=== PATIENT | male | born 1935 | race Caucasian/White ===

== ENCOUNTER 2020-06-19 16:56 | Inpatient (IN) | payer MEDICARE, SELFPAY ==
[2020-06-19 17:16] VITALS: BP 157/57; PULSE 68; RESP 16; TEMP 36.9; O2SAT 97; BMI 29.6
--- NOTE | 2020-06-19 19:08 | XR_ITS ---
EXAMINATION: XR CHEST CLINICAL INFORMATION: Shortness of breath COMPARISON: Chest x-ray 08/02/2019 TECHNIQUE: Frontal view of the chest was obtained. FINDINGS: Cardiac silhouette is normal in size. Dual-lead pacemaker is incompletely visualized. Atherosclerotic disease of the aortic arch. Lungs are well aerated. No lobar consolidation. No pleural effusion or pneumothorax. XR/XR chest 1V IMPRESSION: No acute pulmonary pathology.
--- NOTE | 2020-06-19 19:08 | ECG_ITS ---
Test Reason : CHEST DISC Blood Pressure : / mmHG Vent. Rate : 061 BPM Atrial Rate : 061 BPM P-R Int : 000 ms QRS Dur : 212 ms QT Int : 512 ms P-R-T Axes : 000 -67 107 degrees QTc Int : 515 ms Atrial-paced rhythm Left anterior fascicular block Right bundle branch block Voltage criteria for left ventricular hypertrophy Abnormal ECG When compared with ECG of 01-AUG-2019 09:33, Electronic atrial pacemaker has replaced Sinus rhythm Right bundle branch block is now Present Referred By: Niesha Ribera Electronically Signed By:DENNIS BARROW MD
[2020-06-19 20:00] VITALS: O2SAT 95
[2020-06-19 20:06] LABS: MANUAL DIFF FLAG NO
[2020-06-19 20:12] LABS: Basophils Absolute Auto 0.1 X10*3/uL (0.0-0.2); Basophils Percent Auto 0.7 % (0-2); Eosinophils Absolute Auto 0.6 X10*3/uL (0.0-0.4); Eosinophils Percent Auto 7.1 % (0-4); Hematocrit 41.2 % (42-52); Hemoglobin 13.3 g/dl (14.0-18.0); Imm Gran Abs Auto 0.02 X10*3/uL (0.00-0.03); Imm Gran Pct Auto 0.2 % (0.0-0.4); Lymphocytes Absolute Auto 1.8 X10*3/uL (1.2-4.9); Lymphocytes Percent Auto 21.9 % (20-40); Mean Corpuscular HGB Conc 32.3 g/dl (31.0-36.0); Mean Corpuscular Hemoglobin 30.2 pg (27.0-33.0); Mean Corpuscular Volume 93.6 fL (80-98); Monocytes Absolute Auto 0.9 X10*3/uL (0.1-1.2); Monocytes Percent Auto 11.5 % (2-11); Neutrophils Absolute Auto 4.8 X10*3/uL (2.0-8.3); Neutrophils Percent Auto 58.6 % (45-73); Platelet Count 156 X10*3/uL (160-400); Red Cell Distribution Width 13.2 % (11.0-16.0); White Blood Count 8.1 X10*3/uL (4.8-10.8)
[2020-06-19 20:36] LABS: Anion Gap 13 (12-20); Blood Urea Nitrogen 28 mg/dL (9-16); Calcium 8.7 mg/dL (8.4-10.2); Carbon Dioxide 25 mmol/L (22-29); Chloride 107 mmol/L (96-108); Creatinine Clr Calc Pharmacy 60.7; Estimated Glomerular Filt Rate > 60; Glucose Random 84 mg/dL (60-115); Potassium 4.3 mmol/l (3.3-5.1); Sodium 141 mmol/L (135-145)
[2020-06-19 20:49] LABS: B Type Natriuretic Peptide 943 pg/mL (<100); Troponin-I High Sensitivity 39.5 ng/L (<3.5-35.0)
[2020-06-19 21:22] LABS: Lactic Acid 1.2 mmol/L (0.5-2.0)
[2020-06-19] MEDS: Furosemide 40 MG/4 ML VIAL IVPUSH (22:20)
[2020-06-19 22:22] VITALS: BP 148/56; PULSE 62; RESP 18; O2SAT 97
--- NOTE | 2020-06-19 22:58 | PC.NURSE ---
Patient ambulated with o2sat probe. o2 sat never dipped below 95% yet patient did seem to become SOB and unable to speak complete sentences at end of ambulation trial. MD escalera
--- NOTE | 2020-06-19 23:38 | ED.SOB ---
HPI - SOB/Dyspnea General Chief Complaint: Dyspnea Stated Complaint: SOB Time Seen by Provider: 06/19/20 18:56 Source: patient Mode of arrival: ambulatory Limitations: no limitations History of Present Illness HPI Narrative: Patient came to emergency room complaining of shortness of breath with exertion. Patient states it has been going on for 1 week. Patient denies any chest pain. Patient states he has had mild cough but thinks it is unrelated to his shortness of breath. Patient denies any recent travel, no exposure to COVID-19 positive people, no vomiting or diarrhea. No fever MD elicited complaint: shortness of breath Related Data Home Medications Medication Instructions Recorded Confirmed amlodipine 1 tab PO DAILY 06/19/20 06/19/20 apixaban [Eliquis] 1 tab PO BID 06/19/20 06/19/20 aspirin 1 tab PO DAILY 06/19/20 06/19/20 atorvastatin 1 tab PO DAILY 06/19/20 06/19/20 carvedilol 1 tab PO BID 06/19/20 06/19/20 levothyroxine 1 tab PO DAILY 06/19/20 06/19/20 lisinopril 1 tab PO DAILY 06/19/20 06/19/20 tamsulosin 1 cap PO BID 06/19/20 06/19/20 Allergies Allergy/AdvReac Type Severity Reaction Status Date / Time No Known Allergies Allergy Unknown UNKNOWN Unverified 04/19/20 15:55 [NO KNOWN ALLERGIES] Review of Systems Review of Systems: Constitutional : No Weight loss, No Fever, No Chills, No Night Sweats, No Fatigue, No Malaise ENT/Mouth : No Hearing loss, No Ear Pain, No Nasal Congestion, No Sinus Pain, No Hoarseness, No sore throat, No Rhinorrhea, No Swallowing Difficulty Eyes: No Eye Pain, No Swelling, No Redness, No Foreign Body, No Discharge, No Vision Changes Cardiovascular : No Chest Pain, patient complaining of shortness of breath with exertion, orthopnea, mild lower extremity edema Respiratory : Patient complaining of occasional cough, mild Wheezing, No Smoke Exposure, No Dyspnea Gastrointestinal : No Nausea, No Vomiting, No Diarrhea, No Constipation, No abdominal Pain, No Hematochezia, No Melena Genitourinary : no irregular bleeding, No Dysuria, No Urinary Frequency, No Hematuria, No Urinary Incontinence, No Urgency, No Flank Pain, No Urinary Flow Changes, No Hesitancy Musculoskeletal : No joint pain, No Myalgias, No Joint Swelling Skin : No Skin Lesions, No rash Neuro : No Weakness, No Numbness, No Paresthesias, No Loss of Consciousness, No Dizziness, No Headache Psych : No Anxiety/Panic, No Depression, No SI/HI/AH/VH, No Social Issues, Heme/Lymph: No Bruising, No Bleeding,No Lymphadenopathy Endocrine : No Polyuria, No Polydipsia, No Temperature Intolerance [facility] Past Medical History Medical History Aortic stenosis CHF (congestive heart failure) High blood cholesterol HTN (hypertension) Myocardial infarct Pacemaker Surgical History (Updated 06/19/20 @ 20:13 by Anna العراقي) H/O heart artery stent Social History Social History Alcohol intake: never Smoking Status: Former smoker Use of substances other than those prescribed or required for medical reasons: No Advance Directives: No Advance Directives Information Provided: Yes Physical Exam Vital Signs: Vital Signs: Last Vital Signs Temp 98.4 F 06/19/20 17:16 Pulse 62 06/19/20 22:22 Resp 18 06/19/20 22:22 BP 148/56 H 06/19/20 22:22 Pulse Ox 97 06/19/20 22:22 Body Mass Index 29.6 Appearance: Alert. Oriented X3. No acute distress. Eyes: Pupils equal, round and reactive to light. ENT: Pharynx normal. Neck: Normal inspection. Neck supple. No lymph nodes noted. No crepitus CVS: Normal heart rate and rhythm. Pulses normal. Normal S1 and S2 Respiratory: Decreased breath sounds bilateral, mild occasional wheezing , seems more like cardiac wheezing Abdomen: Soft and nontender. No rigidity. No distention. good BS x4 Skin: Skin warm and dry. Normal skin color. Normal skin turgor. Extremities: No lower extremity edema. No lower extremity edema. No Lacerations. No Rash Neuro: Oriented X 3. No motor deficit. No sensory deficit. Moving all extermities. No slurred speech. Course Course Course Narrative: Patient's oxygen saturation remains above 90, mostly in the mid 90s. However, the patient walks the bathroom although his oxygen remains stable, he becomes very short of breath and is hard for him to recover presence of breath. I discussed the patient with our hospitalist, patient being admitted. Patient agrees with plan. MDM - SOB/Dyspnea Lab Data Result diagrams: 06/19/20 19:58 06/19/20 19:57 Labs: Lab Results 06/19/20 06/19/20 06/19/20 Range/Units 19:57 19:57 19:57 WBC (4.8-10.8) X10*3/uL RBC (4.60-5.80) X10*6/uL Hgb (14.0-18.0) g/dl Hct (42-52) % MCV (80-98) fL MCH (27.0-33.0) pg MCHC (31.0-36.0) g/dl RDW (11.0-16.0) % Plt Count (160-400) X10*3/uL MPV (9.4-12.4) fL Immature Gran % (Auto) (0.0-0.4) % Neut % (Auto) (45-73) % Lymph % (Auto) (20-40) % [place] % (Auto) (2-11) % Eos % (Auto) (0-4) % Baso % (Auto) (0-2) % Lymph # (Auto) (1.2-4.9) X10*3/uL [place] # (Auto) (0.1-1.2) X10*3/uL Eos # (Auto) (0.0-0.4) X10*3/uL Baso # (Auto) (0.0-0.2) X10*3/uL Abs Immat Gran (auto) (0.00-0.03) X10*3/uL Absolute Neuts (auto) (2.0-8.3) X10*3/uL Absolute Nucleated RBC (0.0-0.012) X10*3/uL Nucleated RBC % (auto) (0.0-0.2) /100WBC Sodium 141 (135-145) mmol/L Potassium 4.3 (3.3-5.1) mmol/l Chloride 107 (96-108) mmol/L Carbon Dioxide 25 (22-29) mmol/L Anion Gap 13 (12-20) BUN 28 H (9-16) mg/dL Creatinine 0.93 (0.5-1.4) mg/dL Estim Creat Clear Calc 60.7 Estimated GFR > 60 Random Glucose 84 (60-115) mg/dL Lactic Acid Cancelled Calcium 8.7 (8.4-10.2) mg/dL Troponin I High Sens 39.5 H (<3.5-35.0) ng/L B-Natriuretic Peptide 943 H (<100) pg/mL 06/19/20 06/19/20 Range/Units 19:58 20:53 WBC 8.1 (4.8-10.8) X10*3/uL RBC 4.40 L (4.60-5.80) X10*6/uL Hgb 13.3 L (14.0-18.0) g/dl Hct 41.2 L (42-52) % MCV 93.6 (80-98) fL MCH 30.2 (27.0-33.0) pg MCHC 32.3 (31.0-36.0) g/dl RDW 13.2 (11.0-16.0) % Plt Count 156 L (160-400) X10*3/uL MPV 12.0 (9.4-12.4) fL Immature Gran % (Auto) 0.2 (0.0-0.4) % Neut % (Auto) 58.6 (45-73) % Lymph % (Auto) 21.9 (20-40) % [place] % (Auto) 11.5 H (2-11) % Eos % (Auto) 7.1 H (0-4) % Baso % (Auto) 0.7 (0-2) % Lymph # (Auto) 1.8 (1.2-4.9) X10*3/uL [place] # (Auto) 0.9 (0.1-1.2) X10*3/uL Eos # (Auto) 0.6 H (0.0-0.4) X10*3/uL Baso # (Auto) 0.1 (0.0-0.2) X10*3/uL Abs Immat Gran (auto) 0.02 (0.00-0.03) X10*3/uL Absolute Neuts (auto) 4.8 (2.0-8.3) X10*3/uL Absolute Nucleated RBC 0.000 (0.0-0.012) X10*3/uL Nucleated RBC % (auto) 0.0 (0.0-0.2) /100WBC Sodium (135-145) mmol/L Potassium (3.3-5.1) mmol/l Chloride (96-108) mmol/L Carbon Dioxide (22-29) mmol/L Anion Gap (12-20) BUN (9-16) mg/dL Creatinine (0.5-1.4) mg/dL Estim Creat Clear Calc Estimated GFR Random Glucose (60-115) mg/dL Lactic Acid 1.2 Calcium (8.4-10.2) mg/dL Troponin I High Sens (<3.5-35.0) ng/L B-Natriuretic Peptide (<100) pg/mL ECG Data Attestation: I personally reviewed and interpreted this ECG as follows: (Atrial paced rhythm, heart rate 61, QTC 515, ) Discharge Plan Discharge Clinical Impression: Congestive heart failure Qualifiers: Heart failure type: unspecified Heart failure chronicity: unspecified Qualified Code(s): I50.9 - Heart failure, unspecified Patient Disposition: Admitted As Inpatient
[2020-06-20] VITALS (8 sets, daily range): BP systolic 110–162; BP diastolic 49–81; PULSE 60–81; RESP 18–20; TEMP 36.4–36.7; O2SAT 94–97; BMI 27.3
[2020-06-20 00:40] LABS: COVID-19 Test Negative (Negative)
--- NOTE | 2020-06-20 00:49 | P.HPHOSP_ITS ---
History of Present Illness Date of Service: 06/20/20 Chief Complaint: SOB 85 y/o male with PMHX of HTN, HLP, Hypothyroidism and BPH who presented from home due to SOB. Per history provided by the patient, for the past 6 days has been having worsening difficulty breathing which is present more during exertion. Patient reports that now is unable to even walk for a short distance or even go up the stairs without feeling really fatigue. Patient denies any orthopnea or PND. Denies any chest pain, nausea, vomiting, diarrhea, cough or fever. On presentation to the ED BP is noted to be running elevated, Labs showing BNP of ~900, Initial troponin of 39.5, CXR clear, EKG shows evidence of inferior wall DE in the past and RBBB, no evidence of any acute changes. One dose of lasix given IV per ED and decision for admission given. PMHX: HTN, CAD s/p stent placement, second degree AV block s/p PPM,Hypothyroidism, BPH PSx: PCI, PPM Toxic habits: Denies smoking, alcohol abuse or drug abuse Review of Systems Cardiovascular: Cardiovascular: Reports dyspnea Respiratory: Respiratory: Reports dyspnea [facility] Medical History Aortic stenosis CHF (congestive heart failure) High blood cholesterol HTN (hypertension) Myocardial infarct Pacemaker Functional capacity: independent ambulation Surgical History H/O heart artery stent Social History Alcohol intake: never Smoking Status: Former smoker Use of substances other than those prescribed or required for medical reasons: No Advance Directives: No Advance Directives Information Provided: Yes Meds Allergies Allergy/AdvReac Type Severity Reaction Status Date / Time No Known Allergies Allergy Unknown UNKNOWN Unverified 04/19/20 15:55 [NO KNOWN ALLERGIES] Home Medications Medication Instructions Recorded Confirmed Type amlodipine 1 tab PO DAILY 06/19/20 06/19/20 History apixaban [Eliquis] 1 tab PO BID 06/19/20 06/19/20 History aspirin 1 tab PO DAILY 06/19/20 06/19/20 History atorvastatin 1 tab PO DAILY 06/19/20 06/19/20 History carvedilol 1 tab PO BID 06/19/20 06/19/20 History levothyroxine 1 tab PO DAILY 06/19/20 06/19/20 History lisinopril 1 tab PO DAILY 06/19/20 06/19/20 History tamsulosin 1 cap PO BID 06/19/20 06/19/20 History Physical Exam Vital Signs and Narrative: Vital Signs: Last Vital Signs Temp 98.4 F 06/19/20 17:16 Pulse 60 06/20/20 00:44 Resp 18 06/20/20 00:44 BP 162/57 H 06/20/20 00:44 Pulse Ox 95 06/20/20 00:44 Body Mass Index 29.6 Const: General: cooperative, comfortable and no acute distress Orientation/consciousness: oriented to person, oriented to place and oriented to time HENMT: Head: Yes normal to inspection Eyes: General: appearance normal, both eyes and all related structures Neck: Yes normal visual inspection Chest: Chest palpation & inspection: normal inspection of the chest Resp: Effort & Inspection: normal respiratory effort Auscultation: clear to auscultation bilaterally Cardio: Jugular venous distension: no JVD Rate: regular rate Rhythm: regular rhythm Heart sounds: S1 normal heart sound present and S2 normal heart sound present GI: Inspection: Yes normal to inspection Skin: General skin exam: no rashes or lesions noted Neuro: General: oriented to person, oriented to place and oriented to time Cognition (Neuro): normal cognition Motor exam (neuro): 5/5 motor strength present throughout Extrem: General: Yes other (pitting edema +1) Results Labs CBC and Chem 7: 06/19/20 19:58 06/19/20 19:57 Labs: Laboratory Results - last 24 hr 06/19/20 06/19/20 06/19/20 19:57 19:57 19:57 MCV MCH MCHC RDW Plt Count MPV Immature Gran % (Auto) Neut % (Auto) Lymph % (Auto) [place] % (Auto) Eos % (Auto) Baso % (Auto) Lymph # (Auto) [place] # (Auto) Eos # (Auto) Baso # (Auto) Abs Immat Gran (auto) Absolute Neuts (auto) Absolute Nucleated RBC Nucleated RBC % (auto) Anion Gap 13 Estim Creat Clear Calc 60.7 Estimated GFR > 60 Random Glucose 84 Lactic Acid Cancelled Calcium 8.7 Troponin I High Sens 39.5 H B-Natriuretic Peptide 943 H COVID-19 (SARAHI) COVID-19 Clin Com 06/19/20 06/19/20 06/20/20 19:58 20:53 00:05 MCV 93.6 MCH 30.2 MCHC 32.3 RDW 13.2 Plt Count 156 L MPV 12.0 Immature Gran % (Auto) 0.2 Neut % (Auto) 58.6 Lymph % (Auto) 21.9 [place] % (Auto) 11.5 H Eos % (Auto) 7.1 H Baso % (Auto) 0.7 Lymph # (Auto) 1.8 [place] # (Auto) 0.9 Eos # (Auto) 0.6 H Baso # (Auto) 0.1 Abs Immat Gran (auto) 0.02 Absolute Neuts (auto) 4.8 Absolute Nucleated RBC 0.000 Nucleated RBC % (auto) 0.0 Anion Gap Estim Creat Clear Calc Estimated GFR Random Glucose Lactic Acid 1.2 Calcium Troponin I High Sens B-Natriuretic Peptide COVID-19 (SARAHI) Negative COVID-19 Clin Com See Note Imaging Radiologist's Impressions: Impressions Chest X-Ray 06/19/20 19:08 IMPRESSION: No acute pulmonary pathology. Assessment and Plan (1) CHF exacerbation: Status: Acute start with lasix 20 mg IV BID for now tele monitor follow up 2D echo in the am daily weights fluid restriction monitor I and O's Cardiology consult in the am (2) HTN (hypertension): Status: Acute continue with home BP meds continue with aspirin home dose and eliquis (3) High blood cholesterol: Status: Acute continue with statin home dose (4) Hypothyroidism: Status: Acute continue with levothyroxine home dose (5) BPH (benign prostatic hyperplasia): Status: Acute continue with flomax home dose
[2020-06-20] MEDS: Levothyroxine Sodium 100 MCG TABLET PO (05:35)
[2020-06-20 06:26] LABS: MANUAL DIFF FLAG NO
[2020-06-20 06:47] LABS: Basophils Absolute Auto 0.1 X10*3/uL (0.0-0.2); Basophils Percent Auto 0.7 % (0-2); Eosinophils Absolute Auto 0.6 X10*3/uL (0.0-0.4); Eosinophils Percent Auto 7.6 % (0-4); Hematocrit 40.3 % (42-52); Hemoglobin 13.4 g/dl (14.0-18.0); Imm Gran Abs Auto 0.02 X10*3/uL (0.00-0.03); Imm Gran Pct Auto 0.3 % (0.0-0.4); Lymphocytes Absolute Auto 1.5 X10*3/uL (1.2-4.9); Lymphocytes Percent Auto 19.9 % (20-40); Mean Corpuscular HGB Conc 33.3 g/dl (31.0-36.0); Mean Corpuscular Hemoglobin 30.8 pg (27.0-33.0); Mean Corpuscular Volume 92.6 fL (80-98); Mean Platelet Volume 12.5 fL (9.4-12.4); Neutrophils Absolute Auto 4.5 X10*3/uL (2.0-8.3); Neutrophils Percent Auto 58.5 % (45-73); Platelet Count 161 X10*3/uL (160-400); Red Blood Count 4.35 X10*6/uL (4.60-5.80); Red Cell Distribution Width 13.1 % (11.0-16.0); White Blood Count 7.6 X10*3/uL (4.8-10.8)
[2020-06-20 07:09] LABS: Anion Gap 16 (12-20); Blood Urea Nitrogen 26 mg/dL (9-16); Calcium 8.6 mg/dL (8.4-10.2); Carbon Dioxide 25 mmol/L (22-29); Chloride 104 mmol/L (96-108); Creatinine Clr Calc Pharmacy 46.7; Estimated Glomerular Filt Rate > 60; Glucose Random 83 mg/dL (60-115); Potassium 3.9 mmol/l (3.3-5.1); Sodium 141 mmol/L (135-145)
[2020-06-20] MEDS: Furosemide 20 MG/2 ML VIAL IVPUSH ×2 (08:19→20:24)
[2020-06-20] MEDS: Aspirin Enteric Coated 81 MG TABLET.DR PO (08:20)
[2020-06-20] MEDS: 0.9 % Sodium Chloride Flush 3 ML SYRINGE IVFLUSH ×3 (08:20→20:24)
[2020-06-20] MEDS: lisinopriL 20 MG TABLET PO (08:20)
[2020-06-20] MEDS: Atorvastatin Calcium 80 MG TABLET PO (08:20)
[2020-06-20] MEDS: Apixaban 5 MG TABLET PO ×2 (08:20→20:24)
[2020-06-20] MEDS: Tamsulosin HCL 0.4 MG CAPSULE PO ×2 (08:21→20:24)
[2020-06-20] MEDS: carvediloL 6.25 MG TABLET PO ×2 (08:21→16:15)
[2020-06-20] MEDS: amLODIPine Besylate 5 MG TABLET PO (08:21)
--- NOTE | 2020-06-20 08:42 | MHC.CM.PN ---
CM met with Patient. 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 Patient's goal is to return home and resume MOWs and CM has initiated and will follow for dc planning. [place] addressed with Patient and the original has been given to him and a copy has been placed on the chart. PCP is Dr. Nirali Boo and Patient is not interested in filling out a HCP. Patient's is LTC @ [facility], in [place]. Patient also visits [facility] [employer] across the street from where he lives.
--- NOTE | 2020-06-20 10:16 | P.CONCA_ITS ---
History of Present Illness History of Present Illness Date of Consult: June 20, 2020 Chief complaint: CHF exacerbation Narrative: This is a cardiology consultation regarding shortness of breath. This is a patient of Dr. Mast. Last appointment was in March of this year. At that time based on the notes, he was doing okay without any specific cardiac symptoms. He has had chronic exertion shortness of breath which was apparently stable at that time. He has a history of coronary disease and multiple PCI as well as paroxysmal atrial flutter and a pacemaker. He also has a history of aortic stenosis but not severe. Current admission is for increasing shortness of breath over the last few days. He states that even walking a very short distance like to just a few feet was making him short of breath. No clear anginal-type symptoms. No palpitations or dizzy spells or syncopal episodes. He was then subsequently admitted for further care. Review of Systems Review of Systems: Cardiac- positive for shortness of breath; negative angina; negative for palpitations or dizzy spells or syncopal episodes; Yes all other systems are reviewed and are negative [facility] Past Medical History Medical History (Updated 06/20/20 @ 10:25 by Pedro Alexander MD) Acute on chronic diastolic (congestive) heart failure Aortic stenosis Atherosclerotic cardiovascular disease CHF (congestive heart failure) High blood cholesterol HTN (hypertension) Myocardial infarct Non-rheumatic aortic regurgitation Non-rheumatic aortic stenosis Pacemaker Paroxysmal atrial flutter Functional capacity: independent ambulation Family History Pertinent family history: No significant family history pertinent to this admission. Surgical History Surgical History H/O heart artery stent Social History Social History Alcohol intake: never Smoking Status: Former smoker Use of substances other than those prescribed or required for medical reasons: No Advance Directives: No Advance Directives Information Provided: Yes service: Yes ([employer]) Current occupational status: retired Meds Allergies Allergy/AdvReac Type Severity Reaction Status Date / Time No Known Allergies Allergy Unknown UNKNOWN Verified 06/20/20 03:53 [NO KNOWN ALLERGIES] Home Medications Medication Instructions Recorded Confirmed Type amlodipine 1 tab PO DAILY 06/19/20 06/19/20 History apixaban [Eliquis] 1 tab PO BID 06/19/20 06/19/20 History aspirin 1 tab PO DAILY 06/19/20 06/19/20 History atorvastatin 1 tab PO DAILY 06/19/20 06/19/20 History carvedilol 1 tab PO BID 06/19/20 06/19/20 History levothyroxine 1 tab PO DAILY 06/19/20 06/19/20 History lisinopril 1 tab PO DAILY 06/19/20 06/19/20 History tamsulosin 1 cap PO BID 06/19/20 06/19/20 History Physical Exam Vital Signs: Vital Signs: Last Vital Signs Temp 97.7 F 06/20/20 07:49 Pulse 65 06/20/20 07:49 Resp 20 06/20/20 07:49 BP 111/55 L 06/20/20 07:49 Pulse Ox 95 06/20/20 07:49 Body Mass Index 27.3 Comfortable, no distress No pallor, icterus or cyanosis HEENT -unremarkable JVD- normal Cardiac- normal heart sounds, 3/6 LYN aortic area, no gallops or rubs Respiratory-scattered rhonchi Abdomen- soft, nontender Neuro- alert and oriented Lower extremities- 1+ edema, warm well perfused Results Labs and Meds Result diagrams: 06/20/20 05:29 06/20/20 05:29 Lab results: Laboratory Results - last 24 hr 06/19/20 06/19/20 06/19/20 19:57 19:57 19:57 WBC RBC Hgb Hct MCV MCH MCHC RDW Plt Count MPV Immature Gran % (Auto) Neut % (Auto) Lymph % (Auto) [place] % (Auto) Eos % (Auto) Baso % (Auto) Lymph # (Auto) [place] # (Auto) Eos # (Auto) Baso # (Auto) Abs Immat Gran (auto) Absolute Neuts (auto) Absolute Nucleated RBC Nucleated RBC % (auto) Sodium 141 Potassium 4.3 Chloride 107 Carbon Dioxide 25 Anion Gap 13 BUN 28 H Creatinine 0.93 Estim Creat Clear Calc 60.7 Estimated GFR > 60 Random Glucose 84 Lactic Acid Cancelled Calcium 8.7 Troponin I High Sens 39.5 H B-Natriuretic Peptide 943 H COVID-19 (SARAHI) COVID-19 Clin Com 06/19/20 06/19/20 06/20/20 19:58 20:53 00:05 WBC 8.1 RBC 4.40 L Hgb 13.3 L Hct 41.2 L MCV 93.6 MCH 30.2 MCHC 32.3 RDW 13.2 Plt Count 156 L MPV 12.0 Immature Gran % (Auto) 0.2 Neut % (Auto) 58.6 Lymph % (Auto) 21.9 [place] % (Auto) 11.5 H Eos % (Auto) 7.1 H Baso % (Auto) 0.7 Lymph # (Auto) 1.8 [place] # (Auto) 0.9 Eos # (Auto) 0.6 H Baso # (Auto) 0.1 Abs Immat Gran (auto) 0.02 Absolute Neuts (auto) 4.8 Absolute Nucleated RBC 0.000 Nucleated RBC % (auto) 0.0 Sodium Potassium Chloride Carbon Dioxide Anion Gap BUN Creatinine Estim Creat Clear Calc Estimated GFR Random Glucose Lactic Acid 1.2 Calcium Troponin I High Sens B-Natriuretic Peptide COVID-19 (SARAHI) Negative COVID-19 Clin Com See Note 06/20/20 06/20/20 05:29 05:29 WBC 7.6 RBC 4.35 L Hgb 13.4 L Hct 40.3 L MCV 92.6 MCH 30.8 MCHC 33.3 RDW 13.1 Plt Count 161 MPV 12.5 H Immature Gran % (Auto) 0.3 Neut % (Auto) 58.5 Lymph % (Auto) 19.9 L [place] % (Auto) 13.0 H Eos % (Auto) 7.6 H Baso % (Auto) 0.7 Lymph # (Auto) 1.5 [place] # (Auto) 1.0 Eos # (Auto) 0.6 H Baso # (Auto) 0.1 Abs Immat Gran (auto) 0.02 Absolute Neuts (auto) 4.5 Absolute Nucleated RBC 0.000 Nucleated RBC % (auto) 0.0 Sodium 141 Potassium 3.9 Chloride 104 Carbon Dioxide 25 Anion Gap 16 BUN 26 H Creatinine 1.08 Estim Creat Clear Calc 46.7 Estimated GFR > 60 Random Glucose 83 Lactic Acid Calcium 8.6 Troponin I High Sens B-Natriuretic Peptide COVID-19 (SARAHI) COVID-19 Clin Com Assessment and Plan (1) Acute on chronic diastolic (congestive) heart failure: Status: Acute (2) Non-rheumatic aortic stenosis: Status: Acute (3) Non-rheumatic aortic regurgitation: Status: Acute (4) Atherosclerotic cardiovascular disease: Status: Acute (5) Paroxysmal atrial flutter: Status: Acute Clinically, he appears volume overloaded. EKG shows dual-chamber pacing at 62/Min. High sensitivity troponin slightly elevated. Cardiac BNP is clearly elevated. We can treat him for acute on chronic diastolic CHF. Last LVEF from 2019 at 45-50%.; mild aortic stenosis and moderate aortic regurgitation. We can repeat an echocardiogram. Continue IV diuretics. Will follow up with you. Procedures Abscess I/D Date of Service: 06/20/20
--- NOTE | 2020-06-20 10:17 | ECG_ITS ---
Test Reason : REPEAT Blood Pressure : / mmHG Vent. Rate : 062 BPM Atrial Rate : 062 BPM P-R Int : 240 ms QRS Dur : 208 ms QT Int : 506 ms P-R-T Axes : 000 -71 103 degrees QTc Int : 513 ms Atrial-paced rhythm with prolonged AV conduction Left anterior fascicular block Right bundle branch block Left ventricular hypertrophy with repolarization abnormality Abnormal ECG When compared with ECG of 19-JUN-2020 20:05, No significant change was found Referred By: Francine Ybarra Electronically Signed By:DENNIS BARROW MD
[2020-06-20 12:14] LABS: Troponin-I High Sensitivity 46.3 ng/L (<3.5-35.0)
--- NOTE | 2020-06-20 12:33 | HO.PM.IMPN ---
Subjective Subjective Date of Service: 06/20/20 Interval History: Admitted for SOB/CHF Breathing improved. Episode of dizziness/feeling woozy this am, transient and resolved. Denied SOB, chest pain. Review of Systems Review of Systems: Yes all other systems are reviewed and are negative Constitutional Constitutional: Denies chills and Denies fever(s) Cardiovascular Cardiovascular: Denies chest pain Respiratory Respiratory: Denies cough Gastrointestinal Gastrointestinal: Denies abdominal pain Physical Exam Vital Signs: Vital Signs: Last Vital Signs Temp 97.6 F 06/20/20 10:29 Pulse 64 06/20/20 11:06 Resp 18 06/20/20 11:06 BP 112/53 L 06/20/20 11:06 Pulse Ox 96 06/20/20 11:06 Body Mass Index 27.3 Const: Nutritional Appearance: well nourished Orientation/consciousness: patient oriented x3 HENMT: Head: Yes normocephalic and Yes atraumatic Eyes: Sclerae: sclerae normal Chest: Chest palpation & inspection: normal inspection of the chest Resp: Effort & Inspection: normal respiratory effort and no respiratory distress Auscultation: clear to auscultation bilaterally Cardio: Rate: regular rate Rhythm: regular rhythm Heart sounds: Murmur heart sound present GI: Palpation (GI): Soft to palpation and nontender Skin: General skin exam: no rashes or lesions noted Neuro: General: patient oriented x3 Cranial nerves: Yes CN's II-XII intact bilaterally and Yes Bilaterally intact EOM present Extrem: Other: trace edema b/l Objective Data Current Medications Generic Name Dose Route Start Last Admin Trade Name Freq PRN Reason Stop Dose Admin Amlodipine Besylate 5 mg 06/20/20 09:00 06/20/20 08:21 Amlodipine Besylate 5 Mg Tablet PO 5 mg DAILY ABELARDO Administration Protocol Apixaban 5 mg 06/20/20 09:00 06/20/20 08:20 Apixaban 5 Mg Tablet PO 5 mg BID ABELARDO Administration Aspirin 81 mg 06/20/20 09:00 06/20/20 08:20 Aspirin Enteric Coated 81 Mg Tablet.Dr PO 81 mg DAILY ABELARDO Administration Atorvastatin Calcium 80 mg 06/20/20 09:00 06/20/20 08:20 Atorvastatin Calcium 80 Mg Tablet PO 80 mg DAILY ABELARDO Administration Carvedilol 6.25 mg 06/20/20 08:00 06/20/20 08:21 Carvedilol 6.25 Mg Tablet PO 6.25 mg BIDWM ABELARDO Administration Protocol Furosemide 20 mg 06/20/20 09:00 06/20/20 08:19 Furosemide 20 Mg/2 Ml Vial IVPUSH 20 mg BID ABELARDO Administration Protocol Levothyroxine Sodium 100 mcg 06/20/20 06:00 06/20/20 05:35 Levothyroxine Sodium 100 Mcg Tablet PO 100 mcg DAILY@0600 ABELARDO Administration Lisinopril 20 mg 06/20/20 09:00 06/20/20 08:20 Lisinopril 20 Mg Tablet PO 20 mg DAILY ABELARDO Administration Protocol Pharmacy Consult 1 each 06/19/20 23:36 Consult Rx Perform Med Rec MISCELLANE ONCE PRN Consult order Sodium Chloride 3 ml 06/20/20 08:00 06/20/20 08:20 0.9 % Sodium Chloride Flush 3 Ml Syringe IVFLUSH 3 ml QSHIFT ABELARDO Administration Tamsulosin HCl 0.4 mg 06/20/20 09:00 06/20/20 08:21 Tamsulosin Hcl 0.4 Mg Capsule PO 0.4 mg BID ABELARDO Administration Labs CBC & Chem 7: 06/20/20 05:29 06/20/20 05:29 Assessment and Plan (1) Paroxysmal atrial flutter: Status: Acute (2) CHF exacerbation: Status: Acute (3) Hypothyroidism: Status: Acute (4) BPH (benign prostatic hyperplasia): Status: Acute Assessment and Plan: this is an 85-year-old male with a history of CHF, CAD, PAF on Elquis, hypertension, dyslipidemia, hypothyroidism, BPH, her block status post pacemaker who presents with a shortness of breath found to have CHF acute on chronic CHF. SOB improving Continue IV diuresis (not on home diuretics?) Last EF from 2019 45-50%, repeat ECHO pending Cardiology following PAF HR controlled, Continue BB AC with Eliquis hypertension BP controlled Continue Lisinopril, coreg, Norvasc hyperlipidemia Continue statin hypothyroidism Continue hypothyroidism BPH Continue Flomax DVT ppx - eliquis this case is discussed with Dr. Hidalgo
--- NOTE | 2020-06-20 15:30 | PM.EVENT ---
Event Note Date of Service: 06/20/20 Event Note: Addendum mid level progress note I saw and examined the patient and participated in the phillips portion of the E/M service. I agree with the evaluated and management as documented by PA in progress note unless otherwise stated. Exam: mild leg edema, no rales. Patient has acute heart failure, in setting of PAF. Continue management as outlined in progress note including IV diuretics, echo, cardiology consult. O/w I agree with assesment and plan as outlined in progress note by Louisa Ybarra
[2020-06-21] VITALS (8 sets, daily range): BP systolic 111–132; BP diastolic 52–60; PULSE 60–87; RESP 18–20; TEMP 36–36.6; O2SAT 92–96
--- NOTE | 2020-06-21 02:53 | CA_ITS ---
Transthoracic Echocardiogram Patient (Last, First, Middle): Tato Duke, Gender: Male Date of : 1935 Age: 85 Procedure Date: 06/21/2020 Procedure Type: Transthoracic Echocardiogram Location[place] [facility] [place]: 170.18 cm Weight: 78.93 kg BSA: 1.91 m2 Heart Rate: bpm BP: 111 / 53 mmHg Floor Waxer: DSHerman Referring MD: Yusef Nichols MD Symptoms: CHF Study Quality: Fair ECG Rhythm: Undetermined Conclusions: - The left ventricular systolic function is mild to moderately decreased. The visually estimated ejection fraction is between 40-45%. - There is moderate calcification of the aortic valve. There is mild to moderate aortic valve stenosis. - There is mild mitral valve regurgitation. Findings Left Ventricle Normal left ventricular cavity size. There is mildly increased left ventricular wall thickness. The left ventricular systolic function is mild to moderately decreased. The visually estimated ejection fraction is between 40-45%. There is mild global hypokinesis. E/E prime ratio is between 8 and 15 consistent with indeterminate filling pressures. Evidence suggests grade I (mild) diastolic dysfunction. Right Ventricle Normal right ventricular cavity size and systolic function. Atria The left atrium is normal in size. The right atrium is normal in size. Aortic Valve There is moderate calcification of the aortic valve. There is mild to moderate aortic valve stenosis. The peak aortic velocity is 2.67 m/s with a calculated peak gradient of 29 mmHg. The mean gradient is 17 mmHg. The aortic valve area is 1.50 cm2. There is mild aortic valve regurgitation. Mitral Valve There is mild mitral annular calcification. There is mild mitral valve regurgitation. There is no mitral valve stenosis. Pulmonic Valve The pulmonic valve was not well visualized. Tricuspid Valve Normal tricuspid valve structure. There is trace tricuspid valve regurgitation. The pulmonary artery systolic pressure is normal. Great Vessels The aortic annulus, sinuses of valsalva, and asc aorta are normal in size. Venous The inferior vena cava is normal in size and collapses greater than 50% with inspiration. Pericardium/Pleural There is no evidence of pericardial effusion. Prior Study Comparison No significant change compared to prior study dated: 06/01/2019. Measurements 2D Linear Measurements IVSd: 1.40 0.6-0.9/0.6-1.0 cm LVIDd: 5.97 3.9-5.3/4.2-5.9 cm LVIDd Index: 3.13 2.4-3.2/2.2-3.1 cm/m2 LVIDs: 4.48 2.0-3.6 cm LVPWd: 1.16 0.7-1.1 cm Ao Root: 2.60 2.1-3.5 cm LA Diam: 4.20 2.7-3.8/3.0-4.0 cm LAIDs Index: 2.20 1.5-2.3 cm/m2 LV Mass: 424.19 67-162/88-224 g LV Mass Index: 222.09 43-95/49-115 g/m2 LVOT Diam: 2.00 3.0+(-)1.3 cm 2D Systolic Function EF 4C: 50.10 >55% EF 2C: 42.70 >55% EF BiP: 46.20 >55% Mitral Valve MV Pk E: 0.63 MV PK A: 1.01 MV Decel Time: 130.00 E/A: 0.60 E'Lateral: 3.67 E'Medial: 5.80 E/E' Med: 10.80 E/E' Lat: 17.10 PHT: 38.00 MVA PHT: 5.79 Decel Jefferson: 4.80 Aortic Valve AoV Pk Yony: 2.67 AoV Pk Grad: 29.00 Aov Mn Grad: 17.00 KOFI Cont.VTI: 1.50 AI Pk Yony: 3.03 AI Jefferson: 1.47 LVOT LVOT Pk Yony: 2.00 LVOT Mn Yony: 1.35 LVOT VTI: 0.41 LVOT Pk Grad: 16.00 LVOT Mn Grad: 10.00 LVOT Diam: 2.00 LVOT Area: 3.14 Diastolic Function MV Pk E: 0.63 MV Pk A: 1.01 E/A: 0.60 E'Medial: 5.80 E/E' Med: 10.80 E' Laterial: 3.67 E/E' Lat: 17.10 Tricuspid Valve TR Pk Yony: 2.47 TR Pk Grad: 24.00 RA Press: 3.00 RVSP: 27.00 Great Vessels Aorta Ao Root-2D: 2.60 2.0-3.7 cm Ao Asc: 3.70 2.1-3.4 cm Updated in Other Vendor System with Status of Final Pedro Alexander MD electronically signed on 06/21/2020 4:31:58 PM with status of Final
[2020-06-21] MEDS: Levothyroxine Sodium 100 MCG TABLET PO (06:09)
[2020-06-21 06:43] LABS: MANUAL DIFF FLAG NO
[2020-06-21 06:56] LABS: Basophils Absolute Auto 0.1 X10*3/uL (0.0-0.2); Basophils Percent Auto 0.6 % (0-2); Eosinophils Absolute Auto 0.5 X10*3/uL (0.0-0.4); Eosinophils Percent Auto 5.5 % (0-4); Hematocrit 38.9 % (42-52); Hemoglobin 12.7 g/dl (14.0-18.0); Imm Gran Abs Auto 0.02 X10*3/uL (0.00-0.03); Imm Gran Pct Auto 0.2 % (0.0-0.4); Lymphocytes Absolute Auto 1.8 X10*3/uL (1.2-4.9); Lymphocytes Percent Auto 21.8 % (20-40); Mean Corpuscular HGB Conc 32.6 g/dl (31.0-36.0); Mean Corpuscular Volume 91.7 fL (80-98); Mean Platelet Volume 12.7 fL (9.4-12.4); Monocytes Absolute Auto 1.1 X10*3/uL (0.1-1.2); Monocytes Percent Auto 13.2 % (2-11); Neutrophils Absolute Auto 4.8 X10*3/uL (2.0-8.3); Neutrophils Percent Auto 58.7 % (45-73); Platelet Count 157 X10*3/uL (160-400); Red Blood Count 4.24 X10*6/uL (4.60-5.80); Red Cell Distribution Width 13.1 % (11.0-16.0); White Blood Count 8.2 X10*3/uL (4.8-10.8)
[2020-06-21 07:32] LABS: B Type Natriuretic Peptide 345 pg/mL (<100)
[2020-06-21 07:37] LABS: Anion Gap 14 (12-20); Blood Urea Nitrogen 39 mg/dL (9-16); Calcium 8.3 mg/dL (8.4-10.2); Carbon Dioxide 27 mmol/L (22-29); Chloride 101 mmol/L (96-108); Creatinine Clr Calc Pharmacy 37.1; Estimated Glomerular Filt Rate 50; Glucose Random 84 mg/dL (60-115); Potassium 3.8 mmol/l (3.3-5.1); Sodium 138 mmol/L (135-145)
[2020-06-21] MEDS: amLODIPine Besylate 5 MG TABLET PO (08:50)
[2020-06-21] MEDS: Aspirin Enteric Coated 81 MG TABLET.DR PO (08:50)
[2020-06-21] MEDS: Atorvastatin Calcium 80 MG TABLET PO (08:50)
[2020-06-21] MEDS: Tamsulosin HCL 0.4 MG CAPSULE PO ×2 (08:50→20:19)
[2020-06-21] MEDS: carvediloL 6.25 MG TABLET PO ×2 (08:50→16:43)
[2020-06-21] MEDS: Apixaban 5 MG TABLET PO ×2 (08:50→20:19)
[2020-06-21] MEDS: Furosemide 20 MG/2 ML VIAL IVPUSH ×2 (08:51→20:18)
[2020-06-21] MEDS: 0.9 % Sodium Chloride Flush 3 ML SYRINGE IVFLUSH ×3 (09:25→20:19)
--- NOTE | 2020-06-21 12:14 | P.PNCA_ITS ---
Subjective Subjective Interval history: He states that his breathing is better. Not as short of breath as before. Review of Systems Review of Systems Cardiac- positive for shortness of breath; negative angina; negative for palpitations or dizzy spells or syncopal episodes; Yes all other systems are reviewed and are negative Physical Exam Vital Signs: Last Vital Signs Temp 97.7 F 06/20/20 07:49 Pulse 65 06/20/20 07:49 Resp 20 06/20/20 07:49 BP 111/55 L 06/20/20 07:49 Pulse Ox 95 06/20/20 07:49 Body Mass Index 27.3 Comfortable, no distress No pallor, icterus or cyanosis HEENT -unremarkable JVD- normal Cardiac- normal heart sounds, 3/6 LYN aortic area, no gallops or rubs Respiratory-scattered rhonchi Abdomen- soft, nontender Neuro- alert and oriented Lower extremities- 1+ edema, warm well perfused Results Labs and Meds Result diagrams: 06/21/20 05:50 06/21/20 05:50 Lab results: Laboratory Results - last 24 hr 06/20/20 06/21/20 06/21/20 10:57 05:49 05:50 WBC 8.2 RBC 4.24 L Hgb 12.7 L Hct 38.9 L MCV 91.7 MCH 30.0 MCHC 32.6 RDW 13.1 Plt Count 157 L MPV 12.7 H Immature Gran % (Auto) 0.2 Neut % (Auto) 58.7 Lymph % (Auto) 21.8 [place] % (Auto) 13.2 H Eos % (Auto) 5.5 H Baso % (Auto) 0.6 Lymph # (Auto) 1.8 [place] # (Auto) 1.1 Eos # (Auto) 0.5 H Baso # (Auto) 0.1 Abs Immat Gran (auto) 0.02 Absolute Neuts (auto) 4.8 Absolute Nucleated RBC 0.000 Nucleated RBC % (auto) 0.0 Sodium Potassium Chloride Carbon Dioxide Anion Gap BUN Creatinine Estim Creat Clear Calc Estimated GFR Random Glucose Calcium Troponin I High Sens 46.3 H B-Natriuretic Peptide 345 H 06/21/20 05:50 WBC RBC Hgb Hct MCV MCH MCHC RDW Plt Count MPV Immature Gran % (Auto) Neut % (Auto) Lymph % (Auto) [place] % (Auto) Eos % (Auto) Baso % (Auto) Lymph # (Auto) [place] # (Auto) Eos # (Auto) Baso # (Auto) Abs Immat Gran (auto) Absolute Neuts (auto) Absolute Nucleated RBC Nucleated RBC % (auto) Sodium 138 Potassium 3.8 Chloride 101 Carbon Dioxide 27 Anion Gap 14 BUN 39 H Creatinine 1.36 Estim Creat Clear Calc 37.1 Estimated GFR 50 Random Glucose 84 Calcium 8.3 L Troponin I High Sens B-Natriuretic Peptide Progress Note: A&P Assessment and plan (1) Acute on chronic diastolic (congestive) heart failure: Status: Acute (2) Non-rheumatic aortic stenosis: Status: Acute (3) Non-rheumatic aortic regurgitation: Status: Acute (4) Atherosclerotic cardiovascular disease: Status: Acute (5) Paroxysmal atrial flutter: Status: Acute Assessment and Plan: Clinically, he appears volume overloaded. EKG shows dual-chamber pacing at 62/Min. High sensitivity troponin slightly elevated. Cardiac BNP is clearly elevated. We can treat him for acute on chronic diastolic CHF. Last LVEF from 2019 at 45-50%.; mild aortic stenosis and moderate aortic regurgitation. We can repeat an echocardiogram. Can cut back on diuretics due to BUN/Cr uptrrending. Will follow up with you. Fall Risk Details Current Medications: Current Medications Generic Name Dose Route Start Last Admin Trade Name Sholaq PRN Reason Stop Dose Admin Amlodipine Besylate 5 mg 06/20/20 09:00 06/21/20 08:50 Amlodipine Besylate 5 Mg Tablet PO 5 mg DAILY ABELARDO Administration Protocol Apixaban 5 mg 06/20/20 09:00 06/21/20 08:50 Apixaban 5 Mg Tablet PO 5 mg BID ABELARDO Administration Aspirin 81 mg 06/20/20 09:00 06/21/20 08:50 Aspirin Enteric Coated 81 Mg Tablet. PO 81 mg DAILY ABELARDO Administration Atorvastatin Calcium 80 mg 06/20/20 09:00 06/21/20 08:50 Atorvastatin Calcium 80 Mg Tablet PO 80 mg DAILY ABELARDO Administration Carvedilol 6.25 mg 06/20/20 08:00 06/21/20 08:50 Carvedilol 6.25 Mg Tablet PO 6.25 mg BIDWM ABELARDO Administration Protocol Furosemide 20 mg 06/20/20 09:00 06/21/20 08:51 Furosemide 20 Mg/2 Ml Vial IVPUSH 20 mg BID ABELARDO Administration Protocol Levothyroxine Sodium 100 mcg 06/20/20 06:00 06/21/20 06:09 Levothyroxine Sodium 100 Mcg Tablet PO 100 mcg DAILY@0600 ABELARDO Administration Lisinopril 20 mg 06/20/20 09:00 06/21/20 08:57 Lisinopril 20 Mg Tablet PO Not Given DAILY ABELARDO Protocol Pharmacy Consult 1 each 06/19/20 23:36 Consult Rx Perform Med Rec MISCELLANE ONCE PRN Consult order Sodium Chloride 3 ml 06/20/20 08:00 06/21/20 09:25 0.9 % Sodium Chloride Flush 3 Ml Syringe IVFLUSH 3 ml QSHIFT ABELARDO Administration Tamsulosin HCl 0.4 mg 06/20/20 09:00 06/21/20 08:50 Tamsulosin Hcl 0.4 Mg Capsule PO 0.4 mg BID ABELARDO Administration Time Spent With Patient Time: Total time spent is greater than 50% in coordination of care (as documented) at patient's floor/unit and/or counseling patient: Time with patient: 15 - 24 minutes Procedures Abscess I/D Date of Service: 06/21/20
--- NOTE | 2020-06-21 14:29 | HO.PM.IMPN ---
Subjective Subjective Date of Service: 06/21/20 Interval History: the patient was seen and evaluated this morning Laying in bed, feels comfortable Denies any fever, chills or shortness of breath No reported other overnight events. Systemic review: No fever, chills or weakness No chest pain, palpitation No shortness of breath or coughing No abdominal pain, nausea or vomiting No urinary symptoms No any rash or wounds Physical Exam Vital Signs: Vital Signs: Last Vital Signs Temp 97.4 F 06/21/20 11:52 Pulse 60 06/21/20 11:52 Resp 18 06/21/20 11:52 BP 111/53 L 06/21/20 11:52 Pulse Ox 96 06/21/20 11:52 Body Mass Index 27.3 Constitutional : Alert, oriented, not in distress Neck : Normal inspection, Supple Cardiovascular : RRR, S1 S2, no lower extremity edema Respiratory : Decreased bilateral air entry, bilateral basal crackles, wheezes or rhonchi Gastrointestinal: soft, lax, Normal bowel sounds, Non tender Skin : Warm/Dry, No rash Neurological : Alert & oriented x3, No focal deficit Objective Data Current Medications Generic Name Dose Route Start Last Admin Trade Name Freq PRN Reason Stop Dose Admin Amlodipine Besylate 5 mg 06/20/20 09:00 06/21/20 08:50 Amlodipine Besylate 5 Mg Tablet PO 5 mg DAILY ABELARDO Administration Protocol Apixaban 5 mg 06/20/20 09:00 06/21/20 08:50 Apixaban 5 Mg Tablet PO 5 mg BID ABELARDO Administration Aspirin 81 mg 06/20/20 09:00 06/21/20 08:50 Aspirin Enteric Coated 81 Mg Tablet. PO 81 mg DAILY ABELARDO Administration Atorvastatin Calcium 80 mg 06/20/20 09:00 06/21/20 08:50 Atorvastatin Calcium 80 Mg Tablet PO 80 mg DAILY ABELARDO Administration Carvedilol 6.25 mg 06/20/20 08:00 06/21/20 08:50 Carvedilol 6.25 Mg Tablet PO 6.25 mg BIDWM ABELARDO Administration Protocol Furosemide 20 mg 06/20/20 09:00 06/21/20 08:51 Furosemide 20 Mg/2 Ml Vial IVPUSH 20 mg BID ABELARDO Administration Protocol Levothyroxine Sodium 100 mcg 06/20/20 06:00 06/21/20 06:09 Levothyroxine Sodium 100 Mcg Tablet PO 100 mcg DAILY@0600 [facility] Administration Lisinopril 20 mg 06/20/20 09:00 06/21/20 08:57 Lisinopril 20 Mg Tablet PO Not Given DAILY [facility] Protocol Pharmacy Consult 1 each 06/19/20 23:36 Consult Rx Perform Med Rec MISCELLANE ONCE PRN Consult order Sodium Chloride 3 ml 06/20/20 08:00 06/21/20 09:25 0.9 % Sodium Chloride Flush 3 Ml Syringe IVFLUSH 3 ml QSHIFT [facility] Administration Tamsulosin HCl 0.4 mg 06/20/20 09:00 06/21/20 08:50 Tamsulosin Hcl 0.4 Mg Capsule PO 0.4 mg BID ABELARDO Administration Labs CBC & Chem 7: 06/21/20 05:50 06/21/20 05:50 Microbiology Microbiology Results: Microbiology 06/19/20 19:56 Blood - Venous Blood Culture - Preliminary No growth after 24 hours. 06/19/20 19:56 Blood - Venous Blood Culture - Preliminary No growth after 24 hours. Assessment and Plan (1) Paroxysmal atrial flutter: Status: Acute (2) CHF exacerbation: Status: Acute (3) Hypothyroidism: Status: Acute (4) BPH (benign prostatic hyperplasia): Status: Acute Assessment and Plan: an 85-year-old male with a history of CHF, CAD, PAF on Elquis, hypertension, dyslipidemia, hypothyroidism, BPH, heart blocks\p pacemaker who presents with a shortness of breath found to have CHF acute on chronic CHF. SOB improving Continue IV diuresis Last EF from 2019 45-50% repeat ECHO pending Cardiology input appreciated, continue treatment for 1 more day Harpal I on CKD Creatinine creeping up from 0.9-1.4 Hold nephrotoxic medications to stop Lasix later tonight Monitor intake and output PAF HR controlled, Continue BB AC with Eliquis hypertension BP controlled Continue Lisinopril, coreg, Norvasc hyperlipidemia Continue statin hypothyroidism Continue hypothyroidism BPH Continue Flomax DVT ppx eliquis
[2020-06-22 03:14] VITALS: BP 131/58; PULSE 56; RESP 19; TEMP 36.3; O2SAT 93
[2020-06-22] MEDS: Levothyroxine Sodium 100 MCG TABLET PO (06:05)
[2020-06-22 06:13] LABS: Hematocrit 38.4 % (42-52); Hemoglobin 12.9 g/dl (14.0-18.0); Mean Corpuscular HGB Conc 33.6 g/dl (31.0-36.0); Mean Corpuscular Hemoglobin 31.2 pg (27.0-33.0); Mean Corpuscular Volume 92.8 fL (80-98); Mean Platelet Volume 12.2 fL (9.4-12.4); Platelet Count 148 X10*3/uL (160-400); Red Blood Count 4.14 X10*6/uL (4.60-5.80); Red Cell Distribution Width 13.2 % (11.0-16.0); White Blood Count 8.2 X10*3/uL (4.8-10.8)
[2020-06-22 06:39] LABS: Anion Gap 12 (12-20); Blood Urea Nitrogen 45 mg/dL (9-16); Calcium 8.2 mg/dL (8.4-10.2); Carbon Dioxide 30 mmol/L (22-29); Chloride 102 mmol/L (96-108); Creatinine Clr Calc Pharmacy 35.5; Estimated Glomerular Filt Rate 47; Glucose Random 87 mg/dL (60-115); Potassium 3.9 mmol/l (3.3-5.1); Sodium 140 mmol/L (135-145)
[2020-06-22 07:47] VITALS: BP 119/56; PULSE 65; RESP 22; TEMP 36.5; O2SAT 95
[2020-06-22] MEDS: Aspirin Enteric Coated 81 MG TABLET.DR PO (07:59)
[2020-06-22] MEDS: lisinopriL 20 MG TABLET PO (07:59)
[2020-06-22] MEDS: Apixaban 5 MG TABLET PO (07:59)
[2020-06-22] MEDS: Atorvastatin Calcium 80 MG TABLET PO (08:00)
[2020-06-22] MEDS: Tamsulosin HCL 0.4 MG CAPSULE PO (08:00)
[2020-06-22] MEDS: carvediloL 6.25 MG TABLET PO (08:00)
[2020-06-22] MEDS: 0.9 % Sodium Chloride Flush 3 ML SYRINGE IVFLUSH (08:00)
[2020-06-22] MEDS: amLODIPine Besylate 5 MG TABLET PO (08:00)
--- NOTE | 2020-06-22 10:38 | PM.PNCARD ---
Subjective Subjective Interval history: Patient states that he is feeling better. Shortness of breath significantly improved. He is walking in the hallway without difficulty. Review of Systems Review of Systems Cardiac- positive for shortness of breath; negative angina; negative for palpitations or dizzy spells or syncopal episodes; Physical Exam Vital Signs: Last Vital Signs Temp 97.7 F 06/20/20 07:49 Pulse 65 06/20/20 07:49 Resp 20 06/20/20 07:49 BP 111/55 L 06/20/20 07:49 Pulse Ox 95 06/20/20 07:49 Body Mass Index 27.3 Comfortable, no distress No pallor, icterus or cyanosis HEENT -unremarkable JVD- normal Cardiac- normal heart sounds, 3/6 LYN aortic area, no gallops or rubs Respiratory-scattered rhonchi Abdomen- soft, nontender Neuro- alert and oriented Lower extremities- 1+ edema, warm well perfused Results Labs and Meds Result diagrams: 06/22/20 05:42 06/22/20 05:42 Lab results: Laboratory Results - last 24 hr 06/22/20 06/22/20 05:42 05:42 WBC 8.2 RBC 4.14 L Hgb 12.9 L Hct 38.4 L MCV 92.8 MCH 31.2 MCHC 33.6 RDW 13.2 Plt Count 148 L MPV 12.2 Absolute Nucleated RBC 0.000 Nucleated RBC % (auto) 0.0 Sodium 140 Potassium 3.9 Chloride 102 Carbon Dioxide 30 H Anion Gap 12 BUN 45 H Creatinine 1.42 H Estim Creat Clear Calc 35.5 Estimated GFR 47 Random Glucose 87 Calcium 8.2 L Progress Note: A&P Assessment and plan (1) Acute on chronic diastolic (congestive) heart failure: Status: Acute (2) Non-rheumatic aortic stenosis: Status: Acute (3) Non-rheumatic aortic regurgitation: Status: Acute (4) Atherosclerotic cardiovascular disease: Status: Acute (5) Paroxysmal atrial flutter: Status: Acute Assessment and Plan: Patient seems to be doing much better. Volume status improved since Admission. He is -1800 cc negative but unclear accuracy. He is walking in the hallway without difficulty. We can start discharge planning. Diuretics to be given on discharge. Will arrange followup. Fall Risk Details Current Medications: Current Medications Generic Name Dose Route Start Last Admin Trade Name Freq PRN Reason Stop Dose Admin Amlodipine Besylate 5 mg 06/20/20 09:00 06/22/20 08:00 Amlodipine Besylate 5 Mg Tablet PO 5 mg DAILY ABELARDO Administration Protocol Apixaban 5 mg 06/20/20 09:00 06/22/20 07:59 Apixaban 5 Mg Tablet PO 5 mg BID ABELARDO Administration Aspirin 81 mg 06/20/20 09:00 06/22/20 07:59 Aspirin Enteric Coated 81 Mg Tablet.Dr PO 81 mg DAILY ABELARDO Administration Atorvastatin Calcium 80 mg 06/20/20 09:00 06/22/20 08:00 Atorvastatin Calcium 80 Mg Tablet PO 80 mg DAILY ABELARDO Administration Carvedilol 6.25 mg 06/20/20 08:00 06/22/20 08:00 Carvedilol 6.25 Mg Tablet PO 6.25 mg BIDWM ABELARDO Administration Protocol Levothyroxine Sodium 100 mcg 06/20/20 06:00 06/22/20 06:05 Levothyroxine Sodium 100 Mcg Tablet PO 100 mcg DAILY@0600 ABELARDO Administration Sodium Chloride 3 ml 06/20/20 08:00 06/22/20 08:00 0.9 % Sodium Chloride Flush 3 Ml Syringe IVFLUSH 3 ml QSHIFT ABELARDO Administration Tamsulosin HCl 0.4 mg 06/20/20 09:00 06/22/20 08:00 Tamsulosin Hcl 0.4 Mg Capsule PO 0.4 mg BID ABELARDO Administration Time Spent With Patient Time: Total time spent is greater than 50% in coordination of care (as documented) at patient's floor/unit and/or counseling patient: Time with patient: 15 - 24 minutes Procedures Abscess I/D Date of Service: 06/22/20
--- NOTE | 2020-06-22 12:10 | MHC.CM.PN ---
CM met with pt to discuss DC planning. Pt is aware the MD is recommending [facility] and [facility] Ref[facility] sent and accepted Pt will DC home today with [facility]. Pts daughter will transport
--- NOTE | 2020-06-22 13:30 | PM.DS ---
DS: Providers Provider Date of admission: 06/21/20 16:48 Primary care physician: Unknown Physician Consults: 06/20/20 02:53 Consult to Cardiology Routine Consulting Provider: [facility] [place] [facility] Reason for consultation: CHF exacerbation Has provider been notified: No DS: Diagnosis Discharge Diagnosis (1) Acute on chronic diastolic (congestive) heart failure: Status: Acute (2) Non-rheumatic aortic stenosis: Status: Acute (3) Non-rheumatic aortic regurgitation: Status: Acute (4) Atherosclerotic cardiovascular disease: Status: Acute (5) Paroxysmal atrial flutter: Status: Acute (6) Acute kidney injury superimposed on CKD: Status: Acute (7) BPH (benign prostatic hyperplasia): Status: Acute (8) HTN (hypertension): Status: Acute (9) CHF exacerbation: Status: Acute DS: Medications Discharge Medications Home Medications: Home Medications Medication Instructions Recorded Confirmed Eliquis 1 tab PO BID 06/19/20 06/19/20 amlodipine 1 tab PO DAILY 06/19/20 06/19/20 atorvastatin 1 tab PO DAILY 06/19/20 06/19/20 carvedilol 1 tab PO BID 06/19/20 06/19/20 levothyroxine 1 tab PO DAILY 06/19/20 06/19/20 lisinopril 1 tab PO DAILY 06/19/20 06/19/20 tamsulosin 1 cap PO BID 06/19/20 06/19/20 Previous Rx's Medication Instructions Recorded aspirin 1 tab PO DAILY #30 tab 06/22/20 furosemide [Lasix] 20 mg PO QAM #30 tab 06/22/20 DS: Summary Hospital Course Hospital Course: Admission note HPI 85 y/o male with PMHX of HTN, HLP, Hypothyroidism and BPH who presented from home due to SOB. Per history provided by the patient, for the past 6 days has been having worsening difficulty breathing which is present more during exertion. Patient reports that now is unable to even walk for a short distance or even go up the stairs without feeling really fatigue. Patient denies any orthopnea or PND. Denies any chest pain, nausea, vomiting, diarrhea, cough or fever. On presentation to the ED BP is noted to be running elevated, Labs showing BNP of ~900, Initial troponin of 39.5, CXR clear, EKG shows evidence of inferior wall VA in the past and RBBB, no evidence of any acute changes. One dose of lasix given IV per ED and decision for admission given. Hospital course Admitted to the hospital for evaluation of shortness of breath. He was found to have acute on chronic diastolic CHF treated with water pills of Lasix. He was evaluated by Cardiology who recommended treatment Lasix during the hospital stay and at time of discharge. The patient improved significantly and was able to ambulate freely on room air with no reported shortness of breath or dyspnea. His kidney function was noted to be worsening as a result of medications. His lisinopril was held during the hospital stay and his kidney function remained stable. To resume home medication at time of discharge He was discharged on Lasix 20 mg daily To repeat BMP next week next [place] to follow up with Cardiology as outpatient Time Spent with Patient Time attestation: Total time spent providing and/or coordinating discharge services: Physical Exam Vital Signs: Vital Signs: Last Vital Signs Temp 97.7 F 06/22/20 07:47 Pulse 65 06/22/20 07:47 Resp 22 H 06/22/20 07:47 BP 119/56 L 06/22/20 07:47 Pulse Ox 95 06/22/20 07:47 Body Mass Index 27.3 Constitutional : Alert, oriented, not in distress Neck : Normal inspection, Supple Cardiovascular : RRR, S1 S2, no lower extremity edema Respiratory : Decreased bilateral air entry, bilateral basal crackles, wheezes or rhonchi Gastrointestinal: soft, lax, Normal bowel sounds, Non tender Skin : Warm/Dry, No rash Neurological : Alert & oriented x3, No focal deficit Const: Other: Last Vital Signs Temp 97.7 F 06/22/20 07:47 Pulse 65 06/22/20 07:47 Resp 22 H 06/22/20 07:47 BP 119/56 L 06/22/20 07:47 Pulse Ox 95 06/22/20 07:47 Body Mass Index 27.3 Cardio: Other: Last Vital Signs Temp 97.7 F 06/22/20 07:47 Pulse 65 06/22/20 07:47 Resp 22 H 06/22/20 07:47 BP 119/56 L 06/22/20 07:47 Pulse Ox 95 06/22/20 07:47 Body Mass Index 27.3 DS: Data Data Completed and Pending Labs on day of discharge: 06/19/20 19:08 ECG 12 lead EKG Stat EKG Documentation DIRECTED XR chest 1V Stat 06/19/20 19:57 B Type Natriuretic Peptide Stat Basic Metabolic Panel Stat Troponin-I High Sensitivity Stat 06/19/20 19:58 Complete Blood Count Auto Diff Stat 06/19/20 20:53 Lactic Acid Stat 06/19/20 22:08 Furosemide [Lasix] 40 mg IVPUSH STAT STA 06/19/20 23:36 COVID-19 ID NOW (Alfaro) Stat Consult Rx Perform Med Rec 1 each MISCELLANE ONCE PRN 06/20/20 00:46 Transfer Order Routine 06/20/20 02:53 Heparin Sodium,Porcine 5,000 unit SUBCUT Q8H 06/20/20 02:53 Intake and Output QSHIFTE 06/20/20 03:37 Transfer Order Routine 06/20/20 05:29 Basic Metabolic Panel Routine Complete Blood Count Auto Diff Routine 06/20/20 09:00 Furosemide [Lasix] 20 mg IVPUSH BID lisinopriL [Zestril] 20 mg PO DAILY 06/20/20 10:17 ECG 12 lead EKG Stat EKG Documentation DIRECTED 06/20/20 10:57 Troponin-I High Sensitivity Stat 06/20/20 15:07 EKG Documentation DIRECTED 06/21/20 02:53 CA echo transthoracic complete Routine 06/21/20 05:49 B Type Natriuretic Peptide Routine 06/21/20 05:50 Basic Metabolic Panel DAILY@0600 Complete Blood Count Auto Diff DAILY@0600 06/22/20 05:42 Basic Metabolic Panel DAILY@0600 Complete Blood Count no Diff DAILY@0600 Laboratory Last Values WBC 8.2 X10*3/uL (4.8-10.8) 06/22/20 05:42 RBC 4.14 X10*6/uL (4.60-5.80) L 06/22/20 05:42 Hgb 12.9 g/dl (14.0-18.0) L 06/22/20 05:42 Hct 38.4 % (42-52) L 06/22/20 05:42 MCV 92.8 fL (80-98) 06/22/20 05:42 MCH 31.2 pg (27.0-33.0) 06/22/20 05:42 MCHC 33.6 g/dl (31.0-36.0) 06/22/20 05:42 RDW 13.2 % (11.0-16.0) 06/22/20 05:42 Plt Count 148 X10*3/uL (160-400) L 06/22/20 05:42 MPV 12.2 fL (9.4-12.4) 06/22/20 05:42 Immature Gran % (Auto) 0.2 % (0.0-0.4) 06/21/20 05:50 Neut % (Auto) 58.7 % (45-73) 06/21/20 05:50 Lymph % (Auto) 21.8 % (20-40) 06/21/20 05:50 [place] % (Auto) 13.2 % (2-11) H 06/21/20 05:50 Eos % (Auto) 5.5 % (0-4) H 06/21/20 05:50 Baso % (Auto) 0.6 % (0-2) 06/21/20 05:50 Lymph # (Auto) 1.8 X10*3/uL (1.2-4.9) 06/21/20 05:50 [place] # (Auto) 1.1 X10*3/uL (0.1-1.2) 06/21/20 05:50 Eos # (Auto) 0.5 X10*3/uL (0.0-0.4) H 06/21/20 05:50 Baso # (Auto) 0.1 X10*3/uL (0.0-0.2) 06/21/20 05:50 Abs Immat Gran (auto) 0.02 X10*3/uL (0.00-0.03) 06/21/20 05:50 Absolute Neuts (auto) 4.8 X10*3/uL (2.0-8.3) 06/21/20 05:50 Absolute Nucleated RBC 0.000 X10*3/uL (0.0-0.012) 06/22/20 05:42 Nucleated RBC % (auto) 0.0 /100WBC (0.0-0.2) 06/22/20 05:42 Sodium 140 mmol/L (135-145) 06/22/20 05:42 Potassium 3.9 mmol/l (3.3-5.1) 06/22/20 05:42 Chloride 102 mmol/L (96-108) 06/22/20 05:42 Carbon Dioxide 30 mmol/L (22-29) H 06/22/20 05:42 Anion Gap 12 (12-20) 06/22/20 05:42 BUN 45 mg/dL (9-16) H 06/22/20 05:42 Creatinine 1.42 mg/dL (0.5-1.4) H 06/22/20 05:42 Estim Creat Clear Calc 35.5 06/22/20 05:42 Estimated GFR 47 06/22/20 05:42 Random Glucose 87 mg/dL (60-115) 06/22/20 05:42 Lactic Acid 1.2 mmol/L (0.5-2.0) 06/19/20 20:53 Calcium 8.2 mg/dL (8.4-10.2) L 06/22/20 05:42 Troponin I High Sens 46.3 ng/L (<3.5-35.0) H 06/20/20 10:57 B-Natriuretic Peptide 345 pg/mL (<100) H 06/21/20 05:49 COVID-19 (SARAHI) Negative (Negative) 06/20/20 00:05 COVID-19 Clin Com See Note 06/20/20 00:05 Preliminary micro results at discharge 06/19/20 19:56 Blood Culture - Preliminary Blood - Venous No growth after 48 hours. 06/19/20 19:56 Blood Culture - Preliminary Blood - Venous No growth after 48 hours. Discharge Plan Discharge Patient Disposition: Home Health Service Referrals: [facility] [Outside] Physician,Unknown [Primary Care Provider] - Discharge Medications: New furosemide [Lasix] 20 mg tablet 20 mg PO QAM Qty: 30 RF: 0 Continued atorvastatin 80 mg tablet 1 tab PO DAILY RF: 0 carvedilol 6.25 mg tablet 1 tab PO BID RF: 0 lisinopril 20 mg tablet 1 tab PO DAILY RF: 0 amlodipine 5 mg tablet 1 tab PO DAILY RF: 0 levothyroxine 100 mcg tablet 1 tab PO DAILY RF: 0 tamsulosin 0.4 mg capsule 1 cap PO BID RF: 0 Eliquis 5 mg tablet 1 tab PO BID RF: 0 aspirin 81 mg tablet,delayed release (DR/EC) 1 tab PO DAILY Qty: 30 RF: 0 Discharge Orders: Discharge Order (Routine); Ordered 06/22/20 Ordered By: Floresita Montiel Diet: advance to usual diet and low salt diet Activity on Discharge: As tolerated Discharge Date/Time: 06/22/20 15:03 Other Ambulatory Orders: Basic Metabolic Panel (Routine) Timeframe: 1 Week Facility: [facility] - Location: Laboratory Ordered By: Floresita Montiel Visit Report Forms: Patient Portal Discharge page Care Plan Goals: Read below Health Concerns: Read below Plan of Treatment: You were admitted to the hospital for evaluation of shortness of breath. You images on blood work in the emergency showed findings suggestive of heart failure. You were evaluated by forest manager in as an echo was done and you were evaluated by forest manager and treated with water pills with good response. Start Lasix 20 mg daily Monitor your weight on daily basis and report any changes to PCP Continue the rest of your home medications To follow-up with cardiology as needed
== END 2020-06-22 15:03 | disposition home health service (06) | DRG 292 ==
LOC: HO.ED 23:42 → HO.IMC 06-20 02:20
PROVIDERS: Physician Assistant Medical; Admitting Provider Internal Medicine; Emergency Provider Emergency Medicine; Visit Provider Student in an Organized Health Care Education/Training Program
DX: I11.0 Hypertensive heart disease with heart failure (principal); I48.92 Unspecified atrial flutter; Z95.0 Presence of cardiac pacemaker; I50.33 Acute on chronic diastolic (congestive) heart failure; Z20.828 Contact with and (suspected) exposure to other viral communicable diseases; Z87.891 Personal history of nicotine dependence; E03.9 Hypothyroidism, unspecified; E78.5 Hyperlipidemia, unspecified; I25.10 Atherosclerotic heart disease of native coronary artery without angina pectoris; Z95.1 Presence of aortocoronary bypass graft; I35.2 Nonrheumatic aortic (valve) stenosis with insufficiency; N40.0 Benign prostatic hyperplasia without lower urinary tract symptoms; Z79.01 Long term (current) use of anticoagulants; Z79.82 Long term (current) use of aspirin; Z79.890 Hormone replacement therapy; Z79.899 Other long term (current) drug therapy
CPT/HCPCS: 36415; 71045; 80048; 83605; 83880; 84484; 85025; 85027; 87040; 87635; 93005; 93306; 96374; 99285; J1940

== ENCOUNTER 2020-07-04 12:37 | Outpatient (REF) | payer MEDICARE, SELFPAY ==
[2020-07-04 13:19] LABS: Anion Gap 15 (12-20); Blood Urea Nitrogen 40 mg/dL (9-16); Calcium 8.4 mg/dL (8.4-10.2); Chloride 106 mmol/L (96-108); Estimated Glomerular Filt Rate 58; Glucose Random 113 mg/dL (60-115); Potassium 4.5 mmol/l (3.3-5.1); Sodium 137 mmol/L (135-145)
[2020-07-04 13:25] LABS: Carbon Dioxide 21 mmol/L (22-29)
== END 2020-07-04 12:38 | disposition home or self-care (01) ==
LOC: HO.LNP 12:37
PROVIDERS: PCP Internal Medicine; Visit Provider Internal Medicine Cardiovascular Disease
DX: I12.9 Hypertensive chronic kidney disease with stage 1 through stage 4 chronic kidney disease, or unspecified chronic kidney disease (principal); N18.9 Chronic kidney disease, unspecified; I50.9 Heart failure, unspecified
CPT/HCPCS: 80048

== ENCOUNTER → 2020-07-12 14:29 | Outpatient (BNVA) | payer MEDICARE, SELFPAY | PROVIDERS: PCP Internal Medicine; Visit Provider Internal Medicine Cardiovascular Disease | DX: Z45.018 Encounter for adjustment and management of other part of cardiac pacemaker (principal); I50.9 Heart failure, unspecified; I25.5 Ischemic cardiomyopathy; I25.10 Atherosclerotic heart disease of native coronary artery without angina pectoris; I48.92 Unspecified atrial flutter | CPT/HCPCS: 99212 ==

== ENCOUNTER → 2020-07-23 08:18 | Outpatient (REF) | payer MEDICARE, SELFPAY ==
--- NOTE | 2020-07-23 | NM_ITS ---
Lexiscan Myocardial perfusion study Indication: Cardiomyopathy, assess for coronary disease and ischemia Technique: The patient was brought in for a Lexiscan perfusion study on 07/23/2020 and was injected 0.4 mg of Lexiscan intravenously. Within a minute of this injection 30 mCi of sestamibi was given intravenously. Images were obtained using the SPECT gamma camera interlaced with the gating device. Images were obtained in supine position. Resting perfusion study was performed on 07/24/2020. Patient was administered 30 mCi of sestamibi intravenously at rest. Images were then obtained in supine position. Total DLP 70mGy-cm. Images were processed with the software and compared side to side in short axis, horizontal long axis and vertical long axis views. Findings: Raw acquisition was reviewed. The stress perfusion study showed markedly diminished tracer uptake at the apex and adjacent portions of the apical inferior wall, apical septum and apical lateral wall. There is also slightly diminished tracer uptake along the inferior wall from basal portion all the way to the apex. With CT attenuation correction, apical defect remains very similar but the inferior wall seems to improve.. The gated study shows diminished LV systolic function with calculated LVEF of 42%. LV cavity is normal in size. The gated study shows globally diminished wall thickening and contraction of segments; apex akinetic. Resting study shows markedly diminished tracer uptake at the apex but improved compared to the stress acquisition. There is also diminished tracer uptake along the inferior wall. With CT attenuation correction there is improvement in the inferior wall uptake but the apex appears similar. Gating at rest reveals ejection fraction at 43%. The findings are consistent with apical defect with reversible as well as fixed components which could indicate ischemia/infarction pattern; inferior wall fixed defect that could be from diaphragmatic attenuation but nontransmural infarct also possible. NM/NM nitish perf SPECT rest & str Impression: 1. Myocardial perfusion imaging study shows ischemia/infarct pattern in the apex-more towards infarct in the inferior portion and more towards ischemia in the anterior portion; rest of the inferior wall with fixed defect improving with CT attenuation correction which could indicate diaphragmatic artifact (versus) nontransmural infarct. 2. Gated LVEF is 42% during stress; 43% during rest. Global hypokinesia. Pass Christian appears akinetic during stress but with some contractility during rest. 3. Transient ischemic dilatation not present. EKG component of the test reported separately.
--- NOTE | 2020-07-23 08:21 | CA_ITS ---
Acquisition Time: 2020-07-23 09:34:39 Total Exercise Time: 00:02:00 Test Indications: Abnormal ECG Medications: SEE H Protocol: LEXISCAN Max HR: 076 BPM 56% of Pred: 135 BPM Max BP: 148/044 mmHG Max Work Load: 1.0 METS Pharmacological stress test with Lexiscan injection, while sitting, without anginal symptoms, with isolated PACs, one PVC, with normotensive response to injection, with nondiagnostic EKG for ischemia. Nuclear images pending. Test reviewed with Dr Mast. Referred By: Ike Mast Overread By: MARGARITA OBRIEN
== END ==
LOC: HO.CARD 08:18
PROVIDERS: Visit Provider Internal Medicine Cardiovascular Disease
DX: I25.10 Atherosclerotic heart disease of native coronary artery without angina pectoris (principal); I25.5 Ischemic cardiomyopathy; I50.9 Heart failure, unspecified
CPT/HCPCS: 78452; 93017; A9500; J0280; J2785

== ENCOUNTER 2020-08-09 11:25 | Outpatient (REF) | payer MEDICARE, SELFPAY ==
[2020-08-09 13:03] LABS: Hematocrit 38.2 % (42-52); Hemoglobin 12.3 g/dl (14.0-18.0); Mean Corpuscular HGB Conc 32.2 g/dl (31.0-36.0); Mean Corpuscular Hemoglobin 30.4 pg (27.0-33.0); Mean Corpuscular Volume 94.3 fL (80-98); Platelet Count 184 X10*3/uL (160-400); Red Blood Count 4.05 X10*6/uL (4.60-5.80); Red Cell Distribution Width 13.3 % (11.0-16.0); White Blood Count 8.5 X10*3/uL (4.8-10.8)
[2020-08-09 13:10] LABS: Prothrombin Time 23.5 SEC (10.8-13.0)
[2020-08-09 13:30] LABS: Anion Gap 11 (12-20); Blood Urea Nitrogen 35 mg/dL (9-16); Calcium 8.4 mg/dL (8.4-10.2); Carbon Dioxide 28 mmol/L (22-29); Chloride 106 mmol/L (96-108); Estimated Glomerular Filt Rate 53; Glucose Random 110 mg/dL (60-115); Potassium 4.6 mmol/l (3.3-5.1); Sodium 140 mmol/L (135-145)
== END 2020-08-09 11:26 | disposition home or self-care (01) ==
LOC: HO.LAB 11:25
PROVIDERS: PCP Internal Medicine; Visit Provider Internal Medicine Cardiovascular Disease
DX: I25.5 Ischemic cardiomyopathy (principal); I50.9 Heart failure, unspecified; I25.10 Atherosclerotic heart disease of native coronary artery without angina pectoris; I48.92 Unspecified atrial flutter; I35.0 Nonrheumatic aortic (valve) stenosis
CPT/HCPCS: 36415; 80048; 85027; 85610; 99212

== ENCOUNTER → 2020-08-28 11:33 | Outpatient (BNVA) | payer MEDICARE, SELFPAY | PROVIDERS: PCP Internal Medicine; Visit Provider Nurse Practitioner Family | DX: I25.5 Ischemic cardiomyopathy (principal); I50.9 Heart failure, unspecified; I25.10 Atherosclerotic heart disease of native coronary artery without angina pectoris; I48.92 Unspecified atrial flutter; I35.0 Nonrheumatic aortic (valve) stenosis; Z95.0 Presence of cardiac pacemaker; Z98.890 Other specified postprocedural states | CPT/HCPCS: 99212 ==

== ENCOUNTER → 2021-02-12 15:25 | Outpatient (BNVA) | payer MEDICARE, SELFPAY | PROVIDERS: PCP Internal Medicine; Referring Provider Internal Medicine; Visit Provider Internal Medicine Cardiovascular Disease | DX: Z45.018 Encounter for adjustment and management of other part of cardiac pacemaker (principal); I50.9 Heart failure, unspecified; I25.10 Atherosclerotic heart disease of native coronary artery without angina pectoris; I48.92 Unspecified atrial flutter; I35.0 Nonrheumatic aortic (valve) stenosis | CPT/HCPCS: 99212 ==

== ENCOUNTER → 2021-08-16 08:23 | Outpatient (REF) | payer MEDICARE, SELFPAY ==
--- NOTE | 2021-08-16 08:27 | CA_ITS ---
Transthoracic Echocardiogram Patient (Last, First, Middle): Tato Duke, Gender: Male Date of : 1935 Age: 86 Procedure Date: 08/16/2021 Procedure Type: Transthoracic Echocardiogram Location: OP Height: 170.18 cm Weight: 80.74 kg BSA: 1.92 m2 Heart Rate: bpm BP: 120 / 60 mmHg Manufacturing Advisor: STU Referring MD: Ike Mast MD Symptoms: I50.9 - Heart failure, unspecified Study Quality: Fair ECG Rhythm: Undetermined Conclusions: - The left ventricular systolic function is moderately decreased. The calculated ejection fraction is 39% by biplane method. - There is mild aortic valve stenosis. - There is mild to moderate mitral valve regurgitation. - There is mild tricuspid valve regurgitation. - There is mild dilatation of the ascending aorta measuring 4.30 cm. Findings Left Ventricle Normal left ventricular cavity size. There is mildly increased left ventricular wall thickness. The left ventricular systolic function is moderately decreased. The calculated ejection fraction is 39% by biplane method. Evidence suggests grade I (mild) diastolic dysfunction. Right Ventricle Normal right ventricular cavity size. There is low normal right ventricular systolic function. There is a pacemaker wire seen in the right ventricle. Atria The left atrium is mildly dilated. The right atrium is normal in size. Aortic Valve There is mild calcification of the aortic valve. There is mild aortic valve stenosis. The mean gradient is 18 mmHg. The aortic valve area is 1.48 cm2. There is mild aortic valve regurgitation. Mitral Valve There is mild anterior and posterior mitral leaflet thickening. There is mild mitral annular calcification. There is mild to moderate mitral valve regurgitation. There is no mitral valve stenosis. Pulmonic Valve The pulmonic valve is likely normal. Tricuspid Valve Normal tricuspid valve structure. There is mild tricuspid valve regurgitation. Top normal RVSP. Great Vessels There is mild dilatation of the ascending aorta measuring 4.30 cm. Venous The inferior vena cava is normal in size and collapses greater than 50% with inspiration. Pericardium/Pleural There is no evidence of pericardial effusion. Prior Study Comparison Changes noted compared to prior study dated: 06/21/2020. Mild decrease in LVEF. Increase in ascending aortic size. Measurements 2D Linear Measurements IVSd: 1.18 0.6-0.9/0.6-1.0 cm LVIDd: 6.59 3.9-5.3/4.2-5.9 cm LVIDd Index: 3.43 2.4-3.2/2.2-3.1 cm/m2 LVIDs: 5.35 2.0-3.6 cm LVPWd: 1.09 0.7-1.1 cm Ao Root: 3.70 2.1-3.5 cm LA Diam: 4.40 2.7-3.8/3.0-4.0 cm LAIDs Index: 2.29 1.5-2.3 cm/m2 LV Mass: 425.69 67-162/88-224 g LV Mass Index: 221.71 43-95/49-115 g/m2 LVOT Diam: 2.00 3.0+(-)1.3 cm 2D Systolic Function EF 4C: 46.90 >55% EF 2C: 34.00 >55% EF BiP: 39.20 >55% Aortic Valve AoV Pk Yony: 2.95 AoV Mn Yony: 1.94 AoV VTI: 0.66 AoV Pk Grad: 35.00 Aov Mn Grad: 18.00 KOFI Cont.VTI: 1.48 AI Pk Yony: 3.49 AI Reeves: 2.03 LVOT LVOT Pk Yony: 1.29 LVOT Mn Yony: 0.86 LVOT VTI: 0.31 LVOT Pk Grad: 7.00 LVOT Mn Grad: 4.00 LVOT Diam: 2.00 LVOT Area: 3.14 Right Ventricle TAPSE (mm): 1.70 TVS' Yony: 9.36 Tricuspid Valve TR Pk Yony: 2.84 TR Pk Grad: 32.00 RA Press: 3.00 RVSP: 35.00 Great Vessels Aorta Ao Root-2D: 3.70 2.0-3.7 cm Ao Asc: 4.30 2.1-3.4 cm Ao Arch: 3.20 Updated in Other Vendor System with Status of Final Pedro Alexander MD electronically signed on 08/18/2021 1:10:31 PM with status of Final
== END ==
LOC: HO.CARD 08:23
PROVIDERS: Visit Provider Internal Medicine Cardiovascular Disease
DX: I50.9 Heart failure, unspecified (principal)
CPT/HCPCS: 93306

== ENCOUNTER → 2021-08-22 12:26 | Outpatient (BNVA) | payer MEDICARE, SELFPAY | PROVIDERS: PCP Internal Medicine; Referring Provider Internal Medicine; Visit Provider Internal Medicine Cardiovascular Disease | DX: I50.20 Unspecified systolic (congestive) heart failure (principal); I25.5 Ischemic cardiomyopathy; I25.10 Atherosclerotic heart disease of native coronary artery without angina pectoris; I35.0 Nonrheumatic aortic (valve) stenosis; I48.92 Unspecified atrial flutter; Z45.018 Encounter for adjustment and management of other part of cardiac pacemaker; Z79.01 Long term (current) use of anticoagulants; Z79.899 Other long term (current) drug therapy | CPT/HCPCS: 99212 ==

== ENCOUNTER 2023-03-10 14:52 | Outpatient (AMB) | payer MEDICARE, SELFPAY ==
--- NOTE | 2023-03-10 14:59 | MHC.OFFVIS ---
Intake Vital Signs 03/10/23 15:00 Height 5 ft 7 in Weight 180 lb 12.465 oz BMI 28.3 BP 130/70 Blood Pressure Location Lt brachial Position Sitting Pulse 60 Intake Visit Reasons: pt requested appt, follow up Intake Note: Overdue follow-up with ekg and [facility] feeling good Cheese Supervisor Required: No Allergies No Known Allergies [NO KNOWN ALLERGIES] Allergy (Unknown, Verified 06/20/20 03:53) UNKNOWN Medication List - Last Reconciled 03/10/23 by Ike Mast MD amlodipine 5 mg PO DAILY apixaban (Eliquis) 5 mg PO BID atorvastatin 80 mg PO DAILY carvedilol 6.25 mg PO BID furosemide 20 mg PO QAM levothyroxine 100 mcg PO DAILY lisinopril 20 mg PO DAILY tamsulosin 1 cap PO BID HPI HPI Comments History of Present Illness Details Tato comes after a very long gap for evaluation of his pacemaker as well as heart failure. He has prior history of permanent pacemaker placement. Last year on remote monitoring was noted to be in atrial fibrillation was started on Eliquis at this point time which is taking. Also taking low-dose aspirin therapy. He has no anginal sounding chest discomfort. Takes Lasix on a daily basis. However he complains of progressive exertional shortness of breath. Denies any lightheadedness, syncope. Denies any clear orthopnea, PND. No prolonged palpitations. No bleeding issues or neurologic events [facility] Medical History Aortic stenosis Atherosclerotic cardiovascular disease BPH (benign prostatic hyperplasia) CAD (coronary artery disease) CHF (congestive heart failure) Congestive heart failure Heart failure with reduced ejection fraction High blood cholesterol HTN (hypertension) Hypothyroidism Ischemic cardiomyopathy Myocardial infarct Non-rheumatic aortic regurgitation Pacemaker Paroxysmal atrial flutter Surgical History H/O heart artery stent S/P cardiac cath (~08/2020) Family History Father No problems noted. Mother Diabetes Social History Alcohol intake: never service: Yes ([employer]) Current occupational status: retired Review of Systems Const Denies chills, Denies fatigue, Denies fever(s), Denies frequent falls, Denies weakness, Denies weight gain and Denies weight loss ENT Denies dizziness Card Denies chest pain, Denies leg edema, Denies lightheadedness, Denies palpitations, Denies dyspnea, Denies dyspnea on exertion, Denies orthopnea and Denies other (loss of consciousness) Resp Denies cough, Denies dyspnea and Denies dyspnea on exertion GI Denies hematochezia and Denies change in stool character Musc Denies abnormal gait, Denies muscle weakness, Denies numbness, Denies radiating pain into limb and Denies tingling Neuro Denies abnormal gait, Denies dizziness, Denies frequent falls, Denies numbness, Denies tingling and Denies weakness Endo Denies fatigue and Denies palpitations Physical Exam Vital Signs: Last Vital Signs Pulse 60 03/10/23 15:00 BP 130/70 03/10/23 15:00 BMI result Body Mass Index 28.3 Const General: cooperative, comfortable, no acute distress, alert and awake Nutritional Appearance: overweight Orientation/consciousness: patient oriented x3 Limitations: no limitations Neck Neck: Yes trachea midline, Yes supple and Yes no JVD Resp Effort & Inspection: normal respiratory effort Auscultation: clear to auscultation bilaterally, no rales, no wheezes and diminished lung sounds Cardio Jugular venous distension: no JVD Rate: regular rate Rhythm: regular rhythm Heart sounds: S1 normal heart sound present, Murmur heart sound present systolic late, decrescendo and crescendo and Other heart sounds present (Soft S2) GI Auscultation: normal bowel sounds Skin General skin exam: no rashes or lesions noted Neuro General: patient oriented x3 and no focal motor deficits Extrem General: Yes no clubbing, cyanosis or edema Psych Appearance: grossly normal Office Procedures Cardiac Device Check Cardiac Device Check Details: [facility] dual-chamber pacemaker in place programmed in DDDR at 60 beats per minute. Atrial pacing 81% of time. Ventricular pacing 98% time. Atrial ventricular capture thresholds adequate. Atrial ventricular sensing is adequate. Pacing lead impedance is stable. Battery life is at about 9 and half years. Two episodes of atrial fibrillation noted 1 of the episodes lasting 13 hours 21311-ES Cardiac Device Check, pacemaker dual lead Procedure code (CPT) selection complete EKG Details: EKG shows AV dual paced rhythm 11093-[id number], Complete Assessment & Plan Assessment & Plan (1) Heart failure with reduced ejection fraction: Code(s): I50.20 - Unspecified systolic (congestive) heart failure Plan: Heart failure with reduced ejection fraction with last echocardiogram showing LVEF of 39%. Needs repeat echocardiogram he has progressively worsening NYHA class 3 symptoms. No overt evidence of heart failure. Continue current diuretic regimen. Will switch his lisinopril to valsartan therapy 80 mg b.i.d.. Discontinue amlodipine and lisinopril therapy. Advised to monitor blood pressure at home. Follow-up blood work in 2 weeks time. If he tolerates this and carvedilol therapy will eventually switch him to Entresto therapy. Follow-up echocardiogram near future to see worsening LV ejection fraction that may benefit from cardiac resynchronization therapy if he so inclined. Daily weight monitoring avoidance of salt Monie was discussed. (2) CAD (coronary artery disease): Code(s): I25.10 - Atherosclerotic heart disease of [place] coronary artery without angina pectoris Plan: CAD with prior stenting. No current symptoms of angina. Hours and worsening shortness of breath. If he does have worsening LV ejection fraction may pursue ischemic workup. Continue aggressive statin therapy with goal LDL less than 70 mg/dL. Blood pressure is optimized. Currently on full oral anticoagulation apixaban and was therefore avoid aspirin therapy. (3) Paroxysmal atrial flutter: Code(s): I48.92 - Unspecified atrial flutter Plan: Paroxysmal atrial flutter with no symptoms. Will continue with pacer telemetry. Continue full oral anticoagulation Eliquis. No indication for antiarrhythmic drug therapy at this point time unless he is symptomatic persistent atrial fibrillation/flutter that require synchronized cardioversion. (4) Aortic stenosis: Code(s): I35.0 - Nonrheumatic aortic (valve) stenosis Plan: Aortic stenosis which appears clinically to have progressed. Will follow-up with echocardiogram in near future. Continue aggressive risk factor modifications above. Will follow up in the clinic in 4 weeks time, sooner p.r.n.. Thank you for allowing me to partake in his care Orders: Orders Basic Metabolic Panel 03/10/23 I25.5 - Ischemic cardiomyopathy CA echo transthoracic complete 03/10/23 I35.0 - Nonrheumatic aortic (valve) stenosis Medications: New valsartan 80 mg PO BID 60 tabs 5RF Coding Level of Care Code Est Pt Level 4 (99563) Diagnoses Heart failure with reduced ejection fraction I50.20 CAD (coronary artery disease) I25.10 Paroxysmal atrial flutter I48.92 Aortic stenosis I35.0 CPT Codes Cardiac Device Check - Cardiac Device 2: [id number]-XE Cardiac Device Check, pacemaker dual lead ([id number]) EKG - CPT: 65413-[id number], Complete ([id number])
[2023-03-10 15:00] VITALS: BP 130/70; PULSE 60; BMI 28.3
== END 2023-03-10 15:24 | disposition home or self-care (01) ==
PROVIDERS: PCP Internal Medicine; Referring Provider Internal Medicine; Visit Provider Internal Medicine Cardiovascular Disease
DX: I50.20 Unspecified systolic (congestive) heart failure (principal); I25.10 Atherosclerotic heart disease of native coronary artery without angina pectoris; I48.92 Unspecified atrial flutter; I35.0 Nonrheumatic aortic (valve) stenosis; Z95.0 Presence of cardiac pacemaker
CPT/HCPCS: 93280; 99214

== ENCOUNTER 2023-03-10 14:52 | Outpatient (REF) | payer MEDICARE, SELFPAY ==
[2023-03-10 16:29] LABS: Anion Gap 10 (12-20); Blood Urea Nitrogen 25 mg/dL (9-16); Calcium 8.8 mg/dL (8.4-10.2); Carbon Dioxide 27 mmol/L (22-29); Chloride 108 mmol/L (96-108); Estimated Glomerular Filt Rate > 60; Glucose Random 99 mg/dL (60-115); Potassium 4.3 mmol/L (3.3-5.1); Sodium 141 mmol/L (135-145)
== END 2023-03-10 14:53 | disposition home or self-care (01) ==
LOC: HO.LAB 14:52
PROVIDERS: PCP Internal Medicine; Referring Provider Internal Medicine; Visit Provider Internal Medicine Cardiovascular Disease
DX: I25.5 Ischemic cardiomyopathy (principal); I50.20 Unspecified systolic (congestive) heart failure; I25.10 Atherosclerotic heart disease of native coronary artery without angina pectoris; I48.92 Unspecified atrial flutter; I35.0 Nonrheumatic aortic (valve) stenosis; Z45.018 Encounter for adjustment and management of other part of cardiac pacemaker; Z79.899 Other long term (current) drug therapy; Z79.82 Long term (current) use of aspirin
CPT/HCPCS: 36415; 80048; 93005; 93280; 99212

== ENCOUNTER 2023-03-20 19:38 | Emergency (ER) | payer MEDICARE, SELFPAY ==
--- NOTE | ~2023-03-20 | CT_ITS ---
EXAMINATION: CT ANGIOGRAM HEAD CT ANGIOGRAM NECK CLINICAL INFORMATION: Reason for Exam C1 fracture r/o vertebral artery damage COMPARISON: CT head and cervical spine 03/20/2023, CTA head and neck 07/29/2019 TECHNIQUE: Initial noncontrast wall mirror department supervisor imaging of the head and neck was performed. Comparison is made with noncontrast head CT from earlier today. Test bolus sequences followed by intravenous administration 70 mL of Omnipaque 350. Helical imaging was performed in the axial plane from the aortic arch to the skull vertex. Delayed postcontrast imaging of the head was also performed. The data was processed at the staff nuclear medicine technologist's workstation for generation of MIP sequences. Angled MIPs and volume rendered reformatted images were also generated at an offline 3D workstation. Stenoses are assessed in accordance with NASCET criteria unless otherwise indicated. DLP: 1699.85 mGy-cm This CT examination was performed using dose optimization techniques as appropriate, variously including the following: *Automated exposure control. *Adjustment of mA and/or kV according to patient size (this includes techniques or standardized protocols for targeted exams where dose is matched to indication/reason for exam; i.e. extremities or head). *Use of iterative reconstruction technique. FINDINGS: CT Head: There is no evidence of acute intracranial hemorrhage or edematous territorial infarction. A few foci of hypoattenuation in the periventricular and deep white matter are consistent with mild microangiopathy. Marquez-white matter differentiation is preserved. Proportional prominence of the ventricles and sulcal spaces. No evidence for obstructive hydrocephalus. No abnormal mass effect or midline shift. No extra-axial fluid collections. No pathologic intra-axial enhancement or regional oligemia. No acute soft tissue or osseous abnormalities. CT Neck: The thyroid gland and remaining cervical soft tissues are within normal limits. Multilevel cervical spondylosis. Redemonstration of a nondisplaced fracture involving the left C1 posterior arch. CT Upper Chest: Biapical pulmonary emphysema and scarring. The upper mediastinum is within normal limits. Partially visualized left chest wall pacemaker leads Neck CTA: Please note that evaluation of the cervical vertebral arteries is technically limited secondary to extensive paravertebral reflux of injected intravenous contrast material. Aortic Arch: Normal contour and caliber. Classic 3 vessel branching pattern of the aortic arch. Great Vessel Origins: No significant stenosis of the branch origins. Right Common Carotid Artery: No focal stenosis or occlusion. Cervical Right Internal Carotid Artery: Calcific atherosclerotic disease of the carotid bulb and proximal internal carotid artery causing less than 50% stenosis. Left Common Carotid Artery: No focal stenosis or occlusion. Cervical Left Internal Carotid Artery: Calcific atherosclerotic disease of the carotid bulb and proximal internal carotid artery causing less than 50% stenosis. Cervical Right Vertebral Artery: No focal stenosis or occlusion. Cervical Left Vertebral Artery: The vessel origin is not well visualized. No focal stenosis or occlusion. Brain CTA: Intracranial Internal Carotid Arteries: Calcific atherosclerotic disease of the intracranial internal carotid arteries without occlusion or flow-limiting stenosis. Right Anterior Cerebral Artery: Normal A1 segment. Normal opacification of the distal DIANN segments. Left Anterior Cerebral Artery: Normal A1 segment. Normal opacification of the distal DIANN segments. Anterior Communicating Artery: Normal. Right Middle Cerebral Artery: Normal M1 segment of the MCA without focal stenosis or occlusion. Normal arborization of the distal segments. Left Middle Cerebral Artery: Normal M1 segment of the MCA without focal stenosis or occlusion. Normal arborization of the distal segments. Right Vertebral Artery: Normal V4 segment. Left Vertebral Artery: Normal V4 segment. Basilar Artery: Normal without focal stenosis or occlusion. Normal appearance of the proximal superior cerebellar arteries. Right Posterior Cerebral Artery: configuration.. Normal opacification of the distal WASTEWATER TREATMENT OPERATOR segments. Left Posterior Cerebral Artery: Normal P1 segment. Normal opacification of the distal WASTEWATER TREATMENT OPERATOR segments. Normal opacification of the superior sagittal, straight, transverse, and sigmoid sinuses. CT/CT angio head neck IMPRESSION: Technically limited assessment of the cervical vertebral arteries secondary to extensive paravertebral venous reflux of injected intravenous contrast material. No definite evidence of left vertebral artery injury related to nondisplaced left C1 posterior arch fracture which remains grossly patent.
--- NOTE | ~2023-03-20 | CT_ITS ---
EXAMINATION: NONCONTRAST HEAD CT NONCONTRAST CERVICAL SPINE CT INDICATION INFORMATION: Fall COMPARISON: 07/29/2019 TECHNIQUE: Separate noncontrast CT examinations of the head and cervical spine were performed. Coronal and sagittal images were created for each examination at the technologist workstation. This CT examination was performed using dose optimization techniques as appropriate, variously including the following: *Automated exposure control *Adjustment of mA and/or kV according to patient size (this includes techniques or standardized protocols for targeted exams where dose is matched to indication/reason for exam; i.e. extremities or head) *Use of iterative reconstruction technique DLP: 1150 mGy-cm FINDINGS: Head: There is no evidence of acute intracranial hemorrhage or territorial infarction. No abnormal mass effect or midline shift is seen. Marquez to white matter differentiation is well preserved. No extra-axial fluid collections are identified. No hydrocephalus. Proportional prominence of the ventricles and sulcal spaces is consistent with mild volume loss. Patchy periventricular and deep white matter hypoattenuation is consistent with mild small vessel ischemic changes. No acute osseous or soft tissue abnormality. The mastoid air cells and visualized portions of the paranasal sinuses are well aerated. Cervical spine: There is anatomic alignment of the vertebral bodies and posterior elements. The atlantoaxial and atlantooccipital articulations are intact. Vertebral body heights are maintained. There is multilevel intervertebral disc space narrowing with endplate osteophyte formation and facet arthropathy. Bony fusion of the left facets at C2-C3. Linear lucency identified along the left lateral arch of C1, along the course of the left vertebral artery. This can be seen on series 11 image 84. No prevertebral soft tissue swelling. Severe emphysema with pleural thickening/scarring at the lung apices. This is similar to previous.. The thyroid gland is either atrophic or absent. CT/CT cervical spine wo IV con IMPRESSION: 1. No acute intracranial finding. 2. Linear lucency along the left lateral arch of C1, along the course of the left vertebral artery. This is most suggestive of a nondisplaced fracture. 3. Severe emphysema with pleural thickening/scarring at the lung apices. This critical result was discussed with Elder White MD by telephone at 03/20/2023 10:46 PM and it was ascertained that the content and urgency of the report was understood at the time of direct communication.
[2023-03-20 19:46] VITALS: BP 140/60; BP 151/61; PULSE 70; PULSE 80; RESP 22; TEMP 36.6; O2SAT 94; O2SAT 96; BMI 28.8
--- NOTE | 2023-03-20 21:00 | PC.NURSE ---
Pt A&Ox4, reports 5/10 headache after fall at home reports was getting up to use the BR and tripped over dog early this AM 0130. Denies LOC, + head strike, multiple skin tears to right arm, abrasion to center of forehead and bridge of nurse. Pt reports neck tenderness and SOB with exertion, Pt speaking in full sentences, lung sounds clear, Spo2 94% on RA.
--- NOTE | 2023-03-20 21:41 | ED_ITS ---
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 no loss of consciousness hit his head to the ground came here with mild headache at the occipital area and skin tear on the right arm no nausea no vomiting no change in sensorium no other injury Related Data Home Medications Medication Instructions Recorded Confirmed tamsulosin 0.4 mg capsule 1 cap PO BID 06/19/20 03/10/23 atorvastatin 80 mg tablet 80 mg PO DAILY 08/09/20 03/10/23 carvedilol 6.25 mg tablet 6.25 mg PO BID 08/09/20 03/10/23 levothyroxine 100 mcg tablet 100 mcg PO DAILY 02/12/21 03/10/23 Previous Rx's Medication Instructions Recorded furosemide 20 mg tablet 20 mg PO QAM #90 tabs 02/04/23 apixaban 5 mg tablet (Eliquis) 5 mg PO BID #60 tabs 03/09/23 valsartan 80 mg tablet 80 mg PO BID #60 tabs 03/10/23 Allergies Allergy/AdvReac Type Severity Reaction Status Date / Time No Known Allergies Allergy Unknown UNKNOWN Verified 03/20/23 19:58 [NO KNOWN ALLERGIES] Review of Systems Review of Systems: Yes all other systems are reviewed and are negative FORMERLY [facility], [facility] Past Medical History Medical History Aortic stenosis Atherosclerotic cardiovascular disease BPH (benign prostatic hyperplasia) CAD (coronary artery disease) CHF (congestive heart failure) Congestive heart failure Heart failure with reduced ejection fraction High blood cholesterol HTN (hypertension) Hypothyroidism Ischemic cardiomyopathy Myocardial infarct Non-rheumatic aortic regurgitation Pacemaker Paroxysmal atrial flutter Surgical History H/O heart artery stent S/P cardiac cath (~08/2020) Family History Family History Father No problems noted. Mother Diabetes Social History Social History Alcohol intake: never Smoked in Last 30 Days: No Use of substances other than those prescribed or required for medical reasons: No Advance Directives: No Advance Directives Information Provided: No service: Yes ([employer]) Current occupational status: retired Physical Exam Vital Signs: Vital Signs: Last Vital Signs Temp 98.7 F 03/20/23 23:39 Pulse 67 03/21/23 02:00 Resp 18 03/21/23 02:00 BP 169/49 H 03/21/23 02:00 Pulse Ox 96 03/21/23 02:00 O2 Del Method Room Air 03/21/23 02:00 BMI result Body Mass Index 28.8 Appearance: Alert. Oriented X3. No acute distress. Eyes: PERRLA, No Nystagmus ENT: Pharynx normal. Oral Mucosa moist abrasion on the forehead Neck: Normal inspection. Neck supple. Mild tenderness upper cervical area CVS: Normal heart rate and rhythm. Pulses normal. Respiratory: No respiratory distress. Equal air entry bilateral, no wheezing/rales/rhonchi Abdomen: Soft and nontender. Bowel sounds are present, no mass palpable, no CVA tenderness Skin: Skin warm and dry. Normal skin color. Normal skin turgor. Multiple Skin tears right forearm Extremities: No lower extremity edema. No calf tenderness pelvis stable Neuro: Oriented X 3. No motor deficit. No sensory deficit.No cerebellar signs , cranial nerves II-XII intact Medications Administered Discontinued Medications Generic Name Dose Route Start Last Admin Trade Name Freq PRN Reason Stop Dose Admin Iohexol 70 ml 03/21/23 00:05 03/21/23 00:06 Iohexol 350 Mg/Ml 100 Ml Infus..Btl IV 03/21/23 00:06 70 ml ONCE ONE Administration Medical Decision Making Medical Decision Making [facility] Narrative: Patient status post fall with multiple skin tears head CT is negative CT cervical spine CT showed nondisplaced fracture of C1 no neuro deficits GCS 15 will consult Neurosurgery for evaluation hard collar was placed , for skin tear on the right forearm Steri-Strips were applied CT negative for any vascular injury case discussed with neurosurgeon patient need aspirin collar for next 4 weeks and follow up as outpatient no surgical intervention needed patient GCS 15 no neuro deficit labs are stable Lab Data [facility] Lab Attestation statement: I reviewed the patient's lab results. 03/20/23 22:20 03/20/23 22:20 Labs: Lab Results 03/20/23 03/20/23 03/20/23 Range/Units 22:20 22:20 23:19 WBC 11.3 H (4.8-10.8) X10*3/uL RBC 4.20 L (4.60-5.80) X10*6/uL Hgb 12.8 L (14.0-18.0) g/dl Hct 39.0 L (42.0-52.0) % MCV 92.9 (80.0-98.0) fL MCH 30.5 (27.0-33.0) pg MCHC 32.8 (31.0-36.0) g/dl RDW 13.2 (11.0-16.0) % Plt Count 182 (160-400) X10*3/uL MPV 11.5 (9.4-12.4) fL Immature Gran % (Auto) 0.4 (0.0-0.4) % Neut % (Auto) 63.0 (45-73) % Lymph % (Auto) 20.4 (20-40) % [place] % (Auto) 10.7 (2-11) % Eos % (Auto) 4.8 H (0-4) % Baso % (Auto) 0.7 (0-2) % Lymph # (Auto) 2.3 (1.2-4.9) X10*3/uL [place] # (Auto) 1.2 (0.1-1.2) X10*3/uL Eos # (Auto) 0.5 H (0.0-0.4) X10*3/uL Baso # (Auto) 0.1 (0.0-0.2) X10*3/uL Abs Immat Gran (auto) 0.04 H (0.00-0.03) X10*3/uL Absolute Neuts (auto) 7.1 (2.0-8.3) x10*3/uL Absolute Nucleated RBC 0.000 (0.0-0.012) X10*3/uL Nucleated RBC % (auto) 0.0 (0.0-0.2) /100WBC PT 20.6 H (11.1-13.3) SEC INR 1.7 H (0.9-1.1) APTT 42.8 H (26.0-36.4) SEC Sodium 142 (135-145) mmol/L Potassium 4.2 (3.3-5.1) mmol/L Chloride 108 (96-108) mmol/L Carbon Dioxide 24 (22-29) mmol/L Anion Gap 14 (12-20) BUN 27 H (9-16) mg/dL Creatinine 1.16 (0.5-1.4) mg/dL Estim Creat Clear Calc 45.4 Estimated GFR 59 Random Glucose 91 (60-115) mg/dL Calcium 8.9 (8.4-10.2) mg/dL Total Bilirubin 1.1 H (0.0-1.0) mg/dL AST 22 (5-37) U/L ALT 12 (0-40) U/L Alkaline Phosphatase 54 (39-117) U/L Total Protein 7.3 (6.5-8.0) g/dL Albumin 3.5 (3.5-5.0) g/dL Radiology Impression Discussion of test interpretation with radiology: I have reviewed the radiologist's reading. Radiologist Impression: [place] [id number] CT Scan Report Signed Patient: Tato Duke MR#: [id number] : 1935 Acct:[id number] Age/Sex: 88 / M ADM Date: 03/20/23 Loc: .ED Attending Dr: Ordering Physician: Elder White MD Date of Service: 03/20/23 Procedure(s): CT cervical spine wo IV con Accession Number(s): [id number] cc: Elder White MD~ EXAMINATION: NONCONTRAST HEAD CT NONCONTRAST CERVICAL SPINE CT INDICATION INFORMATION: Fall COMPARISON: 07/29/2019 TECHNIQUE: Separate noncontrast CT examinations of the head and cervical spine were performed. Coronal and sagittal images were created for each examination at the technologist workstation. This CT examination was performed using dose optimization techniques as appropriate, variously including the following: *Automated exposure control *Adjustment of mA and/or kV according to patient size (this includes techniques or standardized protocols for targeted exams where dose is matched to indication/reason for exam; i.e. extremities or head) *Use of iterative reconstruction technique DLP: 1150 mGy-cm FINDINGS: Head: There is no evidence of acute intracranial hemorrhage or territorial infarction. No abnormal mass effect or midline shift is seen. Marquez to white matter differentiation is well preserved. No extra-axial fluid collections are identified. No hydrocephalus. Proportional prominence of the ventricles and sulcal spaces is consistent with mild volume loss. Patchy periventricular and deep white matter hypoattenuation is consistent with mild small vessel ischemic changes. No acute osseous or soft tissue abnormality. The mastoid air cells and visualized portions of the paranasal sinuses are well aerated. Cervical spine: There is anatomic alignment of the vertebral bodies and posterior elements. The atlantoaxial and atlantooccipital articulations are intact. Vertebral body heights are maintained. There is multilevel intervertebral disc space narrowing with endplate osteophyte formation and facet arthropathy. Bony fusion of the left facets at C2-C3. Linear lucency identified along the left lateral arch of C1, along the course of the left vertebral artery. This can be seen on series 11 image 84. No prevertebral soft tissue swelling. Severe emphysema with pleural thickening/scarring at the lung apices. This is similar to previous.. The thyroid gland is either atrophic or absent. CT/CT cervical spine wo IV con IMPRESSION: 1.? No acute intracranial finding. 2.? Linear lucency along the left lateral arch of C1, along the course of the left vertebral artery. This is most suggestive of a nondisplaced fracture. 3.? Severe emphysema with pleural thickening/scarring at the lung apices. ? This critical result was discussed with Elder White MD by telephone at 03/20/2023 10:46 PM and it was ascertained that the content and urgency of the report was understood at the time of direct communication. Dictated By: Darnell Rosenberg MD Signed By: <Electronically signed by Darnell Rosenberg MD in OV> Critical Care Time Critical Care Time Critical Care Time: Yes Total Critical Care Time: 60 Attestation: The patient was critically ill with a high probability of imminent or life threatening deterioration. I spent greater than 70 minutes of discontinuous time evaluating the patient,delivering critical care at the bedside, discussing and evaluating pertinent data with consultants. Critical care time does not include time spent performing separately billable procedures or teaching. Total time spent performing critical care was 60 minutes. Discharge Plan Discharge Clinical Impression: Closed C1 fracture Patient Disposition: Home, Self-Care Instructions: Cervical Fracture (ED) Additional Instructions: You have a nondisplaced fracture of C1 vertebral Wear the Haworth collar/collar provided to you for at least 4 weeks and follow up with neurosurgeon after that Local care of the skin tear as adv See your PCP in next few days Prescriptions: No Action furosemide 20 mg tablet 20 mg PO QAM Qty: 90 1RF Eliquis 5 mg tablet 5 mg PO BID Qty: 60 0RF tamsulosin 0.4 mg capsule 1 cap PO BID carvedilol 6.25 mg tablet 6.25 mg PO BID atorvastatin 80 mg tablet 80 mg PO DAILY levothyroxine 100 mcg tablet 100 mcg PO DAILY valsartan 80 mg tablet 80 mg PO BID Qty: 60 5RF Interventions: ED Discharge Assessment Last Done: 03/21/23 02:12 Discharge Date/Time: 03/21/23 02:12
[2023-03-20 22:01] VITALS: BP 155/51; PULSE 64; RESP 21; TEMP 36.7; O2SAT 94
[2023-03-20 22:26] LABS: MANUAL DIFF FLAG NO
[2023-03-20 22:34] LABS: Basophils Absolute Auto 0.1 X10*3/uL (0.0-0.2); Basophils Percent Auto 0.7 % (0-2); Eosinophils Absolute Auto 0.5 X10*3/uL (0.0-0.4); Eosinophils Percent Auto 4.8 % (0-4); Hemoglobin 12.8 g/dl (14.0-18.0); Imm Gran Abs Auto 0.04 X10*3/uL (0.00-0.03); Imm Gran Pct Auto 0.4 % (0.0-0.4); Lymphocytes Absolute Auto 2.3 X10*3/uL (1.2-4.9); Lymphocytes Percent Auto 20.4 % (20-40); Mean Corpuscular HGB Conc 32.8 g/dl (31.0-36.0); Mean Corpuscular Hemoglobin 30.5 pg (27.0-33.0); Mean Corpuscular Volume 92.9 fL (80.0-98.0); Mean Platelet Volume 11.5 fL (9.4-12.4); Monocytes Absolute Auto 1.2 X10*3/uL (0.1-1.2); Monocytes Percent Auto 10.7 % (2-11); Neutrophils Absolute Auto 7.1 x10*3/uL (2.0-8.3); Platelet Count 182 X10*3/uL (160-400); Red Cell Distribution Width 13.2 % (11.0-16.0); White Blood Count 11.3 X10*3/uL (4.8-10.8)
[2023-03-20 22:42] LABS: Alanine Aminotransferase 12 U/L (0-40); Albumin Level 3.5 g/dL (3.5-5.0); Alkaline Phosphatase 54 U/L (39-117); Anion Gap 14 (12-20); Aspartate Amino Transferase 22 U/L (5-37); Bilirubin Total 1.1 mg/dL (0.0-1.0); Blood Urea Nitrogen 27 mg/dL (9-16); Calcium 8.9 mg/dL (8.4-10.2); Carbon Dioxide 24 mmol/L (22-29); Chloride 108 mmol/L (96-108); Creatinine Clr Calc Pharmacy 45.4; Estimated Glomerular Filt Rate 59; Glucose Random 91 mg/dL (60-115); Potassium 4.2 mmol/L (3.3-5.1); Sodium 142 mmol/L (135-145); Total Protein 7.3 g/dL (6.5-8.0)
--- NOTE | 2023-03-20 23:20 | ECG_ITS ---
Test Reason : FALL Blood Pressure : / mmHG Vent. Rate : 065 BPM Atrial Rate : 069 BPM P-R Int : 000 ms QRS Dur : 216 ms QT Int : 498 ms P-R-T Axes : 086 -66 107 degrees QTc Int : 517 ms Ventricular-paced rhythm Abnormal ECG When compared with ECG of 19-JUN-2020 20:46, Electronic ventricular pacemaker has replaced Electronic atrial pacemaker Referred By: Elder White Electronically Signed By:YAYA WOOD
--- NOTE | 2023-03-20 23:24 | MHC.EDTECH ---
call out to [facility] transfer line at [id number] Ceci White
[2023-03-20 23:32] LABS: INTERNATIONAL NORM RATIO 1.7 (0.9-1.1); Prothrombin Time 20.6 SEC (11.1-13.3)
[2023-03-20 23:35] LABS: Partial Thromboplastin Time 42.8 SEC (26.0-36.4)
[2023-03-20 23:39] VITALS: BP 163/57; PULSE 66; RESP 16; TEMP 37.1; O2SAT 97
--- NOTE | 2023-03-20 23:40 | MHC.EDTECH ---
THIS PCT ASSUMED CARE OF PATIENT @ 2300 ,VITALS SIGN DONE AND EKG TAKEN AND WAS READ BY PROVIDER ,PATIENT DAUGHTER AT BED SIDE ,PATIENT IS NOW IN CT _SCAN .
[2023-03-21] MEDS: iohexoL 350 MG/ML 100 ML INFUS..BTL 70 ML IV (00:06)
[2023-03-21 02:00] VITALS: BP 169/49; PULSE 67; RESP 18; O2SAT 96
== END 2023-03-21 02:12 | disposition home or self-care (01) ==
PROVIDERS: Emergency Provider Internal Medicine; PCP Internal Medicine
DX: S12.031A Nondisplaced posterior arch fracture of first cervical vertebra, initial encounter for closed fracture (principal); W01.0XXA Fall on same level from slipping, tripping and stumbling without subsequent striking against object, initial encounter; I48.92 Unspecified atrial flutter; I13.0 Hypertensive heart and chronic kidney disease with heart failure and stage 1 through stage 4 chronic kidney disease, or unspecified chronic kidney disease; N18.9 Chronic kidney disease, unspecified; I50.20 Unspecified systolic (congestive) heart failure; Y93.89 Activity, other specified; Y92.013 Bedroom of single-family (private) house as the place of occurrence of the external cause; Y99.9 Unspecified external cause status; Z95.0 Presence of cardiac pacemaker; Z79.01 Long term (current) use of anticoagulants; Z79.899 Other long term (current) drug therapy
CPT/HCPCS: 36415; 70450; 70496; 70498; 72125; 80053; 85025; 85610; 85730; 93005; 99285; Q9967

== ENCOUNTER → 2023-04-03 12:58 | Outpatient (REF) | payer MEDICARE, SELFPAY ==
--- NOTE | 2023-04-03 13:48 | CA_ITS ---
Transthoracic Echocardiogram Patient (Last, First, Middle): Tato Duke, Gender: Male Date of : 1935 Age: 88 Procedure Date: 04/03/2023 Procedure Type: Transthoracic Echocardiogram Location: OP Height: 172.72 cm Weight: 79.38 kg BSA: 1.93 m2 Heart Rate: bpm BP: 135 / 80 mmHg Armature Varnisher: Referring MD: Ike Mast MD Symptoms: I35.0 - Nonrheumatic aortic (valve) stenosis Study Quality: Adequate ECG Rhythm: Sinus Conclusions: - Normal left ventricular cavity size. The left ventricular systolic function is moderately decreased. The visually estimated ejection fraction is between 30-35%. - Normal right ventricular cavity size and systolic function. - The left atrium is severely dilated. - There is mild to moderate aortic valve stenosis. There is moderate aortic valve regurgitation. Findings Left Ventricle Normal left ventricular cavity size. The left ventricular systolic function is moderately decreased. The visually estimated ejection fraction is between 30-35%. There is paradoxical septal motion consistent with a right ventricular pacemaker. Diastolic function is indeterminate on the basis of available data. Right Ventricle Normal right ventricular cavity size and systolic function. Atria The left atrium is severely dilated. A pacemaker wire is identified in the right atrium. Aortic Valve There is moderate calcification of the aortic valve. There is mild to moderate aortic valve stenosis. There is moderate aortic valve regurgitation. Mitral Valve The mitral valve appears normal. There is mild mitral valve regurgitation. There is no mitral valve stenosis. Pulmonic Valve Normal pulmonic valve structure and function. There is trace pulmonic valve regurgitation. Tricuspid Valve Normal tricuspid valve structure and function. There is no tricuspid valve regurgitation. Normal right atrial pressure. There is no evidence of pulmonary hypertension. Great Vessels There is mild dilatation of the ascending aorta measuring 4.40 cm. Venous The inferior vena cava is normal in size and collapses greater than 50% with inspiration. Pericardium/Pleural There is no evidence of pericardial effusion. Prior Study Comparison Changes noted compared to prior study dated: 08/16/2021. Mild to moderate , Moderate AI Measurements 2D Linear Measurements IVSd: 1.31 0.6-0.9/0.6-1.0 cm LVIDd: 5.63 3.9-5.3/4.2-5.9 cm LVIDd Index: 2.92 2.4-3.2/2.2-3.1 cm/m2 LVIDs: 4.46 2.0-3.6 cm LVPWd: 1.40 0.7-1.1 cm Ao Root: 3.60 2.1-3.5 cm LA Diam: 5.00 2.7-3.8/3.0-4.0 cm LAIDs Index: 2.59 1.5-2.3 cm/m2 LV Mass: 417.71 67-162/88-224 g LV Mass Index: 216.43 43-95/49-115 g/m2 LVOT Diam: 2.20 3.0+(-)1.3 cm 2D Systolic Function EF 4C: 37.60 >55% EF 2C: 26.60 >55% EF BiP: 32.80 >55% Mitral Valve MV Pk E: 0.44 MV PK A: 1.05 MV Decel Time: 310.00 E/A: 0.40 E'Lateral: 6.31 E'Medial: 3.48 E/E' Med: 12.70 E/E' Lat: 7.00 PHT: 91.00 MVA PHT: 2.42 Decel [place]: 1.42 Aortic Valve AoV Pk Yony: 2.89 AoV Mn Yony: 1.92 AoV VTI: 0.64 AoV Pk Grad: 33.00 Aov Mn Grad: 18.00 KOFI Cont.VTI: 1.26 LVOT LVOT Pk Yony: 0.96 LVOT Mn Yony: 0.62 LVOT VTI: 0.21 LVOT Pk Grad: 4.00 LVOT Mn Grad: 2.00 LVOT Diam: 2.20 LVOT Area: 3.80 Diastolic Function MV Pk E: 0.44 MV Pk A: 1.05 E/A: 0.40 E'Medial: 3.48 E/E' Med: 12.70 E' Laterial: 6.31 E/E' Lat: 7.00 Right Ventricle TAPSE (mm): 25.00 TVS' Yony: 9.00 Tricuspid Valve TR Pk Yony: 1.87 TR Pk Grad: 14.00 RA Press: 3.00 RVSP: 17.00 Great Vessels Aorta Ao Root-2D: 3.60 2.0-3.7 cm Ao Asc: 4.40 2.1-3.4 cm Pulmonary Valve PV Pk Yony: 0.72 Peak PV Grad: 2.00 Updated in Other Vendor System with Status of Final Patel Zhu MD electronically signed on 04/06/2023 10:20:39 AM with status of Final
== END ==
LOC: HO.CARD 12:58
PROVIDERS: PCP Internal Medicine; Visit Provider Internal Medicine Cardiovascular Disease
DX: I35.0 Nonrheumatic aortic (valve) stenosis (principal)
CPT/HCPCS: 93306

== ENCOUNTER → 2023-04-03 13:48 | Outpatient (BNV) | payer MEDICARE, SELFPAY | PROVIDERS: PCP Internal Medicine; Visit Provider Internal Medicine Cardiovascular Disease | DX: I35.0 Nonrheumatic aortic (valve) stenosis (principal) | CPT/HCPCS: 93306 ==

== ENCOUNTER 2023-05-06 09:27 | Outpatient (REF) | payer MEDICARE, SELFPAY | END 2023-05-06 09:28 | disposition home or self-care (01) | LOC: HO.HOSX 09:27 | PROVIDERS: PCP Physician Assistant Medical; Visit Provider Physician Assistant | DX: S12.000A Unspecified displaced fracture of first cervical vertebra, initial encounter for closed fracture (principal) | CPT/HCPCS: 72050; 99202 ==

== ENCOUNTER 2023-05-06 09:27 | Outpatient (AMB) | payer MEDICARE, SELFPAY ==
--- NOTE | 2023-05-06 09:33 | A.SPINEOV_ITS ---
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 Duke is here today C1 fx. ED follow up. MRI done @ [facility]/brought disc. Planer Operator / Grader Required: No Allergies No Known Allergies [NO KNOWN ALLERGIES] Allergy (Unknown, Verified 03/20/23 19:58) UNKNOWN Assessment & Plan Assessment & Plan (1) Cervicalgia: Code(s): M54.2 - Cervicalgia Plan Tato is an 88-year-old male who comes in today after being self-referred for cervical spine fracture of C1. He was seen in the emergency department at [facility] and was advised to follow-up with the neurosurgeon outpatient for evaluation of his fracture. Tato reports that in March he tripped over his dog and fell cutting open his arm. He was concerned because he was on blood thinners and felt as though he was bleeding significantly, so he went to a local urgent care who referred him to the emergency department after hearing that he had also hit his head during his fall. The emergency department obtained CT imaging, which showed a left-sided cervical ring fracture of C1. Tato reports that he never had pain in his neck/spine after his fall, and feels this of this finding was incidental as he only initially went to the urgent care for the laceration on his arm. Unfortunately he has remained in a hard cervical collar since this incident. He comes in today hoping to be cleared to remove his hard collar. PMH: Hypertension, headaches, pacemaker, hyperlipidemia, cardiac stent placement, hyperthyroidism, BPH, pacemaker placement. Social hx: Patient does not smoke, reports no substance use. Medications: Tamsulosin, carvedilol, atorvastatin, levothyroxine, valsartan, apixaban. Allergies: NKDA. Physical exam: Mobility / function: Patient ambulates well, can rise from a seated position without difficulty. Sensation: Grossly intact CN: II-XII grossly intact. Strength Testing Upper Extremities: - Deltoid 5/5 right 5/5 left - Biceps 5/5 right 5/5 left - Triceps 5/5 right 5/5 left - Wrist Ext 5/5 right 5/5 left - Wrist Flex 5/5 right 5/5 left - Hand teaching artist 5/5 right 5/5 left - Interossei 5/5 right 5/5 left ATLS C-spine i. No neck pain. ii. No pain to palpation of midline cervical spine. iii. Patient is awake and alert with GCS=15 iv. No intoxication with alcohol or drugs. Patient is able to flex and extend neck & can turn head left and right passively against resistance without pain. Imaging review: CT 03/20/23 completed at [facility] shows stable left sided cervical ring fracture. X-ray imaging performed during office visit today shows no cervical instability. Impression: The patient is an 88 y/o male who comes in today with a chief complaint of a cervical C1 fracture, with hopes of being cleared from his hard collar. 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 He is able to flex and extend his neck without difficulty and without pain, and meets all ATLS C-spine clearance requirements for a patient with GCS 15. He had repeat x-ray imaging performed during his appointment today which shows no cervical spine instability with flexion/extension, and no obvious progression of injury. This patient was examined alongside Dr. Anand who cleared him and removed his hard collar. It is recommended he make an appointment and follow up with his primary care provider for continued chronic management of the above listed medical concerns. He was advised to return to the emergency department for re-evaluation or repeat imaging if he has any new or worsening pain in his neck/cervical spine, or feels like he has any increased or new weakness /numbness/burning/tingling in his upper extremities. The total time spent with this visit with this patient was 60 minutes reviewing history, physical exam, CT/X-ray imaging review, and implementation of treatment plan or further diagnostic testing Gavin Anand MD,PhD [facility] Orders: Orders XR cervical spine 4V 05/06/23 M54.2 - Cervicalgia Coding Level of Care Code New Pt Level 5 (21690) Diagnoses Cervicalgia M54.2
== END 2023-05-06 10:41 | disposition home or self-care (01) ==
PROVIDERS: PCP Physician Assistant Medical; Visit Provider Physician Assistant
DX: M54.2 Cervicalgia (principal)
CPT/HCPCS: 99205

== ENCOUNTER 2023-08-07 09:45 | Outpatient (AMB) | payer MEDICARE, SELFPAY ==
[2023-08-07 09:47] VITALS: BP 160/50; PULSE 63; BMI 27.8
--- NOTE | 2023-08-07 09:47 | MHC.OFFVIS ---
Intake Vital Signs 08/07/23 09:47 Height 5 ft 7 in Weight 177 lb 11.081 oz BMI 27.8 BP 160/50 H Blood Pressure Location Lt brachial Position Sitting Pulse 63 Pulse Source Pulse Oximeter Intake Visit Reasons: f/u Intake Note: f/up pt its feeling fine Well Logger Required: No Accompanied by: Daughter Allergies No Known Allergies [NO KNOWN ALLERGIES] Allergy (Unknown, Verified 03/20/23 19:58) UNKNOWN Medication List - Last Reconciled 08/07/23 by Ike Mast MD apixaban (Eliquis) 5 mg PO BID atorvastatin 80 mg PO DAILY carvedilol 6.25 mg PO BID furosemide 20 mg PO QAM levothyroxine 100 mcg PO DAILY tamsulosin 1 cap PO BID valsartan 80 mg PO BID HPI HPI Comments History of Present Illness Details Tato comes for follow-up, accompanied by his daughter. He has been doing well. He says that he walks 3-4 blocks and then get short of breath and usually stops and then can continue to go on. Denies any symptoms of orthopnea, PND, leg edema. Denies any symptoms exertional chest pain or lightheadedness. Denies any bleeding issues or neurologic events. Denies any prolonged palpitation irregular heartbeat. [facility] Medical History Heart failure with reduced ejection fraction CAD (coronary artery disease) Ischemic cardiomyopathy Non-rheumatic aortic regurgitation Paroxysmal atrial flutter Atherosclerotic cardiovascular disease BPH (benign prostatic hyperplasia) Hypothyroidism Congestive heart failure Aortic stenosis Myocardial infarct CHF (congestive heart failure) HTN (hypertension) High blood cholesterol Pacemaker Surgical History S/P cardiac cath (~08/2020) H/O heart artery stent Family History Father No problems noted. Mother Diabetes Social History Alcohol intake: never service: Yes ([employer]) Current occupational status: retired Review of Systems Const Reports chills, Reports fatigue, Reports fever(s), Reports frequent falls, Reports weakness, Reports weight gain and Reports weight loss ENT Reports dizziness Card Reports chest pain, Reports leg edema, Reports lightheadedness, Reports palpitations, Reports dyspnea and Reports dyspnea on exertion Resp Reports cough, Reports dyspnea and Reports dyspnea on exertion GI Reports hematochezia Musc Reports abnormal gait, Reports muscle weakness, Reports numbness, Reports radiating pain into limb and Reports tingling Neuro Reports abnormal gait, Reports dizziness, Reports frequent falls, Reports numbness, Reports tingling and Reports weakness Endo Reports fatigue and Reports palpitations Physical Exam Vital Signs: Last Vital Signs Pulse 63 08/07/23 09:47 BP 160/50 H 08/07/23 09:47 BMI result Body Mass Index 27.8 Const General: cooperative, comfortable, no acute distress, alert and awake Nutritional Appearance: overweight Orientation/consciousness: patient oriented x3 Limitations: no limitations Neck Neck: Yes trachea midline, Yes supple and Yes no JVD Resp Effort & Inspection: normal respiratory effort Auscultation: clear to auscultation bilaterally, no rales, wheezes scattered wheezes and diminished lung sounds Cardio Jugular venous distension: no JVD Rate: regular rate Rhythm: regular rhythm Heart sounds: S1 normal heart sound present, Murmur heart sound present systolic late, decrescendo and crescendo and Other heart sounds present (Soft S2) GI Auscultation: normal bowel sounds Skin General skin exam: no rashes or lesions noted Neuro General: patient oriented x3 and no focal motor deficits Extrem General: Yes no clubbing, cyanosis or edema Psych Appearance: grossly normal Office Procedures Cardiac Device Check Cardiac Device Check Details: Dual-chamber [place] pacemaker in place. Programmed in DDDR at 60 beats per minute with atrial pacing 79% of time and ventricular pacing 100% of the time. Intermittent episodes of atrial fibrillation with total burden of 3%. Atrial ventricular capture thresholds are adequate. Atrial ventricular sensing is adequate. Pacing lead impedance is stable. Battery life is at about 10 years [id number] Cardiac Device Check, pacemaker dual lead Procedure code (CPT) selection complete Assessment & Plan Assessment & Plan (1) Heart failure with reduced ejection fraction: Code(s): I50.20 - Unspecified systolic (congestive) heart failure Plan: heart failure with reduced ejection fraction, clinically euvolemic and well compensated at current point in time. Continue current neurohormonal modulation with valsartan and carvedilol. He is tolerating this therapy well. Clinically appears to be dry. Continue current low-dose Lasix therapy. Importance of daily weight monitoring avoidance of salt loading was discussed. Additional diuretics as need be. Management of heart failure including goals of therapy were discussed. He has wheezing significantly on today's exam and I think his shortness of breath might be related to bronchospastic airway disease. Advised pulmonary consultation or intervention with more inhaled therapy. Follow-up echocardiogram in 6 months time. (2) CAD (coronary artery disease): Code(s): I25.10 - Atherosclerotic heart disease of wiyot coronary artery without angina pectoris Plan: CAD with prior LAD stenting. Currently having no symptoms of angina. Continue current full oral anticoagulation with apixaban. Avoid antiplatelet therapy to reduce bleeding risk. Continue high-intensity statin therapy. Target goal LDL less than 70 mg/dL. Continue maintain activity level as tolerated. Blood pressure is currently well optimized. (3) Paroxysmal atrial flutter: Code(s): I48.92 - Unspecified atrial flutter Plan: Paroxysmal atrial flutter / fibrillation. Currently predominantly remaining sinus rhythm. No indication for antiarrhythmic drug therapy. Will continue monitor by remote telemetry. Will continue pursue rhythm control approach. Continue full oral anticoagulation, currently on Eliquis 5 mg b.i.d.. Quarterly renal function test should be pursued. (4) Aortic stenosis: Code(s): I35.0 - Nonrheumatic aortic (valve) stenosis Plan: Aortic stenosis which clinically appears to be at least moderate. At this point time will monitor echocardiogram 6 months time. No interventions required at current point time. Continue maintain activity level. Cardinal symptoms associated with aortic stenosis were discussed. Continue aggressive vascular risk factor modification as above. Follow up in the clinic in 6 months time. Greater than 40 minutes was spent in managing his complex care. Coding Level of Care Code Est Pt Level 5 (61723) Diagnoses Heart failure with reduced ejection fraction I50.20 CAD (coronary artery disease) I25.10 Paroxysmal atrial flutter I48.92 Aortic stenosis I35.0 CPT Codes Cardiac Device Check - Cardiac Device 2: [id number] Cardiac Device Check, pacemaker dual lead ([id number])
== END 2023-08-07 10:12 | disposition home or self-care (01) ==
PROVIDERS: PCP Physician Assistant Medical; Visit Provider Internal Medicine Cardiovascular Disease
DX: I50.20 Unspecified systolic (congestive) heart failure (principal); I25.10 Atherosclerotic heart disease of native coronary artery without angina pectoris; I48.92 Unspecified atrial flutter; I35.0 Nonrheumatic aortic (valve) stenosis
CPT/HCPCS: 93280; 99215

== ENCOUNTER → 2023-08-07 09:45 | Outpatient (BNVA) | payer MEDICARE, SELFPAY | PROVIDERS: PCP Physician Assistant Medical; Visit Provider Internal Medicine Cardiovascular Disease | DX: Z45.018 Encounter for adjustment and management of other part of cardiac pacemaker (principal); I50.20 Unspecified systolic (congestive) heart failure; I25.10 Atherosclerotic heart disease of native coronary artery without angina pectoris; I48.92 Unspecified atrial flutter; I35.0 Nonrheumatic aortic (valve) stenosis | CPT/HCPCS: 93280; 99212 ==

== ENCOUNTER 2023-10-09 23:02 | Inpatient (IN) | payer MEDICARE, SELFPAY ==
--- NOTE | 2023-10-09 | ECG_ITS ---
Test Reason : SOB Blood Pressure : / mmHG Vent. Rate : 068 BPM Atrial Rate : 072 BPM P-R Int : 000 ms QRS Dur : 222 ms QT Int : 500 ms P-R-T Axes : 000 -68 108 degrees QTc Int : 531 ms Ventricular-paced rhythm Abnormal ECG When compared with ECG of 20-MAR-2023 23:31, Vent. rate has increased BY 3 BPM Referred By: Generic ED Physician Electronically Signed By:Patel Zhu
--- NOTE | ~2023-10-09 | XR_ITS ---
EXAMINATION: XR CHEST CLINICAL INFORMATION: Cough COMPARISON: 06/19/2020 TECHNIQUE: Frontal view of the chest was obtained. FINDINGS: Left-sided pacemaker lead tips overlie the right atrium and right ventricle. Lung volumes are symmetric. There is mildly increased prominence of the central vasculature and interstitium throughout the lungs as compared to prior, suggesting congestion and subtle interstitial edema. Streaky opacities are present in the mid and lower right lung, which could indicate subsegmental atelectasis. No evidence of pneumothorax or significant pleural effusion. Cardiac silhouette appears mildly enlarged for technique. Calcification is present at the aortic arch. No acute osseous findings are seen. XR/XR chest 1V IMPRESSION: Mildly increased prominence of the central vasculature and interstitium, suggesting congestion and subtle interstitial edema. Streaky right lung opacities may reflect atelectasis.
[2023-10-09 23:14] VITALS: BP 142/45; BP 179/72; PULSE 73; PULSE 77; RESP 24; TEMP 37.1; O2SAT 93; O2SAT 98; BMI 29.1
[2023-10-09 23:36] LABS: MANUAL DIFF FLAG NO
[2023-10-09 23:37] LABS: Basophils Absolute Auto 0.1 X10*3/uL (0.0-0.2); Basophils Percent Auto 0.9 % (0-2); Eosinophils Absolute Auto 0.8 X10*3/uL (0.0-0.4); Eosinophils Percent Auto 9.4 % (0-4); Hematocrit 38.8 % (42.0-52.0); Hemoglobin 12.7 g/dl (14.0-18.0); Imm Gran Abs Auto 0.02 X10*3/uL (0.00-0.03); Imm Gran Pct Auto 0.3 % (0.0-0.4); Lymphocytes Absolute Auto 1.5 X10*3/uL (1.2-4.9); Lymphocytes Percent Auto 19.4 % (20-40); Mean Corpuscular HGB Conc 32.7 g/dl (31.0-36.0); Mean Corpuscular Hemoglobin 30.9 pg (27.0-33.0); Mean Corpuscular Volume 94.4 fL (80.0-98.0); Mean Platelet Volume 11.7 fL (9.4-12.4); Monocytes Absolute Auto 0.9 X10*3/uL (0.1-1.2); Monocytes Percent Auto 10.7 % (2-11); Neutrophils Absolute Auto 4.7 x10*3/uL (2.0-8.3); Neutrophils Percent Auto 59.3 % (45-73); Platelet Count 176 X10*3/uL (160-400); Red Blood Count 4.11 X10*6/uL (4.60-5.80); Red Cell Distribution Width 13.3 % (11.0-16.0)
[2023-10-09 23:50] LABS: Alanine Aminotransferase 9 U/L (0-40); Albumin Level 3.3 g/dL (3.5-5.0); Alkaline Phosphatase 62 U/L (39-117); Anion Gap 12 (12-20); Aspartate Amino Transferase 15 U/L (5-37); Bilirubin Total 0.6 mg/dL (0.0-1.0); Blood Urea Nitrogen 24 mg/dL (9-16); Calcium 9.1 mg/dL (8.4-10.2); Carbon Dioxide 28 mmol/L (22-29); Chloride 107 mmol/L (96-108); Creatinine Clr Calc Pharmacy 48.6; Estimated Glomerular Filt Rate > 60; Glucose Random 134 mg/dL (60-115); Potassium 4.3 mmol/L (3.3-5.1); Sodium 143 mmol/L (135-145); Total Protein 6.7 g/dL (6.5-8.0)
[2023-10-09 23:56] LABS: B Type Natriuretic Peptide 1740 pg/mL (<100); Troponin-I High Sensitivity 21.2 ng/L (<3.5-35.0)
[2023-10-10] VITALS (9 sets, daily range): BP systolic 124–147; BP diastolic 40–63; PULSE 59–83; RESP 16–22; TEMP 36.3–36.6; O2SAT 90–96
[2023-10-10 00:13] LABS: Influenza A PCR NEGATIVE (Negative); Influenza B PCR NEGATIVE (Negative); Resp Syncy Virus RNA Qual PCR NEGATIVE (Negative); SARS COV2 PCR INHOUSE NEGATIVE (Negative)
--- NOTE | 2023-10-10 00:43 | ED_ITS ---
HPI - General Adult General Chief complaint: Dyspnea Stated complaint: SOB X1 WEEK, 90%RA Time Seen by Provider: 10/10/23 00:42 Source: patient and family Limitations: no limitations History of Present Illness HPI narrative: 88-year-old male who has a history of CHF currently on Lasix 20 mg daily, aortic stenosis, pacer, paroxysmal AFib, flutter on Eliquis, coronary artery disease with previous stenting, presents complaining of a one-week history of shortness of breath. Patient states he saw his PCP several days ago. He reports that he is asymptomatic while he is at rest however with short movements or ambulation he becomes short of breath. He does not wear oxygen at home. He lives alone. He denies any recent trauma. He has been eating drinking normally. He reports compliance with his medications. Over the past 2 days he has had increased cough which is typically clear in nature. Today his sputum has been yellow, brown tinged. He denies any orthopnea. Unknown if he has had any change in lower extremity edema. Related Data Home Medications Medication Instructions Recorded Confirmed tamsulosin 0.4 mg capsule 1 cap PO BID 06/19/20 08/07/23 atorvastatin 80 mg tablet 80 mg PO DAILY 08/09/20 08/07/23 carvedilol 6.25 mg tablet 6.25 mg PO BID 08/09/20 08/07/23 levothyroxine 100 mcg tablet 100 mcg PO DAILY 02/12/21 08/07/23 Previous Rx's Medication Instructions Recorded furosemide 20 mg tablet 20 mg PO QAM #90 tabs 06/01/23 valsartan 80 mg tablet 80 mg PO BID #60 tabs 08/31/23 apixaban 5 mg tablet (Eliquis) 5 mg PO BID #60 tabs 09/28/23 Allergies Allergy/AdvReac Type Severity Reaction Status Date / Time No Known Allergies Allergy Unknown UNKNOWN Verified 10/10/23 00:43 [NO KNOWN ALLERGIES] Review of Systems 2 Constitutional: Constitutional: Denies chills, Denies fever(s) and Denies headache(s) Eyes: Eyes: Denies change in vision and Denies other (No redness.) ENT: Denies headache(s), Denies nasal congestion, Denies nasal discharge, Denies neck pain and Denies sore throat Cardiovascular: Cardiovascular: Denies chest pain, Denies palpitations, Reports dyspnea, Reports dyspnea on exertion and Denies orthopnea Respiratory: Respiratory: Denies cough, Reports dyspnea and Reports dyspnea on exertion Gastrointestinal: Gastrointestinal: Denies abdominal pain, Denies melena, Denies hematochezia, Denies diarrhea, Denies nausea and Denies vomiting Genitourinary: Genitourinary: Denies difficulty urinating, Denies dysuria and Denies urinary urgency Musculoskeletal: Musculoskeletal: Denies back pain, Denies muscle weakness, Denies neck pain and Denies numbness Integumentary/Breasts: Skin/Breast: Denies rash Neurologic: Denies headache(s), Denies focal weakness and Denies numbness Psychiatric: Psychiatric: Denies depression Endocrine: Endocrine: Denies palpitations [facility] Past Medical History Medical History Heart failure with reduced ejection fraction CAD (coronary artery disease) Ischemic cardiomyopathy Non-rheumatic aortic regurgitation Paroxysmal atrial flutter Atherosclerotic cardiovascular disease BPH (benign prostatic hyperplasia) Hypothyroidism Congestive heart failure Aortic stenosis Myocardial infarct CHF (congestive heart failure) HTN (hypertension) High blood cholesterol Pacemaker Surgical History S/P cardiac cath (~08/2020) H/O heart artery stent Family History Family History Father No problems noted. Mother Diabetes Social History Social History Alcohol intake: never Smoked in Last 30 Days: No Use of substances other than those prescribed or required for medical reasons: No Advance Directives: No Advance Directives Information Provided: Yes service: Yes ([employer]) Current occupational status: retired Physical Exam ED Vital Signs: Vital Signs - 24 hr 10/09/23 23:14 10/10/23 00:00 Temperature 98.8 F Pulse Rate 77 79 Respiratory Rate 24 H 22 H Blood Pressure 142/45 H 138/40 L Pulse Oximetry 98 94 Oxygen Delivery Method Nasal Cannula Nasal Cannula Oxygen Flow Rate 2 BMI result Body Mass Index 29.1 Const Other: Speaks full clear sentences. General: cooperative, alert and awake Resp Other: Diminished in the bases bilaterally with slight crackles. No intercostal accessory muscle use. Extrem Other: Trace to +1 lower extremity edema. No calf tenderness. Course Reevaluation(s) Reevaluation #1: 1:[address] Schwarz for transfer of care. Medications Administered Discontinued Medications Generic Name Dose Route Start Last Admin Trade Name Laz PRN Reason Stop Dose Admin Furosemide 40 mg 10/10/23 00:53 10/10/23 01:00 Furosemide 40 Mg/4 Ml Vial IVPUSH 10/10/23 00:54 40 mg STAT STA Administration Protocol Medical Decision Making Medical Decision Making [facility] Narrative: 88-year-old male with history of CHF on Lasix, paroxysmal AFib and a flutter on Eliquis, aortic stenosis, coronary artery disease, presents with progressively worsening shortness of breath and cough. Chest x-ray suggestive of CHF. BNP is elevated at 1740. Patient was given Lasix 40 mg IV. Patient will be brought to the hospital for further evaluation and management.. He is followed by Dr. Mast from cardiology. Differential Diagnosis Differential Diagnoses: The differential diagnosis associated with the presentation includes ACS CHF Arrhythmia Volume overload Admission/Observation Consideration of admission/observation: Escalation of care including admission/observation considered Consult Healthcare Provider Management of the patient was discussed with: Hospitalist Lab Data [facility] Lab Attestation statement: I reviewed the patient's lab results. 10/09/23 23:26 10/09/23 23:26 Labs: Lab Results 10/09/23 Range/Units 23:26 WBC 8.0 (4.8-10.8) X10*3/uL RBC 4.11 L (4.60-5.80) X10*6/uL Hgb 12.7 L (14.0-18.0) g/dl Hct 38.8 L (42.0-52.0) % MCV 94.4 (80.0-98.0) fL MCH 30.9 (27.0-33.0) pg MCHC 32.7 (31.0-36.0) g/dl RDW 13.3 (11.0-16.0) % Plt Count 176 (160-400) X10*3/uL MPV 11.7 (9.4-12.4) fL Immature Gran % (Auto) 0.3 (0.0-0.4) % Neut % (Auto) 59.3 (45-73) % Lymph % (Auto) 19.4 L (20-40) % Benton % (Auto) 10.7 (2-11) % Eos % (Auto) 9.4 H (0-4) % Baso % (Auto) 0.9 (0-2) % Lymph # (Auto) 1.5 (1.2-4.9) X10*3/uL Benton # (Auto) 0.9 (0.1-1.2) X10*3/uL Eos # (Auto) 0.8 H (0.0-0.4) X10*3/uL Baso # (Auto) 0.1 (0.0-0.2) X10*3/uL Abs Immat Gran (auto) 0.02 (0.00-0.03) X10*3/uL Absolute Neuts (auto) 4.7 (2.0-8.3) x10*3/uL Absolute Nucleated RBC 0.000 (0.0-0.012) X10*3/uL Nucleated RBC % (auto) 0.0 (0.0-0.2) /100WBC Sodium 143 (135-145) mmol/L Potassium 4.3 (3.3-5.1) mmol/L Chloride 107 (96-108) mmol/L Carbon Dioxide 28 (22-29) mmol/L Anion Gap 12 (12-20) BUN 24 H (9-16) mg/dL Creatinine 1.09 (0.5-1.4) mg/dL Estim Creat Clear Calc 48.6 Estimated GFR > 60 Random Glucose 134 H (60-115) mg/dL Calcium 9.1 (8.4-10.2) mg/dL Total Bilirubin 0.6 (0.0-1.0) mg/dL AST 15 (5-37) U/L ALT 9 (0-40) U/L Alkaline Phosphatase 62 (39-117) U/L Troponin I High Sens 21.2 (<3.5-35.0) ng/L B-Natriuretic Peptide 1740 H (<100) pg/mL Total Protein 6.7 (6.5-8.0) g/dL Albumin 3.3 L (3.5-5.0) g/dL Influenza Type A (PCR) NEGATIVE (Negative) Influenza Type B (PCR) NEGATIVE (Negative) RSV RNA Qual (PCR) NEGATIVE (Negative) SARS-CoV-2 RNA (RT-PCR) NEGATIVE (Negative) Independent Interpretation I performed an independent interpretation of an: EKG Interpretation: 68 beats per minute, paced Radiology Impression Discussion of test interpretation with radiology: I have reviewed the radiologist's reading. Independent Historian Clinical information obtained from an independent historian. History obtained from or confirmed by: Other (Daughter ) External Record Review External record reviewed: Inpatient record Chronic Conditions Patient?s care impacted by: Hypertension Discharge Plan Discharge Clinical Impression: CHF (congestive heart failure), NYHA class I Qualifiers: Congestive heart failure type: unspecified Qualified Code(s): I50.9 - Heart failure, unspecified Patient Disposition: Admitted As Inpatient
[2023-10-10] MEDS: Furosemide 40 MG/4 ML VIAL IVPUSH ×3 (01:00→17:15)
--- NOTE | 2023-10-10 04:59 | P.HPHOSP_ITS ---
History of Present Illness Date of Service: 10/10/23 Attending physician on admission: Ludy Nichols Chief Complaint: Shortness on breath Tato Duke is a 88 years old man with past medical history significant for HFrEF (EF 30-35% TTE April 2023), paroxysmal atrial fibrillation on Eliquis, coronary artery disease s/p stenting (LAD), moderate , pacemaker implantation chronic kidney disease, essential hypertension, hyperlipidemia and hypothyroidism presents to the emergency department complaining of a one-week history of worsening shortness of breath associated with wheezing, hoarseness and cough. He also had some edema to the lower extremities. Shortness of or increases with ambulation. Patient denied any acute gastrointestinal or genitourinary symptoms. He is a former tobacco smoker. He denied alcohol abuse or illicit drug use. In the ED, he was found to have stable vital signs. He is currently requiring 2 L/min supplemental oxygen via nasal cannula. Blood workup showed no leukocytosis. Hemoglobin is 12.7 at baseline. There are no significant electrolyte imbalances. Creatinine is 1.09 (baseline). BNP is 1740 (much higher than previous). Viral testing for COVID-19, RSV and influenza is negative. EKG showed ventricular paced rhythm. CXR showed findings suggesting congestion and interstitial edema with streaky right lung opacities that may represent atelectasis. ED tx: Furosemide 40 mg IV. Solu-Medrol 125 mg IV given by EMS Review of Systems 2 Review of Systems: All 12 systems were reviewed and normal except as noted in HPI. [facility] Medical History Heart failure with reduced ejection fraction CAD (coronary artery disease) Ischemic cardiomyopathy Non-rheumatic aortic regurgitation Paroxysmal atrial flutter Atherosclerotic cardiovascular disease BPH (benign prostatic hyperplasia) Hypothyroidism Congestive heart failure Aortic stenosis Myocardial infarct CHF (congestive heart failure) HTN (hypertension) High blood cholesterol Pacemaker Family History Father No problems noted. Mother Diabetes Surgical History S/P cardiac cath (~08/2020) H/O heart artery stent Social History Alcohol intake: never Smoked in Last 30 Days: No Use of substances other than those prescribed or required for medical reasons: No Advance Directives: No Advance Directives Information Provided: Yes service: Yes ([employer]) Current occupational status: retired Meds Allergies Allergy/AdvReac Type Severity Reaction Status Date / Time No Known Allergies Allergy Unknown UNKNOWN Verified 10/10/23 00:43 [NO KNOWN ALLERGIES] Active Medications: Current Medications Acetaminophen (Acetaminophen 325 Mg Tablet) 650 mg PO Q6H PRN PRN Reason: Pain, Mild (Pain Scale 1-3) Furosemide (Furosemide 40 Mg/4 Ml Vial) 40 mg IVPUSH DAILY [facility]; Protocol Levalbuterol HCl (Levalbuterol Hcl 1.25 Mg/3 Ml Vial.Neb) 1.25 mg INHALE Q6H PRN PRN Reason: Shortness of Breath/Wheezing Sodium Chloride (0.9 % Sodium Chloride Flush 3 Ml Syringe) 3 ml IVFLUSH QSHIFT [facility] Home Medications Medication Instructions Recorded Confirmed Last Taken Type tamsulosin 0.4 mg capsule 1 cap PO BID 06/19/20 10/10/23 Unknown History atorvastatin 80 mg tablet 80 mg PO DAILY 08/09/20 10/10/23 Unknown History carvedilol 6.25 mg tablet 6.25 mg PO BID 08/09/20 10/10/23 Unknown History levothyroxine 100 mcg tablet 100 mcg PO DAILY 02/12/21 10/10/23 Unknown History Physical Exam 2 Vital Signs and Narrative: Vital Signs: Last Vital Signs Temp 97.7 F 10/10/23 01:49 Pulse 63 10/10/23 01:49 Resp 20 10/10/23 01:49 BP 138/58 L 10/10/23 01:49 Pulse Ox 93 10/10/23 01:49 O2 Del Method Nasal Cannula 10/10/23 01:49 O2 Flow Rate 2 10/10/23 01:49 Oxygen Flow Rate 2 10/09/23 23:14 BMI result Body Mass Index 29.1 Constitutional - Awake and Alert, No apparent distress. Nasal cannula in place. Cooperative. Pleasant. HEENT - Pupils equally round. Dry oral mucosa. Heart - Regular rate and rhythm. Lungs- Normal lung expansion, Normal respiratory effort, No respiratory distress, tachypnea. Mild end-expiratory wheezing. Bibasilar crackles Gastrointestinal - NT / ND; +BS; No rebound or guarding Extremities - mild pitting edema to the lower extremities. Skin - Warm/Dry Neurological - Alert & oriented x3. No focal weakness grossly noted. Normal speech. Normal behavior. Psychological - Appropriate affect Results Labs 10/09/23 23:26 10/09/23 23:26 Labs: Laboratory Results - last 24 hr 10/09/23 23:26 MCV 94.4 MCH 30.9 MCHC 32.7 RDW 13.3 Plt Count 176 MPV 11.7 Immature Gran % (Auto) 0.3 Neut % (Auto) 59.3 Lymph % (Auto) 19.4 L [place] % (Auto) 10.7 Eos % (Auto) 9.4 H Baso % (Auto) 0.9 Lymph # (Auto) 1.5 [place] # (Auto) 0.9 Eos # (Auto) 0.8 H Baso # (Auto) 0.1 Abs Immat Gran (auto) 0.02 Absolute Neuts (auto) 4.7 Absolute Nucleated RBC 0.000 Nucleated RBC % (auto) 0.0 Anion Gap 12 Estim Creat Clear Calc 48.6 Estimated GFR > 60 Random Glucose 134 H Calcium 9.1 Total Bilirubin 0.6 AST 15 ALT 9 Alkaline Phosphatase 62 Troponin I High Sens 21.2 B-Natriuretic Peptide 1740 H Total Protein 6.7 Albumin 3.3 L Influenza Type A (PCR) NEGATIVE Influenza Type B (PCR) NEGATIVE RSV RNA Qual (PCR) NEGATIVE SARS-CoV-2 RNA (RT-PCR) NEGATIVE Imaging Radiologist's Impressions: Impressions Chest X-Ray 10/09/23 23:32 IMPRESSION: Mildly increased prominence of the central vasculature and interstitium, suggesting congestion and subtle interstitial edema. Streaky right lung opacities may reflect atelectasis. Assessment and Plan (1) Hypoxic respiratory failure: Status: Acute (2) Acute on chronic congestive heart failure: Status: Acute (3) Wheezing: Status: Acute (4) CAD (coronary artery disease): Qualifiers: Coronary Disease-Associated Artery/Lesion type: unspecified vessel or lesion type [place] vs. transplanted heart: unspecified whether [place] or transplanted heart Associated angina: without angina Qualified Code(s): I25.10 - Atherosclerotic heart disease of [place] coronary artery without angina pectoris Status: Acute (5) Paroxysmal atrial flutter: Status: Acute (6) Pacemaker: Status: Acute (7) Aortic stenosis: Qualifiers: Cardiac valve disease etiology: nonrheumatic Qualified Code(s): I35.0 - Nonrheumatic aortic (valve) stenosis Status: Acute Plan Tato Duke is a 88 years old man with past medical history significant for HFrEF (EF 30-35%) admitted with: * Hypoxic respiratory failure secondary to acute on chronic systolic congestive heart failure. Admit to the hospitalist service. Telemetry. Pulse oximetry. Supplemental oxygen to keep oxygen saturation above > 90%. Continue Lasix 40 mg IV daily. Continue carvedilol. Low-salt diet. Daily weight. Cardiology consult. * Wheezing and hoarseness. Bronchospastic airway disease. Bronchodilator therapy as needed and IV steroids. Pulmonology consult. * Paroxysmal atrial fibrillation, currently paced rhythm. Continue Eliquis and carvedilol. * Hyperlipidemia. Continue statin. * Chronic kidney disease stage, stage 3A. Renal function at baseline. Continue to monitor renal function. Avoid nephrotoxic agents. * Essential hypertension. Continue Coreg and valsartan. * Hypothyroidism. Continue levothyroxine. * BPH. Continue tamsulosin. * History of moderate aortic stenosis. F/U as an outpatient. * Permanent pacemaker. DVT prophylaxis: On Eliquis. Code status: Full Patient will need hospitalization for at least 2 midnights for hypoxic respiratory due to acute congestive heart failure treatment with supplemental oxygen, IV diuretics, bronchodilator therapy and close monitoring of vital signs. Patient also we will need evaluation by subspecialties Quality Stroke Does the patient have a stroke diagnosis?: No VTE Prior VTE?: No VTE Risk Level:: Medical - moderate - high VTE Device Contraindication: N/A - Device Ordered VTE Drug Contraindication: N/A - Med Ordered
[2023-10-10 06:53] LABS: MANUAL DIFF FLAG NO
[2023-10-10 06:56] LABS: Basophils Percent Auto 0.4 % (0-2); Eosinophils Percent Auto 0.3 % (0-4); Hematocrit 40.2 % (42.0-52.0); Hemoglobin 13.6 g/dl (14.0-18.0); Imm Gran Abs Auto 0.04 X10*3/uL (0.00-0.03); Imm Gran Pct Auto 0.5 % (0.0-0.4); Lymphocytes Absolute Auto 0.8 X10*3/uL (1.2-4.9); Lymphocytes Percent Auto 9.7 % (20-40); Mean Corpuscular HGB Conc 33.8 g/dl (31.0-36.0); Mean Corpuscular Hemoglobin 31.5 pg (27.0-33.0); Mean Corpuscular Volume 93.1 fL (80.0-98.0); Mean Platelet Volume 11.5 fL (9.4-12.4); Monocytes Absolute Auto 0.1 X10*3/uL (0.1-1.2); Monocytes Percent Auto 1.5 % (2-11); Neutrophils Absolute Auto 6.9 x10*3/uL (2.0-8.3); Neutrophils Percent Auto 87.6 % (45-73); Platelet Count 178 X10*3/uL (160-400); Red Blood Count 4.32 X10*6/uL (4.60-5.80); Red Cell Distribution Width 13.3 % (11.0-16.0); White Blood Count 7.8 X10*3/uL (4.8-10.8)
[2023-10-10 07:15] LABS: Alanine Aminotransferase 11 U/L (0-40); Albumin Level 3.6 g/dL (3.5-5.0); Alkaline Phosphatase 61 U/L (39-117); Anion Gap 12 (12-20); Aspartate Amino Transferase 16 U/L (5-37); Bilirubin Total 0.8 mg/dL (0.0-1.0); Blood Urea Nitrogen 23 mg/dL (9-16); Calcium 9.5 mg/dL (8.4-10.2); Carbon Dioxide 26 mmol/L (22-29); Chloride 109 mmol/L (96-108); Creatinine Clr Calc Pharmacy 42.7; Estimated Glomerular Filt Rate 55; Glucose Random 160 mg/dL (60-115); Potassium 4.5 mmol/L (3.3-5.1); Sodium 142 mmol/L (135-145); Total Protein 7.4 g/dL (6.5-8.0)
--- NOTE | 2023-10-10 07:22 | P.EN_ITS ---
Event Note Date of Service: 10/10/23 Event Note: Feeling better this morning less shortness of breath, able to talk in full sentences, denies chest pain, no palpitations. On examination awake alert in no acute distress Neck no JVD Lungs bilateral expiratory wheeze no crackles Extremities no pitting edema Tato Duke is a 88 years old man with past medical history significant for HFrEF (EF 30-35%) admitted with: Hypoxic respiratory failure secondary to acute on chronic systolic congestive heart failure. Chest x-ray showed increased prominence of central vasculature and subtle interstitial edema, elevated BNP, normal troponin Continue Lasix 40 mg IV daily. Continue carvedilol. Low-salt diet. Daily w eight. Wheezing and hoarseness. Bronchospastic airway disease. Bronchodilator therapy as needed and IV steroids. Monitor electrolytes renal function and BNP Follow cardiology and Pulmonology consult. Paroxysmal atrial fibrillation, currently paced rhythm. Continue Eliquis and carvedilol. Hyperlipidemia. Continue statin. Chronic kidney disease stage, stage 3A. Renal function at baseline. Continue to monitor renal function. Avoid nephrotoxic agents. Essential hypertension. Continue Coreg and valsartan. Hypothyroidism. Continue levothyroxine. BPH. Continue tamsulosin. History of moderate aortic stenosis. F/U as an outpatient. Permanent pacemaker. DVT prophylaxis: On Eliquis. Code status: Full Patient will need hospitalization for at least 2 midnights for hypoxic respi ratory due to acute congestive heart failure treatment with supplemental oxygen, IV diuretics, bronchodilator therapy and close monitoring of vital signs. Patient also we will need evaluation by subspecialties Time Spent With Patient Time: Total time managing care of this patient today ____ minutes.
--- NOTE | 2023-10-10 09:07 | PHA.MEDREC ---
Pharmacy Consult ? Medication Reconciliation Pharmacy has completed the medication reconciliation. Not taking amlodipine anymore.
[2023-10-10] MEDS: Apixaban 5 MG TABLET PO ×2 (10:22→21:50)
[2023-10-10] MEDS: Levothyroxine Sodium 100 MCG TABLET PO (10:22)
[2023-10-10] MEDS: methylPREDNISolone Sod Succ 40 MG/ML VIAL IVPUSH (10:22)
[2023-10-10] MEDS: carvediloL 6.25 MG TABLET PO ×2 (10:22→21:50)
[2023-10-10] MEDS: Atorvastatin Calcium 80 MG TABLET PO (10:23)
[2023-10-10] MEDS: 0.9 % Sodium Chloride Flush 3 ML SYRINGE IVFLUSH ×2 (10:23→21:51)
[2023-10-10] MEDS: Tamsulosin HCL 0.4 MG CAPSULE PO ×2 (10:26→21:50)
--- NOTE | 2023-10-10 10:51 | PM.CNCAR ---
History of Present Illness History of Present Illness Date of Service: 10/10/23 Requesting physician: Maira Hanna Chief complaint: acute on chronic CHF Narrative: 88-year-old gentleman who is presenting with shortness of breath. He has known history of congestive heart failure with previous ejection fraction of 30 35%. He also had an LAD PCI in the past and has [id number] aortic valve stenosis. He is saying that he has been short of breath over the last few days and was getting dyspnea with minimal exertion. No chest discomfort. In the ER he was noted to be in congestive heart failure and chest x-ray showed congestion. He was started on 40 mg IV Lasix. At home he takes 20 mg p.o. Lasix. He is diuresing and feeling little better at this stage. He has significant wheezing bilaterally at this point. [facility] Past Medical History Medical History Heart failure with reduced ejection fraction CAD (coronary artery disease) Ischemic cardiomyopathy Non-rheumatic aortic regurgitation Paroxysmal atrial flutter Atherosclerotic cardiovascular disease BPH (benign prostatic hyperplasia) Hypothyroidism Congestive heart failure Aortic stenosis Myocardial infarct CHF (congestive heart failure) HTN (hypertension) High blood cholesterol Pacemaker Family History Family History Father No problems noted. Mother Diabetes Surgical History Surgical History S/P cardiac cath (~08/2020) H/O heart artery stent Social History Social History Alcohol intake: never Patient Tobacco Use Status: Never used Tobacco Smoked in Last 30 Days: No Use of substances other than those prescribed or required for medical reasons: No Advance Directives: No Advance Directives Information Provided: Yes Nutrition Risks: No Nutritional Risk service: Yes ([employer]) Current occupational status: retired Meds Allergies Allergy/AdvReac Type Severity Reaction Status Date / Time No Known Allergies Allergy Unknown UNKNOWN Verified 10/10/23 00:43 [NO KNOWN ALLERGIES] Active Medications: Current Medications Acetaminophen (Acetaminophen 325 Mg Tablet) 650 mg PO Q6H PRN PRN Reason: Pain, Mild (Pain Scale 1-3) Apixaban (Apixaban 5 Mg Tablet) 5 mg PO BID ABELARDO Last Admin: 10/10/23 10:22 Dose: 5 mg Atorvastatin Calcium (Atorvastatin Calcium 80 Mg Tablet) 80 mg PO DAILY [facility] Last Admin: 10/10/23 10:23 Dose: 80 mg Carvedilol (Carvedilol 6.25 Mg Tablet) 6.25 mg PO BID [facility]; Protocol Last Admin: 10/10/23 10:22 Dose: 6.25 mg Furosemide (Furosemide 40 Mg/4 Ml Vial) 40 mg IVPUSH DAILY [facility]; Protocol Last Admin: 10/10/23 10:22 Dose: 40 mg Levalbuterol HCl (Levalbuterol Hcl 1.25 Mg/3 Ml Vial.Neb) 1.25 mg INHALE Q6H PRN PRN Reason: Shortness of Breath/Wheezing Levothyroxine Sodium (Levothyroxine Sodium 100 Mcg Tablet) 100 mcg PO DAILY [facility] Last Admin: 10/10/23 10:22 Dose: 100 mcg Methylprednisolone Sodium Succinate (Methylprednisolone Sod Succ 40 Mg/Ml Vial) 40 mg IVPUSH Q12H [facility] Last Admin: 10/10/23 10:22 Dose: 40 mg Sodium Chloride (0.9 % Sodium Chloride Flush 3 Ml Syringe) 3 ml IVFLUSH QSHIFT [facility] Last Admin: 10/10/23 10:23 Dose: 3 ml Tamsulosin HCl (Tamsulosin Hcl 0.4 Mg Capsule) 0.4 mg PO BID [facility] Last Admin: 10/10/23 10:26 Dose: 0.4 mg Valsartan (Valsartan 40 Mg Tablet) 40 mg PO BID [facility]; Protocol Home Medications Medication Instructions Recorded Confirmed Last Taken Type tamsulosin 0.4 mg capsule 1 cap PO BID 06/19/20 10/10/23 10/09/23 History atorvastatin 80 mg tablet 80 mg PO DAILY 08/09/20 10/10/23 10/09/23 History carvedilol 6.25 mg tablet 6.25 mg PO BIDWM 08/09/20 10/10/23 10/09/23 History levothyroxine 100 mcg tablet 100 mcg PO DAILY@0600 02/12/21 10/10/23 10/09/23 History acetaminophen 325 mg tablet 650 mg PO Q6H PRN Pain 10/10/23 10/10/23 Unknown History (Tylenol) Physical Exam Vital Signs: Vital Signs: Last Vital Signs Temp 97.7 F 10/10/23 01:49 Pulse 63 10/10/23 01:49 Resp 20 10/10/23 01:49 BP 138/58 L 10/10/23 01:49 Pulse Ox 93 10/10/23 01:49 O2 Del Method Nasal Cannula 10/10/23 01:49 O2 Flow Rate 2 10/10/23 01:49 Oxygen Flow Rate 2 10/09/23 23:14 BMI result Body Mass Index 29.1 GENERAL APPEARANCE: in no acute distress, pleasant. On supplemental oxygen. NECK: no carotid bruit, ++ jugular venous distention. SKIN: no suspicious lesions, warm and dry. HEART: no murmurs, regular rate and rhythm. LUNGS: Bilateral expiratory wheezes ABDOMEN: soft, nontender. EXTREMITIES: no edema. PERIPHERAL PULSES: equal. NEUROLOGIC: No gross deficits, AAO X 3 Objective Labs and Meds 10/10/23 06:47 10/10/23 06:47 Lab results: Laboratory Results - last 24 hr 10/09/23 10/10/23 23:26 06:47 WBC 8.0 7.8 RBC 4.11 L 4.32 L Hgb 12.7 L 13.6 L Hct 38.8 L 40.2 L MCV 94.4 93.1 MCH 30.9 31.5 MCHC 32.7 33.8 RDW 13.3 13.3 Plt Count 176 178 MPV 11.7 11.5 Immature Gran % (Auto) 0.3 0.5 H Neut % (Auto) 59.3 87.6 H Lymph % (Auto) 19.4 L 9.7 L [place] % (Auto) 10.7 1.5 L Eos % (Auto) 9.4 H 0.3 Baso % (Auto) 0.9 0.4 Lymph # (Auto) 1.5 0.8 L [place] # (Auto) 0.9 0.1 Eos # (Auto) 0.8 H 0.0 Baso # (Auto) 0.1 0.0 Abs Immat Gran (auto) 0.02 0.04 H Absolute Neuts (auto) 4.7 6.9 Absolute Nucleated RBC 0.000 0.000 Nucleated RBC % (auto) 0.0 0.0 Sodium 143 142 Potassium 4.3 4.5 Chloride 107 109 H Carbon Dioxide 28 26 Anion Gap 12 12 BUN 24 H 23 H Creatinine 1.09 1.24 Estim Creat Clear Calc 48.6 42.7 Estimated GFR > 60 55 Random Glucose 134 H 160 H Calcium 9.1 9.5 Total Bilirubin 0.6 0.8 AST 15 16 ALT 9 11 Alkaline Phosphatase 62 61 Troponin I High Sens 21.2 B-Natriuretic Peptide 1740 H Total Protein 6.7 7.4 Albumin 3.3 L 3.6 Influenza Type A (PCR) NEGATIVE Influenza Type B (PCR) NEGATIVE RSV RNA Qual (PCR) NEGATIVE SARS-CoV-2 RNA (RT-PCR) NEGATIVE Imaging Radiologist's impression: Impressions Chest X-Ray 10/09/23 23:32 IMPRESSION: Mildly increased prominence of the central vasculature and interstitium, suggesting congestion and subtle interstitial edema. Streaky right lung opacities may reflect atelectasis. Assessment and Plan (1) Acute on chronic congestive heart failure: Status: Acute Plan Pleasant 88-year-old gentleman with known history of [id number] aortic valve stenosis, coronary disease status post LAD PCI and cardiomyopathy with EF of 30-35%. He is here for congestive heart failure. Clinically volume overloaded and agree with IV diuretics at this point. He should be close to 2 L negative by tomorrow. If he is not diuresing well then Lasix dose should be increased to 40 mg IV b.i.d.. Blood pressure is well controlled. Denying any other complaints. No chest discomfort or concern for ACS currently. We will follow along with you. Monitor electrolytes and I's and O's closely. Thank you for allowing me to participate in the care of your patient. Please feel free to contact me if you have any questions. Procedures Date of Service Date of Service: 10/10/23
[2023-10-10] MEDS: Valsartan 40 MG TABLET PO ×2 (11:01→21:50)
--- NOTE | 2023-10-10 11:38 | PM.CNPUL ---
History of Present Illness History of Present Illness Consult date: 10/10/23 Chief complaint: Acute hypoxic respiratory failure Narrative: 88-year-old gentleman, former minimal smoker until his 30s, with underlying systolic congestive heart failure with EF 30-35% on prior echo, paroxysmal AFib on Eliquis, CAD, moderate , CKD, hypertension admitted on 10/10/2023 with progressive shortness of breath and hypoxia. On ER evaluation patient in acute exacerbation of systolic congestive heart failure requiring supplemental oxygen. He was started on diuresis with significant improvement. His physical exam demonstrated coarse expiratory wheezes in pulmonary evaluation was requested. Review of Systems Constitutional: Constitutional: Denies daytime sleepiness, Denies excessive sweating, Denies fatigue, Denies fever(s), Denies lethargy, Denies malaise, Denies night sweats, Denies snoring and Denies weight loss Eyes: Eyes: Denies blurry vision and Denies itchy eyes ENT: Denies nasal congestion, Denies post nasal drip, Denies sinus pain, Denies sinus pressure and Denies other ( Thrush) Cardiovascular: Cardiovascular: Denies chest pain, Reports pedal edema, Reports dyspnea, Reports dyspnea on exertion, Reports orthopnea and Reports paroxysmal nocturnal dyspnea Respiratory: Respiratory: Denies cough, Denies hemoptysis, Denies excessive phlegm production, Reports dyspnea, Reports dyspnea on exertion, Denies snoring and Reports wheezing Gastrointestinal: Gastrointestinal: Denies abdominal pain and Denies heartburn Musculoskeletal: Musculoskeletal: Denies myalgias, Denies arthralgias and Denies joint swelling Integumentary/Breasts: Skin/Breast: Denies rash Neurologic: Denies memory loss and Denies seizure-like activity Psychiatric: Psychiatric: Denies abnormal sleep pattern, Denies anxiety and Denies memory loss Endocrine: Endocrine: Denies excessive sweating, Denies fatigue and Denies heat intolerance Hematologic/Lymphatic: Hematologic/Lymphatic: Denies easy bruising Allergic/Immunologic: Allergic/Immunologic: Denies itchy eyes, Denies seasonal rhinorrhea and Reports wheezing PMFSH Past Medical History Medical History Heart failure with reduced ejection fraction CAD (coronary artery disease) Ischemic cardiomyopathy Non-rheumatic aortic regurgitation Paroxysmal atrial flutter Atherosclerotic cardiovascular disease BPH (benign prostatic hyperplasia) Hypothyroidism Congestive heart failure Aortic stenosis Myocardial infarct CHF (congestive heart failure) HTN (hypertension) High blood cholesterol Pacemaker Family History Family History Father No problems noted. Mother Diabetes Surgical History Surgical History S/P cardiac cath (~08/2020) H/O heart artery stent Social History Social History Alcohol intake: never Patient Tobacco Use Status: Never used Tobacco Smoked in Last 30 Days: No Use of substances other than those prescribed or required for medical reasons: No Advance Directives: No Advance Directives Information Provided: Yes Nutrition Risks: No Nutritional Risk service: Yes ([employer]) Current occupational status: retired [employer] Allergies Allergy/AdvReac Type Severity Reaction Status Date / Time No Known Allergies Allergy Unknown UNKNOWN Verified 10/10/23 00:43 [NO KNOWN ALLERGIES] Active Medications: Current Medications Acetaminophen (Acetaminophen 325 Mg Tablet) 650 mg PO Q6H PRN PRN Reason: Pain, Mild (Pain Scale 1-3) Apixaban (Apixaban 5 Mg Tablet) 5 mg PO BID [facility] Last Admin: 10/10/23 10:22 Dose: 5 mg Atorvastatin Calcium (Atorvastatin Calcium 80 Mg Tablet) 80 mg PO DAILY [facility] Last Admin: 10/10/23 10:23 Dose: 80 mg Carvedilol (Carvedilol 6.25 Mg Tablet) 6.25 mg PO BID [facility]; Protocol Last Admin: 10/10/23 10:22 Dose: 6.25 mg Furosemide (Furosemide 40 Mg/4 Ml Vial) 40 mg IVPUSH BID@0900,1800 [facility]; Protocol Levalbuterol HCl (Levalbuterol Hcl 1.25 Mg/3 Ml Vial.[facility]) 1.25 mg INHALE Q6H PRN PRN Reason: Shortness of Breath/Wheezing Levothyroxine Sodium (Levothyroxine Sodium 100 Mcg Tablet) 100 mcg PO DAILY [facility] Last Admin: 10/10/23 10:22 Dose: 100 mcg Sodium Chloride (0.9 % Sodium Chloride Flush 3 Ml Syringe) 3 ml IVFLUSH QSHIFT [facility] Last Admin: 10/10/23 10:23 Dose: 3 ml Tamsulosin HCl (Tamsulosin Hcl 0.4 Mg Capsule) 0.4 mg PO BID [facility] Last Admin: 10/10/23 10:26 Dose: 0.4 mg Valsartan (Valsartan 40 Mg Tablet) 40 mg PO BID [facility]; Protocol Last Admin: 10/10/23 11:01 Dose: 40 mg Home Medications Medication Instructions Recorded Confirmed Last Taken Type tamsulosin 0.4 mg capsule 1 cap PO BID 06/19/20 10/10/23 10/09/23 History atorvastatin 80 mg tablet 80 mg PO DAILY 08/09/20 10/10/23 10/09/23 History carvedilol 6.25 mg tablet 6.25 mg PO BIDWM 08/09/20 10/10/23 10/09/23 History levothyroxine 100 mcg tablet 100 mcg PO DAILY@0600 02/12/21 10/10/23 10/09/23 History acetaminophen 325 mg tablet 650 mg PO Q6H PRN Pain 10/10/23 10/10/23 Unknown History (Tylenol) Physical Exam Vital Signs: Vital Signs: Last Vital Signs Temp 97.7 F 10/10/23 01:49 Pulse 79 10/10/23 11:02 Resp 17 10/10/23 11:02 BP 147/48 H 10/10/23 11:02 Pulse Ox 95 10/10/23 11:02 O2 Del Method Nasal Cannula 10/10/23 11:02 O2 Flow Rate 2 10/10/23 11:02 Oxygen Flow Rate 2 10/09/23 23:14 BMI result Body Mass Index 29.1 Const: General: no acute distress and alert Nutritional Appearance: not obese Orientation/consciousness: Other orientation findings ( oriented) HEENT: Head: Yes atraumatic Eyes: General: appearance normal, both eyes and all related structures Sclerae: sclerae normal EOM: EOMs intact bilaterally Neck: Neck: Yes supple Lymphatic: no lymphadenopathy noted Resp: Effort & Inspection: normal respiratory effort and no use of accessory muscles Auscultation: wheezes (Coarse expiratory) Cardio: Rate: regular rate Rhythm: regular rhythm Heart sounds: no gallops, no murmurs and no rubs Skin: General skin exam: other ( warm) Extrem: General: No clubbing, No cyanosis and Yes edema (2+ bilateral) Results Laboratory Findings 10/10/23 06:47 10/10/23 06:47 Abnormal lab findings: Abnormal Labs 10/09/23 10/10/23 23:26 06:47 RBC 4.11 L 4.32 L Hgb 12.7 L 13.6 L Hct 38.8 L 40.2 L Immature Gran % (Auto) 0.5 H Neut % (Auto) 87.6 H Lymph % (Auto) 19.4 L 9.7 L [place] % (Auto) 1.5 L Eos % (Auto) 9.4 H Lymph # (Auto) 0.8 L Eos # (Auto) 0.8 H Abs Immat Gran (auto) 0.04 H Chloride 109 H BUN 24 H 23 H Random Glucose 134 H 160 H B-Natriuretic Peptide 1740 H Albumin 3.3 L Assessment and Plan (1) Hypoxic respiratory failure: Status: Acute (2) Wheezing: Status: Acute (3) Acute on chronic congestive heart failure: Status: Acute Plan Impression: 88-year-old gentleman admitted with acute hypoxic respiratory failure and dyspnea secondary to acute exacerbation of underlying chronic systolic congestive heart failure requiring supplemental oxygen and improving with diuresis. Coarse expiratory wheezing noted is cardiac wheeze secondary to underlying pulmonary edema. Recommendations: Agree with current regimen of IV diuresis. Procedures Date of Service Date of Service: 10/10/23
--- NOTE | 2023-10-10 13:00 | PC.NURSE ---
Pt a+o x3, he denies pain/sob. IV meds given as documented. Urine output via urinal 1100 mls. [place] catheter applied. Pt aware.
[2023-10-10] MEDS: levalbuterol HCL 1.25 MG/3 ML VIAL.NEB INHALE (16:09)
--- NOTE | 2023-10-10 16:15 | PC.NURSE ---
Addendum entered by Serjio Chapin RN 10/10/23 16:17: ... RT at bedside assessing pt Original Note: informed md of pt's cough and difficulty expectorating. md also stated to place pt on tele along w/ cont O2 monitor. pt educated on incentive spir. use. RT
[2023-10-10 20:12] LABS: Glucose, Whole Blood 179 mg/dL (60-115)
[2023-10-10] MEDS: guaiFENesin 200 MG/10 ML 10 ML LIQUID PO (21:50)
[2023-10-11] VITALS (8 sets, daily range): BP systolic 102–127; BP diastolic 40–59; PULSE 59–73; RESP 18–20; TEMP 36.1–36.7; O2SAT 90–96
[2023-10-11] MEDS: 0.9 % Sodium Chloride Flush 3 ML SYRINGE IVFLUSH (08:31)
[2023-10-11] MEDS: carvediloL 6.25 MG TABLET PO ×2 (08:32→20:46)
[2023-10-11] MEDS: Atorvastatin Calcium 80 MG TABLET PO (08:32)
[2023-10-11] MEDS: Furosemide 40 MG/4 ML VIAL IVPUSH (08:32)
[2023-10-11] MEDS: Tamsulosin HCL 0.4 MG CAPSULE PO ×2 (08:32→20:46)
[2023-10-11] MEDS: guaiFENesin 200 MG/10 ML 10 ML LIQUID PO ×3 (08:32→20:46)
[2023-10-11] MEDS: Levothyroxine Sodium 100 MCG TABLET PO (08:32)
[2023-10-11] MEDS: Valsartan 40 MG TABLET PO (08:32)
[2023-10-11] MEDS: Apixaban 5 MG TABLET PO ×2 (08:32→20:46)
--- NOTE | 2023-10-11 08:37 | MHC.CM.PN ---
IMM 10/10. Pt self-care, lives alone at home. Pt states his downstairs neighbor helps him, and cooks for him, and his daughter is also very involved. Pts daughter will transport him home. Pt educated on HCP, this CM offered to assist in completing one, pt declined at this time. PCP: Dr. Tima Yao
[2023-10-11 09:00] LABS: Anion Gap 13 (12-20); Blood Urea Nitrogen 48 mg/dL (9-16); Calcium 8.7 mg/dL (8.4-10.2); Carbon Dioxide 28 mmol/L (22-29); Chloride 103 mmol/L (96-108); Creatinine Clr Calc Pharmacy 36.5; Estimated Glomerular Filt Rate 46; Glucose Random 106 mg/dL (60-115); Potassium 4.2 mmol/L (3.3-5.1); Sodium 140 mmol/L (135-145)
--- NOTE | 2023-10-11 11:36 | PM.PNCARD ---
Subjective Subjective Date of Service: 10/11/23 Interval history: Seen and examined at bedside. Feeling better. Physical Exam Vital Signs: Last Vital Signs Temp 97.7 F 10/11/23 11:15 Pulse 66 10/11/23 11:15 Resp 20 10/11/23 11:15 BP 102/40 L 10/11/23 11:15 Pulse Ox 95 10/11/23 11:15 O2 Del Method Nasal Cannula 10/11/23 11:15 O2 Flow Rate 1 10/11/23 11:15 Oxygen Flow Rate 2 10/09/23 23:14 BMI result Body Mass Index 29.1 GENERAL APPEARANCE: in no acute distress, pleasant. On supplemental oxygen. NECK: no carotid bruit, no jugular venous distention. SKIN: no suspicious lesions, warm and dry. HEART: no murmurs, regular rate and rhythm. LUNGS: Bilateral expiratory wheezes ABDOMEN: soft, nontender. EXTREMITIES: no edema. PERIPHERAL PULSES: equal. NEUROLOGIC: No gross deficits, AAO X 3 Objective Labs and Meds 10/10/23 06:47 10/11/23 06:54 Lab results: Laboratory Results - last 24 hr 10/10/23 10/11/23 20:08 06:54 Sodium 140 Potassium 4.2 Chloride 103 Carbon Dioxide 28 Anion Gap 13 BUN 48 H Creatinine 1.45 H Estim Creat Clear Calc 36.5 Estimated GFR 46 POC Glucose 179 H Random Glucose 106 Calcium 8.7 D Progress Note: A&P Assessment and plan (1) Acute on chronic congestive heart failure: Status: Acute Assessment and Plan: 88-year-old gentleman presenting for acute on chronic congestive heart failure. He has been diuresing kidney function is worsening at this point. Stop IV diuretics. He has chronic wheezing probably due to reactive airway disease. Changed to 40 mg p.o. Lasix daily. Thank you for allowing me to participate in the care of your patient. Please feel free to contact me if you have any questions. Time Spent With Patient Time: Total time managing care of this patient today ____ minutes. Progress Note: Quality Stroke Does the patient have a stroke diagnosis?: No Procedures Date of Service Date of Service: 10/11/23
--- NOTE | 2023-10-11 11:37 | P.PNIM_ITS ---
Subjective Subjective Date of Service: 10/11/23 Interval History: Feeling better this morning denies shortness of breath, no chest pain,, no orthopnea, no PND, admits to have chronic wheeze has been evaluated in the past, but no treatment was offered denies allergy symptoms denies history of COPD or asthma, although head and neck CTA from March 2023 showed severe biapical pulmonary emphysema and scarring, not on any treatment. Tolerating diet no nausea, no vomiting, no abdominal pain. Review of Systems All other system reviewed and negative. Physical Exam 2 Vital Signs: Vital Signs: Last Vital Signs Temp 97.7 F 10/11/23 11:15 Pulse 66 10/11/23 11:15 Resp 20 10/11/23 11:15 BP 102/40 L 10/11/23 11:15 Pulse Ox 95 10/11/23 11:15 O2 Del Method Nasal Cannula 10/11/23 11:15 O2 Flow Rate 1 10/11/23 11:15 Oxygen Flow Rate 2 10/09/23 23:14 BMI result Body Mass Index 29.1 Const: Other: General awake alert x3, in no acute distress. Neck no JVD. CVS regular rate rhythm, Respiratory lungs bilateral expiratory wheeze, no respiratory distress, no rales Gastrointestinal abdomen soft, non tender, bowel sounds audible,no guarding , no rigidity. Extremities no edema. Neuro non focal Skin no rash Psych appropriate affect Objective Data Active Medications Acetaminophen (Acetaminophen 325 Mg Tablet) 650 mg PO Q6H PRN PRN Reason: Pain, Mild (Pain Scale 1-3) Apixaban (Apixaban 5 Mg Tablet) 5 mg PO BID [facility] Last Admin: 10/11/23 08:32 Dose: 5 mg Documented By: LESLY Atorvastatin Calcium (Atorvastatin Calcium 80 Mg Tablet) 80 mg PO DAILY [facility] Last Admin: 10/11/23 08:32 Dose: 80 mg Documented By: LESLY Carvedilol (Carvedilol 6.25 Mg Tablet) 6.25 mg PO BID [facility]; Protocol Last Admin: 10/11/23 08:32 Dose: 6.25 mg Documented By: LESLY Fluticasone/Vilanterol (Fluticasone/Vilanterol 100/25 Blst.W.Dev) 1 puff INHALE [facility] Guaifenesin (Guaifenesin 200 Mg/10 Ml 10 Ml Liquid) 10 ml PO TID [facility] Last Admin: 10/11/23 08:32 Dose: 10 ml Documented By: LESLY Sodium Chloride (Ns) 1,000 mls @ 80 mls/hr IVCONT .[id number] [facility] Stop: 10/11/23 17:59 Levalbuterol HCl (Levalbuterol Hcl 1.25 Mg/3 Ml Vial.Neb) 1.25 mg INHALE Q6H PRN PRN Reason: Shortness of Breath/Wheezing Last Admin: 10/10/23 16:09 Dose: 1.25 mg Documented By: AYDE Levothyroxine Sodium (Levothyroxine Sodium 100 Mcg Tablet) 100 mcg PO DAILY [facility] Last Admin: 10/11/23 08:32 Dose: 100 mcg Documented By: LESLY Loratadine (Loratadine 10 Mg Tablet) 10 mg PO DAILY [facility] Omeprazole (Omeprazole 20 Mg Capsule.) 20 mg PO DAILY@0630 [facility] Prednisone (Prednisone 20 Mg Tablet) 20 mg PO DAILY [facility] Sodium Chloride (0.9 % Sodium Chloride Flush 3 Ml Syringe) 3 ml IVFLUSH QSHIFT [facility] Last Admin: 10/11/23 08:31 Dose: 3 ml Documented By: LESLY Tamsulosin HCl (Tamsulosin Hcl 0.4 Mg Capsule) 0.4 mg PO BID [facility] Last Admin: 10/11/23 08:32 Dose: 0.4 mg Documented By: LESLY Labs 10/10/23 06:47 10/11/23 06:54 Labs: Laboratory Results - last 24 hr 10/10/23 10/11/23 20:08 06:54 Anion Gap 13 Estim Creat Clear Calc 36.5 Estimated GFR 46 POC Glucose 179 H Random Glucose 106 Calcium 8.7 D Assessment and Plan (1) Paroxysmal atrial flutter: Status: Acute (2) CHF exacerbation: (3) Hypothyroidism: (4) BPH (benign prostatic hyperplasia): Plan an 85-year-old male with a history of CHF, CAD, PAF on Elquis, hypertension, dyslipidemia, hypothyroidism, BPH, heart blocks\p pacemaker who presents with a shortness of breath found to have CHF (EF 30-35%) admitted with: Hypoxic respiratory failure secondary to acute on chronic systolic congestive heart failure. Shortness of breath improved, denies PND, no orthopnea Chest x-ray showed increased prominence of central vasculature and subtle interstitial edema, elevated BNP, normal troponin On IV Lasix 40 b.i.d. Appears euvolemic, noted to have worsening creatinine, will DC IV Lasix,Continue carvedilol. Low-salt diet. Daily weight. Follow BMP Chronic wheezing Patient denies history of COPD although CT head and neck showed severe biapical emphysema Likely undiagnosed COPD will place on prednisone 20 mg daily, Breo 1 puff daily and scheduled Xopenex Paroxysmal atrial fibrillation, currently paced rhythm. Continue Eliquis and carvedilol. Hyperlipidemia. Continue statin. Follow lipid profile Acute on Chronic kidney disease stage, stage 3A. Likely due to over-diuresis, Hold diuretics give IV fluids follow renal function Essential hypertension. Continue Coreg and hold valsartan due to worsening renal function. Hypothyroidism. Continue levothyroxine. BPH. Continue tamsulosin. History of moderate aortic stenosis. F/U as an outpatient. Permanent pacemaker. DVT prophylaxis: On Eliquis. Code status: Full Patient will need continued inpatient hospitalization for management of acute congestive heart failure with low EF, acute on chronic kidney disease and also for bronchodilator therapy with undiagnosed COPD. Quality Stroke Does the patient have a stroke diagnosis?: No VTE Prior VTE?: No VTE Risk Level:: Medical - moderate - high VTE Device Contraindication: N/A - Device Ordered VTE Drug Contraindication: N/A - Med Ordered
[2023-10-11 11:52] LABS: B Type Natriuretic Peptide 1555 pg/mL (<100)
[2023-10-11] MEDS: predniSONE 20 MG TABLET PO (12:00)
[2023-10-11] MEDS: Omeprazole 20 MG CAPSULE.DR PO (12:00)
[2023-10-11] MEDS: Loratadine 10 MG TABLET PO (12:00)
[2023-10-11] MEDS: 0.9 % Sodium Chloride 500 ML 80 ML IVCONT (12:57)
--- NOTE | 2023-10-11 13:31 | P.PNPL_ITS ---
Subjective Subjective Date of Service: 10/11/23 Interval history: FiO2 requirements are improving. Objective Data Labs 10/10/23 06:47 10/11/23 06:54 Labs: Laboratory Results - last 24 hr 10/10/23 10/11/23 20:08 06:54 Sodium 140 Potassium 4.2 Chloride 103 Carbon Dioxide 28 Anion Gap 13 BUN 48 H Creatinine 1.45 H Estim Creat Clear Calc 36.5 Estimated GFR 46 POC Glucose 179 H Random Glucose 106 Calcium 8.7 D B-Natriuretic Peptide 1555 H Physical Exam 2 Vital Signs: Vital Signs: Last Vital Signs Temp 97.7 F 10/11/23 11:15 Pulse 66 10/11/23 11:15 Resp 20 10/11/23 11:15 BP 102/40 L 10/11/23 11:15 Pulse Ox 95 10/11/23 11:15 O2 Del Method Nasal Cannula 10/11/23 11:15 O2 Flow Rate 1 10/11/23 11:15 Oxygen Flow Rate 2 10/09/23 23:14 BMI result Body Mass Index 29.1 Const: General: no acute distress, alert and awake Eyes: Sclerae: sclerae normal EOM: EOMs intact bilaterally Neck: Neck: Yes no lymphadenopathy, Yes trachea midline and Yes supple Resp: Effort & Inspection: normal respiratory effort and no respiratory distress Auscultation: wheezes (Coarse expiratory) Cardio: Rate: regular rate Rhythm: regular rhythm Heart sounds: no gallops, no murmurs and no rubs GI: Palpation (GI): Soft to palpation and Other GI palpation findings present ( Nontender) Auscultation: normal bowel sounds Extrem: General: No clubbing, No cyanosis and Yes edema (1+ bilateral) Procedures Date of Service Date of Service: 10/11/23 Assessment and Plan Assessment and plan (1) Wheezing: Status: Acute (2) Acute on chronic congestive heart failure: Status: Acute (3) Hypoxic respiratory failure: Status: Acute Assessment and Plan: Impression: 88-year-old gentleman admitted with acute hypoxic respiratory failure and dyspnea secondary to acute exacerbation of underlying chronic systolic congestive heart failure requiring supplemental oxygen and improving with diuresis, now with rising renal indices. Coarse expiratory wheezing noted is cardiac wheeze secondary to underlying pulmonary edema. Recommendations: Suggest decreasing diuretic regimen, but still continuing with diuresis. Time Spent With Patient Time: Total time managing care of this patient today ____ minutes. Progress Note: Quality Stroke Does the patient have a stroke diagnosis?: No
[2023-10-11] MEDS: levalbuterol HCL 2.5 MG, Ipratropium Bromide 0.5 MG INHALE (13:39)
[2023-10-11] MEDS: Fluticasone/Vilanterol 100/25 BLST.W.DEV 1 PUFF INHALE (13:39)
[2023-10-11] MEDS: levalbuterol HCL 1.25 MG/3 ML VIAL.NEB INHALE (20:02)
[2023-10-12] VITALS (9 sets, daily range): BP systolic 131–156; BP diastolic 57–69; PULSE 59–75; RESP 16–20; TEMP 36.2–36.7; O2SAT 92–96; BMI 29.0
[2023-10-12] MEDS: 0.9 % Sodium Chloride Flush 3 ML SYRINGE IVFLUSH ×4 (01:12→22:38)
[2023-10-12] MEDS: Omeprazole 20 MG CAPSULE.DR PO (05:38)
[2023-10-12 07:10] LABS: Anion Gap 10 (12-20); Blood Urea Nitrogen 57 mg/dL (9-16); Calcium 8.5 mg/dL (8.4-10.2); Carbon Dioxide 29 mmol/L (22-29); Chloride 105 mmol/L (96-108); Cholesterol 98 mg/dL (<200); Creatinine Clr Calc Pharmacy 38.1; Estimated Glomerular Filt Rate 48; Glucose Random 106 mg/dL (60-115); HDL Cholesterol 40 mg/dL (>40); LDL Cholesterol Calculated 46 mg/dL (<100); Potassium 3.9 mmol/L (3.3-5.1); Sodium 140 mmol/L (135-145); Triglycerides 62 mg/dL (<150)
[2023-10-12] MEDS: Fluticasone/Vilanterol 100/25 BLST.W.DEV 1 PUFF INHALE (07:35)
[2023-10-12] MEDS: levalbuterol HCL 2.5 MG, Ipratropium Bromide 0.5 MG INHALE ×3 (07:35→20:01)
[2023-10-12] MEDS: guaiFENesin 200 MG/10 ML 10 ML LIQUID PO ×3 (08:51→19:36)
[2023-10-12] MEDS: Atorvastatin Calcium 80 MG TABLET PO (08:51)
[2023-10-12] MEDS: Apixaban 5 MG TABLET PO ×2 (08:51→19:36)
[2023-10-12] MEDS: Loratadine 10 MG TABLET PO (08:52)
[2023-10-12] MEDS: Tamsulosin HCL 0.4 MG CAPSULE PO ×2 (08:52→19:36)
[2023-10-12] MEDS: carvediloL 6.25 MG TABLET PO ×2 (08:52→19:36)
[2023-10-12] MEDS: Levothyroxine Sodium 100 MCG TABLET PO (08:52)
[2023-10-12] MEDS: predniSONE 20 MG TABLET PO (08:54)
--- NOTE | 2023-10-12 12:32 | MHC.CM.PN ---
Pt not yet medically cleared for DC. CM to follow and assist as needed with DC planning.
--- NOTE | 2023-10-12 14:21 | P.PNIM_ITS ---
Subjective Subjective Date of Service: 10/12/23 Interval History: Feeling better this morning, less shortness of breath, less wheeze, denies chest pain, no lightheadedness, no dizziness, still feels short of breath with activity. Review of Systems All other system reviewed and negative. Physical Exam 2 Vital Signs: Vital Signs: Last Vital Signs Temp 97.2 F 10/12/23 12:00 Pulse 62 10/12/23 13:25 Resp 20 10/12/23 13:25 BP 145/63 H 10/12/23 12:00 Pulse Ox 94 10/12/23 12:00 O2 Del Method Room Air 10/12/23 12:00 O2 Flow Rate 2.5 10/12/23 07:39 Oxygen Flow Rate 2 10/09/23 23:14 BMI result Body Mass Index 29.0 Const: Other: General awake alert x3, in no acute distress. Neck no JVD. CVS regular rate rhythm, Respiratory lungs b/l expiratory wheeze improved since yesterday, no respiratory distress, no rales Gastrointestinal abdomen soft, non tender, bowel sounds audible,no guarding , no rigidity. Extremities no edema. Neuro non focal Skin no rash Psych appropriate affect Objective Data Active Medications Acetaminophen (Acetaminophen 325 Mg Tablet) 650 mg PO Q6H PRN PRN Reason: Pain, Mild (Pain Scale 1-3) Apixaban (Apixaban 5 Mg Tablet) 5 mg PO BID [facility] Last Admin: 10/12/23 08:51 Dose: 5 mg Documented By: MARIE Atorvastatin Calcium (Atorvastatin Calcium 80 Mg Tablet) 80 mg PO DAILY [facility] Last Admin: 10/12/23 08:51 Dose: 80 mg Documented By: MARIE Carvedilol (Carvedilol 6.25 Mg Tablet) 6.25 mg PO BID [facility]; Protocol Last Admin: 10/12/23 08:52 Dose: 6.25 mg Documented By: MARIE Levalbuterol HCl 2.5 mg/ (Ipratropium [place] 0.5 mg) 0 mg INHALE TID [facility] Last Admin: 10/12/23 13:25 Dose: 1 dose Documented By: NARCISA Fluticasone/Vilanterol (Fluticasone/Vilanterol 100/25 Blst.W.Dev) 1 puff INHALE RDAILY [facility] Last Admin: 10/12/23 07:35 Dose: 1 puff Documented By: NARCISA Guaifenesin (Guaifenesin 200 Mg/10 Ml 10 Ml Liquid) 10 ml PO TID [facility] Last Admin: 10/12/23 08:51 Dose: 10 ml Documented By: MARIE Levalbuterol HCl (Levalbuterol Hcl 1.25 Mg/3 Ml Vial.Neb) 1.25 mg INHALE Q6H PRN PRN Reason: Shortness of Breath/Wheezing Last Admin: 10/11/23 20:02 Dose: 1.25 mg Documented By: NATHANIEL Levothyroxine Sodium (Levothyroxine Sodium 100 Mcg Tablet) 100 mcg PO DAILY@0600 [facility] Loratadine (Loratadine 10 Mg Tablet) 10 mg PO DAILY [facility] Last Admin: 10/12/23 08:52 Dose: 10 mg Documented By: MARIE Omeprazole (Omeprazole 20 Mg Capsule.) 20 mg PO DAILY@0630 [facility] Last Admin: 10/12/23 05:38 Dose: 20 mg Documented By: DESTINY Prednisone (Prednisone 20 Mg Tablet) 20 mg PO DAILY [facility] Last Admin: 10/12/23 08:54 Dose: 20 mg Documented By: MARIE Sodium Chloride (0.9 % Sodium Chloride Flush 3 Ml Syringe) 3 ml IVFLUSH QSHIFT [facility] Last Admin: 10/12/23 08:52 Dose: 3 ml Documented By: MARIE Tamsulosin HCl (Tamsulosin Hcl 0.4 Mg Capsule) 0.4 mg PO BID [facility] Last Admin: 10/12/23 08:52 Dose: 0.4 mg Documented By: MARIE Labs 10/10/23 06:47 10/12/23 06:13 Labs: Laboratory Results - last 24 hr 10/12/23 06:13 Hold Purple Top SEE NOTE Anion Gap 10 L Estim Creat Clear Calc 38.1 Estimated GFR 48 Random Glucose 106 Calcium 8.5 Triglycerides 62 Cholesterol 98 LDL Cholesterol, Calc 46 HDL Cholesterol 40 L Assessment and Plan (1) Paroxysmal atrial flutter: Status: Acute (2) CHF exacerbation: (3) Hypothyroidism: (4) BPH (benign prostatic hyperplasia): Plan an 85-year-old male with a history of CHF, CAD, PAF on Elquis, hypertension, dyslipidemia, hypothyroidism, BPH, heart blocks\p pacemaker who presents with a shortness of breath found to have CHF (EF 30-35%) admitted with: Hypoxic respiratory failure secondary to acute on chronic systolic congestive heart failure. Shortness of breath improved, denies PND, no orthopnea Chest x-ray showed increased prominence of central vasculature and subtle interstitial edema, elevated BNP, normal troponin s/p IV Lasix 40 b.i.d. now appears euvolemic Diuretics on hold due to acute kidney injury, Continue carvedilol. Low-salt diet. Daily weight. Follow BMP Acute COPD exacerbation (undiagnosed COPD) History of Chronic wheezing Patient denies history of COPD although CT head and neck showed severe biapical emphysema 03/24 Likely undiagnosed COPD ,cont. prednisone 20 mg daily, Breo 1 puff daily and scheduled Xopenex Will arrange for outpatient pulmonary follow-up Paroxysmal atrial fibrillation, currently paced rhythm. Continue Eliquis and carvedilol. Hyperlipidemia. Continue statin, LDL 46, total cholesterol 98, will decrease Lipitor to 40 Acute on Chronic kidney disease stage, stage 3A. Likely due to over-diuresis, Hold diuretics give IV fluids follow renal function Essential hypertension. Continue Coreg and hold valsartan due to jimenez Hypothyroidism. Continue levothyroxine. BPH. Continue tamsulosin. History of moderate aortic stenosis. F/U as an outpatient. Permanent pacemaker. DVT prophylaxis: On Eliquis. Code status: Full Patient will need continued inpatient hospitalization for management of acute congestive heart failure with low EF, acute on chronic kidney disease and also for bronchodilator therapy with undiagnosed COPD. Quality Stroke Does the patient have a stroke diagnosis?: No VTE Prior VTE?: No VTE Risk Level:: Medical - moderate - high VTE Device Contraindication: N/A - Device Ordered VTE Drug Contraindication: N/A - Med Ordered
[2023-10-13] VITALS (9 sets, daily range): BP systolic 127–156; BP diastolic 56–69; PULSE 60–76; RESP 17–20; TEMP 36.2–37.2; O2SAT 92–96
[2023-10-13] MEDS: Levothyroxine Sodium 100 MCG TABLET PO (05:37)
[2023-10-13] MEDS: Omeprazole 20 MG CAPSULE.DR PO (05:37)
[2023-10-13 07:20] LABS: Anion Gap 9 (12-20); Blood Urea Nitrogen 44 mg/dL (9-16); Calcium 8.4 mg/dL (8.4-10.2); Carbon Dioxide 29 mmol/L (22-29); Chloride 108 mmol/L (96-108); Creatinine Clr Calc Pharmacy 51.3; Estimated Glomerular Filt Rate > 60; Glucose Random 89 mg/dL (60-115); Potassium 3.8 mmol/L (3.3-5.1); Sodium 142 mmol/L (135-145)
[2023-10-13] MEDS: levalbuterol HCL 2.5 MG, Ipratropium Bromide 0.5 MG INHALE ×3 (08:06→19:32)
[2023-10-13] MEDS: Fluticasone/Vilanterol 100/25 BLST.W.DEV 1 PUFF INHALE (08:11)
[2023-10-13] MEDS: predniSONE 20 MG TABLET PO (08:38)
[2023-10-13] MEDS: Loratadine 10 MG TABLET PO (08:38)
[2023-10-13] MEDS: Tamsulosin HCL 0.4 MG CAPSULE PO ×2 (08:38→20:43)
[2023-10-13] MEDS: Atorvastatin Calcium 40 MG TABLET PO (08:38)
[2023-10-13] MEDS: Apixaban 5 MG TABLET PO ×2 (08:39→20:43)
[2023-10-13] MEDS: carvediloL 6.25 MG TABLET PO ×2 (08:39→20:43)
[2023-10-13] MEDS: guaiFENesin 200 MG/10 ML 10 ML LIQUID PO ×3 (08:39→20:44)
[2023-10-13] MEDS: 0.9 % Sodium Chloride Flush 3 ML SYRINGE IVFLUSH ×3 (08:41→20:44)
--- NOTE | 2023-10-13 14:24 | MHC.CM.PN ---
Addendum entered by Abigail Grijalva 10/13/23 15:06: referrals out to [facility], accepted by [facility]. Original Note: HCP completed and added to chart, naming daughterMabel and son, TatoJr.
--- NOTE | 2023-10-13 15:12 | HO.PM.IMPN ---
Subjective Subjective Date of Service: 10/13/23 Interval History: Feels tired and weak this morning, lives alone on 2nd floor, in June, neighbors checks on him frequently. Shortness of breath has improved, denies cough, no fevers, no chills, not on home oxygen, was placed on O2 last night due to hypoxia finger oximetry 90 Review of Systems All other system reviewed and negative Physical Exam Vital Signs: Vital Signs: Last Vital Signs Temp 97.8 F 10/13/23 15:07 Pulse 65 10/13/23 15:07 Resp 18 10/13/23 15:07 BP 129/56 L 10/13/23 15:07 Pulse Ox 94 10/13/23 15:07 O2 Del Method Room Air 10/13/23 15:07 O2 Flow Rate 2 10/13/23 07:08 Oxygen Flow Rate 2 10/09/23 23:14 BMI result Body Mass Index 29.0 Const: Other: General awake alert x3, in no acute distress. Neck no JVD. CVS regular rate rhythm, Respiratory lungs clear to auscultation, no respiratory distress, no rales Gastrointestinal abdomen soft, non tender, bowel sounds audible,no guarding , no rigidity. Extremities no edema. Neuro non focal Skin no rash Psych appropriate affect Objective Data Active Medications Acetaminophen (Acetaminophen 325 Mg Tablet) 650 mg PO Q6H PRN PRN Reason: Pain, Mild (Pain Scale 1-3) Albuterol Sulfate (Albuterol Sulfate 90 Mcg 8 Gm Inhaler) 2 puff INHALE RQ4H PRN PRN Reason: sob Apixaban (Apixaban 5 Mg Tablet) 5 mg PO BID [facility] Last Admin: 10/13/23 08:39 Dose: 5 mg Documented By: MARIE Atorvastatin Calcium (Atorvastatin Calcium 40 Mg Tablet) 40 mg PO DAILY [facility] Last Admin: 10/13/23 08:38 Dose: 40 mg Documented By: MARIE Carvedilol (Carvedilol 6.25 Mg Tablet) 6.25 mg PO BID [facility]; Protocol Last Admin: 10/13/23 08:39 Dose: 6.25 mg Documented By: MARIE Levalbuterol HCl 2.5 mg/ (Ipratropium [place] 0.5 mg) 0 mg INHALE TID [facility] Last Admin: 10/13/23 15:11 Dose: 1 dose Documented By: OMAYRA Fluticasone/Vilanterol (Fluticasone/Vilanterol 100/25 Blst.W.Dev) 1 puff INHALE RDAILY [facility] Last Admin: 10/13/23 08:11 Dose: 1 puff Documented By: OMAYRA Guaifenesin (Guaifenesin 200 Mg/10 Ml 10 Ml Liquid) 10 ml PO TID [facility] Last Admin: 10/13/23 08:39 Dose: 10 ml Documented By: MARIE Levalbuterol HCl (Levalbuterol Hcl 1.25 Mg/3 Ml Vial.Neb) 1.25 mg INHALE Q6H PRN PRN Reason: Shortness of Breath/Wheezing Last Admin: 10/11/23 20:02 Dose: 1.25 mg Documented By: NATHANIEL Levothyroxine Sodium (Levothyroxine Sodium 100 Mcg Tablet) 100 mcg PO DAILY@0600 [facility] Last Admin: 10/13/23 05:37 Dose: 100 mcg Documented By: LIAM Loratadine (Loratadine 10 Mg Tablet) 10 mg PO DAILY [facility] Last Admin: 10/13/23 08:38 Dose: 10 mg Documented By: MARIE Omeprazole (Omeprazole 20 Mg Capsule.) 20 mg PO DAILY@0630 [facility] Last Admin: 10/13/23 05:37 Dose: 20 mg Documented By: LIAM Prednisone (Prednisone 20 Mg Tablet) 20 mg PO DAILY [facility] Last Admin: 10/13/23 08:38 Dose: 20 mg Documented By: MARIE Sodium Chloride (0.9 % Sodium Chloride Flush 3 Ml Syringe) 3 ml IVFLUSH QSHIFT [facility] Last Admin: 10/13/23 08:41 Dose: 3 ml Documented By: MARIE Tamsulosin HCl (Tamsulosin Hcl 0.4 Mg Capsule) 0.4 mg PO BID [facility] Last Admin: 10/13/23 08:38 Dose: 0.4 mg Documented By: MARIE Labs 10/10/23 06:47 10/13/23 06:18 Labs: Laboratory Results - last 24 hr 10/13/23 06:18 Anion Gap 9 L Estim Creat Clear Calc 51.3 Estimated GFR > 60 Random Glucose 89 Calcium 8.4 Assessment and Plan (1) Paroxysmal atrial flutter: Status: Acute (2) CHF exacerbation: (3) Hypothyroidism: (4) BPH (benign prostatic hyperplasia): Plan an 85-year-old male with a history of CHF, CAD, PAF on Elquis, hypertension, dyslipidemia, hypothyroidism, BPH, heart blocks\p pacemaker who presents with a shortness of breath found to have CHF (EF 30-35%) admitted with: Acute Hypoxic respiratory failure secondary to acute on chronic systolic congestive heart failure. Shortness of breath improved, denies PND, no orthopnea Chest x-ray showed increased prominence of central vasculature and subtle interstitial edema, elevated BNP, normal troponin s/p IV Lasix 40 b.i.d. Diuretics on hold due to worsening renal function, Continue carvedilol. Low-salt diet. Daily weight. Creatinine normalized, will resume Lasix 20 mg daily home dose upon dc Wean O2 not on home oxygen Follow BMP Acute COPD exacerbation (undiagnosed COPD) History of Chronic wheezing but was never told to have COPD, was having shortness of breath with activity Patient denies history of COPD although CT head and neck showed severe biapical emphysema 03/24 Likely undiagnosed COPD , history of smoking, cont. prednisone 20 mg daily, Breo 1 puff daily and scheduled Xopenex Added albuterol as needed, will discharge on Spiriva and Breo, patient has no home inhalers Recommend outpatient pulmonary follow-up Paroxysmal atrial fibrillation, currently paced rhythm. Continue Eliquis and carvedilol. Hyperlipidemia. Continue statin, LDL 46, total cholesterol 98, will decrease Lipitor to 40 Acute on Chronic kidney disease stage, stage 3A. Likely due to over-diuresis, renal function back to baseline Essential hypertension. Stable BP, Continue Coreg and on valsartan 80 mg bid at home currently on hold due to MALA, if noted to have elevated BP will place on valsartan 40 b.i.d. Hypothyroidism. Continue levothyroxine. BPH. Continue tamsulosin. History of moderate aortic stenosis. F/U as an outpatient. Permanent pacemaker. Disposition will obtain PT eval DVT prophylaxis: On Eliquis. Code status: Full Patient will need continued inpatient hospitalization for management of acute congestive heart failure with low EF, acute on chronic kidney disease and also for bronchodilator therapy with undiagnosed acute COPD exac. Quality Stroke Does the patient have a stroke diagnosis?: No VTE Prior VTE?: No VTE Risk Level:: Medical - moderate - high VTE Device Contraindication: N/A - Device Ordered VTE Drug Contraindication: N/A - Med Ordered
[2023-10-14] VITALS (7 sets, daily range): BP systolic 135–146; BP diastolic 56–65; PULSE 60–76; RESP 18–20; TEMP 36.3–37; O2SAT 93–94
[2023-10-14] MEDS: Omeprazole 20 MG CAPSULE.DR PO (06:14)
[2023-10-14] MEDS: Levothyroxine Sodium 100 MCG TABLET PO (06:14)
[2023-10-14 07:39] LABS: Anion Gap 9 (12-20); Blood Urea Nitrogen 41 mg/dL (9-16); Calcium 8.3 mg/dL (8.4-10.2); Carbon Dioxide 29 mmol/L (22-29); Chloride 108 mmol/L (96-108); Creatinine Clr Calc Pharmacy 47.2; Estimated Glomerular Filt Rate > 60; Glucose Random 86 mg/dL (60-115); Potassium 3.8 mmol/L (3.3-5.1); Sodium 142 mmol/L (135-145)
[2023-10-14] MEDS: levalbuterol HCL 2.5 MG, Ipratropium Bromide 0.5 MG INHALE ×2 (07:43→14:10)
[2023-10-14] MEDS: Fluticasone/Vilanterol 100/25 BLST.W.DEV 1 PUFF INHALE (07:43)
[2023-10-14] MEDS: predniSONE 20 MG TABLET PO (08:57)
[2023-10-14] MEDS: Atorvastatin Calcium 40 MG TABLET PO (08:57)
[2023-10-14] MEDS: carvediloL 6.25 MG TABLET PO (08:57)
[2023-10-14] MEDS: guaiFENesin 200 MG/10 ML 10 ML LIQUID PO ×2 (08:57→15:45)
[2023-10-14] MEDS: Tamsulosin HCL 0.4 MG CAPSULE PO (08:57)
[2023-10-14] MEDS: Apixaban 5 MG TABLET PO (08:58)
[2023-10-14] MEDS: 0.9 % Sodium Chloride Flush 3 ML SYRINGE IVFLUSH (08:58)
[2023-10-14] MEDS: Loratadine 10 MG TABLET PO (08:58)
--- NOTE | 2023-10-14 10:27 | MHC.CM.PN ---
Second IMM 10/14/23, pt has been medically cleared for DC. He will go home via family transport, and have home care services from [facility].
--- NOTE | 2023-10-14 11:48 | W.MHC.F2F ---
Service Date Service Date: 10/14/23 Encounter Date of encounter: 10/14/23 Reasons for Services Signs and symptoms assessed: dyspnea on exertion impaired standing balance Reason for chcf: medication management, medication treatment and teach disease management Reason for physical therapy: home safety and mobility, therapeutic exercises, gait/transfer training, assess need for DME, ADL training and energy conservation MD Overseeing Care: Tima Yao Homebound: Leaving the home is medically contraindicated at this time without the asist of a device and/or another person due th the listed conditions above and below. Reason homebound: weakness related to hospital stay Homebound supporting statement: Gait Training, Therapeutic Activities, Therapeutic Exercise, Patient Education, Safety,Balance, Other Certification: Based on the above findings, I certify that this patient is confined to the home and needs intermittent chcf care, physical therapy and/or speech therapy, or continues to need occupational therapy. The patient is under my care, and I have initiated the establishment of the plan of care. The patient will be followed by a physician who will periodically review the plan of care. Time Spent With Patient Time: Total time managing care of this patient today ____ minutes.
--- NOTE | 2023-10-14 12:00 | PM.DS ---
DS: Providers Provider Date of Service: 10/14/23 Date of admission: 10/10/23 03:29 Date of discharge: 10/14/23 Primary care physician: Tima Yao MD Consults: 10/10/23 05:21 Consult to Pulmonology Routine Consulting Provider: [facility] Pulmonology Services Reason for consultation: Hypoxic resp. failure Has provider been notified: No 10/10/23 05:22 Consult to Cardiology Routine Consulting Provider: [facility] Cardiovascular Services Reason for consultation: Acute on chronic congestive heart failure Has provider been notified: Yes DS: Diagnosis Discharge Diagnosis (1) CHF exacerbation: (2) Hypothyroidism: (3) BPH (benign prostatic hyperplasia): (4) Acute on chronic HFrEF (heart failure with reduced ejection fraction): Status: Acute (5) Acute respiratory failure with hypoxia: Status: Acute (6) COPD exacerbation: Status: Acute (7) Aortic stenosis: Status: Acute (8) Acute kidney injury superimposed on CKD: Status: Acute DS: Summary Hospital Course Hospital Course: From the history and physical by the admitting hospitalist, Ludy Justin, 10/10/23: Tato Duke is a 88 years old man with past medical history significant for HFrEF (EF 30-35% TTE April 2023), paroxysmal atrial fibrillation on Eliquis, coronary artery disease s/p stenting (LAD), moderate , pacemaker implantation chronic kidney disease, essential hypertension, hyperlipidemia and hypothyroidism presents to the emergency department complaining of a one-week history of worsening shortness of breath associated with wheezing, hoarseness and cough. He also had some edema to the lower extremities. Shortness of or increases with ambulation. Patient denied any acute gastrointestinal or genitourinary symptoms. He is a former tobacco smoker. He denied alcohol abuse or illicit drug use. In the ED, he was found to have stable vital signs. He is currently requiring 2 L/min supplemental oxygen via nasal cannula. Blood workup showed no leukocytosis. Hemoglobin is 12.7 at baseline. There are no significant electrolyte imbalances. Creatinine is 1.09 (baseline). BNP is 1740 (much higher than previous). Viral testing for COVID-19, RSV and influenza is negative. EKG showed ventricular paced rhythm. CXR showed findings suggesting congestion and interstitial edema with streaky right lung opacities that may represent atelectasis. ED tx: Furosemide 40 mg IV. Solu-Medrol 125 mg IV given by EMS 88 year-old male with a history of CHF [EF 30-35% 04/03/23], CAD, paroxysmal AF on Elquis, moderate aortic stenosis, hhypertension, dyslipidemia, hypothyroidism, BPH, and heart block s\p pacemaker who presented with shortness of breath and was admitted for hypoxia due to CHF and newly diagnosed COPD. He was diuresed with IV furosemide until renal function worsened and he appeared euvolemic. Valsartan was held due to MALA. Renal function returned to baseline of CKD3a. He was placed on furosemide 40 mg daily upon discharge. Carvedilol was continued. He was weaned off of oxygen. 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 He was treated with a short prednisone burst and started on Breo and albuterol. He was discharged on Breo and albuterol and 1 more day of prednisone and will need outpatient PFTs and Pulmonology follow-up. He should have repeat BMP in 1 week and if renal function remains at baseline, valsartan could be resumed. He will need to follow-up with Cardiology in 2 weeks. [facility] services were arranged. Time Attestation Discharge Coordination Time (in mins): 40 Quality: Safe Use of Opioids Does Pt have an Active Cancer Diagnosis on the Problem List?: No Quality: Stroke Does the patient have a stroke diagnosis?: No Physical Exam Vital Signs: Vital Signs: Last Vital Signs Temp 97.8 F 10/14/23 11:18 Pulse 69 10/14/23 11:18 Resp 20 10/14/23 11:18 BP 135/61 10/14/23 11:18 Pulse Ox 93 10/14/23 11:18 O2 Del Method Room Air 10/14/23 11:18 O2 Flow Rate 2 10/14/23 07:46 Oxygen Flow Rate 2 10/09/23 23:14 BMI result Body Mass Index 29.0 Gen: in no acute distress HEENT: sclera anicteric, moist mucus membranes Neck: supple Lungs: clear to auscultation bilaterally Heart: regular rate and rhythm, no murmurs Abd: soft, non-tender, non-distended Ext: no edema Skin: warm/well-perfused Neuro: alert and oriented x3, no focal findings Psych: appropriate affect DS: Data Data Completed and Pending Completed studies during hospitalization [Text1]: Laboratory Results WBC 7.8 X10*3/uL (4.8-10.8) 10/10/23 06:47 RBC 4.32 X10*6/uL (4.60-5.80) L 10/10/23 06:47 Hgb 13.6 g/dl (14.0-18.0) L 10/10/23 06:47 Hct 40.2 % (42.0-52.0) L 10/10/23 06:47 MCV 93.1 fL (80.0-98.0) 10/10/23 06:47 MCH 31.5 pg (27.0-33.0) 10/10/23 06:47 MCHC 33.8 g/dl (31.0-36.0) 10/10/23 06:47 RDW 13.3 % (11.0-16.0) 10/10/23 06:47 Plt Count 178 X10*3/uL (160-400) 10/10/23 06:47 MPV 11.5 fL (9.4-12.4) 10/10/23 06:47 Immature Gran % (Auto) 0.5 % (0.0-0.4) H 10/10/23 06:47 Neut % (Auto) 87.6 % (45-73) H 10/10/23 06:47 Lymph % (Auto) 9.7 % (20-40) L 10/10/23 06:47 [place] % (Auto) 1.5 % (2-11) L 10/10/23 06:47 Eos % (Auto) 0.3 % (0-4) 10/10/23 06:47 Baso % (Auto) 0.4 % (0-2) 10/10/23 06:47 Lymph # (Auto) 0.8 X10*3/uL (1.2-4.9) L 10/10/23 06:47 [place] # (Auto) 0.1 X10*3/uL (0.1-1.2) 10/10/23 06:47 Eos # (Auto) 0.0 X10*3/uL (0.0-0.4) 10/10/23 06:47 Baso # (Auto) 0.0 X10*3/uL (0.0-0.2) 10/10/23 06:47 Abs Immat Gran (auto) 0.04 X10*3/uL (0.00-0.03) H 10/10/23 06:47 Absolute Neuts (auto) 6.9 x10*3/uL (2.0-8.3) 10/10/23 06:47 Absolute Nucleated RBC 0.000 X10*3/uL (0.0-0.012) 10/10/23 06:47 Nucleated RBC % (auto) 0.0 /100WBC (0.0-0.2) 10/10/23 06:47 Hold Purple Top SEE NOTE 10/14/23 06:56 Sodium 142 mmol/L (135-145) 10/14/23 06:56 Potassium 3.8 mmol/L (3.3-5.1) 10/14/23 06:56 Chloride 108 mmol/L (96-108) 10/14/23 06:56 Carbon Dioxide 29 mmol/L (22-29) 10/14/23 06:56 Anion Gap 9 (12-20) L 10/14/23 06:56 BUN 41 mg/dL (9-16) H 10/14/23 06:56 Creatinine 1.12 mg/dL (0.5-1.4) 10/14/23 06:56 Estim Creat Clear Calc 47.2 10/14/23 06:56 Estimated GFR > 60 10/14/23 06:56 POC Glucose 179 mg/dL (60-115) H 10/10/23 20:08 Random Glucose 86 mg/dL (60-115) 10/14/23 06:56 Calcium 8.3 mg/dL (8.4-10.2) L 10/14/23 06:56 Total Bilirubin 0.8 mg/dL (0.0-1.0) 10/10/23 06:47 AST 16 U/L (5-37) 10/10/23 06:47 ALT 11 U/L (0-40) 10/10/23 06:47 Alkaline Phosphatase 61 U/L (39-117) 10/10/23 06:47 Troponin I High Sens 21.2 ng/L (<3.5-35.0) 10/09/23 23:26 B-Natriuretic Peptide 1555 pg/mL (<100) H 10/11/23 06:54 Total Protein 7.4 g/dL (6.5-8.0) 10/10/23 06:47 Albumin 3.6 g/dL (3.5-5.0) 10/10/23 06:47 Triglycerides 62 mg/dL (<150) 10/12/23 06:13 Cholesterol 98 mg/dL (<200) 10/12/23 06:13 LDL Cholesterol, Calc 46 mg/dL (<100) 10/12/23 06:13 HDL Cholesterol 40 mg/dL (>40) L 10/12/23 06:13 Influenza Type A (PCR) NEGATIVE (Negative) 10/09/23 23:26 Influenza Type B (PCR) NEGATIVE (Negative) 10/09/23 23:26 RSV RNA Qual (PCR) NEGATIVE (Negative) 10/09/23 23:26 SARS-CoV-2 RNA (RT-PCR) NEGATIVE (Negative) 10/09/23 23:26 Impressions Chest X-Ray 10/09/23 23:32 IMPRESSION: Mildly increased prominence of the central vasculature and interstitium, suggesting congestion and subtle interstitial edema. Streaky right lung opacities may reflect atelectasis. Discharge Plan Discharge Anticipated Discharge Date/Time: 10/14/23 11:50 Patient Disposition: Home Health Service Discharge Diagnosis: hypoxia due to CHF exacerbation newly diagnosed COPD acute/chronic kidney disease stage 3 Referrals: Kierra BARON [Outside] - 1 Week Patel Zhu MD [Physician] - 2 Weeks Tima Yao MD [Primary Care Provider] - 1 Week Discharge Medications: New prednisone 20 mg Tablet 20 mg PO DAILY Qty: 1 0RF fluticasone furoate-vilanterol [Breo Ellipta] 100-25 mcg/dose Blister With Device 1 inh inhalation RDAILY Qty: 30 0RF albuterol sulfate 90 mcg/actuation HFA aerosol inhaler 2 puff inhalation Q4-6H PRN (Reason: shortness of breath or wheezing) Qty: 8.5 0RF Rx Instructions: use with spacer device atorvastatin 80 mg tablet 80 mg PO BEDTIME Qty: 30 0RF furosemide 40 mg tablet 40 mg PO QAM Qty: 30 0RF Continued Eliquis 5 mg tablet 5 mg PO BID Qty: 60 11RF tamsulosin 0.4 mg capsule 1 cap PO BID carvedilol 6.25 mg tablet 6.25 mg PO BIDWM levothyroxine 100 mcg tablet 100 mcg PO DAILY@0600 acetaminophen [Tylenol] 325 mg Tablet 650 mg PO Q6H PRN (Reason: Pain) Discontinued furosemide 20 mg tablet 20 mg PO QAM Qty: 90 3RF valsartan 80 mg tablet 80 mg PO BID Qty: 60 5RF atorvastatin 80 mg tablet 80 mg PO DAILY Discharge Orders: Discharge Order (Routine); Ordered 10/14/23 Ordered By: Milli Schwartz Diet: Advance to usual diet Activity on Discharge: As tolerated Stand Alone Forms: Patient Portal Discharge page Other Ambulatory Orders: Basic Metabolic Panel (Routine) Timeframe: 1 Week Facility: [facility] - Location: Laboratory Ordered By: Milli Schwartz Care Plan Goals: cardiac health pulmonary health renal health Health Concerns: hypoxia due to CHF exacerbation newly diagnosed COPD acute/chronic kidney disease stage 3 Plan of Treatment: Low-sodium diet: less than 2000 mg of sodium daily. Weigh yourself daily and call your doctor if your weight goes up by more than 3 lb/day or 5 lb/week. Increase furosemide from 20 to 40 mg daily. Follow up with Cardiology in 2 weeks Stop valsartan for now; repeat BMP in 1 week. May resume if renal function at baseline per primary care doctor. Obtain pulmonary function testing [ask your primary care doctor for order]. Start Breo 1 puff daily, and albuterol 2 puffs every 4-6 hours as needed for shortness of breath or wheezing Please follow up with your primary care doctor within 1 week. Return to the hospital if you experience recurrent or worsening symptoms. Assessment: See Discharge Summary.
== END 2023-10-14 16:02 | disposition home health service (06) | DRG 291 ==
LOC: HO.ED 10-10 01:02 → HO.EDOVER 10-10 03:35 → HO.IMC 10-10 12:52
PROVIDERS: Hospitalist; Admitting Provider Internal Medicine; Emergency Provider Emergency Medicine; PCP Internal Medicine; Visit Provider Family Medicine
DX: I13.0 Hypertensive heart and chronic kidney disease with heart failure and stage 1 through stage 4 chronic kidney disease, or unspecified chronic kidney disease (principal); I50.23 Acute on chronic systolic (congestive) heart failure; J96.01 Acute respiratory failure with hypoxia; N17.9 Acute kidney failure, unspecified; N18.31 Chronic kidney disease, stage 3a; J43.9 Emphysema, unspecified; I48.0 Paroxysmal atrial fibrillation; I35.0 Nonrheumatic aortic (valve) stenosis; E78.5 Hyperlipidemia, unspecified; E03.9 Hypothyroidism, unspecified; I25.10 Atherosclerotic heart disease of native coronary artery without angina pectoris; N40.0 Benign prostatic hyperplasia without lower urinary tract symptoms; Z20.822 Contact with and (suspected) exposure to COVID-19; Z95.5 Presence of coronary angioplasty implant and graft; Z95.0 Presence of cardiac pacemaker; Z79.01 Long term (current) use of anticoagulants; Z79.51 Long term (current) use of inhaled steroids; Z79.890 Hormone replacement therapy; Z79.899 Other long term (current) drug therapy
CPT/HCPCS: 0241U; 36415; 71045; 80048; 80053; 80061; 82947; 83880; 84484; 85025; 93005; 94640; 97162; 99285; J1940; J2920

== ENCOUNTER → 2023-10-09 23:36 | Outpatient (BNV) | payer MEDICARE, SELFPAY | PROVIDERS: Admitting Provider Internal Medicine; Emergency Provider Emergency Medicine; Visit Provider Internal Medicine Cardiovascular Disease | DX: R94.31 Abnormal electrocardiogram [ECG] [EKG] (principal) | CPT/HCPCS: 93010 ==

== ENCOUNTER → 2023-10-10 03:29 | Outpatient (BNV) | payer MEDICARE, SELFPAY | PROVIDERS: Admitting Provider Internal Medicine; Visit Provider Internal Medicine | DX: J96.01 Acute respiratory failure with hypoxia (principal); I50.23 Acute on chronic systolic (congestive) heart failure; E03.9 Hypothyroidism, unspecified; N40.0 Benign prostatic hyperplasia without lower urinary tract symptoms; J44.1 Chronic obstructive pulmonary disease with (acute) exacerbation; I35.0 Nonrheumatic aortic (valve) stenosis; N17.9 Acute kidney failure, unspecified; N18.31 Chronic kidney disease, stage 3a | CPT/HCPCS: 99223; 99233; 99239; 99499; G0180 ==

== ENCOUNTER → 2023-10-10 03:29 | Outpatient (BNV) | payer MEDICARE, SELFPAY | PROVIDERS: Admitting Provider Internal Medicine; Visit Provider Internal Medicine Pulmonary Disease | DX: J96.91 Respiratory failure, unspecified with hypoxia (principal); I50.22 Chronic systolic (congestive) heart failure | CPT/HCPCS: 99222; 99232 ==

== ENCOUNTER → 2023-10-10 03:29 | Outpatient (BNV) | payer MEDICARE, SELFPAY | PROVIDERS: Admitting Provider Internal Medicine; Visit Provider Internal Medicine Cardiovascular Disease | DX: I50.23 Acute on chronic systolic (congestive) heart failure (principal) | CPT/HCPCS: 99223; 99232 ==

== ENCOUNTER → 2023-10-14 23:59 | Outpatient (BNV) | payer MEDICARE, SELFPAY ==
--- NOTE | 2023-10-15 18:25 | MHC.OFFVIS ---
Intake Intake Visit Reasons: Remote Device Check- [facility] Allergies No Known Allergies [NO KNOWN ALLERGIES] Allergy (Unknown, Verified 10/10/23 00:43) UNKNOWN PFSH Medical History Heart failure with reduced ejection fraction CAD (coronary artery disease) Ischemic cardiomyopathy Non-rheumatic aortic regurgitation Paroxysmal atrial flutter Atherosclerotic cardiovascular disease BPH (benign prostatic hyperplasia) Hypothyroidism Congestive heart failure Aortic stenosis Myocardial infarct CHF (congestive heart failure) HTN (hypertension) High blood cholesterol Pacemaker Surgical History S/P cardiac cath (~08/2020) H/O heart artery stent Family History Father No problems noted. Mother Diabetes Social History Housing: Apartment Alcohol intake: never Patient Tobacco Use Status: Never used Tobacco service: No Current occupational status: retired Office Procedures Cardiac Device Check Cardiac Device Check Details: Remote pacemaker report generated 10/13/2022. Pacemaker function is adequate. Episodes of atrial fibrillation noted. [id number] Cardiac Device Interrogation, pacemaker Procedure code (CPT) selection complete Assessment & Plan Assessment & Plan (1) Pacemaker: Code(s): Z95.0 - Presence of cardiac pacemaker Plan: See above Coding Level of Care Code Procedure Only Diagnoses Pacemaker Z95.0 CPT Codes Cardiac Device Check - Cardiac Device 12: [id number] Cardiac Device Interrogation, pacemaker ([id number])
== END ==
PROVIDERS: PCP Internal Medicine; Visit Provider Internal Medicine Cardiovascular Disease
DX: I48.92 Unspecified atrial flutter (principal); Z95.0 Presence of cardiac pacemaker
CPT/HCPCS: 93294

== ENCOUNTER 2023-10-21 09:10 | Outpatient (REF) | payer MEDICARE, SELFPAY ==
[2023-10-21 18:21] LABS: Anion Gap 14 (12-20); Blood Urea Nitrogen 40 mg/dL (9-16); Calcium 8.6 mg/dL (8.4-10.2); Carbon Dioxide 24 mmol/L (22-29); Chloride 104 mmol/L (96-108); Estimated Glomerular Filt Rate > 60; Glucose Random 98 mg/dL (60-115); Potassium 3.9 mmol/L (3.3-5.1); Sodium 138 mmol/L (135-145)
== END 2023-10-21 09:11 | disposition home or self-care (01) ==
LOC: HO.HVNA 09:10
PROVIDERS: PCP Internal Medicine; Visit Provider Internal Medicine
DX: N17.9 Acute kidney failure, unspecified (principal); N18.9 Chronic kidney disease, unspecified
CPT/HCPCS: 36415; 80048

== ENCOUNTER 2023-10-30 08:44 | Outpatient (AMB) | payer MEDICARE, SELFPAY ==
[2023-10-30 08:46] VITALS: BP 120/62; PULSE 60; BMI 27.3
--- NOTE | 2023-10-30 08:46 | A.OFFVIS_ITS ---
Intake Vital Signs 10/30/23 08:46 Height 5 ft 7 in Weight 174 lb 9.698 oz BMI 27.3 BP 120/62 Blood Pressure Location Rt brachial Position Sitting Pulse 60 Pulse Source Pulse Oximeter Intake Visit Reasons: ER followup Linoleum Layer Helper Required: No Caustic Liquor Maker: Caustic Liquor Maker Present Allergies No Known Allergies [NO KNOWN ALLERGIES] Allergy (Unknown, Verified 10/30/23 08:49) UNKNOWN Medication List - Last Reconciled 10/30/23 by Keshia Meza NP-C acetaminophen (Tylenol) 650 mg PO Q6H PRN albuterol sulfate 90 mcg/actuation 2 puffs inhalation Q4-6H PRN apixaban (Eliquis) 5 mg PO BID atorvastatin 80 mg PO BEDTIME carvedilol 6.25 mg PO BIDWM fluticasone furoate-vilanterol 100-25 mcg/dose (Breo Ellipta) 1 inh inhalation RDAILY furosemide 40 mg PO QAM levothyroxine 100 mcg PO DAILY@0600 prednisone 20 mg PO DAILY tamsulosin 1 cap PO BID HPI ER followup HPI Details Tato is an 88-year-old male with past medical history of hyperlipidemia, COPD, CAD with LAD stent, cardiomyopathy, heart failure with reduced EF, paroxysmal atrial fibrillation, aortic stenosis, 2-1 heart block status post dual-chamber [facility] pacemaker who was recently admitted to [facility] with increased shortness of breath. Was treated for acute on chronic heart failure with reduced EF. Was diuresed and sent home with Lasix 40 mg daily. He had MALA and his valsartan was placed on hold. Last creatinine 1.12 prior to discharge. Today he reports he has been doing well since his hospital discharge. Has some shortness of breath with activity but states that his breathing is pretty much back to normal. He denies PND, orthopnea. He does have sock markings present. No chest discomfort at rest or with activity. No heart palpitations, lightheadedness, presyncope, syncope, falls. Taking meds as directed. No bleeding issues reported. Daughter is present. [facility] Medical History Heart failure with reduced ejection fraction CAD (coronary artery disease) Ischemic cardiomyopathy Non-rheumatic aortic regurgitation Paroxysmal atrial flutter Atherosclerotic cardiovascular disease BPH (benign prostatic hyperplasia) Hypothyroidism Congestive heart failure Aortic stenosis Myocardial infarct CHF (congestive heart failure) HTN (hypertension) High blood cholesterol Pacemaker Surgical History S/P cardiac cath (~08/2020) H/O heart artery stent Family History Father No problems noted. Mother Diabetes Social History Housing: Apartment Alcohol intake: never Patient Tobacco Use Status: Never used Tobacco service: No Current occupational status: retired Review of Systems Const All systems reviewed & are unremarkable except as noted in HPI and below ENT Denies dizziness Card Denies chest pain, Denies chest pain at rest, Denies chest pain with activity, Denies rapid heart rate, Denies pedal edema, Denies edema, Denies leg edema, Denies lightheadedness, Denies palpitations, Denies dyspnea, Reports dyspnea on exertion and Denies orthopnea Resp Denies cough, Denies dyspnea and Reports dyspnea on exertion GI Denies hematochezia and Denies change in stool character Musc Denies abnormal gait, Denies limited range of motion, Denies muscle cramps, Denies muscle weakness, Denies numbness, Denies radiating pain into limb, Denies stiffness and Denies tingling Neuro Denies abnormal gait, Denies dizziness, Denies numbness and Denies tingling Endo Denies palpitations Physical Exam Vital Signs: Last Vital Signs Pulse 60 10/30/23 08:46 BP 120/62 10/30/23 08:46 BMI result Body Mass Index 27.3 Const General: cooperative, healthy appearing, comfortable and no acute distress Orientation/consciousness: patient oriented x3 Neck Neck: Yes normal visual inspection and Yes no JVD Resp Effort & Inspection: normal respiratory effort Auscultation: clear to auscultation bilaterally, no crackles, no rales, no rhonchi and no wheezes Cardio Jugular venous distension: no JVD Rate: regular rate Rhythm: regular rhythm Heart sounds: S1 normal heart sound present, S2 normal heart sound present, no murmurs and no rubs Neuro General: patient oriented x3 Extrem Other: sock marking noted General: Yes normal to inspection and Yes no pedal edema Psych Appearance: grossly normal Mental Status: mental status grossly normal Speech and movement: Normal speech and movement present Assessment & Plan Assessment & Plan (1) Acute on chronic HFrEF (heart failure with reduced ejection fraction): Code(s): I50.23 - Acute on chronic systolic (congestive) heart failure Plan: History of heart failure with reduced EF. Last echocardiogram done 04/03/2023 showed EF 30-35%, left atrium severely dilated, [id number] , moderate AR. He was [place] [facility] [place] with acute on chronic heart failure. He was diuresed and his home Lasix dose was increased from 20 mg daily up to 40 mg daily. His valsartan was placed on hold due to MALA with creatinine up to 1.45. Last creatinine 1.08 on 10/21/2023. He does not appear fluid overloaded on examination today. His lungs are clear. Sock markings are noted. He has reduce the salt intake in his diet. He monitors his weight at home and tells me it has been stable. He states he is feeling better off of the valsartan as he believes it was making him fatigued. Would like to restart valsartan to help with neurohormonal modulation. Blood pressure 120/62 today. Will start out at low-dose then plan to titrate. Valsartan 20 mg b.i.d. ordered. Gave him a lab slip for recheck of BMP and BNP in 1 week. Continue carvedilol for neurohormonal modulation. Signs and symptoms of heart failure reviewed with him. Cardiology follow-up in 3-4 months, sooner if needed. (2) COPD exacerbation: Code(s): J44.1 - Chronic obstructive pulmonary disease with (acute) exacerbation Plan: History of COPD with prior neck CT showing severe biapical emphysema. During his last hospital admission he was treated with prednisone and Breo/albuterol inhalers. Outpatient PFT and pulmonary follow-up were recommended. Will forward this note to his PCP. (3) CAD (coronary artery disease): Code(s): I25.10 - Atherosclerotic heart disease of [place] coronary artery without angina pectoris Qualifiers: Coronary Disease-Associated Artery/Lesion type: unspecified vessel or lesion type [place] vs. transplanted heart: unspecified whether [place] or transplanted heart Associated angina: without angina Qualified Code(s): I25.10 - Atherosclerotic heart disease of [place] coronary artery without angina pectoris Plan: History of CAD. Last cardiac catheterization done 08/14/2020 showing prior stent in the mid LAD proximal subsection, mid LAD ostial 85% stenosis, proximal LAD 30% stenosis, left circumflex prior stent in the 1st OM, proximal circumflex 40% stenosis, RCA no significant disease. Conclusion states patent LAD stent, severe diagonal stenosis which was similar to prior catheterization. At this time he denies any anginal sounding symptoms. Troponin level normal at recent hospitalization. Continue med management for stable CAD. He has not on aspirin as he is on Eliquis. He is on atorvastatin 80 mg daily with LDL goal less than 70. Is on carvedilol and valsartan. Signs and symptoms of angina reviewed with him. Emergency care if ever needed for symptoms. (4) Paroxysmal atrial flutter: Code(s): I48.92 - Unspecified atrial flutter Plan: History of paroxysmal atrial flutter. Currently suppressed. Remote monitoring of his pacemaker does show brief episodes of PAF with last episode 10/09/2023. On carvedilol for heart rate control. On Eliquis for anticoagulation. Current dose is appropriate for his weight and creatinine. No bleeding issues reported. Continue current management. Will continue to follow rhythm remotely. (5) Pacemaker: Code(s): Z95.0 - Presence of cardiac pacemaker Plan: [facility] dual-chamber pacemaker in place. Functioning normally on interrogation last visit. Office interrogation due February 2024. Will continue with remote monitoring (6) Aortic stenosis: Code(s): I35.0 - Nonrheumatic aortic (valve) stenosis Qualifiers: Cardiac valve disease etiology: nonrheumatic Qualified Code(s): I35.0 - Nonrheumatic aortic (valve) stenosis Plan: History of aortic stenosis. Most recent echo 04/2023 shows [id number] , moderate MR. Heart murmur noted on examination. Second heart tone is present. Cardinal signs of severe aortic stenosis reviewed with him. Will plan for clinical evaluation next visit. (7) Acute kidney injury superimposed on CKD: Code(s): N17.9 - Acute kidney failure, unspecified; N18.9 - Chronic kidney disease, unspecified Plan: MALA during recent hospitalization. Last kidney function test was normal. Restarting valsartan at lower dose as his blood pressure today is only 120/62. Plan for repeat labs in 1 week. Lab slip given to patient. He will have it drawn by the visiting nurse (8) Hospital discharge follow-up: Code(s): Z09 - Encounter for follow-up examination after completed treatment for conditions other than malignant neoplasm Plan: As above Plan Time spent on chart review, documentation, interview and assessment Orders: Orders Basic Metabolic Panel 1 Week I50.23 - Acute on chronic systolic (congestive) heart failure B Type Natriuretic Peptide 1 Week I50.23 - Acute on chronic systolic (congestive) heart failure Medications: New valsartan 20 mg (1/2 x 40 mg) PO BID 30 tabs 4RF Refilled furosemide 40 mg PO QAM 30 tabs 5RF Coding Level of Care Code Est Pt Level 4 (36650) Diagnoses Acute on chronic HFrEF (heart failure with reduced ejection fraction) I50.23 COPD exacerbation J44.1 Coronary artery disease without angina pectoris, unspecified vessel or lesion type, unspecified whether [place] or transplanted heart I25.10 Coronary Disease-Associated Artery/Lesion type: unspecified vessel or lesion type [place] vs. transplanted heart: unspecified whether [place] or transplanted heart Associated angina: without angina Paroxysmal atrial flutter I48.92 Pacemaker Z95.0 Nonrheumatic aortic valve stenosis I35.0 Cardiac valve disease etiology: nonrheumatic Acute kidney injury superimposed on CKD N17.9; N18.9 Hospital discharge follow-up Z09 Time Spent (min) 30
== END 2023-10-30 09:13 | disposition home or self-care (01) ==
PROVIDERS: PCP Internal Medicine; Visit Provider Nurse Practitioner Family
DX: I50.23 Acute on chronic systolic (congestive) heart failure (principal); J44.1 Chronic obstructive pulmonary disease with (acute) exacerbation; I25.10 Atherosclerotic heart disease of native coronary artery without angina pectoris; I48.92 Unspecified atrial flutter; Z95.0 Presence of cardiac pacemaker; I35.0 Nonrheumatic aortic (valve) stenosis; N17.9 Acute kidney failure, unspecified; N18.9 Chronic kidney disease, unspecified; Z09 Encounter for follow-up examination after completed treatment for conditions other than malignant neoplasm
CPT/HCPCS: 99214

== ENCOUNTER → 2023-10-30 08:44 | Outpatient (BNVA) | payer MEDICARE, SELFPAY | PROVIDERS: PCP Internal Medicine; Visit Provider Nurse Practitioner Family | DX: I50.23 Acute on chronic systolic (congestive) heart failure (principal); I25.10 Atherosclerotic heart disease of native coronary artery without angina pectoris; I48.92 Unspecified atrial flutter; I35.0 Nonrheumatic aortic (valve) stenosis | CPT/HCPCS: 99212 ==

== ENCOUNTER 2023-11-06 09:00 | Outpatient (REF) | payer MEDICARE, SELFPAY ==
[2023-11-06 10:57] LABS: Anion Gap 11 (12-20); Blood Urea Nitrogen 31 mg/dL (9-16); Calcium 8.7 mg/dL (8.4-10.2); Carbon Dioxide 27 mmol/L (22-29); Chloride 104 mmol/L (96-108); Estimated Glomerular Filt Rate 56; Glucose Random 115 mg/dL (60-115); Potassium 3.9 mmol/L (3.3-5.1); Sodium 138 mmol/L (135-145)
[2023-11-06 10:58] LABS: B Type Natriuretic Peptide 809 pg/mL (<100)
== END 2023-11-06 09:01 | disposition home or self-care (01) ==
LOC: HO.HVNA 09:00
PROVIDERS: PCP Internal Medicine; Visit Provider Nurse Practitioner Family
DX: I50.23 Acute on chronic systolic (congestive) heart failure (principal)
CPT/HCPCS: 36415; 80048; 83880

== ENCOUNTER 2024-01-08 23:50 | Inpatient (IN) | payer MEDICARE, SELFPAY ==
--- NOTE | ~2024-01-08 | XR_ITS ---
EXAMINATION: XR CHEST CLINICAL INFORMATION: Shortness of breath COMPARISON: 10/09/2023 TECHNIQUE: Frontal view of the chest was obtained. FINDINGS: Lung volumes are symmetric. Generalized coarsened appearance of the interstitium is suspicious for chronic lung disease, though a component of mild superimposed interstitial edema is difficult to exclude. No acute focal consolidation is seen. No evidence of pneumothorax or significant pleural effusion. Cardiac silhouette remains prominent. Calcification is present at the aortic arch. No acute osseous findings are seen. XR/XR chest 1V IMPRESSION: Generalized coarsened appearance of the interstitium suspicious for chronic lung disease, though a component of mild superimposed interstitial edema is difficult to exclude.
[2024-01-08 23:56] VITALS: BP 123/56; PULSE 58; O2SAT 95
[2024-01-08 23:59] VITALS: BP 118/48; PULSE 62; RESP 20; TEMP 36.7; O2SAT 99; BMI 29.3
[2024-01-09] VITALS (14 sets, daily range): BP systolic 125–149; BP diastolic 38–67; PULSE 64–75; RESP 14–23; TEMP 36.1–36.9; O2SAT 93–97; BMI 28.0
--- NOTE | 2024-01-09 | ECG_ITS ---
Test Reason : SOB Blood Pressure : / mmHG Vent. Rate : 060 BPM Atrial Rate : 060 BPM P-R Int : 246 ms QRS Dur : 232 ms QT Int : 540 ms P-R-T Axes : 038 -61 113 degrees QTc Int : 540 ms AV dual-paced rhythm with prolonged AV conduction Abnormal ECG When compared with ECG of 09-OCT-2023 23:36, Vent. rate has decreased BY 8 BPM Referred By: Elder White Electronically Signed By:CARLOS ENRIQUE CHISHOLM MD
--- NOTE | 2024-01-09 00:11 | PC.NURSE ---
Pt ca&ox4, no signs of distress. Pt denies pain. Labs collected pt changed into hospital gown Plan of care ongoing.
--- NOTE | 2024-01-09 00:12 | ED_ITS ---
HPI - SOB/Dyspnea General Chief Complaint: Dyspnea Stated Complaint: Difficulty breathing Time Seen by Provider: 01/08/24 23:52 Source: patient Mode of arrival: EMS Limitations: no limitations History of Present Illness ED Provider: earnest COLON Narrative: Patient history of COPD heart failure with reduced ejection fraction ischemic cardiomyopathy paroxysmal AFib comes here for increased shortness of breath started yesterday got worse prior to arrival coughing mostly dry wheezing on arrival no fever no chills no other family member sick Related Data Home Medications ?Medication ?Instructions ?Recorded ?Confirmed tamsulosin 0.4 mg capsule 1 cap PO BID 06/19/20 10/30/23 carvedilol 6.25 mg tablet 6.25 mg PO BIDWM 08/09/20 10/30/23 levothyroxine 100 mcg tablet 100 mcg PO DAILY@0600 02/12/21 10/30/23 acetaminophen 325 mg tablet 650 mg PO Q6H PRN Pain 10/10/23 10/30/23 (Tylenol) Previous Rx's ?Medication ?Instructions ?Recorded apixaban 5 mg tablet (Eliquis) 5 mg PO BID #60 tabs 09/28/23 albuterol sulfate 90 mcg/actuation 2 puff inhalation Q4-6H PRN 10/14/23 aerosol inhaler shortness of breath or wheezing #8.5 grams atorvastatin 80 mg tablet 80 mg PO BEDTIME #30 tabs 10/14/23 fluticasone furoate 100 1 inh inhalation RDAILY #30 ea 10/14/23 mcg-vilanterol 25 mcg/dose inhalation powder (Breo Ellipta) prednisone 20 mg tablet 20 mg PO DAILY #1 tab 10/14/23 furosemide 40 mg tablet 40 mg PO QAM #30 tabs 10/30/23 valsartan 40 mg tablet 40 mg PO BID 90 days #180 tabs 11/10/23 Allergies Allergy/AdvReac Type Severity Reaction Status Date / Time No Known Allergies Allergy Unknown UNKNOWN Verified 01/09/24 00:01 [NO KNOWN ALLERGIES] Review of Systems 2 Review of Systems: Yes all other systems are reviewed and are negative PMFSH Past Medical History Medical History Heart failure with reduced ejection fraction CAD (coronary artery disease) Ischemic cardiomyopathy Non-rheumatic aortic regurgitation Paroxysmal atrial flutter Atherosclerotic cardiovascular disease BPH (benign prostatic hyperplasia) Hypothyroidism Congestive heart failure Aortic stenosis Myocardial infarct CHF (congestive heart failure) HTN (hypertension) High blood cholesterol Pacemaker Surgical History S/P cardiac cath (~08/2020) H/O heart artery stent Family History Family History Father No problems noted. Mother Diabetes Social History Social History Housing: Apartment Alcohol intake: never Patient Tobacco Use Status: Never used Tobacco Smoked in Last 30 Days: No Use of substances other than those prescribed or required for medical reasons: No Advance Directives: No Advance Directives Information Provided: Yes Do you have a plan to hurt others: No Plan service: No Current occupational status: retired Physical Exam 2 Vital Signs: Vital Signs: Last Vital Signs Temp 98.1 F 01/08/24 23:59 Pulse 68 01/09/24 00:46 Resp 18 01/09/24 00:46 BP 118/48 L 01/08/24 23:59 Pulse Ox 99 01/08/24 23:59 O2 Del Method Non-Rebreather Ma sk 01/08/24 23:59 BMI result Body Mass Index 29.3 Appearance: Alert. Oriented X3. Moderate respiratory distress Eyes: No pallor or icterus ENT: Pharynx normal. Oral Mucosa moist Neck: Normal inspection. Neck supple. CVS: Normal heart rate and rhythm. Systolic ejection murmur at base, Pulses normal. Respiratory: No respiratory distress. Equal air entry bilateral, bilateral wheezing Abdomen: Soft and nontender. Bowel sounds are present, no mass palpable, no CVA tenderness Skin: Skin warm and dry. Normal skin color. Normal skin turgor. Extremities: 1+ lower extremity edema. No calf tenderness Neuro: Oriented X 3. No motor deficit. Medications Administered Discontinued Medications Generic Name Dose Route Start Last Admin Trade Name Freq PRN Reason Stop Dose Admin Albuterol Sulfate 7.5 mg/ 10 mg 01/09/24 00:38 01/09/24 00:45 Albuterol Sulfate 2.5 mg INHALE 01/09/24 00:39 10 mg ONCE ONE Administration Medical Decision Making Medical Decision Making MDM Narrative: Patient has acute onset of worsening of shortness of breath with elevated BNP chest x-ray showed currently B lines in interstitial edema will give patient diuretic IV Lasix and admit Differential Diagnosis Differential Diagnoses: The differential diagnosis associated with the presentation includes CHF/COPD Admission/Observation Consideration of admission/observation: Escalation of care including admission/observation considered Consult Healthcare Provider Management of the patient was discussed with: Hospitalist Lab Data [facility] Lab Attestation statement: I reviewed the patient's lab results. 01/09/24 00:37 01/09/24 00:37 Labs: Lab Results 01/09/24 01/09/24 01/09/24 Range/Units 00:36 00:37 00:38 WBC 9.5 (4.8-10.8) X10*3/uL RBC 3.66 L (4.60-5.80) X10*6/uL Hgb 11.4 L (14.0-18.0) g/dl Hct 33.4 L (42.0-52.0) % MCV 91.3 (80.0-98.0) fL MCH 31.1 (27.0-33.0) pg MCHC 34.1 (31.0-36.0) g/dl RDW 13.5 (11.0-16.0) % Plt Count 166 (160-400) X10*3/uL MPV 11.1 (9.4-12.4) fL Absolute Nucleated RBC 0.000 (0.0-0.012) X10*3/uL Nucleated RBC % (auto) 0.0 (0.0-0.2) /100WBC PT 23.0 H (11.1-13.3) SEC INR 1.9 H (0.9-1.1) VBG pH (7.32-7.43) VBG pCO2 mmHg VBG pO2 mmHg VBG HCO3 (22-26) mmol/L VBG O2 Saturation % VBG Base Excess mmol/L Sodium 130 L (135-145) mmol/L Potassium 4.0 (3.3-5.1) mmol/L Chloride 99 (96-108) mmol/L Carbon Dioxide 20 L (22-29) mmol/L Anion Gap 15 (12-20) BUN 27 H (9-16) mg/dL Creatinine 1.05 (0.5-1.4) mg/dL Estim Creat Clear Calc 50.6 Estimated GFR > 60 Random Glucose 85 (60-115) mg/dL Lactic Acid 1.1 (0.5-2.0) mmol/L Calcium 8.5 (8.4-10.2) mg/dL Magnesium 1.9 (1.6-2.6) mg/dL Total Bilirubin 1.5 H (0.0-1.0) mg/dL AST 18 (5-37) U/L ALT 10 (0-40) U/L Alkaline Phosphatase 50 (39-117) U/L Troponin I High Sens 147.8 H* D (<3.5-35.0) ng/L B-Natriuretic Peptide 1283 H (<100) pg/mL Total Protein 6.6 (6.5-8.0) g/dL Albumin 3.3 L (3.5-5.0) g/dL 01/09/24 Range/Units 00:43 WBC (4.8-10.8) X10*3/uL RBC (4.60-5.80) X10*6/uL Hgb (14.0-18.0) g/dl Hct (42.0-52.0) % MCV (80.0-98.0) fL MCH (27.0-33.0) pg MCHC (31.0-36.0) g/dl RDW (11.0-16.0) % Plt Count (160-400) X10*3/uL MPV (9.4-12.4) fL Absolute Nucleated RBC (0.0-0.012) X10*3/uL Nucleated RBC % (auto) (0.0-0.2) /100WBC PT (11.1-13.3) SEC INR (0.9-1.1) VBG pH 7.40 (7.32-7.43) VBG pCO2 36 mmHg VBG pO2 127 mmHg VBG HCO3 22 (22-26) mmol/L VBG O2 Saturation 99.0 % VBG Base Excess -1.7 mmol/L Sodium (135-145) mmol/L Potassium (3.3-5.1) mmol/L Chloride (96-108) mmol/L Carbon Dioxide (22-29) mmol/L Anion Gap (12-20) BUN (9-16) mg/dL Creatinine (0.5-1.4) mg/dL Estim Creat Clear Calc Estimated GFR Random Glucose (60-115) mg/dL Lactic Acid (0.5-2.0) mmol/L Calcium (8.4-10.2) mg/dL Magnesium (1.6-2.6) mg/dL Total Bilirubin (0.0-1.0) mg/dL AST (5-37) U/L ALT (0-40) U/L Alkaline Phosphatase (39-117) U/L Troponin I High Sens (<3.5-35.0) ng/L B-Natriuretic Peptide (<100) pg/mL Total Protein (6.5-8.0) g/dL Albumin (3.5-5.0) g/dL ABG Data Attestation ABG: I personally reviewed and interpreted this ABG as follows: Independent Interpretation I performed an independent interpretation of an: EKG and Plain X-Ray Interpretation: Pacemaker rhythm ventricular rate of [address] elevation no acute ischemia Discharge Plan Discharge Clinical Impression: Acute on chronic congestive heart failure, Chronic bronchitis with acute exacerbation Patient Disposition: Admitted As Inpatient Print Language: Algerian
[2024-01-09] MEDS: Albuterol Sulfate 7.5 MG, Albuterol Sulfate (0.083%) 2.5 MG 10 MG INHALE (00:45)
[2024-01-09 00:47] LABS: Hematocrit 33.4 % (42.0-52.0); Hemoglobin 11.4 g/dl (14.0-18.0); Mean Corpuscular HGB Conc 34.1 g/dl (31.0-36.0); Mean Corpuscular Hemoglobin 31.1 pg (27.0-33.0); Mean Corpuscular Volume 91.3 fL (80.0-98.0); Mean Platelet Volume 11.1 fL (9.4-12.4); Platelet Count 166 X10*3/uL (160-400); Red Blood Count 3.66 X10*6/uL (4.60-5.80); Red Cell Distribution Width 13.5 % (11.0-16.0); White Blood Count 9.5 X10*3/uL (4.8-10.8)
[2024-01-09 00:47] LABS: Venous Blood Gas Refer to POC result
[2024-01-09 00:50] LABS: VBG Base Excess -1.7 mmol/L; VBG HCO3 22 mmol/L (22-26); VBG pCO2 36 mmHg; VBG pO2 127 mmHg
[2024-01-09 00:57] LABS: Lactic Acid 1.1 mmol/L (0.5-2.0)
[2024-01-09 01:00] LABS: INTERNATIONAL NORM RATIO 1.9 (0.9-1.1)
[2024-01-09 01:02] LABS: Alanine Aminotransferase 10 U/L (0-40); Albumin Level 3.3 g/dL (3.5-5.0); Alkaline Phosphatase 50 U/L (39-117); Anion Gap 15 (12-20); Aspartate Amino Transferase 18 U/L (5-37); Bilirubin Total 1.5 mg/dL (0.0-1.0); Blood Urea Nitrogen 27 mg/dL (9-16); Calcium 8.5 mg/dL (8.4-10.2); Carbon Dioxide 20 mmol/L (22-29); Chloride 99 mmol/L (96-108); Creatinine Clr Calc Pharmacy 50.6; Estimated Glomerular Filt Rate > 60; Glucose Random 85 mg/dL (60-115); Magnesium 1.9 mg/dL (1.6-2.6); Sodium 130 mmol/L (135-145); Total Protein 6.6 g/dL (6.5-8.0)
[2024-01-09 01:05] LABS: B Type Natriuretic Peptide 1283 pg/mL (<100)
[2024-01-09 01:23] LABS: Troponin-I High Sensitivity 147.8 ng/L (<3.5-35.0)
--- NOTE | 2024-01-09 01:23 | PC.NURSE ---
Gelacio from the lab called critical trop of 147.8 Provider Christopher notified and aware. Plan of care ongoing.
[2024-01-09] MEDS: cefTRIAXone sodium 1 GM in 0.9 % Sodium Chloride 50 ML IV (02:27)
[2024-01-09] MEDS: Furosemide 20 MG/2 ML VIAL IVPUSH (02:27)
[2024-01-09] MEDS: methylPREDNISolone Sod Succ 125 MG/2 ML VIAL IVPUSH (02:27)
--- NOTE | 2024-01-09 02:35 | PC.NURSE ---
Pt medicated per oct. Plan of care ongoing.
--- NOTE | 2024-01-09 03:09 | P.HPHOSP_ITS ---
History of Present Illness Date of Service: 01/09/24 Chief Complaint: Dyspnea This is a 88-year-old male with pertinent history of congestive heart failure with reduced ejection fraction, paroxysmal atrial fibrillation on Eliquis, CAD status post LAD stent, moderate aortic stenosis, chronic kidney disease stage 3, hypertension, mixed hyperlipidemia, hypothyroidism presents to the emergency department for evaluation of dyspnea. Patient states his symptoms started 1 day prior to presentation. He has been having shortness of breath which is worse with exertion. Also admits orthopnea. No fever, chills or cough. Wheezing +. No chest discomfort, palpitations, nausea, vomiting, abdominal pain, changes in urinary or bowel habits. In the emergency department, BNP found to be elevated. Patient was given IV Lasix. Found to be wheezing despite multiple duoneb treatments Review of Systems 2 Constitutional: Constitutional: Reports no additional constitutional complaints Cardiovascular: Cardiovascular: Reports dyspnea on exertion and Reports orthopnea Respiratory: Respiratory: Reports dyspnea on exertion and Reports wheezing Gastrointestinal: Gastrointestinal: Reports no additional gastrointestinal complaints Genitourinary: Genitourinary: Reports no additional male genitourinary complaints Allergic/Immunologic: Allergic/Immunologic: Reports wheezing [facility] Medical History Heart failure with reduced ejection fraction CAD (coronary artery disease) Ischemic cardiomyopathy Non-rheumatic aortic regurgitation Paroxysmal atrial flutter Atherosclerotic cardiovascular disease BPH (benign prostatic hyperplasia) Hypothyroidism Congestive heart failure Aortic stenosis Myocardial infarct CHF (congestive heart failure) HTN (hypertension) High blood cholesterol Pacemaker Family History Father No problems noted. Mother Diabetes Surgical History S/P cardiac cath (~08/2020) H/O heart artery stent Social History Housing: Apartment Alcohol intake: never Patient Tobacco Use Status: Never used Tobacco Smoked in Last 30 Days: No Use of substances other than those prescribed or required for medical reasons: No Advance Directives: No Advance Directives Information Provided: Yes Do you have a plan to hurt others: No Plan service: No Current occupational status: retired Meds Allergies Allergy/AdvReac Type Severity Reaction Status Date / Time No Known Allergies Allergy Unknown UNKNOWN Verified 01/09/24 00:01 [NO KNOWN ALLERGIES] Home Medications ?Medication ?Instructions ?Recorded ?Confirmed ?Last Taken ?Type tamsulosin 0.4 mg capsule 1 cap PO BID 06/19/20 10/30/23 10/09/23 History carvedilol 6.25 mg tablet 6.25 mg PO BIDWM 08/09/20 10/30/23 10/09/23 History levothyroxine 100 mcg tablet 100 mcg PO DAILY@0600 02/12/21 10/30/23 10/09/23 History acetaminophen 325 mg tablet 650 mg PO Q6H PRN Pain 10/10/23 10/30/23 Unknown History (Tylenol) Physical Exam 2 Vital Signs and Narrative: Vital Signs: Last Vital Signs Temp 97.6 F 01/09/24 02:39 Pulse 68 01/09/24 02:39 Resp 20 01/09/24 02:39 BP 140/49 H 01/09/24 02:39 Pulse Ox 93 01/09/24 02:39 O2 Del Method Room Air 01/09/24 02:39 BMI result Body Mass Index 29.3 Elderly male lying in bed in mild distress Neck supple, no JVD Regular rate and rhythm, S1-S2 heard Bilateral crackles appreciated with wheezing Abdomen soft nontender, no guarding, no rigidity Patient is awake, alert and oriented to self, place, time and person ; no focal motor deficit Psych: Normal mood Bilateral pitting edema Results Labs 01/09/24 05:59 01/09/24 00:37 Labs: Laboratory Results - last 24 hr 01/09/24 01/09/24 01/09/24 00:36 00:37 00:38 MCV 91.3 MCH 31.1 MCHC 34.1 RDW 13.5 Plt Count 166 MPV 11.1 Absolute Nucleated RBC 0.000 Nucleated RBC % (auto) 0.0 PT 23.0 H INR 1.9 H VBG pH VBG pCO2 VBG pO2 VBG HCO3 VBG O2 Saturation VBG Base Excess Anion Gap 15 Estim Creat Clear Calc 50.6 Estimated GFR > 60 Random Glucose 85 Lactic Acid 1.1 Calcium 8.5 Magnesium 1.9 Total Bilirubin 1.5 H AST 18 ALT 10 Alkaline Phosphatase 50 Troponin I High Sens 147.8 H* D B-Natriuretic Peptide 1283 H Total Protein 6.6 Albumin 3.3 L 01/09/24 00:43 MCV MCH MCHC RDW Plt Count MPV Absolute Nucleated RBC Nucleated RBC % (auto) PT INR VBG pH 7.40 VBG pCO2 36 VBG pO2 127 VBG HCO3 22 VBG O2 Saturation 99.0 VBG Base Excess -1.7 Anion Gap Estim Creat Clear Calc Estimated GFR Random Glucose Lactic Acid Calcium Magnesium Total Bilirubin AST ALT Alkaline Phosphatase Troponin I High Sens B-Natriuretic Peptide Total Protein Albumin Assessment and Plan (1) Acute on chronic HFrEF (heart failure with reduced ejection fraction): Status: Acute Plan This is a 88-year-old male with pertinent history of congestive heart failure with reduced ejection fraction, paroxysmal atrial fibrillation on Eliquis, CAD status post LAD stent, moderate aortic stenosis, chronic kidney disease stage 3, hypertension, mixed hyperlipidemia, hypothyroidism presents to the emergency department for evaluation of dyspnea. #. Acute on chronic congestive heart failure with reduced ejection fraction: Initiating IV diuresis. Strict I's and O's. Low-salt diet. On beta-clary and ARB #. COPD with acute exacerbation: Initiating IV steroids. Scheduled and prn duonebs. Continue home inhaler #. Elevated troponin, likely type 2 in the setting of increased demand. Trend #. Paroxysmal atrial fibrillation: Rate controlled in the ER. On Eliquis #. Hypertension: Continue home antihypertensives #. Hypothyroidism: On Synthroid #. BPH: On Flomax #. Mixed hyperlipidemia: On statin Med rec pending DVT prophylaxis: Eliquis Full code. Discussed with patient at bedside Admit as inpatient and will require two night minimum hospital stay for IV diuresis, IV steroids, monitoring of hemodynamics and respiratory status (as above), which is not possible in a lesser acute setting. Quality Stroke Does the patient have a stroke diagnosis?: No VTE Prior VTE?: No VTE Risk Level:: Medical - moderate - high VTE Device Contraindication: Treatment Not Indicated VTE Drug Contraindication: N/A - Med Ordered
[2024-01-09 03:12] LABS: Troponin-I High Sensitivity 110.7 ng/L (<3.5-35.0)
--- NOTE | 2024-01-09 03:12 | PC.NURSE ---
Critical trop 110.7 by terry from the lab Fito notified.
[2024-01-09 06:16] LABS: MANUAL DIFF FLAG NO
[2024-01-09 06:26] LABS: Basophils Percent Auto 0.4 % (0-2); Eosinophils Absolute Auto 0.1 X10*3/uL (0.0-0.4); Eosinophils Percent Auto 0.7 % (0-4); Hematocrit 37.3 % (42.0-52.0); Hemoglobin 12.7 g/dl (14.0-18.0); Imm Gran Abs Auto 0.05 X10*3/uL (0.00-0.03); Imm Gran Pct Auto 0.6 % (0.0-0.4); Lymphocytes Absolute Auto 0.7 X10*3/uL (1.2-4.9); Lymphocytes Percent Auto 8.3 % (20-40); Mean Corpuscular Hemoglobin 31.3 pg (27.0-33.0); Mean Corpuscular Volume 91.9 fL (80.0-98.0); Mean Platelet Volume 11.2 fL (9.4-12.4); Monocytes Absolute Auto 0.2 X10*3/uL (0.1-1.2); Monocytes Percent Auto 2.3 % (2-11); Neutrophils Absolute Auto 7.9 x10*3/uL (2.0-8.3); Neutrophils Percent Auto 87.7 % (45-73); Platelet Count 171 X10*3/uL (160-400); Red Blood Count 4.06 X10*6/uL (4.60-5.80); Red Cell Distribution Width 13.3 % (11.0-16.0)
[2024-01-09 06:41] LABS: Anion Gap 17 (12-20); Blood Urea Nitrogen 29 mg/dL (9-16); Carbon Dioxide 19 mmol/L (22-29); Chloride 100 mmol/L (96-108); Creatinine Clr Calc Pharmacy 42.5; Estimated Glomerular Filt Rate 55; Glucose Random 103 mg/dL (60-115); Potassium 4.1 mmol/L (3.3-5.1); Sodium 132 mmol/L (135-145)
[2024-01-09 06:43] LABS: Troponin-I High Sensitivity 90.7 ng/L (<3.5-35.0)
[2024-01-09] MEDS: Albuterol/Iprat 2.5/0.5MG 3 ML AMPUL.NEB INHALE ×5 (07:21→21:34)
[2024-01-09] MEDS: 0.9 % Sodium Chloride Flush 3 ML SYRINGE IVFLUSH ×2 (08:02→20:05)
[2024-01-09] MEDS: Furosemide 40 MG/4 ML VIAL IVPUSH (08:03)
[2024-01-09] MEDS: methylPREDNISolone Sod Succ 40 MG/ML VIAL IVPUSH ×2 (08:03→20:04)
--- NOTE | 2024-01-09 08:25 | PC.NURSE ---
patient alert and oriented with even and unlabored respirations. reports improvement in breathing at this time. states he ambulates independently. patient medicated per the OCT.call whitt within reach
--- NOTE | 2024-01-09 09:04 | PHA.MEDREC ---
Pharmacy Consult ? Medication Reconciliation Pharmacy has completed the medication reconciliation. Spoke with patient to confirm medications. He confirmed valsartan 40m/2 tablet BID. He is not taking amlodipine.
--- NOTE | 2024-01-09 12:49 | PM.EVENT ---
Event Note Date of Service: 01/09/24 Event Note: pt seen/examined. labs, vitals, imaging reviewed. med rec completed. Admitted d/t chf and copd exacerbation, exam: lungs clear. He is already feeling better. Continue present treatment and likely dc tomorrow Time Spent With Patient Time: Total time managing care of this patient today ____ minutes.
[2024-01-09] MEDS: Apixaban 5 MG TABLET PO ×2 (14:49→20:05)
[2024-01-09] MEDS: Valsartan 40 MG TABLET 20 MG PO ×2 (14:49→20:04)
[2024-01-09] MEDS: Atorvastatin Calcium 80 MG TABLET PO (20:05)
[2024-01-09] MEDS: Tamsulosin HCL 0.4 MG CAPSULE PO (20:05)
[2024-01-10] VITALS (11 sets, daily range): BP systolic 104–135; BP diastolic 53–66; PULSE 64–86; RESP 14–18; TEMP 35.9–36.6; O2SAT 92–97
[2024-01-10] MEDS: guaiFENesin 100 MG/5 ML LIQUID PO (03:59)
--- NOTE | 2024-01-10 04:07 | PC.NURSE ---
Pt c/o cough requesting cough medication notified ordered robitussin prn given at 0400.
[2024-01-10] MEDS: Valsartan 40 MG TABLET 20 MG PO ×2 (08:21→19:46)
[2024-01-10] MEDS: Tamsulosin HCL 0.4 MG CAPSULE PO ×2 (08:21→19:46)
[2024-01-10] MEDS: methylPREDNISolone Sod Succ 40 MG/ML VIAL IVPUSH ×2 (08:21→19:46)
[2024-01-10] MEDS: Furosemide 40 MG/4 ML VIAL IVPUSH (08:21)
[2024-01-10] MEDS: Apixaban 5 MG TABLET PO ×2 (08:21→19:46)
[2024-01-10] MEDS: 0.9 % Sodium Chloride Flush 3 ML SYRINGE IVFLUSH ×3 (08:22→23:59)
--- NOTE | 2024-01-10 08:47 | HO.PM.IMPN ---
Subjective Subjective Date of Service: 01/10/24 Interval History: f/u on copd exacerbation and chf exacerbation interval history: no sob, but has cough and cold symptoms no chest pain Physical Exam Vital Signs: Vital Signs: Last Vital Signs Temp 96.8 F 01/10/24 07:43 Pulse 68 01/10/24 07:43 Resp 14 01/10/24 07:43 BP 120/59 L 01/10/24 08:21 Pulse Ox 94 01/10/24 07:43 O2 Del Method Room Air 01/10/24 07:43 BMI result Body Mass Index 28.0 General: AO X 3, no acute distress Resp: CTA bilateral CVS: S1,S2,RRR, no leg edema, no jvd GI: +BS, NT, no distention Skin: No rash Neuro: motor grossly intact Psych: appropriate affect Objective Data Active Medications Acetaminophen (Acetaminophen 325 Mg Tablet) 650 mg PO Q6H PRN PRN Reason: Pain, Mild (Pain Scale 1-3) Albuterol Sulfate (Albuterol Sulfate 90 Mcg 8 Gm Inhaler) 2 puff INHALE Q4H PRN PRN Reason: shortness of breath or wheezing Albuterol/Ipratropium (Albuterol/Iprat 2.5/0.5mg 3 Ml Ampul.Neb) 3 ml INHALE RQ4H WHILE AWAKE [facility] Last Admin: 01/09/24 19:35 Dose: 3 ml Documented By: KAZ Albuterol/Ipratropium (Albuterol/Iprat 2.5/0.5mg 3 Ml Ampul.Neb) 3 ml INHALE Q4H PRN PRN Reason: Wheezing Last Admin: 01/09/24 21:34 Dose: 3 ml Documented By: JO Apixaban (Apixaban 5 Mg Tablet) 5 mg PO BID [facility] Last Admin: 01/10/24 08:21 Dose: 5 mg Documented By: RADHA Atorvastatin Calcium (Atorvastatin Calcium 80 Mg Tablet) 80 mg PO BEDTIME [facility] Last Admin: 01/09/24 20:05 Dose: 80 mg Documented By: GEORGE Fluticasone/Vilanterol (Fluticasone/Vilanterol 100/25 Blst.W.Dev) 1 puff INHALE RDAILY [facility] Furosemide (Furosemide 40 Mg/4 Ml Vial) 40 mg IVPUSH DAILY [facility]; Protocol Last Admin: 01/10/24 08:21 Dose: 40 mg Documented By: RADHA Guaifenesin (Guaifenesin 100 Mg/5 Ml Liquid) 5 ml PO Q6H PRN PRN Reason: Cough Last Admin: 01/10/24 03:59 Dose: 5 ml Documented By: GEORGE Melatonin (Melatonin 3 Mg Tablet) 6 mg PO BEDTIME PRN PRN Reason: Insomnia Methylprednisolone Sodium Succinate (Methylprednisolone Sod Succ 40 Mg/Ml Vial) 40 mg IVPUSH Q12H [facility] Last Admin: 01/10/24 08:21 Dose: 40 mg Documented By: RADHA Ondansetron HCl (Ondansetron Hcl 4 Mg/2 Ml Vial) 4 mg IVPUSH Q8H PRN PRN Reason: Nausea and Vomiting Sodium Chloride (0.9 % Sodium Chloride Flush 3 Ml Syringe) 3 ml IVFLUSH QSHIFT [facility] Last Admin: 01/10/24 08:22 Dose: 3 ml Documented By: RADHA Tamsulosin HCl (Tamsulosin Hcl 0.4 Mg Capsule) 0.4 mg PO BID [facility] Last Admin: 01/10/24 08:21 Dose: 0.4 mg Documented By: RADHA Valsartan (Valsartan 40 Mg Tablet) 20 mg PO BID [facility]; Protocol Last Admin: 01/10/24 08:21 Dose: 20 mg Documented By: RADHA Labs 01/09/24 05:59 01/09/24 05:59 Microbiology Microbiology Results: Microbiology 01/09/24 00:36 Blood Culture - Preliminary Blood - Venous No growth after 24 hours. 01/09/24 00:36 Blood Culture - Preliminary Blood - Venous No growth after 24 hours. Assessment and Plan (1) Chronic bronchitis with acute exacerbation: Status: Acute (2) COPD exacerbation: Status: Acute Plan 88-year-old male with pertinent history of congestive heart failure with reduced ejection fraction, paroxysmal atrial fibrillation on Eliquis, CAD status post LAD stent, moderate aortic stenosis, chronic kidney disease stage 3, hypertension, mixed hyperlipidemia, hypothyroidism presents to the emergency department for evaluation of dyspnea. Acute on chronic congestive heart failure with reduced ejection fraction: clincally appear euvolemic lungs clear, no leg edema -change to PO Lasix, check BMP and BNP -continue coreg, valsartan COPD with acute exacerbation, no hypoxia, clear lung, has URI, reduce steroid, cough med, bronchodilator by Neb Elevated troponin, likely type 2 in the setting of increased demand. Has trended down, hos no chest pain Paroxysmal atrial fibrillation: Coreg to control HR, and eliquis for stroke prevention Hypertension: Continue Valsartan and Coreg Hypothyroidism: On Synthroid BPH: On Flomax HLD--Lipitor DVT prophylaxis: Eliquis Full code. Discussed with patient at bedside need for inpt: IV diuretics for chf, and iv steroid for copd exacerbation Quality Stroke Does the patient have a stroke diagnosis?: No VTE Prior VTE?: No VTE Risk Level:: Medical - moderate - high VTE Device Contraindication: Treatment Not Indicated VTE Drug Contraindication: N/A - Med Ordered
[2024-01-10 09:51] LABS: B Type Natriuretic Peptide 2279 pg/mL (<100)
[2024-01-10 09:55] LABS: Anion Gap 12 (12-20); Blood Urea Nitrogen 51 mg/dL (9-16); Calcium 8.5 mg/dL (8.4-10.2); Carbon Dioxide 23 mmol/L (22-29); Chloride 99 mmol/L (96-108); Creatinine Clr Calc Pharmacy 37.4; Estimated Glomerular Filt Rate 48; Glucose Random 199 mg/dL (60-115); Potassium 4.4 mmol/L (3.3-5.1); Sodium 130 mmol/L (135-145)
[2024-01-10] MEDS: Albuterol/Iprat 2.5/0.5MG 3 ML AMPUL.NEB INHALE ×4 (09:56→19:56)
[2024-01-10] MEDS: carvediloL 6.25 MG TABLET PO ×2 (10:04→17:09)
--- NOTE | 2024-01-10 10:39 | MHC.CM.PN ---
Addendum entered by Cande Martinez RN 01/10/24 10:41: CM also discussed [facility] services and offered a referral. Patient declined. Original Note: [facility] delivered. Patient lives in an apartment alone. His neighbor assists as needed and provides meals. Daughter Mabel lives nearby and provides support PRN. Independent w/ ADL's. PCP Tima Yao MD HCP on file and verified. Active w/ [facility] for SN. DP: Return home w/ existing supports and services. Return referral sent to [facility]. Daughter to transport. CM will continue to follow.
[2024-01-10] MEDS: Fluticasone/Vilanterol 100/25 BLST.W.DEV 1 PUFF INHALE (11:37)
[2024-01-10] MEDS: Atorvastatin Calcium 80 MG TABLET PO (19:46)
[2024-01-11] VITALS (14 sets, daily range): BP systolic 131–134; BP diastolic 62–67; PULSE 62–80; RESP 16–18; TEMP 36.2–36.6; O2SAT 91–98
[2024-01-11] MEDS: Melatonin 3 MG TABLET 6 MG PO (00:04)
[2024-01-11] MEDS: Acetaminophen 325 MG TABLET 650 MG PO ×2 (00:04→21:13)
[2024-01-11] MEDS: guaiFENesin 100 MG/5 ML LIQUID PO (00:05)
[2024-01-11 06:06] LABS: Anion Gap 16 (12-20); Blood Urea Nitrogen 63 mg/dL (9-16); Carbon Dioxide 22 mmol/L (22-29); Chloride 99 mmol/L (96-108); Creatinine Clr Calc Pharmacy 31.9; Estimated Glomerular Filt Rate 40; Glucose Random 147 mg/dL (60-115); Potassium 4.4 mmol/L (3.3-5.1); Sodium 133 mmol/L (135-145)
[2024-01-11] MEDS: Fluticasone/Vilanterol 100/25 BLST.W.DEV 1 PUFF INHALE (07:38)
[2024-01-11] MEDS: Albuterol/Iprat 2.5/0.5MG 3 ML AMPUL.NEB INHALE ×4 (07:38→20:19)
[2024-01-11] MEDS: 0.9 % Sodium Chloride Flush 3 ML SYRINGE IVFLUSH (09:05)
[2024-01-11] MEDS: Apixaban 5 MG TABLET PO (09:05)
[2024-01-11] MEDS: Valsartan 40 MG TABLET 20 MG PO ×2 (09:05→20:05)
[2024-01-11] MEDS: methylPREDNISolone Sod Succ 40 MG/ML VIAL IVPUSH (09:05)
[2024-01-11] MEDS: carvediloL 6.25 MG TABLET PO ×2 (09:06→16:29)
[2024-01-11] MEDS: Furosemide 40 MG TABLET PO (09:06)
[2024-01-11] MEDS: Tamsulosin HCL 0.4 MG CAPSULE PO ×2 (09:06→20:05)
--- NOTE | 2024-01-11 09:43 | HO.PM.IMPN ---
Subjective Subjective Date of Service: 01/11/24 Interval History: f/u on copd exacerbation and chf exacerbation interval history: feels better, no sob, or cough, creatinine is going up Physical Exam Vital Signs: Vital Signs: Last Vital Signs Temp 97.7 F 01/11/24 07:37 Pulse 66 01/11/24 09:06 Resp 18 01/11/24 07:39 BP 132/62 01/11/24 09:06 Pulse Ox 96 01/11/24 07:40 O2 Del Method Room Air 01/11/24 07:40 BMI result Body Mass Index 28.0 General: AO X 3, no acute distress Resp: CTA bilateral CVS: S1,S2,RRR, no leg edema, no jvd GI: +BS, NT, no distention Skin: No rash Neuro: motor grossly intact Psych: appropriate affect Objective Data Active Medications Acetaminophen (Acetaminophen 325 Mg Tablet) 650 mg PO Q6H PRN PRN Reason: Pain, Mild (Pain Scale 1-3) Last Admin: 01/11/24 00:04 Dose: 650 mg Documented By: STEPHANIE Albuterol Sulfate (Albuterol Sulfate 90 Mcg 8 Gm Inhaler) 2 puff INHALE Q4H PRN PRN Reason: shortness of breath or wheezing Albuterol/Ipratropium (Albuterol/Iprat 2.5/0.5mg 3 Ml Ampul.Neb) 3 ml INHALE RQ4H WHILE AWAKE [facility] Last Admin: 01/11/24 07:38 Dose: 3 ml Documented By: EMMA Albuterol/Ipratropium (Albuterol/Iprat 2.5/0.5mg 3 Ml Ampul.Neb) 3 ml INHALE Q4H PRN PRN Reason: Wheezing Last Admin: 01/09/24 21:34 Dose: 3 ml Documented By: JO Apixaban (Apixaban 5 Mg Tablet) 5 mg PO BID [facility] Last Admin: 01/11/24 09:05 Dose: 5 mg Documented By: EMILI Atorvastatin Calcium (Atorvastatin Calcium 80 Mg Tablet) 80 mg PO BEDTIME [facility] Last Admin: 01/10/24 19:46 Dose: 80 mg Documented By: TISHA Carvedilol (Carvedilol 6.25 Mg Tablet) 6.25 mg PO BIDWM [facility]; Protocol Last Admin: 01/11/24 09:06 Dose: 6.25 mg Documented By: EMILI Fluticasone/Vilanterol (Fluticasone/Vilanterol 100/25 Blst.W.Dev) 1 puff INHALE RDAILY [facility] Last Admin: 01/11/24 07:38 Dose: 1 puff Documented By: EMMA Furosemide (Furosemide 40 Mg Tablet) 40 mg PO DAILY [facility]; Protocol Last Admin: 01/11/24 09:06 Dose: 40 mg Documented By: EMILI Guaifenesin (Guaifenesin 100 Mg/5 Ml Liquid) 5 ml PO Q6H PRN PRN Reason: Cough Last Admin: 01/11/24 00:05 Dose: 5 ml Documented By: STEPHANIE Melatonin (Melatonin 3 Mg Tablet) 6 mg PO BEDTIME PRN PRN Reason: Insomnia Last Admin: 01/11/24 00:04 Dose: 6 mg Documented By: STEPHANIE Methylprednisolone Sodium Succinate (Methylprednisolone Sod Succ 40 Mg/Ml Vial) 40 mg IVPUSH Q12H [facility] Last Admin: 01/11/24 09:05 Dose: 40 mg Documented By: EMILI Ondansetron HCl (Ondansetron Hcl 4 Mg/2 Ml Vial) 4 mg IVPUSH Q8H PRN PRN Reason: Nausea and Vomiting Sodium Chloride (0.9 % Sodium Chloride Flush 3 Ml Syringe) 3 ml IVFLUSH QSHIFT [facility] Last Admin: 01/11/24 09:05 Dose: 3 ml Documented By: EMILI Tamsulosin HCl (Tamsulosin Hcl 0.4 Mg Capsule) 0.4 mg PO BID [facility] Last Admin: 01/11/24 09:06 Dose: 0.4 mg Documented By: EMILI Valsartan (Valsartan 40 Mg Tablet) 20 mg PO BID [facility]; Protocol Last Admin: 01/11/24 09:05 Dose: 20 mg Documented By: EMILI Labs 01/09/24 05:59 01/11/24 05:01 Labs: Laboratory Results - last 24 hr 01/10/24 01/11/24 09:18 05:01 Hold Purple Top SEE NOTE Anion Gap 12 16 Estim Creat Clear Calc 37.4 31.9 Estimated GFR 48 40 Random Glucose 199 H 147 H Calcium 8.5 9.0 B-Natriuretic Peptide 2279 H Microbiology Microbiology Results: Microbiology 01/09/24 00:36 Blood Culture - Preliminary Blood - Venous No growth after 48 hours. 01/09/24 00:36 Blood Culture - Preliminary Blood - Venous No growth after 48 hours. Assessment and Plan (1) Chronic bronchitis with acute exacerbation: Status: Acute (2) COPD exacerbation: Status: Acute Plan 88-year-old male with pertinent history of congestive heart failure with reduced ejection fraction, paroxysmal atrial fibrillation on Eliquis, CAD status post LAD stent, moderate aortic stenosis, chronic kidney disease stage 3, hypertension, mixed hyperlipidemia, hypothyroidism presents to the emergency department for evaluation of dyspnea. Acute on chronic congestive heart failure with reduced ejection fraction: clincally appear euvolemic lungs clear, no leg edema -change to PO Lasix, check BMP and BNP -continue coreg, valsartan (hold) given increasing creatine Harpal--likely from diuretics, hold diuretics, hold valsartan, some fluid and recheck tomorrow COPD with acute exacerbation, no hypoxia, clear lung, has URI, cough med, bronchodilator by Neb. reduce steroid and change to PO Elevated troponin, likely type 2 in the setting of increased demand. Has trended down, hos no chest pain Paroxysmal atrial fibrillation: Coreg to control HR, and eliquis for stroke prevention Hypertension: Continue Valsartan and Coreg Hypothyroidism: On Synthroid BPH: On Flomax HLD--Lipitor DVT prophylaxis: Eliquis Full code. Discussed with patient at bedside need for inpt: IV diuretics for chf, and iv steroid for copd exacerbation Quality Stroke Does the patient have a stroke diagnosis?: No VTE Prior VTE?: No VTE Risk Level:: Medical - moderate - high VTE Device Contraindication: Treatment Not Indicated VTE Drug Contraindication: N/A - Med Ordered
[2024-01-11] MEDS: 0.9 % Sodium Chloride 1,000 ML 100 ML IVCONT ×2 (10:32→21:13)
[2024-01-11] MEDS: Atorvastatin Calcium 80 MG TABLET PO (20:05)
[2024-01-11] MEDS: Apixaban 2.5 MG TABLET PO (20:05)
[2024-01-12 03:43] VITALS: BP 132/63; PULSE 68; RESP 17; TEMP 36.1; O2SAT 96
[2024-01-12 06:22] LABS: Anion Gap 9 (12-20); Blood Urea Nitrogen 58 mg/dL (9-16); Calcium 8.1 mg/dL (8.4-10.2); Carbon Dioxide 25 mmol/L (22-29); Chloride 108 mmol/L (96-108); Creatinine Clr Calc Pharmacy 43.4; Estimated Glomerular Filt Rate 57; Glucose Random 112 mg/dL (60-115); Potassium 4.2 mmol/L (3.3-5.1); Sodium 138 mmol/L (135-145)
[2024-01-12 07:12] VITALS: BP 127/60; PULSE 60; RESP 16; TEMP 36.3; O2SAT 94
[2024-01-12] MEDS: Furosemide 40 MG TABLET PO (07:23)
[2024-01-12] MEDS: predniSONE 20 MG TABLET PO (07:23)
[2024-01-12] MEDS: Tamsulosin HCL 0.4 MG CAPSULE PO (07:23)
[2024-01-12] MEDS: Valsartan 40 MG TABLET 20 MG PO (07:24)
[2024-01-12] MEDS: carvediloL 6.25 MG TABLET PO (07:24)
[2024-01-12] MEDS: Apixaban 2.5 MG TABLET PO (07:24)
[2024-01-12] MEDS: Fluticasone/Vilanterol 100/25 BLST.W.DEV 1 PUFF INHALE (07:33)
[2024-01-12] MEDS: Albuterol/Iprat 2.5/0.5MG 3 ML AMPUL.NEB INHALE ×2 (07:34→15:11)
[2024-01-12 07:35] VITALS: PULSE 60; RESP 16; O2SAT 96
[2024-01-12] MEDS: 0.9 % Sodium Chloride 1,000 ML 100 ML IVCONT (08:26)
[2024-01-12 15:11] VITALS: PULSE 66; RESP 14; O2SAT 96
[2024-01-12 15:15] VITALS: BP 145/64; PULSE 64; RESP 18; TEMP 36.4; O2SAT 100
--- NOTE | 2024-01-12 15:57 | MHC.CM.PN ---
DP:PT HAS BEEN MEDICALLY CLEARED FOR DC HOME WITH NEW [facility]. [facility] UPDATED ON TODAY'S DC. DAUGHTER WILL TRANSPORT HOME.
--- NOTE | 2024-01-12 16:00 | PM.DS ---
DS: Providers Provider Date of Service: 01/12/24 Date of admission: 01/09/24 03:08 Date of discharge: 01/12/24 Primary care physician: Tima Yao MD DS: Diagnosis Discharge Diagnosis (1) Chronic bronchitis with acute exacerbation: Status: Acute (2) COPD exacerbation: Status: Acute DS: Summary Hospital Course Hospital Course: 88-year-old male with pertinent history of congestive heart failure with reduced ejection fraction, paroxysmal atrial fibrillation on Eliquis, CAD status post LAD stent, moderate aortic stenosis, chronic kidney disease stage 3, hypertension, mixed hyperlipidemia, hypothyroidism presents to the emergency department for evaluation of dyspnea. Patient states his symptoms started 1 day prior to presentation. He has been having shortness of breath which is worse with exertion. Also admits orthopnea. No fever, chills or cough. Wheezing +. No chest discomfort, palpitations, nausea, vomiting, abdominal pain, changes in urinary or bowel habits. In the emergency department, BNP found to be elevated. Patient was given IV Lasix. Found to be wheezing despite multiple duoneb treatments. Hospital course: Patient was admitted for acute on chronic congestive heart failure with reduced ejection fraction: Started on IV diuresis-shortness of breath seems to be improved, diuresed well, CHF education given, patient also had mild MALA in setting of CHF which is improving with holding valsartan. Elevated troponin thought to be demand related in setting of CHF. Patient will be going home p.o. Lasix, monitor daily weights at home, if patient gained weight 2 lb or more in a week may need outpatient Lasix adjustment. Monitor BMP and BNP outpatient., MALA is improving-consider starting valsartan if needed after repeating BMP outpatient. In addition patient also had COPD Exacerbation with URI: Treated with nebs, steroids, supportive care: Patient seems to be improved. Please complete course of p.o. steroids prednisone 20 mg daily for 4 more days. Follow-up outpatient with PCP and consider outpatient cardiology evaluation. plan: Continue home Lasix 40 mg daily, monitor BMP, BNP,consider starting valsartan in 1 week if needed after repeating BMP outpatient. complete course of p.o. steroids prednisone 20 mg daily for 4 more days. Follow-up outpatient with PCP and consider outpatient cardiology evaluation. Above management discussed with patient detail length, under he understand in agreement with the plan, time spent 40 minute. Time Attestation Total time managing care of this patient today: 40 mintues. Discharge Coordination Time (in mins): 40 min Quality: Safe Use of Opioids Does Pt have an Active Cancer Diagnosis on the Problem List?: No Quality: Stroke Does the patient have a stroke diagnosis?: No Physical Exam Vital Signs: Vital Signs: Last Vital Signs Temp 97.5 F 01/12/24 15:15 Pulse 64 01/12/24 15:15 Resp 18 01/12/24 15:15 BP 145/64 H 01/12/24 15:15 Pulse Ox 100 01/12/24 15:15 O2 Del Method Room Air 01/12/24 15:15 BMI result Body Mass Index 28.0 General: AO X 3, no acute distress Resp: CTA bilateral CVS: S1,S2,RRR, no leg edema, no jvd GI: +BS, NT, no distention Skin: No rash Neuro: motor grossly intact Psych: appropriate affect DS: Data Data Completed and Pending Labs on day of discharge: Laboratory Results - last 24 hr 01/12/24 05:25 Hold Purple Top SEE NOTE Sodium 138 Potassium 4.2 Chloride 108 Carbon Dioxide 25 Anion Gap 9 L BUN 58 H Creatinine 1.20 Estim Creat Clear Calc 43.4 Estimated GFR 57 Random Glucose 112 Calcium 8.1 L D Preliminary micro results at discharge 01/09/24 00:36 Blood Culture - Preliminary Blood - Venous No growth after 48 hours. 01/09/24 00:36 Blood Culture - Preliminary Blood - Venous No growth after 48 hours. Imaging Chest x-ray: Radiologist's impression: ITS Impressions Chest X-Ray 01/09/24 00:55 IMPRESSION: Generalized coarsened appearance of the interstitium suspicious for chronic lung disease, though a component of mild superimposed interstitial edema is difficult to exclude. Discharge Plan Discharge Anticipated Discharge Date/Time: 01/12/24 15:39 Patient Disposition: Home Health Service Discharge Diagnosis: Acute on chronic congestive heart failure with reduced ejection fraction,mala Referrals: Kierra BARON [Outside] - 3-5 Days (HOME SERVICES FOR HALFWAY AND PHYSICAL THERAPY- A NURSE WILL CALL YOU TO SET UP FIRST VISIT) Tima Yao MD [Primary Care Provider] - 1 Week Discharge Medications: New prednisone 20 mg Tablet 20 mg PO DAILY Qty: 4 0RF Continued Eliquis 5 mg tablet 5 mg PO BID Qty: 60 11RF tamsulosin 0.4 mg capsule 1 cap PO BID carvedilol 6.25 mg tablet 6.25 mg PO BIDWM levothyroxine 100 mcg tablet 100 mcg PO DAILY@0600 acetaminophen [Tylenol] 325 mg Tablet 650 mg PO Q6H PRN (Reason: Pain) fluticasone furoate-vilanterol [Breo Ellipta] 100-25 mcg/dose Blister With Device 1 inh inhalation RDAILY Qty: 30 0RF albuterol sulfate 90 mcg/actuation HFA aerosol inhaler 2 puff inhalation Q4-6H PRN (Reason: shortness of breath or wheezing) Qty: 8.5 0RF Rx Instructions: use with spacer device atorvastatin 80 mg tablet 80 mg PO BEDTIME Qty: 30 0RF furosemide 40 mg tablet 40 mg PO QAM Qty: 30 5RF Held valsartan 40 mg tablet 20 mg PO BID Hold Instructions: Resume on 01/18/24. Rx Instructions: 1/2 tab twice daily Discharge Orders: Discharge Order (Routine); Ordered 01/12/24 Ordered By: Jorden Waters Diet: Advance to usual diet Activity on Discharge: As tolerated Stand Alone Forms: Patient Portal Discharge page Print Language: [place] Citizen Other Ambulatory Orders: Basic Metabolic Panel (Routine) Timeframe: 1 Week Facility: [facility] - Location: Laboratory Ordered By: Jorden Waters B Type Natriuretic Peptide (Routine) Timeframe: 1 Week Facility: [facility] - Location: Laboratory Ordered By: Jorden Waters Care Plan Goals: Patient was admitted for acute on chronic congestive heart failure with reduced ejection fraction: Started on IV diuresis-shortness of breath seems to be improved, diuresed well, CHF education given, patient also had mild MALA in setting of CHF which is improving with holding valsartan. Elevated troponin thought to be demand related in setting of CHF. Patient will be going home p.o. Lasix, monitor daily weights at home, if patient gained weight 2 lb or more in a week may need outpatient Lasix adjustment. Monitor BMP and BNP outpatient., MALA is improving-consider starting valsartan if needed after repeating BMP outpatient. In addition patient also had COPD Exacerbation with URI: Treated with nebs, steroids, supportive care: Patient seems to be improved. Please complete course of p.o. steroids prednisone 20 mg daily for 4 more days. Follow-up outpatient with PCP and consider outpatient cardiology evaluation. Health Concerns: as above. Plan of Treatment: As above. Assessment: As above.
--- NOTE | 2024-01-12 16:14 | P.F2F_ITS ---
Service Date Service Date: 01/12/24 Encounter Date of encounter: 01/12/24 Encounter: CHF, COPD Reasons for Services Signs and symptoms assessed: Shortness of breath, chest pain. Reason for halfway: medication management, medication treatment and teach disease management Reason for physical therapy: home safety and mobility, therapeutic exercises, restore joint function, gait/transfer training, assess need for DME, ADL training, energy conservation and other MD Overseeing Care: Tima Yao Homebound: Leaving the home is medically contraindicated at this time without the asist of a device and/or another person due th the listed conditions above and below. Reason homebound: weakness related to hospital stay Homebound supporting statement: Patient is generalized weak post hospitalization stay has CHF and COPD exacerbation for which he got treated-need help to go to appointments, blood draw, PT, disease management and education. Certification: Based on the above findings, I certify that this patient is confined to the home and needs intermittent halfway care, physical therapy and/or speech ther apy, or continues to need occupational therapy. The patient is under my care, and I have initiated the establishment of the plan of care. The patient will be followed by a physician who will periodically review the plan of care. Time Spent With Patient Time: Total time managing care of this patient today ____ minutes.
== END 2024-01-12 17:01 | disposition home health service (06) | DRG 291 ==
LOC: HO.ED 01-09 02:04 → HO.EDOVER 01-09 03:15 → HO.S3 01-09 16:20
PROVIDERS: Internal Medicine; Admitting Provider Student in an Organized Health Care Education/Training Program; Emergency Provider Internal Medicine; PCP Internal Medicine; Visit Provider Internal Medicine
DX: I13.0 Hypertensive heart and chronic kidney disease with heart failure and stage 1 through stage 4 chronic kidney disease, or unspecified chronic kidney disease (principal); I50.23 Acute on chronic systolic (congestive) heart failure; J44.0 Chronic obstructive pulmonary disease with (acute) lower respiratory infection; N17.9 Acute kidney failure, unspecified; J44.1 Chronic obstructive pulmonary disease with (acute) exacerbation; N18.30 Chronic kidney disease, stage 3 unspecified; J20.9 Acute bronchitis, unspecified; I25.5 Ischemic cardiomyopathy; Z95.5 Presence of coronary angioplasty implant and graft; N40.0 Benign prostatic hyperplasia without lower urinary tract symptoms; I35.0 Nonrheumatic aortic (valve) stenosis; I48.0 Paroxysmal atrial fibrillation; E78.2 Mixed hyperlipidemia; I25.10 Atherosclerotic heart disease of native coronary artery without angina pectoris; E03.9 Hypothyroidism, unspecified; Z79.01 Long term (current) use of anticoagulants; Z79.51 Long term (current) use of inhaled steroids; Z79.890 Hormone replacement therapy; Z79.899 Other long term (current) drug therapy
CPT/HCPCS: 36415; 71045; 80048; 80053; 82803; 83605; 83735; 83880; 84484; 85025; 85027; 85610; 87040; 93005; 94640; 97161; 99285; J0696; J1940; J2919

== ENCOUNTER → 2024-01-09 01:27 | Outpatient (BNV) | payer MEDICARE, SELFPAY | PROVIDERS: Admitting Provider Student in an Organized Health Care Education/Training Program; Emergency Provider Internal Medicine; Visit Provider Internal Medicine Cardiovascular Disease | DX: R94.31 Abnormal electrocardiogram [ECG] [EKG] (principal) | CPT/HCPCS: 93010 ==

== ENCOUNTER → 2024-01-09 03:08 | Outpatient (BNV) | payer MEDICARE, SELFPAY | PROVIDERS: Admitting Provider Student in an Organized Health Care Education/Training Program; Emergency Provider Internal Medicine; Visit Provider Student in an Organized Health Care Education/Training Program | DX: J44.1 Chronic obstructive pulmonary disease with (acute) exacerbation (principal); J42 Unspecified chronic bronchitis | CPT/HCPCS: 99223; 99232; 99239; 99499; G0180 ==

== ENCOUNTER → 2024-01-14 23:59 | Outpatient (BNV) | payer MEDICARE, SELFPAY ==
--- NOTE | 2024-01-18 13:36 | MHC.OFFVIS ---
Intake Visit Reasons: Remote Device Check- [facility] Allergies No Known Allergies [NO KNOWN ALLERGIES] Allergy (Unknown, Verified 01/09/24 00:01) UNKNOWN [facility] Medical History Heart failure with reduced ejection fraction CAD (coronary artery disease) Ischemic cardiomyopathy Non-rheumatic aortic regurgitation Paroxysmal atrial flutter Atherosclerotic cardiovascular disease BPH (benign prostatic hyperplasia) Hypothyroidism Congestive heart failure Aortic stenosis Myocardial infarct CHF (congestive heart failure) HTN (hypertension) High blood cholesterol Pacemaker Surgical History S/P cardiac cath (~08/2020) H/O heart artery stent Family History Father No problems noted. Mother Diabetes Social History Household Members: None Housing: Apartment Do you presently have visiting nurse or other home services: No Alcohol intake: never Patient Tobacco Use Status: Never used Tobacco service: No Current occupational status: retired Office Procedures Cardiac Device Check Cardiac Device Check Details: Remote pacemaker report generated 01/14/2024. Pacemaker function is adequate. [place] of atrial fibrillation 2.1% [id number] Cardiac Device Interrogation, pacemaker Procedure code (CPT) selection complete Assessment & Plan Assessment & Plan (1) Pacemaker: Code(s): Z95.0 - Presence of cardiac pacemaker Category: Medical Plan: See above Coding Level of Care Code Procedure Only Diagnoses Pacemaker Z95.0 CPT Codes Cardiac Device Check - Cardiac Device 12: [id number] Cardiac Device Interrogation, pacemaker ([id number])
== END ==
PROVIDERS: PCP Internal Medicine; Visit Provider Internal Medicine Cardiovascular Disease
DX: I48.91 Unspecified atrial fibrillation (principal); Z95.0 Presence of cardiac pacemaker
CPT/HCPCS: 93294

== ENCOUNTER 2024-01-19 10:20 | Outpatient (REF) | payer MEDICARE, SELFPAY ==
[2024-01-19 13:58] LABS: Anion Gap 12 (12-20); Blood Urea Nitrogen 34 mg/dL (9-16); Calcium 8.4 mg/dL (8.4-10.2); Carbon Dioxide 30 mmol/L (22-29); Chloride 103 mmol/L (96-108); Estimated Glomerular Filt Rate 52; Glucose Random 115 mg/dL (60-115); Potassium 3.3 mmol/L (3.3-5.1); Sodium 142 mmol/L (135-145)
== END 2024-01-19 10:21 | disposition home or self-care (01) ==
LOC: HO.HMGCLNP 10:20
PROVIDERS: Visit Provider Internal Medicine
DX: I50.9 Heart failure, unspecified (principal)
CPT/HCPCS: 80048

== ENCOUNTER 2024-02-01 15:09 | Outpatient (AMB) | payer MEDICARE, SELFPAY ==
--- NOTE | 2024-02-01 15:13 | A.OFFVIS_ITS ---
Vital Signs 02/01/24 15:14 Height 5 ft 7 in Weight 171 lb 15.369 oz BMI 26.9 BP 120/74 Blood Pressure Location Lt brachial Position Sitting Pulse 60 Intake Visit Reasons: 6 month fu/[facility] device check Intake Note: 6 month follow-up with [facility] check c/o fatigue Communications Advisor Required: No Allergies No Known Allergies [NO KNOWN ALLERGIES] Allergy (Unknown, Verified 01/09/24 00:01) UNKNOWN Medication List - Last Reconciled 02/01/24 by Ike Mast MD albuterol sulfate 90 mcg/actuation 2 puffs inhalation Q4-6H PRN apixaban (Eliquis) 5 mg PO BID atorvastatin 80 mg PO BEDTIME carvedilol 6.25 mg PO BIDWM fluticasone furoate-vilanterol 100-25 mcg/dose (Breo Ellipta) 1 inh inhalation RDAILY furosemide 40 mg PO QAM levothyroxine 100 mcg PO DAILY@0600 prednisone 20 mg PO DAILY tamsulosin 1 cap PO BID HPI Comments Details: Ttao comes for follow-up, accompanied by his daughter. He was admitted recently with acute respiratory failure related to COPD exacerbation CHF exacerbation. He was diuresed and treated for COPD exacerbation. Did well and was sent home on prednisone taper although he is currently on prednisone because of fear of possibly causing fluid overload. He said he feels fatigued and tired and short of breath. He has been wheezing. He is currently taking Lasix 40 mg every day. His weight has remained stable at 839648 lb. He has not noticed any significant leg edema. Denies any chest pain, lightheadedness, syncope. [facility] Medical History Heart failure with reduced ejection fraction CAD (coronary artery disease) Ischemic cardiomyopathy Non-rheumatic aortic regurgitation Paroxysmal atrial flutter Atherosclerotic cardiovascular disease BPH (benign prostatic hyperplasia) Hypothyroidism Congestive heart failure Aortic stenosis Myocardial infarct CHF (congestive heart failure) HTN (hypertension) High blood cholesterol Pacemaker Surgical History S/P cardiac cath (~08/2020) H/O heart artery stent Family History Father No problems noted. Mother Diabetes Social History Household Members: None Housing: Apartment Do you presently have visiting nurse or other home services: No Alcohol intake: never Patient Tobacco Use Status: Never used Tobacco service: No Current occupational status: retired Review of Systems Const Denies chills, Denies fatigue, Denies fever(s), Denies frequent falls, Denies weakness, Denies weight gain and Denies weight loss ENT Denies dizziness Card Denies chest pain, Denies leg edema, Denies lightheadedness, Denies palpitations, Denies dyspnea, Denies dyspnea on exertion, Denies orthopnea and Denies other (loss of consciousness) Resp Denies cough, Denies dyspnea and Denies dyspnea on exertion GI Denies hematochezia and Denies change in stool character Musc Denies abnormal gait, Denies muscle weakness, Denies numbness, Denies radiating pain into limb and Denies tingling Neuro Denies abnormal gait, Denies dizziness, Denies frequent falls, Denies numbness, Denies tingling and Denies weakness Endo Denies fatigue and Denies palpitations Physical Exam Vital Signs: Last Vital Signs Pulse 60 02/01/24 15:14 BP 120/74 02/01/24 15:14 BMI result Body Mass Index 26.9 Const General: cooperative, comfortable, alert, awake, in distress mild and resp iratory, poor hygiene and tired appearing Nutritional Appearance: overweight Orientation/consciousness: patient oriented x3 Limitations: no limitations Neck Neck: Yes trachea midline, Yes supple and Yes no JVD Resp Effort & Inspection: normal respiratory effort Auscultation: clear to auscultation bilaterally, no rales, wheezes throughout and diminished lung sounds Cardio Jugular venous distension: no JVD Rate: regular rate Rhythm: regular rhythm Heart sounds: S1 normal heart sound present, Murmur heart sound present systolic late, decrescendo and crescendo and Other heart sounds present (Soft S2) GI Auscultation: normal bowel sounds Skin General skin exam: no rashes or lesions noted Neuro General: patient oriented x3 and no focal motor deficits Extrem General: Yes no clubbing, cyanosis or edema Psych Appearance: grossly normal Office Procedures Cardiac Device Check Cardiac Device Check Details: Dual-chamber [place] pacemaker in place. Programmed in DDDR at 60 beats per minute. Atrial pacing 75% of time. Ventricular pacing 99% of time. Atrial fibrillation noted 2% of the time. Atrial ventricular capture thresholds adequate and in our capture mode. Atrial ventricular sensing is adequate. Pacing lead impedance is stable. Battery life is adequate at about 4 and half years [id number] Cardiac Device Check, pacemaker dual lead Procedure code (CPT) selection complete Assessment & Plan Assessment & Plan (1) Heart failure with reduced ejection fraction: Code(s): I50.20 - Unspecified systolic (congestive) heart failure Category: Medical Plan: Heart failure with reduced ejection fraction, clinically appears to be euvolemic and well compensated on current diuretic dose. I do not think he is fluid overloaded causing his symptoms. He think he is wheezing significantly and most likely due to bronchospastic airway disease. Have represcribed in prednisone taper. Advised to seek pulmonary care of soon as possible to adjust his medications. Continue carvedilol therapy for neurohormonal modulation. Continue current diuretic dose. Daily weight monitoring avoidance of salt loading was discussed. Additional diuretics as need be. Currently off valsartan therapy due to low blood pressure. Will hold off on it at this point in time. (2) Paroxysmal atrial flutter: Code(s): I48.92 - Unspecified atrial flutter Category: Medical Plan: Paroxysmal atrial flutter, no significant persistent episodes that requires antiarrhythmic drug therapy. Continue to avoid stimulants. Continue monitor pacer telemetry. Continue full oral anticoagulation, currently on Eliquis 5 mg b.i.d.. Quarterly renal function test is recommended. (3) Pacemaker: Code(s): Z95.0 - Presence of cardiac pacemaker Category: Medical Plan: Cardiac pacemaker in-situ, working well. Reprogrammed for adequate function. N o changes made. Follow up in 3 months in the clinic (4) Aortic stenosis: Code(s): I35.0 - Nonrheumatic aortic (valve) stenosis Category: Medical Qualifiers: Cardiac valve disease etiology: nonrheumatic Qualified Code(s): I35.0 - Nonrheumatic aortic (valve) stenosis Plan: Aortic stenosis which is [id number]. Continue to monitor by echocardiogram your patient Xarelto reason for his recent symptoms. Continue aggressive risk factor modifications above. Follow up in the clinic in 3 months time, sooner p.r.n.. Thank you for allowing me to partake in his care Medications: New prednisone 10 mg orally Four tablets for 2 days, 3 tablets for 3 days, 2 tablets for 4 days and 1 tablet for 1 week; see taper instructions 30 tabs 0RF Coding Level of Care Code Est Pt Level 4 (00317) Diagnoses Heart failure with reduced ejection fraction I50.20 Paroxysmal atrial flutter I48.92 Pacemaker Z95.0 Nonrheumatic aortic valve stenosis I35.0 Cardiac valve disease etiology: nonrheumatic CPT Codes Cardiac Device Check - Cardiac Device 2: [id number] Cardiac Device Check, pacemaker dual lead ([id number])
[2024-02-01 15:14] VITALS: BP 120/74; PULSE 60; BMI 26.9
== END 2024-02-01 15:36 | disposition home or self-care (01) ==
PROVIDERS: PCP Physician Assistant Medical; Visit Provider Internal Medicine Cardiovascular Disease
DX: I50.20 Unspecified systolic (congestive) heart failure (principal); I48.92 Unspecified atrial flutter; I35.0 Nonrheumatic aortic (valve) stenosis; I48.91 Unspecified atrial fibrillation; Z95.0 Presence of cardiac pacemaker
CPT/HCPCS: 93280; 99214

== ENCOUNTER → 2024-02-01 15:09 | Outpatient (BNVA) | payer MEDICARE, SELFPAY | PROVIDERS: PCP Physician Assistant Medical; Visit Provider Internal Medicine Cardiovascular Disease | DX: I50.20 Unspecified systolic (congestive) heart failure (principal); I48.92 Unspecified atrial flutter; J44.9 Chronic obstructive pulmonary disease, unspecified; I35.0 Nonrheumatic aortic (valve) stenosis; Z45.018 Encounter for adjustment and management of other part of cardiac pacemaker | CPT/HCPCS: 93280; 99212 ==

== ENCOUNTER 2024-02-02 22:54 | Inpatient (IN) | payer MEDICARE, SELFPAY ==
--- NOTE | ~2024-02-02 | XR_ITS ---
EXAMINATION: XR CHEST CLINICAL INFORMATION: Shortness of breath COMPARISON: Chest radiograph 01/09/2024. CT chest 06/12/2018. TECHNIQUE: Frontal view of the chest was obtained. FINDINGS: A left pectoral dual-lead pacer is noted without gross evidence of lead interruptions or lead ectopia. Dense aortic calcific atherosclerosis. Normal heart size. No pneumothoraces. Diffuse vascular indistinctness and diffuse fine and medium pulmonary reticular opacities with thickening of the major fissure and diffuse scattered coarse reticular opacities. Mild blunting of the right costophrenic sulcus. Attenuation of the upper lung zone pulmonary parenchyma is noted. XR/XR chest 1V IMPRESSION: *Findings suspicious for acute moderate interstitial pulmonary edema overlying chronic interstitial disease of the lungs and centrilobular emphysema. *Trace right pleural effusion. *Dense aortic calcific atherosclerosis.
--- NOTE | ~2024-02-02 | CT_ITS ---
EXAMINATION: CT CHEST WITHOUT CONTRAST CLINICAL INFORMATION: Rule out pneumonia. COMPARISON: Chest radiograph 02/02/2024 TECHNIQUE: Multidetector volumetric CT imaging of the chest was done. Axial MIP volume rendering provided. Sagittal and coronal reformatted images were obtained. This CT examination was performed using dose optimization techniques as appropriate, variously including the following: *Automated exposure control *Adjustment of mA and/or kV according to patient size (this includes techniques or standardized protocols for targeted exams where dose is matched to indication/reason for exam; i.e. extremities or head) *Use of iterative reconstruction technique DLP: 431 mGy-cm FINDINGS: Lungs and pleura: Scattered medium and coarse pulmonary reticular opacities are noted. Biapical paraseptal emphysematous changes and bullous changes are noted. Probably subpleural fine and medium pulmonary reticular opacities are visualized. No focal pulmonary consolidation noted. Diffuse peribronchial wall thickening noted. No pleural effusions identified. Mild thickening of the minor fissure pleural margin is noted and mild pleural thickening is present elsewhere suggestive of mild pulmonary vascular congestion. Mediastinum: Left pectoral pacer and associated pacer leads visualized. Marked diffuse coronary artery calcific atherosclerosis and marked coronary artery calcific atherosclerosis noted. The heart size is normal. No pericardial thickening or fluid collections. No mediastinal lymphadenopathy. CHEST WALL: No axillary lymphadenopathy. Mild bilateral gynecomastia. Visualized abdominal structures: Partial visualization of splenic artery calcific atherosclerosis and calcific atherosclerosis within the visualized abdominal aorta. Osseous structures: Diffuse osteopenia. No vertebral body compression deformities. CT/CT chest wo IV con IMPRESSION: *Findings suspicious for chronic interstitial disease and mild pulmonary vascular congestion. No focal pulmonary consolidation to suggest consolidative pneumonia. Interstitial lung disease is present in a pattern suspicious for chronic usual interstitial pneumonia (UIP). *Marked diffuse coronary artery calcific atherosclerosis. Marked aortic calcific atherosclerosis.
[2024-02-02 22:57] VITALS: BP 130/60; PULSE 109; RESP 36; O2SAT 84; BMI 31.2
--- NOTE | 2024-02-02 23:03 | ECG_ITS ---
Test Reason : DYSPNEA Blood Pressure : / mmHG Vent. Rate : 065 BPM Atrial Rate : 065 BPM P-R Int : 000 ms QRS Dur : 228 ms QT Int : 492 ms P-R-T Axes : 000 -60 116 degrees QTc Int : 511 ms AV dual-paced rhythm in a pattern of bigeminy Abnormal ECG When compared with ECG of 02-FEB-2024 22:59, No significant changes seen Referred By: Niesha Ribera Electronically Signed By:JUAN SEQUEIRA
--- NOTE | 2024-02-02 23:19 | ED_ITS ---
HPI - SOB/Dyspnea General Chief Complaint: Dyspnea Stated Complaint: Diff Breathing Time Seen by Provider: 02/02/24 23:02 Source: patient and EMS Limitations: other History of Present Illness ED Provider: Dr. Niesha Ribera HPI Narrative: Patient comes to the emergency room via ambulance complaining of shortness of breath. At this time, patient is too short of breath to answer any questions. According to EMS, patient called 911 because he was complaining of shortness of breath. Patient is known to have CHF and COPD. Patient's oxygen saturation was in the low 80s, patient is not O2 dependent. Patient was given by the paramedics 125 mg of Solu-Medrol, 2 g of IV magnesium and an nebulization treatments. When patient arrived to the ED, patient was switched to BiPAP Related Data Home Medications ?Medication ?Instructions ?Recorded ?Confirmed tamsulosin 0.4 mg capsule 1 cap PO BID 06/19/20 02/03/24 carvedilol 6.25 mg tablet 6.25 mg PO BIDWM 08/09/20 02/03/24 levothyroxine 100 mcg tablet 100 mcg PO DAILY@0600 02/12/21 02/03/24 valsartan 40 mg tablet 20 mg PO BID 02/03/24 02/03/24 Previous Rx's ?Medication ?Instructions ?Recorded apixaban 5 mg tablet (Eliquis) 5 mg PO BID #60 tabs 09/28/23 albuterol sulfate 90 mcg/actuation 2 puff inhalation Q4-6H PRN 10/14/23 aerosol inhaler shortness of breath or wheezing #8.5 grams atorvastatin 80 mg tablet 80 mg PO BEDTIME #30 tabs 10/14/23 fluticasone furoate 100 1 inh inhalation RDAILY #30 ea 10/14/23 mcg-vilanterol 25 mcg/dose inhalation powder (Breo Ellipta) azithromycin 250 mg tablet 250 mg PO DAILY 3 days #3 tabs 02/05/24 empagliflozin 10 mg tablet 10 mg PO DAILY #30 tabs 02/05/24 furosemide 40 mg tablet 40 mg PO BID #60 tabs 02/05/24 prednisone 10 mg tablet See Rx Instructions .Route 02/05/24 .COMPLEX #40 tabs spironolactone 25 mg tablet 25 mg PO DAILY #30 tabs 02/05/24 Allergies Allergy/AdvReac Type Severity Reaction Status Date / Time No Known Allergies Allergy Unknown UNKNOWN Verified 02/26/24 15:11 [NO KNOWN ALLERGIES] Review of Systems 2 Review of Systems: Yes Unobtainable due to mental condition [facility] Past Medical History Medical History (Updated 02/27/24 @ 00:01 by Background Rach) CHF (congestive heart failure) Heart failure with reduced ejection fraction CAD (coronary artery disease) Ischemic cardiomyopathy Non-rheumatic aortic regurgitation Paroxysmal atrial flutter Atherosclerotic cardiovascular disease BPH (benign prostatic hyperplasia) Hypothyroidism Congestive heart failure Aortic stenosis Myocardial infarct CHF (congestive heart failure) HTN (hypertension) High blood cholesterol Pacemaker Surgical History S/P cardiac cath (~08/2020) H/O heart artery stent Family History Family History Father No problems noted. Mother Diabetes Social History Social History Household Members: None Housing: Apartment Do you presently have visiting nurse or other home services: Yes Alcohol intake: never Patient Tobacco Use Status: Never used Tobacco service: No Current occupational status: retired Physical Exam 2 Vital Signs: Vital Signs: Last Vital Signs Temp 97.3 F 02/05/24 15:54 Pulse 78 02/05/24 15:54 Resp 16 02/05/24 15:54 BP 149/76 H 02/05/24 15:54 Pulse Ox 93 02/05/24 15:54 O2 Del Method Room Air 02/05/24 15:54 O2 Flow Rate 1 02/04/24 20:00 Oxygen Flow Rate 6 02/02/24 22:57 BMI result Body Mass Index 31.2 Const: Other: Appearance: Alert. In respiratory distress, ill-appearing, clammy, fatigue Eyes: Pupils equal, round and reactive to light. ENT: Pharynx normal. Neck: Normal inspection. Neck supple. No lymph nodes noted. No crepitus CVS: Normal heart rate and rhythm. Pulses normal. Normal S1 and S2 Respiratory: Mild bilateral wheezing, very tight breathing, decreased breath sounds, using accessory muscles Abdomen: Soft and nontender. No rigidity. No distention. Skin: Patient pale, profusely sweating Extremities: No lower extremity edema. No Lacerations. No Rash Neuro: moving all extremities. No slurred speech. CN 2 through 12 grossly intact Psych: calm, cooperative Course Course Course Narrative: -all of patient's labs and imaging pending -patient's lower extremities in her show any lower extremity edema at this time, patient's blood pressure stable in the 130s. Oxygen saturation is 84% on 6 L. -patient was switched to BiPAP. Patient's lung sounds are decreased, wheezing, very tight air movement, patient likely having a chronic lung exacerbation. -patient has CHF we significantly decreased ejection fracture. Patient was given prophylactically 1 bolus of IV fluids 140mL, given prophylactic antibiotics, azithromycin and ceftriaxone. -at this time, patient's blood pressure stable, blood pressure in the 130/60, heart rate 109, respiratory rate 36%. Patient's oxygen saturation is 92% on BiPAP. Patient continues receiving nebulization treatments. Medications Administered Discontinued Medications Generic Name Dose Route Start Last Admin Trade Name Freq PRN Reason Stop Dose Admin Acetaminophen 650 mg 02/03/24 03:31 02/04/24 20:00 Acetaminophen 325 Mg Tablet PO 650 mg Q6H PRN Administration Pain, Mild (Pain Scale 1-3), fever or headache Albuterol/Ipratropium 3 ml 02/03/24 00:57 02/03/24 01:06 Albuterol/Iprat 2.5/0.5mg 3 Ml Ampul.Neb INHALE 02/03/24 00:58 3 ml ONCE ONE Administration Albuterol/Ipratropium 3 ml 02/03/24 08:00 02/05/24 15:25 Albuterol/Iprat 2.5/0.5mg 3 Ml Ampul.Neb INHALE 3 ml RQ4H WHILE AWAKE ABELARDO Administration Apixaban 5 mg 02/03/24 21:00 02/04/24 09:16 Apixaban 5 Mg Tablet PO 5 mg BID ABELARDO Administration Apixaban 2.5 mg 02/04/24 21:00 02/05/24 08:41 Apixaban 2.5 Mg Tablet PO 2.5 mg BID ABELARDO Administration Atorvastatin Calcium 80 mg 02/03/24 21:00 02/04/24 19:58 Atorvastatin Calcium 80 Mg Tablet PO 80 mg BEDTIME ABELARDO Administration Carvedilol 6.25 mg 02/03/24 17:00 02/05/24 08:40 Carvedilol 6.25 Mg Tablet PO 6.25 mg BIDWM ABELARDO Administration Protocol Albuterol Sulfate 7.5 mg/ 0 mg 02/02/24 23:16 02/02/24 23:31 Albuterol/Ipratropium 3 ml INHALE 02/02/24 23:17 10 each ONCE ONE Administration Empagliflozin 10 mg 02/05/24 12:15 02/05/24 12:52 Empagliflozin 10 Mg Tablet PO 10 mg DAILY ABELARDO Administration Fluticasone/Vilanterol 1 puff 02/04/24 08:00 02/05/24 07:36 Fluticasone/Vilanterol 100/25 Blst.W.Dev INHALE 1 puff RDAILY ABELARDO Administration Furosemide 20 mg 02/03/24 01:14 02/03/24 01:44 Furosemide 20 Mg/2 Ml Vial IVPUSH 02/03/24 01:15 20 mg ONCE ONE Administration Protocol Furosemide 40 mg 02/03/24 01:22 02/03/24 01:44 Furosemide 40 Mg/4 Ml Vial IVPUSH 02/03/24 01:23 40 mg ONCE ONE Administration Protocol Furosemide 60 mg 02/03/24 09:00 02/05/24 08:41 Furosemide 100 Mg/10 Ml Vial IVPUSH 60 mg DAILY ABELARDO Administration Protocol Ceftriaxone Sodium 1 gm/ 50 mls @ 100 mls/hr 02/02/24 23:02 02/02/24 23:45 Sodium Chloride IV 02/02/24 23:31 Infused ONCE ONE Infusion Azithromycin 500 mg/ Sodium 250 mls @ 125 mls/hr 02/02/24 23:02 02/03/24 01:59 Chloride IV 02/03/24 01:01 Infused ONCE ONE Infusion Sodium Chloride 140 mls @ 999 mls/hr 02/02/24 23:08 02/02/24 23:45 Ns IVCONT 02/02/24 23:16 Infused .Q9M ONE Infusion Azithromycin 500 mg/ Sodium 250 mls @ 125 mls/hr 02/03/24 23:00 02/05/24 00:48 Chloride IV Infused Q24H ABELARDO Infusion Levothyroxine Sodium 100 mcg 02/04/24 06:00 02/05/24 05:53 Levothyroxine Sodium 100 Mcg Tablet PO 100 mcg DAILY@0600 ABELARDO Administration Melatonin 6 mg 02/03/24 03:31 02/04/24 20:00 Melatonin 3 Mg Tablet PO 6 mg BEDTIME PRN Administration Insomnia Methylprednisolone Sodium Succinate 40 mg 02/03/24 08:00 02/05/24 08:51 Methylprednisolone Sod Succ 40 Mg/Ml Vial IVPUSH 40 mg Q12H ABELARDO Administration Sodium Chloride 3 ml 02/03/24 08:00 02/05/24 08:38 0.9 % Sodium Chloride Flush 3 Ml Syringe IVFLUSH 3 ml QSHIFT ABELARDO Administration Spironolactone 25 mg 02/05/24 12:15 02/05/24 12:52 Spironolactone 25 Mg Tablet PO 25 mg DAILY ABELARDO Administration Protocol Tamsulosin HCl 0.4 mg 02/03/24 21:00 02/05/24 08:41 Tamsulosin Hcl 0.4 Mg Capsule PO 0.4 mg BID ABELARDO Administration Valsartan 20 mg 02/03/24 21:00 02/05/24 08:39 Valsartan 40 Mg Tablet PO 20 mg BID ABELARDO Administration Protocol Medical Decision Making Medical Decision Making MDM Narrative: -my interpretation of EKG 1., dual paced rhythm, heart rate 135, left bundle branch block, diffuse ST segment elevations, T-wave inversions in V2. However, this time patient is tachypneic, diaphoretic, we will repeat in a few minutes -my interpretation of EKG 2.: Patient now more stable, heart rate 65, AV dual paced rhythm, ST segment depression and inversion of V4 and V5 with a reciprocal changes -at this time, 23:46, patient's lactic acid and some of the labs have returned. Lactic acid is 4.1, white blood cell count 12.7, patient remains on CPAP. Patient has MALA, BNP 3339 which is above his baseline -almost on arrival, patient received a bolus of IV fluids with reduced dose due to CHF and poor ejection fraction, patient received antibiotics -chest x-ray: My interpretation of x-ray: Combination of pulmonary edema and possible infiltrates. -the Radiology report: acute to moderate interstitial pulmonary edema overlying chronic interstitial disease, trace right pleural effusion. Dry CT has been ordered, pending -my interpretation of CT: Pleural effusion, pulmonary edema and infiltrates. Radiology report still pending. -patient has already been treated for both, CHF and pneumonia/exacerbation -I discussed the patient with Dr. Donaldson from the ICU, since patient is on CPAP, the patient may go to the floor -I discussed the above-mentioned with Dr. Payton, accepted the patient, patient being admitted -at this time, 01:52, FOCUS exam was done. -overall, pt improving, breathing more comfortably, stable vitals signs Differential Diagnosis Differential Diagnoses: The differential diagnosis associated with the presentation includes (Chronic lung disease, pneumonia, CHF) Admission/Observation Consideration of admission/observation: Escalation of care including admission/observation considered (Given the patient's initial presentation, patient will be admitted) Lab Data MDM Lab Attestation statement: I reviewed the patient's lab results. 02/04/24 08:48 02/05/24 08:16 Labs: Lab Results 02/02/24 02/02/24 02/02/24 Range/Units 23:07 23:11 23:13 WBC 12.7 H (4.8-10.8) X10*3/uL RBC 4.16 L (4.60-5.80) X10*6/uL Hgb 13.0 L (14.0-18.0) g/dl Hct 38.8 L (42.0-52.0) % MCV 93.3 (80.0-98.0) fL MCH 31.3 (27.0-33.0) pg MCHC 33.5 (31.0-36.0) g/dl RDW 14.6 (11.0-16.0) % Plt Count 218 D (160-400) X10*3/uL MPV 11.3 (9.4-12.4) fL Immature Gran % (Auto) 0.3 (0.0-0.4) % Neut % (Auto) 74.2 H (45-73) % Lymph % (Auto) 17.1 L (20-40) % Bradley % (Auto) 8.1 (2-11) % Eos % (Auto) 0.1 (0-4) % Baso % (Auto) 0.2 (0-2) % Lymph # (Auto) 2.2 (1.2-4.9) X10*3/uL Bradley # (Auto) 1.0 (0.1-1.2) X10*3/uL Eos # (Auto) 0.0 (0.0-0.4) X10*3/uL Baso # (Auto) 0.0 (0.0-0.2) X10*3/uL Abs Immat Gran (auto) 0.04 H (0.00-0.03) X10*3/uL Absolute Neuts (auto) 9.4 H (2.0-8.3) x10*3/uL Absolute Nucleated RBC 0.000 (0.0-0.012) X10*3/uL Nucleated RBC % (auto) 0.0 (0.0-0.2) /100WBC PT 20.0 H (11.1-13.3) SEC INR 1.6 H (0.9-1.1) VBG pH 7.30 L (7.32-7.43) VBG pCO2 37 mmHg VBG pO2 73 mmHg VBG HCO3 18 L (22-26) mmol/L VBG O2 Saturation 90.0 % VBG Base Excess -7.1 mmol/L Sodium 131 L (135-145) mmol/L Potassium 5.4 H D (3.3-5.1) mmol/L Chloride 99 (96-108) mmol/L Carbon Dioxide 17 L (22-29) mmol/L Anion Gap 20 (12-20) BUN 37 H (9-16) mg/dL Creatinine 1.71 H (0.5-1.4) mg/dL Estim Creat Clear Calc 29.9 Estimated GFR 38 POC Glucose 179 H (60-115) mg/dL Random Glucose 202 H (60-115) mg/dL Lactic Acid 4.1 H* (0.5-2.0) mmol/L Lactic Acid F/U @ 2Hr (0.5-2.0) mmol/L Calcium 9.1 D (8.4-10.2) mg/dL Magnesium 2.9 H (1.6-2.6) mg/dL Total Bilirubin 0.8 (0.0-1.0) mg/dL Direct Bilirubin 0.2 (0.0-0.5) mg/dL AST 35 (5-37) U/L ALT 21 (0-40) U/L Alkaline Phosphatase 81 (39-117) U/L Troponin I High Sens 25.5 D (<3.5-35.0) ng/L B-Natriuretic Peptide 3339 H (<100) pg/mL Total Protein 7.5 (6.5-8.0) g/dL Albumin 3.7 (3.5-5.0) g/dL COVID-19 (SARAHI) (Negative) COVID-19 Clin Com Influenza Type A (COMPA) (Negative) Influenza Type B (COMPA) (Negative) Influenza A & B Note 02/03/24 02/03/24 Range/Units 00:00 01:30 WBC (4.8-10.8) X10*3/uL RBC (4.60-5.80) X10*6/uL Hgb (14.0-18.0) g/dl Hct (42.0-52.0) % MCV (80.0-98.0) fL MCH (27.0-33.0) pg MCHC (31.0-36.0) g/dl RDW (11.0-16.0) % Plt Count (160-400) X10*3/uL MPV (9.4-12.4) fL Immature Gran % (Auto) (0.0-0.4) % Neut % (Auto) (45-73) % Lymph % (Auto) (20-40) % Bradley % (Auto) (2-11) % Eos % (Auto) (0-4) % Baso % (Auto) (0-2) % Lymph # (Auto) (1.2-4.9) X10*3/uL Bradley # (Auto) (0.1-1.2) X10*3/uL Eos # (Auto) (0.0-0.4) X10*3/uL Baso # (Auto) (0.0-0.2) X10*3/uL Abs Immat Gran (auto) (0.00-0.03) X10*3/uL Absolute Neuts (auto) (2.0-8.3) x10*3/uL Absolute Nucleated RBC (0.0-0.012) X10*3/uL Nucleated RBC % (auto) (0.0-0.2) /100WBC PT (11.1-13.3) SEC INR (0.9-1.1) VBG pH (7.32-7.43) VBG pCO2 mmHg VBG pO2 mmHg VBG HCO3 (22-26) mmol/L VBG O2 Saturation % VBG Base Excess mmol/L Sodium (135-145) mmol/L Potassium (3.3-5.1) mmol/L Chloride (96-108) mmol/L Carbon Dioxide (22-29) mmol/L Anion Gap (12-20) BUN (9-16) mg/dL Creatinine (0.5-1.4) mg/dL Estim Creat Clear Calc Estimated GFR POC Glucose (60-115) mg/dL Random Glucose (60-115) mg/dL Lactic Acid (0.5-2.0) mmol/L Lactic Acid F/U @ 2Hr 1.8 (0.5-2.0) mmol/L Calcium (8.4-10.2) mg/dL Magnesium (1.6-2.6) mg/dL Total Bilirubin (0.0-1.0) mg/dL Direct Bilirubin (0.0-0.5) mg/dL AST (5-37) U/L ALT (0-40) U/L Alkaline Phosphatase (39-117) U/L Troponin I High Sens (<3.5-35.0) ng/L B-Natriuretic Peptide (<100) pg/mL Total Protein (6.5-8.0) g/dL Albumin (3.5-5.0) g/dL COVID-19 (SARAHI) Negative (Negative) COVID-19 Clin Com See Note Influenza Type A (COMPA) Negative (Negative) Influenza Type B (COMPA) Negative (Negative) Influenza A & B Note See Note Independent Interpretation I performed an independent interpretation of an: Plain X-Ray and CT Scan Interpretation: A left pectoral dual-lead pacer is noted without gross evidence of lead interruptions or lead ectopia. Dense aortic calcific atherosclerosis. Normal heart size. No pneumothoraces. Diffuse vascular indistinctness and diffuse fine and medium pulmonary reticular opacities with thickening of the major fissure and diffuse scattered coarse reticular opacities. Mild blunting of the right costophrenic sulcus. Attenuation of the upper lung zone pulmonary parenchyma is noted. XR/XR chest 1V IMPRESSION: *Findings suspicious for acute moderate interstitial pulmonary edema overlying chronic interstitial disease of the lungs and centrilobular emphysema. *Trace right pleural effusion. *Dense aortic calcific atherosclerosis. Radiology Impression Discussion of test interpretation with radiology: I have reviewed the radiologist's reading. Radiologist Impression: A left pectoral dual-lead pacer is noted without gross evidence of lead interruptions or lead ectopia. Dense aortic calcific atherosclerosis. Normal heart size. No pneumothoraces. Diffuse vascular indistinctness and diffuse fine and medium pulmonary reticular opacities with thickening of the major fissure and diffuse scattered coarse reticular opacities. Mild blunting of the right costophrenic sulcus. Attenuation of the upper lung zone pulmonary parenchyma is noted. XR/XR chest 1V IMPRESSION: *Findings suspicious for acute moderate interstitial pulmonary edema overlying chronic interstitial disease of the lungs and centrilobular emphysema. *Trace right pleural effusion. *Dense aortic calcific atherosclerosis. FINDINGS: Lungs and pleura: Scattered medium and coarse pulmonary reticular opacities are noted. Biapical paraseptal emphysematous changes and bullous changes are noted. Probably subpleural fine and medium pulmonary reticular opacities are visualized. No focal pulmonary consolidation noted. Diffuse peribronchial wall thickening noted. No pleural effusions identified. Mild thickening of the minor fissure pleural margin is noted and mild pleural thickening is present elsewhere suggestive of mild pulmonary vascular congestion. Mediastinum: Left pectoral pacer and associated pacer leads visualized. Marked diffuse coronary artery calcific atherosclerosis and marked coronary artery calcific atherosclerosis noted. The heart size is normal. No pericardial thickening or fluid collections. No mediastinal lymphadenopathy. CHEST WALL: No axillary lymphadenopathy. Mild bilateral gynecomastia. Visualized abdominal structures: Partial visualization of splenic artery calcific atherosclerosis and calcific atherosclerosis within the visualized abdominal aorta. Osseous structures: Diffuse osteopenia. No vertebral body compression deformities. CT/CT chest wo IV con IMPRESSION: *Findings suspicious for chronic interstitial disease and mild pulmonary vascular congestion. No focal pulmonary consolidation to suggest consolidative pneumonia. Interstitial lung disease is present in a pattern suspicious for chronic usual interstitial pneumonia (UIP). *Marked diffuse coronary artery calcific atherosclerosis. Marked aortic calcific atherosclerosis. Critical Care Time Critical Care Time Critical Care Time: Yes Total Critical Care Time: 90 Attestation: I have personally provided critical care time. Time includes review of lab data, radiology results, discussion with consultants, and monitoring for potential decompensation. Intervention performed as documented. Discharge Plan Discharge Clinical Impression: CHF (congestive heart failure), COPD exacerbation Patient Disposition: Admitted As Inpatient Interventions: Admission Worksheet (ED) Last Done: 02/03/24 13:18 Discharge Date/Time: 02/03/24 13:59 Sepsis Bolus Exclusion Sepsis Bolus Exclusion CHF/Renal Failure This patient met severe sepsis criteria due to the following condition(s):: L actate>=4mmol/L In my clinical judgement the administration of 30 ml/kg of crystalloid would be detrimental to this patient due to the patient's following conditions:: Concern for fluid overload Replace the 30 mls/kg with (Zero amount not acceptable and all fluids for severe sepsis must be given at GREATER than 125 mls/hr) Crystalloids amount given in mls: (rate must be at least 150cc/hr): 130 Colloids amount given in mls:: 130
[2024-02-02 23:20] LABS: MANUAL DIFF FLAG NO
[2024-02-02 23:21] LABS: VBG Base Excess -7.1 mmol/L; VBG HCO3 18 mmol/L (22-26); VBG pCO2 37 mmHg; VBG pO2 73 mmHg
[2024-02-02 23:23] LABS: Basophils Percent Auto 0.2 % (0-2); Eosinophils Percent Auto 0.1 % (0-4); Hematocrit 38.8 % (42.0-52.0); Imm Gran Abs Auto 0.04 X10*3/uL (0.00-0.03); Imm Gran Pct Auto 0.3 % (0.0-0.4); Lymphocytes Absolute Auto 2.2 X10*3/uL (1.2-4.9); Lymphocytes Percent Auto 17.1 % (20-40); Mean Corpuscular HGB Conc 33.5 g/dl (31.0-36.0); Mean Corpuscular Hemoglobin 31.3 pg (27.0-33.0); Mean Corpuscular Volume 93.3 fL (80.0-98.0); Mean Platelet Volume 11.3 fL (9.4-12.4); Monocytes Percent Auto 8.1 % (2-11); Neutrophils Absolute Auto 9.4 x10*3/uL (2.0-8.3); Neutrophils Percent Auto 74.2 % (45-73); Platelet Count 218 X10*3/uL (160-400); Red Blood Count 4.16 X10*6/uL (4.60-5.80); Red Cell Distribution Width 14.6 % (11.0-16.0); White Blood Count 12.7 X10*3/uL (4.8-10.8)
[2024-02-02 23:23] LABS: Venous Blood Gas Refer to POC result
[2024-02-02] MEDS: cefTRIAXone sodium 1 GM in 0.9 % Sodium Chloride 50 ML IV (23:25)
[2024-02-02 23:28] VITALS: BP 133/47; PULSE 60; RESP 32; O2SAT 91
[2024-02-02 23:30] LABS: INTERNATIONAL NORM RATIO 1.6 (0.9-1.1)
--- NOTE | 2024-02-02 23:30 | PC.NURSE ---
Addendum entered by Meg Calvert 02/02/24 23:33: pt received 125 mg solumedrol, 2g magnesium and albuterol tx via ems CLINICAL SERVICES DIRECTOR. 20g IV to L. AC via ems. 20G L. wrist established by RN. Original Note: pt biba from home reporting sob onset last night. 84% on RA for ems, placed on duoneb tx sats 85%. on arrival pt is tachypneic, diaphoretic, retracting/belly breathing. inspiratory and expiratory wheezing ausc. MD and RT at bedside. pt placed on bipap. 2nd iv established. labs drawn. ivf and abx infusing per oct. pt appears calm and improved breathing after bipap. RT at bedside at this time for albuterol txs. ekg obtained. unable to obtain temp at this time d/t bipap machine and pt not tolerated repositioning. pt is sitting upright in stretcher, awaiting lab results and cxr at this time.
[2024-02-02] MEDS: Albuterol Sulfate 7.5 MG, Albuterol/Iprat 2.5/0.5MG 3 ML 3 ML INHALE (23:31)
[2024-02-02 23:33] VITALS: PULSE 63; PULSE 91; RESP 21; O2SAT 63; O2SAT 92
[2024-02-02 23:34] LABS: Glucose, Whole Blood 179 mg/dL (60-115)
[2024-02-02 23:42] LABS: Alanine Aminotransferase 21 U/L (0-40); Albumin Level 3.7 g/dL (3.5-5.0); Alkaline Phosphatase 81 U/L (39-117); Anion Gap 20 (12-20); Aspartate Amino Transferase 35 U/L (5-37); Bilirubin Direct 0.2 mg/dL (0.0-0.5); Bilirubin Total 0.8 mg/dL (0.0-1.0); Blood Urea Nitrogen 37 mg/dL (9-16); Calcium 9.1 mg/dL (8.4-10.2); Carbon Dioxide 17 mmol/L (22-29); Chloride 99 mmol/L (96-108); Creatinine Clr Calc Pharmacy 29.9; Estimated Glomerular Filt Rate 38; Glucose Random 202 mg/dL (60-115); Magnesium 2.9 mg/dL (1.6-2.6); Potassium 5.4 mmol/L (3.3-5.1); Sodium 131 mmol/L (135-145); Total Protein 7.5 g/dL (6.5-8.0)
[2024-02-02 23:44] LABS: B Type Natriuretic Peptide 3339 pg/mL (<100)
[2024-02-02 23:45] LABS: Lactic Acid 4.1 mmol/L (0.5-2.0)
[2024-02-02] MEDS: Azithromycin 500 MG in 0.9 % Sodium Chloride 250 ML 125 MG IV (23:45)
[2024-02-02 23:47] VITALS: BP 129/50; PULSE 79; RESP 21; O2SAT 92
[2024-02-02 23:47] LABS: Troponin-I High Sensitivity 25.5 ng/L (<3.5-35.0)
[2024-02-03] VITALS (20 sets, daily range): BP systolic 107–138; BP diastolic 35–73; PULSE 58–85; RESP 13–25; TEMP 36–37; O2SAT 91–98
[2024-02-03 00:39] LABS: COVID-19 Test Negative (Negative); IDNOW Serial# 08D9AD1C; IDNOW Serial# 152EDE1D; Influenza A Negative (Negative); Influenza B2 Negative (Negative)
--- NOTE | 2024-02-03 00:56 | PC.NURSE ---
pt to ct scan and back to room with RT and this RN; on heart/o2 monitor. pt tolerated images well, 95% on CPAP. per MD to remove CPAP mask upon return to room and repeat vbg after approx 1 hour. pt currently off the cpap, on 3L NC, RT at bedside. productive cough. expiratory wheezing ausc. sats 90-92% at this time.
[2024-02-03] MEDS: Albuterol/Iprat 2.5/0.5MG 3 ML AMPUL.NEB INHALE ×5 (01:06→19:42)
--- NOTE | 2024-02-03 01:06 | PC.NURSE ---
pt placed back on cpap as became very sob and restless. sats 80s% on NC. now on cpap sats 96%.
[2024-02-03 01:18] LABS: Reflex Lactate? Lactic Acid Added
[2024-02-03 01:44] LABS: ~Lactic Acid-LAB USE ONLY 1.8 mmol/L (0.5-2.0)
[2024-02-03] MEDS: Furosemide 20 MG/2 ML VIAL IVPUSH (01:44)
[2024-02-03] MEDS: Furosemide 40 MG/4 ML VIAL IVPUSH (01:44)
--- NOTE | 2024-02-03 01:50 | PC.NURSE ---
pt medicated per mike MD aware of bp. temp sensing haq inserted per MD order pt tolerated well. pt resting comfortably in stretcher, cpap on, sats 92-95%.
--- NOTE | 2024-02-03 03:32 | PM.IMHP ---
History of Present Illness Date of Service: 02/03/24 Chief Complaint: Dyspnea This is a 88-year-old male with pertinent history of congestive heart failure with reduced ejection fraction, paroxysmal atrial fibrillation on Eliquis, CAD status post LAD stent, moderate aortic stenosis, chronic kidney disease stage 3, hypertension, mixed hyperlipidemia, hypothyroidism presents to the emergency department for evaluation of dyspnea. Unable to obtain history as patient is short of breath and on NIV. Patient did not tolerate being off of NIV. As per EMS, patient called 911 due to dyspnea. He was satting in the 80s upon EMS arrival and was placed on supplemental oxygen. Patient was found wheezing and was given IV Solu-Medrol by EMS. Unable to obtain review of systems. In the emergency department, BNP found to be elevated. Patient was given IV Lasix. Found to be wheezing despite multiple duoneb treatments Review of Systems Review of Systems: Yes Unobtainable due to mental condition [facility] Medical History Heart failure with reduced ejection fraction CAD (coronary artery disease) Ischemic cardiomyopathy Non-rheumatic aortic regurgitation Paroxysmal atrial flutter Atherosclerotic cardiovascular disease BPH (benign prostatic hyperplasia) Hypothyroidism Congestive heart failure Aortic stenosis Myocardial infarct CHF (congestive heart failure) HTN (hypertension) High blood cholesterol Pacemaker Family History Father No problems noted. Mother Diabetes Surgical History S/P cardiac cath (~08/2020) H/O heart artery stent Social History Household Members: None Housing: Apartment Do you presently have visiting nurse or other home services: No Alcohol intake: never Patient Tobacco Use Status: Never used Tobacco Advance Directives: No Advance Directives Information Provided: No service: No Current occupational status: retired Meds Allergies Allergy/AdvReac Type Severity Reaction Status Date / Time No Known Allergies Allergy Unknown UNKNOWN Verified 02/02/24 22:58 [NO KNOWN ALLERGIES] Home Medications ?Medication ?Instructions ?Recorded ?Confirmed ?Last Taken ?Type tamsulosin 0.4 mg capsule 1 cap PO BID 06/19/20 02/01/24 01/08/24 History carvedilol 6.25 mg tablet 6.25 mg PO BIDWM 08/09/20 02/01/24 01/08/24 History levothyroxine 100 mcg tablet 100 mcg PO DAILY@0600 02/12/21 02/01/24 01/08/24 History Physical Exam Vital Signs and Narrative: Vital Signs: Last Vital Signs Temp 96.8 F 02/03/24 01:52 Pulse 65 02/03/24 01:52 Resp 21 H 02/03/24 01:52 BP 118/61 02/03/24 01:52 Pulse Ox 95 02/03/24 01:52 O2 Del Method CPAP 02/03/24 01:52 Oxygen Flow Rate 6 02/02/24 22:57 BMI result Body Mass Index 31.2 Elderly male lying in bed in mild distress on supplemental oxygen Neck supple, JVD + Regular rate and rhythm, S1-S2 heard Bilateral crackles appreciated with wheezing Abdomen soft nontender, no guarding, no rigidity Patient is drowsy but awakens to verbal stimulus ; no focal motor deficit Psych: Lethargic Bilateral pitting edema Results Labs 02/02/24 23:11 02/02/24 23:11 Labs: Laboratory Results - last 24 hr 02/02/24 02/02/24 02/02/24 23:07 23:11 23:13 MCV 93.3 MCH 31.3 MCHC 33.5 RDW 14.6 Plt Count 218 D MPV 11.3 Immature Gran % (Auto) 0.3 Neut % (Auto) 74.2 H Lymph % (Auto) 17.1 L [place] % (Auto) 8.1 Eos % (Auto) 0.1 Baso % (Auto) 0.2 Lymph # (Auto) 2.2 [place] # (Auto) 1.0 Eos # (Auto) 0.0 Baso # (Auto) 0.0 Abs Immat Gran (auto) 0.04 H Absolute Neuts (auto) 9.4 H Absolute Nucleated RBC 0.000 Nucleated RBC % (auto) 0.0 PT 20.0 H INR 1.6 H VBG pH 7.30 L VBG pCO2 37 VBG pO2 73 VBG HCO3 18 L VBG O2 Saturation 90.0 VBG Base Excess -7.1 Anion Gap 20 Estim Creat Clear Calc 29.9 Estimated GFR 38 POC Glucose 179 H Random Glucose 202 H Lactic Acid 4.1 H* Lactic Acid F/U @ 2Hr Calcium 9.1 D Magnesium 2.9 H Total Bilirubin 0.8 Direct Bilirubin 0.2 AST 35 ALT 21 Alkaline Phosphatase 81 Troponin I High Sens 25.5 D B-Natriuretic Peptide 3339 H Total Protein 7.5 Albumin 3.7 COVID-19 (SARAHI) COVID-19 Clin Com Influenza Type A (COMPA) Influenza Type B (COMPA) Influenza A & B Note 02/03/24 02/03/24 00:00 01:30 MCV MCH MCHC RDW Plt Count MPV Immature Gran % (Auto) Neut % (Auto) Lymph % (Auto) [place] % (Auto) Eos % (Auto) Baso % (Auto) Lymph # (Auto) [place] # (Auto) Eos # (Auto) Baso # (Auto) Abs Immat Gran (auto) Absolute Neuts (auto) Absolute Nucleated RBC Nucleated RBC % (auto) PT INR VBG pH VBG pCO2 VBG pO2 VBG HCO3 VBG O2 Saturation VBG Base Excess Anion Gap Estim Creat Clear Calc Estimated GFR POC Glucose Random Glucose Lactic Acid Lactic Acid F/U @ 2Hr 1.8 Calcium Magnesium Total Bilirubin Direct Bilirubin AST ALT Alkaline Phosphatase Troponin I High Sens B-Natriuretic Peptide Total Protein Albumin COVID-19 (SARAHI) Negative COVID-19 Clin Com See Note Influenza Type A (COMPA) Negative Influenza Type B (COMPA) Negative Influenza A & B Note See Note Imaging Radiologist's Impressions: Impressions Chest X-Ray 02/02/24 23:15 IMPRESSION: *Findings suspicious for acute moderate interstitial pulmonary edema overlying chronic interstitial disease of the lungs and centrilobular emphysema. *Trace right pleural effusion. *Dense aortic calcific atherosclerosis. Chest CT 02/03/24 00:55 IMPRESSION: *Findings suspicious for chronic interstitial disease and mild pulmonary vascular congestion. No focal pulmonary consolidation to suggest consolidative pneumonia. Interstitial lung disease is present in a pattern suspicious for chronic usual interstitial pneumonia (UIP). *Marked diffuse coronary artery calcific atherosclerosis. Marked aortic calcific atherosclerosis. Assessment and Plan (1) CHF (congestive heart failure): Status: Acute (2) COPD exacerbation: Status: Acute Plan This is a 88-year-old male with pertinent history of congestive heart failure with reduced ejection fraction, paroxysmal atrial fibrillation on Eliquis, CAD status post LAD stent, moderate aortic stenosis, chronic kidney disease stage 3, hypertension, mixed hyperlipidemia, hypothyroidism presents to the emergency department for evaluation of dyspnea. #. Acute hypoxic respiratory failure due to acute on chronic congestive heart failure with reduced ejection fraction: Initiating IV diuresis. Strict I's and O's. On beta-clary and ARB. Currently on NIV #. COPD with acute exacerbation and sepsis: Initiating IV steroids and IV abx. Scheduled and prn duonebs. Continue home inhaler. #. Acute lactic acidosis due to hypoxia. Resolved #. Acute kidney injury stage I, cardiorenal: Monitor creatinine and urine output with IV diuresis. Avoid nephrotoxins #. Acute metabolic encephalopathy in the setting of hypoxia: Will keep NPO until mentation improves #. Paroxysmal atrial fibrillation: Rate controlled in the ER. On Eliquis #. Hypertension: Continue home antihypertensives #. Hypothyroidism: On Synthroid #. BPH: On Flomax #. Mixed hyperlipidemia: On statin Med rec pending DVT prophylaxis: Eliquis Full code. Admit as inpatient and will require two night minimum hospital stay for supplemental oxygen, IV diuresis, IV steroids, monitoring of kidney function (as above), which is not possible in a lesser acute setting. Quality Stroke Does the patient have a stroke diagnosis?: No VTE Prior VTE?: No VTE Risk Level:: Medical - moderate - high VTE Device Contraindication: Treatment Not Indicated VTE Drug Contraindication: N/A - Med Ordered
[2024-02-03 05:01] LABS: Hematocrit 36.1 % (42.0-52.0); Mean Corpuscular HGB Conc 33.2 g/dl (31.0-36.0); Mean Corpuscular Hemoglobin 30.9 pg (27.0-33.0); Mean Platelet Volume 11.4 fL (9.4-12.4); Platelet Count 185 X10*3/uL (160-400); Red Blood Count 3.88 X10*6/uL (4.60-5.80); Red Cell Distribution Width 14.6 % (11.0-16.0); White Blood Count 11.7 X10*3/uL (4.8-10.8)
[2024-02-03 05:24] LABS: Anion Gap 15 (12-20); Blood Urea Nitrogen 38 mg/dL (9-16); Carbon Dioxide 21 mmol/L (22-29); Chloride 100 mmol/L (96-108); Creatinine Clr Calc Pharmacy 32.6; Estimated Glomerular Filt Rate 42; Glucose Random 173 mg/dL (60-115); Potassium 4.7 mmol/L (3.3-5.1); Sodium 131 mmol/L (135-145)
--- NOTE | 2024-02-03 07:00 | CA_ITS ---
Transthoracic Echocardiogram Patient (Last, First, Middle): Tato Duke, Gender: Male Date of : 1935 Age: 88 Procedure Date: 02/03/2024 Procedure Type: Transthoracic Echocardiogram Location: ER Height: 165.1 cm Weight: 84.82 kg BSA: 1.92 m2 Heart Rate: bpm BP: 125 / 41 mmHg Cso: Referring MD: Milli Schwartz MD Symptoms: CHF Study Quality: Adequate ECG Rhythm: Ventriculary paced rhythm Conclusions: - The left ventricular systolic function is severely decreased. The visually estimated ejection fraction is between 25-30%. - The left atrium is severely dilated. - There is moderate calcification of the aortic valve. There is mild to moderate aortic valve stenosis. There is mild to moderate aortic valve regurgitation. Findings Left Ventricle Moderately increased left ventricular cavity size. There is mildly increased left ventricular wall thickness. The left ventricular systolic function is severely decreased. The visually estimated ejection fraction is between 25 30%. Evidence suggests grade I (mild) diastolic dysfunction. Right Ventricle Normal right ventricular cavity size. There is low normal right ventricular systolic function. There is a pacemaker wire seen in the right ventricle. Atria The left atrium is severely dilated. The right atrium is normal in size. Aortic Valve There is moderate calcification of the aortic valve. There is mild to moderate aortic valve stenosis. There is mild to moderate aortic valve regurgitation. Dimensionless index 0.41. Mitral Valve There is mild mitral annular calcification. There is mild to moderate mitral valve regurgitation. There is no mitral valve stenosis. Pulmonic Valve The pulmonic valve is likely normal. There is trace pulmonic valve regurgitation. Great Vessels There is mild dilatation of the ascending aorta measuring 4.20 cm. Venous The inferior vena cava is mildly dilated and collapses greater than 50% with inspiration. Prior Study Comparison No significant change compared to prior study dated: 04/03/2023. Measurements 2D Linear Measurements IVSd: 1.41 0.6-0.9/0.6-1.0 cm LVIDd: 6.22 3.9-5.3/4.2-5.9 cm LVIDd Index: 3.24 2.4-3.2/2.2-3.1 cm/m2 LVIDs: 4.91 2.0-3.6 cm LVPWd: 1.42 0.7-1.1 cm Ao Root: 3.50 2.1-3.5 cm LA Diam: 4.60 2.7-3.8/3.0-4.0 cm LAIDs Index: 2.40 1.5-2.3 cm/m2 LV Mass: 520.60 67-162/88-224 g LV Mass Index: 271.15 43-95/49-115 g/m2 LVOT Diam: 2.60 3.0+(-)1.3 cm 2D Systolic Function EF 4C: 31.00 >55% EF 2C: 28.10 >55% EF BiP: 30.00 >55% Mitral Valve MV Pk E: 1.05 MV PK A: 1.23 MV Decel Time: 187.00 E/A: 0.90 E'Lateral: 6.42 E'Medial: 6.31 E/E' Med: 16.60 E/E' Lat: 16.40 PHT: 55.00 MVA PHT: 4.00 Decel Blount: 5.63 Aortic Valve AoV Pk Yony: 2.59 AoV Mn Yony: 1.55 AoV VTI: 0.58 AoV Pk Grad: 27.00 Aov Mn Grad: 12.00 KOFI Cont.VTI: 2.17 AI Pk Yony: 3.24 AI Blount: 2.19 LVOT LVOT Pk Yony: 1.05 LVOT Mn Yony: 0.67 LVOT VTI: 0.24 LVOT Pk Grad: 4.00 LVOT Mn Grad: 2.00 LVOT Diam: 2.60 LVOT Area: 5.31 Diastolic Function MV Pk E: 1.05 MV Pk A: 1.23 E/A: 0.90 E'Medial: 6.31 E/E' Med: 16.60 E' Laterial: 6.42 E/E' Lat: 16.40 Right Ventricle TAPSE (mm): 22.00 TVS' Yony: 10.00 Tricuspid Valve TR Pk Yony: 2.87 TR Pk Grad: 33.00 RA Press: 3.00 RVSP: 36.00 Great Vessels Aorta Ao Root-2D: 3.50 2.0-3.7 cm Ao Asc: 4.20 2.1-3.4 cm Pulmonary Valve PV Pk Yony: 0.98 Peak PV Grad: 4.00 Updated in Other Vendor System with Status of Final Pedro Alexander MD electronically signed on 02/03/2024 3:48:33 PM with status of Final
--- NOTE | 2024-02-03 08:34 | PHA.MEDREC ---
Pharmacy Consult ? Medication Reconciliation Pharmacy has completed the medication reconciliation. Spoke to Patient to confirm med list. Patient had a list with him. Patient states he completed 2 days of Prednisone 40 mg dose, he is now on the first day of 30 mg taper.
--- NOTE | 2024-02-03 08:45 | MHC.CM.PN ---
PT REPORTS HE LIVES ALONE BUT HAS A DOWNSTAIRS NEIGHBOR WHO PROVIDES ASSISTANCE PRN PT ALSO REPORTS HIS DAUGHTER, JULIANA, LIVES NEARBY AND CHECKS ON HIM REGULARLY HE DENIES USE OF DME AND HAS NO FORMAL SERVICES HCP ON FILE PCP: RONA BRYAN IMM DELIVERED DCP: HOME, RESUME FAMILY / FRIEND SUPPORT FAMILY TO TRANSPORT
[2024-02-03] MEDS: 0.9 % Sodium Chloride Flush 3 ML SYRINGE IVFLUSH ×2 (08:51→20:28)
[2024-02-03] MEDS: Furosemide 100 MG/10 ML VIAL 60 MG IVPUSH (08:52)
[2024-02-03] MEDS: methylPREDNISolone Sod Succ 40 MG/ML VIAL IVPUSH ×2 (08:52→20:27)
[2024-02-03 08:53] LABS: Procalcitonin 0.02 ng/mL
--- NOTE | 2024-02-03 10:39 | PM.CNCAR ---
History of Present Illness History of Present Illness Date of Service: 02/03/24 Chief complaint: Dyspnea Narrative: This is a cardiology consultation regarding congestive heart failure. Patient was seen by Dr. Mast 2 days ago in the clinic. At that time, he was having wheezing and was felt that it was probably respiratory in nature. However, it seems that breathing got worse and then he came to the ER. He was apparently hypoxic and placed on supplemental oxygen, got steroids and also got nebulizers and noninvasive ventilation. Currently, he states he is feeling better. We have been asked to see him with regard to cardiac components for shortness of breath. Review of Systems Review of Systems: Yes all other systems are reviewed and are negative Constitutional: Constitutional: Reports as per HPI and Reports no additional constitutional complaints Eyes: Eyes: Reports as per HPI and Denies no additional eye complaints ENT: Denies system reviewed and no additional complaints, except as documented and Reports as per HPI Cardiovascular: Cardiovascular: Reports as per HPI, Reports no additional cardiovascular complaints, Denies acrocyanosis, Denies cool extremities, Denies chest pain, Denies leg edema, Denies lightheadedness, Denies palpitations and Reports dyspnea Respiratory: Respiratory: Reports as per HPI, Denies no additional respiratory complaints and Reports dyspnea Gastrointestinal: Gastrointestinal: Reports as per HPI and Denies no additional gastrointestinal complaints Genitourinary: Genitourinary: Reports no additional male genitourinary complaints and Reports as per HPI Musculoskeletal: Musculoskeletal: Reports no additional musculoskeletal complaints and Reports as per HPI Integumentary/Breasts: Skin/Breast: Reports system reviewed and no additional complaints, except as docu Neurologic: Reports system reviewed and no additional complaints, except as documented and Reports as per HPI Psychiatric: Psychiatric: Reports no additional psychiatric complaints and Reports as per HPI Endocrine: Endocrine: Reports no additional endocrine complaints, Reports as per HPI and Denies palpitations Hematologic/Lymphatic: Hematologic/Lymphatic: Reports no additional hematologic/lymphatic complaints and Reports as per HPI Allergic/Immunologic: Allergic/Immunologic: Reports no additional allergic/immunologic complaints and Reports as per HPI [facility] Past Medical History Medical History Heart failure with reduced ejection fraction CAD (coronary artery disease) Ischemic cardiomyopathy Non-rheumatic aortic regurgitation Paroxysmal atrial flutter Atherosclerotic cardiovascular disease BPH (benign prostatic hyperplasia) Hypothyroidism Congestive heart failure Aortic stenosis Myocardial infarct CHF (congestive heart failure) HTN (hypertension) High blood cholesterol Pacemaker Family History Family History Father No problems noted. Mother Diabetes Surgical History Surgical History S/P cardiac cath (~08/2020) H/O heart artery stent Social History Social History Household Members: None Housing: Apartment Do you presently have visiting nurse or other home services: No Alcohol intake: never Patient Tobacco Use Status: Never used Tobacco Advance Directives: No Advance Directives Information Provided: No service: No Current occupational status: retired [employer] Allergies Allergy/AdvReac Type Severity Reaction Status Date / Time No Known Allergies Allergy Unknown UNKNOWN Verified 02/02/24 22:58 [NO KNOWN ALLERGIES] Active Medications: Current Medications Acetaminophen (Acetaminophen 325 Mg Tablet) 650 mg PO Q6H PRN PRN Reason: Pain, Mild (Pain Scale 1-3), fever or headache Albuterol/Ipratropium (Albuterol/Iprat 2.5/0.5mg 3 Ml Ampul.Neb) 3 ml INHALE RQ4H WHILE AWAKE ABELARDO Last Admin: 02/03/24 07:23 Dose: 3 ml Albuterol/Ipratropium (Albuterol/Iprat 2.5/0.5mg 3 Ml Ampul.Neb) 3 ml INHALE Q4H PRN PRN Reason: Wheezing Calcium Carbonate (Calcium Carbonate 750 Mg Tab.Chew) 750 mg PO Q4H PRN PRN Reason: Heartburn Furosemide (Furosemide 100 Mg/10 Ml Vial) 60 mg IVPUSH DAILY ABELARDO; Protocol Last Admin: 02/03/24 08:52 Dose: 60 mg Azithromycin 500 mg/ Sodium (Chloride) 250 mls @ 125 mls/hr IV Q24H ABELARDO Magnesium Hydroxide (Milk Of Magnesia 30 Ml Oral.Susp) 30 ml PO DAILY PRN PRN Reason: Constipation Melatonin (Melatonin 3 Mg Tablet) 6 mg PO BEDTIME PRN PRN Reason: Insomnia Methylprednisolone Sodium Succinate (Methylprednisolone Sod Succ 40 Mg/Ml Vial) 40 mg IVPUSH Q12H ABELARDO Last Admin: 02/03/24 08:52 Dose: 40 mg Ondansetron HCl (Ondansetron Hcl 4 Mg/2 Ml Vial) 4 mg IVPUSH Q8H PRN PRN Reason: Nausea and Vomiting Sodium Chloride (0.9 % Sodium Chloride Flush 3 Ml Syringe) 3 ml [facility] Last Admin: 02/03/24 08:51 Dose: 3 ml Home Medications ?Medication ?Instructions ?Recorded ?Confirmed ?Last Taken ?Type tamsulosin 0.4 mg capsule 1 cap PO BID 06/19/20 02/03/24 02/03/24 History carvedilol 6.25 mg tablet 6.25 mg PO BIDWM 08/09/20 02/03/24 02/03/24 History levothyroxine 100 mcg tablet 100 mcg PO DAILY@0600 02/12/21 02/03/24 02/03/24 History valsartan 40 mg tablet 20 mg PO BID 02/03/24 02/03/24 02/03/24 History Physical Exam Vital Signs: Vital Signs: Last Vital Signs Temp 97.9 F 02/03/24 10:00 Pulse 77 02/03/24 10:28 Resp 17 02/03/24 10:28 BP 124/48 L 02/03/24 10:28 Pulse Ox 97 02/03/24 10:28 O2 Del Method Nasal Cannula 02/03/24 10:28 O2 Flow Rate 1.5 02/03/24 10:28 Oxygen Flow Rate 6 02/02/24 22:57 BMI result Body Mass Index 31.2 Const: General: comfortable and no acute distress Orientation/consciousness: patient oriented x3 HEENT: Other: Unremarkable Head: Yes normal to inspection Neck: Neck: Yes normal visual inspection Chest: Chest palpation & inspection: normal inspection of the chest Resp: Auscultation: clear to auscultation bilaterally, rhonchi, wheezes and diminished lung sounds Cardio: Palpation: normal PMI Heart sounds: S1 normal heart sound present, S2 normal heart sound present, no gallops, no murmurs and no rubs GI: Palpation (GI): Soft to palpation Back/Spine/Pelvis: Other: unremarkable Skin: General skin exam: no rashes or lesions noted Neuro: General: patient oriented x3 Extrem: General: Yes normal to inspection Psych: Mental Status: mental status grossly normal Objective Labs and Meds 02/03/24 04:31 02/03/24 04:31 Lab results: Laboratory Results - last 24 hr 02/02/24 02/02/24 02/02/24 23:07 23:11 23:13 WBC 12.7 H RBC 4.16 L Hgb 13.0 L Hct 38.8 L MCV 93.3 MCH 31.3 MCHC 33.5 RDW 14.6 Plt Count 218 D MPV 11.3 Immature Gran % (Auto) 0.3 Neut % (Auto) 74.2 H Lymph % (Auto) 17.1 L [place] % (Auto) 8.1 Eos % (Auto) 0.1 Baso % (Auto) 0.2 Lymph # (Auto) 2.2 [place] # (Auto) 1.0 Eos # (Auto) 0.0 Baso # (Auto) 0.0 Abs Immat Gran (auto) 0.04 H Absolute Neuts (auto) 9.4 H Absolute Nucleated RBC 0.000 Nucleated RBC % (auto) 0.0 PT 20.0 H INR 1.6 H VBG pH 7.30 L VBG pCO2 37 VBG pO2 73 VBG HCO3 18 L VBG O2 Saturation 90.0 VBG Base Excess -7.1 Sodium 131 L Potassium 5.4 H D Chloride 99 Carbon Dioxide 17 L Anion Gap 20 BUN 37 H Creatinine 1.71 H Estim Creat Clear Calc 29.9 Estimated GFR 38 POC Glucose 179 H Random Glucose 202 H Lactic Acid 4.1 H* Lactic Acid F/U @ 2Hr Calcium 9.1 D Magnesium 2.9 H Total Bilirubin 0.8 Direct Bilirubin 0.2 AST 35 ALT 21 Alkaline Phosphatase 81 Troponin I High Sens 25.5 D B-Natriuretic Peptide 3339 H Total Protein 7.5 Albumin 3.7 Procalcitonin COVID-19 ([facility]) COVID-19 Clin Com Influenza Type A (COMPA) Influenza Type B (COMPA) Influenza A & B Note 02/03/24 02/03/24 02/03/24 00:00 01:30 04:31 WBC 11.7 H RBC 3.88 L Hgb 12.0 L Hct 36.1 L MCV 93.0 MCH 30.9 MCHC 33.2 RDW 14.6 Plt Count 185 MPV 11.4 Immature Gran % (Auto) Neut % (Auto) Lymph % (Auto) [place] % (Auto) Eos % (Auto) Baso % (Auto) Lymph # (Auto) [place] # (Auto) Eos # (Auto) Baso # (Auto) Abs Immat Gran (auto) Absolute Neuts (auto) Absolute Nucleated RBC 0.000 Nucleated RBC % (auto) 0.0 PT INR VBG pH VBG pCO2 VBG pO2 VBG HCO3 VBG O2 Saturation VBG Base Excess Sodium 131 L Potassium 4.7 Chloride 100 Carbon Dioxide 21 L Anion Gap 15 BUN 38 H Creatinine 1.57 H Estim Creat Clear Calc 32.6 Estimated GFR 42 POC Glucose Random Glucose 173 H Lactic Acid Lactic Acid F/U @ 2Hr 1.8 Calcium 9.0 Magnesium Total Bilirubin Direct Bilirubin AST ALT Alkaline Phosphatase Troponin I High Sens B-Natriuretic Peptide Total Protein Albumin Procalcitonin 0.02 COVID-19 ([facility]AHI) Negative COVID-19 Clin Com See Note Influenza Type A (COMPA) Negative Influenza Type B (COMPA) Negative Influenza A & B Note See Note ECG Interpretation: EKG with ventricular paced rhythm at 65/Min. Uncertain atrial rhythm. Imaging Radiologist's impression: Impressions Chest X-Ray 02/02/24 23:15 IMPRESSION: *Findings suspicious for acute moderate interstitial pulmonary edema overlying chronic interstitial disease of the lungs and centrilobular emphysema. *Trace right pleural effusion. *Dense aortic calcific atherosclerosis. Chest CT 02/03/24 00:55 IMPRESSION: *Findings suspicious for chronic interstitial disease and mild pulmonary vascular congestion. No focal pulmonary consolidation to suggest consolidative pneumonia. Interstitial lung disease is present in a pattern suspicious for chronic usual interstitial pneumonia (UIP). *Marked diffuse coronary artery calcific atherosclerosis. Marked aortic calcific atherosclerosis. Assessment and Plan (1) Acute on chronic systolic (congestive) heart failure: Status: Acute (2) Acute respiratory failure: Status: Acute Plan Labs reviewed. Cardiac BNP is more than 3300. Previously, lower. In November, it was 800. High sensitivity troponin level within range. Echocardiogram from 2022 with LVEF of 30-35%, severely dilated left atrium and [id number] aortic stenosis with moderate aortic regurgitation. Chest radiology studies including x-ray and CT scan reviewed. Overall, suspect that he has chronic interstitial lung disease and probably superimposed acute heart failure. Agree with IV diuretics at this time. He is also on some nebs, steroids, antibiotics. Repeat echocardiogram. Will follow-up. Procedures Date of Service Date of Service: 02/03/24
--- NOTE | 2024-02-03 15:03 | PM.EVENT ---
Event Note Date of Service: 02/03/24 Event Note: Day hospitalist update S: dyspnea improved; weaned off BiPAP and now on NC no leg swelling wheezing + coughing O: T 97.9, P 72, R 20, BP 124/48, SaO2 97 on 1.5L NC Gen: in no acute distress HEENT: sclera anicteric, moist mucus membranes Neck: supple Lungs: bilateral expiratory wheezing Heart: regular rate and rhythm, no murmurs Abd: soft, non-tender, non-distended Ext: no edema Skin: warm/well-perfused Neuro: alert and oriented x3, no focal findings Psych: appropriate affect A/P: d1 88yo M with HFrEF, pAF on apixaban s/p PPM, CAD s/p LAD PCI, mod , CKD3, HTN, HLD, hypothyroidism presenting with acute dyspnea, requiring BiPAP in ED then weaned off COPD exacerbation - IV methylprednisolone + azithromycin 02/01-, standing/prn nebs, continue controller inhaler Breo acute/chronic HFrEF - continue IV diuresis, Cardiology consult, monitor I/O + wts + BMP + Mg + BNP; continue valsartan + carvedilol; update TTE acute hypoxic respiratory failure - O2 via NC, wean as tolerated MALA/CKD3 - likely cardiorenal, monitor BMP with diuresis pAF - continue apixaban, carvedilol CAD - continue atorvastatin hypothyroidism - continue LT4 BPH - continue tamsulosin VTE ppx - apixaban dispo - TBD In my clinical judgment, the patient requires continued hospitalization for the following reasons: IV diuresis + hypoxia Time Spent With Patient Time: Total time managing care of this patient today ____ minutes.
[2024-02-03] MEDS: carvediloL 6.25 MG TABLET PO (17:25)
[2024-02-03] MEDS: Valsartan 40 MG TABLET 20 MG PO (20:27)
[2024-02-03] MEDS: Apixaban 5 MG TABLET PO (20:27)
[2024-02-03] MEDS: Tamsulosin HCL 0.4 MG CAPSULE PO (20:27)
[2024-02-03] MEDS: Atorvastatin Calcium 80 MG TABLET PO (20:28)
[2024-02-03] MEDS: Azithromycin 500 MG in 0.9 % Sodium Chloride 250 ML 125 MG IV (23:05)
[2024-02-04] VITALS (18 sets, daily range): BP systolic 100–148; BP diastolic 40–65; PULSE 59–80; RESP 16–18; TEMP 36.1–36.7; O2SAT 92–99
[2024-02-04] MEDS: Levothyroxine Sodium 100 MCG TABLET PO (05:56)
[2024-02-04] MEDS: Albuterol/Iprat 2.5/0.5MG 3 ML AMPUL.NEB INHALE ×4 (07:49→18:47)
[2024-02-04] MEDS: Fluticasone/Vilanterol 100/25 BLST.W.DEV 1 PUFF INHALE (07:50)
[2024-02-04] MEDS: Furosemide 100 MG/10 ML VIAL 60 MG IVPUSH (09:14)
[2024-02-04] MEDS: methylPREDNISolone Sod Succ 40 MG/ML VIAL IVPUSH ×2 (09:15→19:59)
[2024-02-04] MEDS: Apixaban 5 MG TABLET PO (09:16)
[2024-02-04] MEDS: Tamsulosin HCL 0.4 MG CAPSULE PO ×2 (09:16→20:00)
[2024-02-04] MEDS: carvediloL 6.25 MG TABLET PO ×2 (09:16→16:32)
[2024-02-04] MEDS: Valsartan 40 MG TABLET 20 MG PO ×2 (09:16→19:58)
[2024-02-04] MEDS: 0.9 % Sodium Chloride Flush 3 ML SYRINGE IVFLUSH ×3 (09:18→20:01)
[2024-02-04 09:29] LABS: Hematocrit 34.2 % (42.0-52.0); Hemoglobin 11.9 g/dl (14.0-18.0); Mean Corpuscular HGB Conc 34.8 g/dl (31.0-36.0); Mean Corpuscular Hemoglobin 32.1 pg (27.0-33.0); Mean Corpuscular Volume 92.2 fL (80.0-98.0); Mean Platelet Volume 11.4 fL (9.4-12.4); Platelet Count 188 X10*3/uL (160-400); Red Blood Count 3.71 X10*6/uL (4.60-5.80); Red Cell Distribution Width 14.9 % (11.0-16.0); White Blood Count 12.9 X10*3/uL (4.8-10.8)
[2024-02-04 09:43] LABS: Anion Gap 14 (12-20); Blood Urea Nitrogen 51 mg/dL (9-16); Calcium 8.6 mg/dL (8.4-10.2); Carbon Dioxide 23 mmol/L (22-29); Chloride 105 mmol/L (96-108); Creatinine Clr Calc Pharmacy 36.8; Estimated Glomerular Filt Rate 48; Glucose Random 150 mg/dL (60-115); Magnesium 2.7 mg/dL (1.6-2.6); Potassium 4.4 mmol/L (3.3-5.1); Sodium 138 mmol/L (135-145)
--- NOTE | 2024-02-04 10:15 | HO.PM.IMPN ---
Subjective Subjective Date of Service: 02/04/24 Interval History: dyspnea/wheezing improved no leg swelling no chest pain on 2L O2 via NC Physical Exam Vital Signs: Vital Signs: Last Vital Signs Temp 98.1 F 02/04/24 07:45 Pulse 78 02/04/24 09:16 Resp 18 02/04/24 07:52 BP 148/65 H 02/04/24 09:16 Pulse Ox 99 02/04/24 07:45 O2 Del Method Nasal Cannula 02/04/24 07:45 O2 Flow Rate 2 02/04/24 07:45 Oxygen Flow Rate 6 02/02/24 22:57 BMI result Body Mass Index 31.2 Gen: in no acute distress HEENT: sclera anicteric, moist mucus membranes Neck: supple, JVD present Lungs: fine inspiratory crackles Heart: regular rate and rhythm, no murmurs Abd: soft, non-tender, non-distended Ext: no edema Skin: warm/well-perfused Neuro: alert and oriented x3, no focal findings Psych: appropriate affect Objective Data Active Medications Acetaminophen (Acetaminophen 325 Mg Tablet) 650 mg PO Q6H PRN PRN Reason: Pain, Mild (Pain Scale 1-3), fever or headache Albuterol/Ipratropium (Albuterol/Iprat 2.5/0.5mg 3 Ml Ampul.Neb) 3 ml INHALE RQ4H WHILE AWAKE [facility] Last Admin: 02/04/24 07:49 Dose: 3 ml Documented By: ROMERO Albuterol/Ipratropium (Albuterol/Iprat 2.5/0.5mg 3 Ml Ampul.Neb) 3 ml INHALE Q4H PRN PRN Reason: Wheezing Apixaban (Apixaban 2.5 Mg Tablet) 2.5 mg PO BID [facility] Atorvastatin Calcium (Atorvastatin Calcium 80 Mg Tablet) 80 mg PO BEDTIME [facility] Last Admin: 02/03/24 20:28 Dose: 80 mg Documented By: DARIUSZ Calcium Carbonate (Calcium Carbonate 750 Mg Tab.Chew) 750 mg PO Q4H PRN PRN Reason: Heartburn Carvedilol (Carvedilol 6.25 Mg Tablet) 6.25 mg PO BIDWM [facility]; Protocol Last Admin: 02/04/24 09:16 Dose: 6.25 mg Documented By: JESSICA Fluticasone/Vilanterol (Fluticasone/Vilanterol 100/25 Blst.W.Dev) 1 puff INHALE RDAILY [facility] Last Admin: 02/04/24 07:50 Dose: 1 puff Documented By: ROMERO Furosemide (Furosemide 100 Mg/10 Ml Vial) 60 mg IVPUSH DAILY [facility]; Protocol Last Admin: 02/04/24 09:14 Dose: 60 mg Documented By: JESSICA Azithromycin 500 mg/ Sodium (Chloride) 250 mls @ 125 mls/hr IV Q24H [facility] Last Infusion: 02/04/24 01:40 Dose: Infused Documented By: ANDCEFERINO Levothyroxine Sodium (Levothyroxine Sodium 100 Mcg Tablet) 100 mcg PO DAILY@0600 [facility] Last Admin: 02/04/24 05:56 Dose: 100 mcg Documented By: DARIUSZ Magnesium Hydroxide (Milk Of Magnesia 30 Ml Oral.Susp) 30 ml PO DAILY PRN PRN Reason: Constipation Melatonin (Melatonin 3 Mg Tablet) 6 mg PO BEDTIME PRN PRN Reason: Insomnia Methylprednisolone Sodium Succinate (Methylprednisolone Sod Succ 40 Mg/Ml Vial) 40 mg IVPUSH Q12H [facility] Last Admin: 02/04/24 09:15 Dose: 40 mg Documented By: JESSICA Ondansetron HCl (Ondansetron Hcl 4 Mg/2 Ml Vial) 4 mg IVPUSH Q8H PRN PRN Reason: Nausea and Vomiting Sodium Chloride (0.9 % Sodium Chloride Flush 3 Ml Syringe) 3 ml IVFLUSH QSHIFT [facility] Last Admin: 02/04/24 09:18 Dose: 3 ml Documented By: JESSICA Tamsulosin HCl (Tamsulosin Hcl 0.4 Mg Capsule) 0.4 mg PO BID [facility] Last Admin: 02/04/24 09:16 Dose: 0.4 mg Documented By: JESSICA Valsartan (Valsartan 40 Mg Tablet) 20 mg PO BID [facility]; Protocol Last Admin: 02/04/24 09:16 Dose: 20 mg Documented By: JESSICA Labs 02/04/24 08:48 02/04/24 08:48 Labs: Laboratory Results - last 24 hr 02/04/24 08:48 MCV 92.2 MCH 32.1 MCHC 34.8 RDW 14.9 Plt Count 188 MPV 11.4 Absolute Nucleated RBC 0.000 Nucleated RBC % (auto) 0.0 Anion Gap 14 Estim Creat Clear Calc 36.8 Estimated GFR 48 Random Glucose 150 H Calcium 8.6 Magnesium 2.7 H Microbiology Microbiology Results: Microbiology 02/02/24 23:20 Blood Culture - Preliminary Blood - Venous No growth after 24 hours. 02/02/24 23:10 Blood Culture - Preliminary Blood - Venous No growth after 24 hours. Assessment and Plan (1) Acute on chronic systolic (congestive) heart failure: Status: Acute (2) COPD exacerbation: Status: Acute Plan d2 88yo M with HFrEF, pAF on apixaban s/p PPM, CAD s/p LAD PCI, mod , CKD3, HTN, HLD, hypothyroidism presenting with acute dyspnea, requiring BiPAP in ED then weaned off COPD exacerbation - IV methylprednisolone + azithromycin 02/01-, standing/prn nebs, continue controller inhaler [Breo] acute/chronic HFrEF - continue IV diuresis, Cardiology following monitor I/O + wts + BMP + Mg + BNP; continue valsartan + carvedilol - TTE 02/03/24: - The left ventricular systolic function is severely decreased. The visually estimated ejection fraction is between 25-30%. - The left atrium is severely dilated. - There is moderate calcification of the aortic valve. There is mild to moderate aortic valve stenosis. There is mild to moderate aortic valve regurgitation. acute hypoxic respiratory failure - O2 via NC, wean as tolerated, has not required any more BiPAP MALA/CKD3 - likely cardiorenal, as he is improving with diuresis pAF - continue apixaban, carvedilol CAD - continue atorvastatin hypothyroidism - continue LT4 BPH - continue tamsulosin VTE ppx - apixaban dispo - PT evaluation In my clinical judgment, the patient requires continued hospitalization for the following reasons: IV diuresis + hypoxia Total time managing care of this patient today: 45 minutes. Quality Stroke Does the patient have a stroke diagnosis?: No VTE Prior VTE?: No VTE Risk Level:: Medical - moderate - high VTE Device Contraindication: Treatment Not Indicated VTE Drug Contraindication: N/A - Med Ordered
[2024-02-04 10:18] LABS: B Type Natriuretic Peptide 2545 pg/mL (<100)
--- NOTE | 2024-02-04 10:53 | PM.PNCARD ---
Subjective Subjective Date of Service: 02/04/24 Interval history: He states he is feeling much better. Shortness of breath is significantly improved. Review of Systems Review of Systems Yes all other systems are reviewed and are negative Constitutional: Reports as per HPI and Reports no additional constitutional complaints Eyes: Reports as per HPI and Denies no additional eye complaints Denies system reviewed and no additional complaints, except as documented and Reports as per HPI Cardiovascular: Reports as per HPI, Reports no additional cardiovascular complaints, Denies acrocyanosis, Denies cool extremities, Denies chest pain, Denies leg edema, Denies lightheadedness, Denies palpitations and Reports dyspnea Respiratory: Reports as per HPI, Denies no additional respiratory complaints and Reports dyspnea Gastrointestinal: Reports as per HPI and Denies no additional gastrointestinal complaints Genitourinary: Reports no additional male genitourinary complaints and Reports as per HPI Musculoskeletal: Reports no additional musculoskeletal complaints and Reports as per HPI Skin/Breast: Reports system reviewed and no additional complaints, except as docu Reports system reviewed and no additional complaints, except as documented and Reports as per HPI Psychiatric: Reports no additional psychiatric complaints and Reports as per HPI Endocrine: Reports no additional endocrine complaints, Reports as per HPI and Denies palpitations Hematologic/Lymphatic: Reports no additional hematologic/lymphatic complaints and Reports as per HPI Allergic/Immunologic: Reports no additional allergic/immunologic complaints and Reports as per HPI Physical Exam Vital Signs: Last Vital Signs Temp 98.1 F 02/04/24 07:45 Pulse 78 02/04/24 09:16 Resp 18 02/04/24 07:52 BP 148/65 H 02/04/24 09:16 Pulse Ox 99 02/04/24 07:45 O2 Del Method Nasal Cannula 02/04/24 07:45 O2 Flow Rate 2 02/04/24 07:45 Oxygen Flow Rate 6 02/02/24 22:57 BMI result Body Mass Index 31.2 Const General: comfortable and no acute distress Orientation/consciousness: patient oriented x3 HEENT Other: Unremarkable Head: Yes normal to inspection Neck Neck: Yes normal visual inspection Chest Chest palpation & inspection: normal inspection of the chest Resp Auscultation: clear to auscultation bilaterally, rhonchi, wheezes and diminished lung sounds Cardio Palpation: normal PMI Heart sounds: S1 normal heart sound present, S2 normal heart sound present, no gallops, no murmurs and no rubs GI Palpation (GI): Soft to palpation Back/Spine/Pelvis Other: unremarkable Skin General skin exam: no rashes or lesions noted Neuro General: patient oriented x3 Extrem General: Yes normal to inspection Psych Mental Status: mental status grossly normal Objective Labs and Meds 02/04/24 08:48 02/04/24 08:48 Lab results: Laboratory Results - last 24 hr 02/04/24 02/04/24 08:47 08:48 WBC 12.9 H RBC 3.71 L Hgb 11.9 L Hct 34.2 L MCV 92.2 MCH 32.1 MCHC 34.8 RDW 14.9 Plt Count 188 MPV 11.4 Absolute Nucleated RBC 0.000 Nucleated RBC % (auto) 0.0 Sodium 138 Potassium 4.4 Chloride 105 Carbon Dioxide 23 Anion Gap 14 BUN 51 H Creatinine 1.39 Estim Creat Clear Calc 36.8 Estimated GFR 48 Random Glucose 150 H Calcium 8.6 Magnesium 2.7 H B-Natriuretic Peptide 2545 H Progress Note: A&P Assessment and plan (1) Acute on chronic systolic (congestive) heart failure: Status: Acute (2) Acute respiratory failure: Status: Acute Plan Labs reviewed. Elevated BNP levels but improving. Higher than his usual baseline. High sensitivity troponin level within range. Echocardiogram with LVEF of 25-30%. Goob-mi-hosyszsb aortic stenosis and upju-xl-lbovyuuu aortic regurgitation. Left atrium is severely dilated. Chest radiology studies including x-ray and CT scan reviewed. Overall, suspect that he has chronic interstitial lung disease and probably superimposed acute heart failure. He is improving well with diuretics. Probably switch him to p.o. in a day or so. Also on nebs, antibiotics, steroids. Discussed with Dr. Schwartz. Time Spent With Patient Time: Total time managing care of this patient today ____ minutes. Progress Note: Quality Stroke Does the patient have a stroke diagnosis?: No Procedures Date of Service Date of Service: 02/04/24
[2024-02-04] MEDS: Atorvastatin Calcium 80 MG TABLET PO (19:58)
[2024-02-04] MEDS: Apixaban 2.5 MG TABLET PO (19:59)
[2024-02-04] MEDS: Melatonin 3 MG TABLET 6 MG PO (20:00)
[2024-02-04] MEDS: Acetaminophen 325 MG TABLET 650 MG PO (20:00)
[2024-02-04] MEDS: Azithromycin 500 MG in 0.9 % Sodium Chloride 250 ML 125 MG IV (22:36)
[2024-02-05] VITALS (8 sets, daily range): BP systolic 137–149; BP diastolic 58–76; PULSE 61–78; RESP 16–20; TEMP 36.1–36.6; O2SAT 93–97
[2024-02-05] MEDS: Levothyroxine Sodium 100 MCG TABLET PO (05:53)
[2024-02-05] MEDS: Fluticasone/Vilanterol 100/25 BLST.W.DEV 1 PUFF INHALE (07:36)
[2024-02-05] MEDS: Albuterol/Iprat 2.5/0.5MG 3 ML AMPUL.NEB INHALE ×3 (07:36→15:25)
[2024-02-05] MEDS: 0.9 % Sodium Chloride Flush 3 ML SYRINGE IVFLUSH (08:38)
[2024-02-05] MEDS: Valsartan 40 MG TABLET 20 MG PO (08:39)
[2024-02-05] MEDS: carvediloL 6.25 MG TABLET PO (08:40)
[2024-02-05] MEDS: Apixaban 2.5 MG TABLET PO (08:41)
[2024-02-05] MEDS: Furosemide 100 MG/10 ML VIAL 60 MG IVPUSH (08:41)
[2024-02-05] MEDS: Tamsulosin HCL 0.4 MG CAPSULE PO (08:41)
[2024-02-05] MEDS: methylPREDNISolone Sod Succ 40 MG/ML VIAL IVPUSH (08:51)
[2024-02-05 08:57] LABS: Anion Gap 16 (12-20); B Type Natriuretic Peptide 1815 pg/mL (<100); Blood Urea Nitrogen 51 mg/dL (9-16); Calcium 8.5 mg/dL (8.4-10.2); Carbon Dioxide 25 mmol/L (22-29); Chloride 102 mmol/L (96-108); Creatinine Clr Calc Pharmacy 40.3; Estimated Glomerular Filt Rate 54; Glucose Random 148 mg/dL (60-115); Magnesium 2.5 mg/dL (1.6-2.6); Potassium 4.5 mmol/L (3.3-5.1); Sodium 138 mmol/L (135-145)
--- NOTE | 2024-02-05 10:14 | PM.PNCARD ---
Subjective Subjective Date of Service: 02/05/24 Interval history: Patient states he is feeling better. Shortness of breath is improved. Review of Systems Review of Systems Yes all other systems are reviewed and are negative Constitutional: Reports as per HPI and Reports no additional constitutional complaints Eyes: Reports as per HPI and Denies no additional eye complaints Denies system reviewed and no additional complaints, except as documented and Reports as per HPI Cardiovascular: Reports as per HPI, Reports no additional cardiovascular complaints, Denies acrocyanosis, Denies cool extremities, Denies chest pain, Denies leg edema, Denies lightheadedness, Denies palpitations and Denies dyspnea Respiratory: Reports as per HPI, Denies no additional respiratory complaints and Denies dyspnea Gastrointestinal: Reports as per HPI and Denies no additional gastrointestinal complaints Genitourinary: Reports no additional male genitourinary complaints and Reports as per HPI Musculoskeletal: Reports no additional musculoskeletal complaints and Reports as per HPI Skin/Breast: Reports system reviewed and no additional complaints, except as docu Reports system reviewed and no additional complaints, except as documented and Reports as per HPI Psychiatric: Reports no additional psychiatric complaints and Reports as per HPI Endocrine: Reports no additional endocrine complaints, Reports as per HPI and Denies palpitations Hematologic/Lymphatic: Reports no additional hematologic/lymphatic complaints and Reports as per HPI Allergic/Immunologic: Reports no additional allergic/immunologic complaints and Reports as per HPI Physical Exam Vital Signs: Last Vital Signs Temp 97.5 F 02/05/24 07:34 Pulse 67 02/05/24 07:38 Resp 18 02/05/24 07:38 BP 143/65 H 02/05/24 07:34 Pulse Ox 94 02/05/24 07:34 O2 Del Method Room Air 02/05/24 07:34 O2 Flow Rate 1 02/04/24 20:00 Oxygen Flow Rate 6 02/02/24 22:57 BMI result Body Mass Index 31.2 Const General: comfortable and no acute distress Orientation/consciousness: patient oriented x3 HEENT Other: Unremarkable Head: Yes normal to inspection Neck Neck: Yes normal visual inspection Chest Chest palpation & inspection: normal inspection of the chest Resp Other: Lung sounds seem improved. Some crackles noted. Cardio Palpation: normal PMI Heart sounds: S1 normal heart sound present, S2 normal heart sound present, no gallops, Murmur heart sound present systolic II/ and at the right sternal border and no rubs GI Palpation (GI): Soft to palpation Back/Spine/Pelvis Other: unremarkable Skin General skin exam: no rashes or lesions noted Neuro General: patient oriented x3 Extrem General: Yes normal to inspection Psych Mental Status: mental status grossly normal Objective Labs and Meds 02/04/24 08:48 02/05/24 08:16 Lab results: Laboratory Results - last 24 hr 02/04/24 02/05/24 08:47 08:16 Sodium 138 Potassium 4.5 Chloride 102 Carbon Dioxide 25 Anion Gap 16 BUN 51 H Creatinine 1.27 Estim Creat Clear Calc 40.3 Estimated GFR 54 Random Glucose 148 H Calcium 8.5 Magnesium 2.5 B-Natriuretic Peptide 2545 H 1815 H Progress Note: A&P Assessment and plan (1) Acute on chronic systolic (congestive) heart failure: Status: Acute (2) Acute respiratory failure: Status: Acute Plan Labs reviewed. High sensitivity troponin level within range. Elevated cardiac BNP but improving. Echocardiogram with LVEF of 25-30%. Ypso-pf-zpexaosb aortic stenosis and [id number] aortic regurgitation. Left atrium is severely dilated. Chest radiology studies including x-ray and CT scan reviewed. Overall, suspect that he has chronic interstitial lung disease and probably superimposed acute heart failure. Improved well with diuretics. May switch to oral regimen. Also on nebulizers, antibiotics, steroids. Consider adding spironolactone/Jardiance. Already on carvedilol and valsartan. Discharge planning. Discussed with Dr. Schwartz. Time Spent With Patient Time: Total time managing care of this patient today ____ minutes. Progress Note: Quality Stroke Does the patient have a stroke diagnosis?: No Procedures Date of Service Date of Service: 02/05/24
--- NOTE | 2024-02-05 12:15 | P.PNIM_ITS ---
Subjective Subjective Date of Service: 02/05/24 Interval History: breathing improved no wheezing no chest pain poor balance Review of Systems Review of Systems: Yes all other systems are reviewed and are negative Physical Exam 2 Vital Signs: Vital Signs: Last Vital Signs Temp 97.0 F 02/05/24 11:14 Pulse 61 02/05/24 11:41 Resp 18 02/05/24 11:41 BP 137/59 L 02/05/24 11:14 Pulse Ox 94 02/05/24 11:14 O2 Del Method Room Air 02/05/24 11:14 O2 Flow Rate 1 02/04/24 20:00 Oxygen Flow Rate 6 02/02/24 22:57 BMI result Body Mass Index 31.2 Gen: in no acute distress HEENT: sclera anicteric, moist mucus membranes Neck: supple Lungs: clear to auscultation bilaterally Heart: regular rate and rhythm, systolic murmur at base Abd: soft, non-tender, non-distended Ext: no edema Skin: warm/well-perfused Neuro: alert and oriented x3, no focal findings Psych: appropriate affect Objective Data Active Medications Acetaminophen (Acetaminophen 325 Mg Tablet) 650 mg PO Q6H PRN PRN Reason: Pain, Mild (Pain Scale 1-3), fever or headache Last Admin: 02/04/24 20:00 Dose: 650 mg Documented By: EMILY Albuterol/Ipratropium (Albuterol/Iprat 2.5/0.5mg 3 Ml Ampul.Neb) 3 ml INHALE RQ4H WHILE AWAKE [facility] Last Admin: 02/05/24 11:40 Dose: 3 ml Documented By: ROMERO Albuterol/Ipratropium (Albuterol/Iprat 2.5/0.5mg 3 Ml Ampul.Neb) 3 ml INHALE Q4H PRN PRN Reason: Wheezing Apixaban (Apixaban 2.5 Mg Tablet) 2.5 mg PO BID [facility] Last Admin: 02/05/24 08:41 Dose: 2.5 mg Documented By: NICOL Atorvastatin Calcium (Atorvastatin Calcium 80 Mg Tablet) 80 mg PO BEDTIME [facility] Last Admin: 02/04/24 19:58 Dose: 80 mg Documented By: EMILY Calcium Carbonate (Calcium Carbonate 750 Mg Tab.Chew) 750 mg PO Q4H PRN PRN Reason: Heartburn Carvedilol (Carvedilol 6.25 Mg Tablet) 6.25 mg PO BIDWM [facility]; Protocol Last Admin: 02/05/24 08:40 Dose: 6.25 mg Documented By: NICOL Fluticasone/Vilanterol (Fluticasone/Vilanterol 100/25 Blst.W.Dev) 1 puff INHALE RDAILY [facility] Last Admin: 02/05/24 07:36 Dose: 1 puff Documented By: ROMERO Furosemide (Furosemide 100 Mg/10 Ml Vial) 60 mg IVPUSH DAILY [facility]; Protocol Last Admin: 02/05/24 08:41 Dose: 60 mg Documented By: NICOL Azithromycin 500 mg/ Sodium (Chloride) 250 mls @ 125 mls/hr IV Q24H [facility] Last Infusion: 02/05/24 00:48 Dose: Infused Documented By: EMILY Levothyroxine Sodium (Levothyroxine Sodium 100 Mcg Tablet) 100 mcg PO DAILY@0600 [facility] Last Admin: 02/05/24 05:53 Dose: 100 mcg Documented By: EMILY Magnesium Hydroxide (Milk Of Magnesia 30 Ml Oral.Susp) 30 ml PO DAILY PRN PRN Reason: Constipation Melatonin (Melatonin 3 Mg Tablet) 6 mg PO BEDTIME PRN PRN Reason: Insomnia Last Admin: 02/04/24 20:00 Dose: 6 mg Documented By: EMILY Methylprednisolone Sodium Succinate (Methylprednisolone Sod Succ 40 Mg/Ml Vial) 40 mg IVPUSH Q12H [facility] Last Admin: 02/05/24 08:51 Dose: 40 mg Documented By: NICOL Ondansetron HCl (Ondansetron Hcl 4 Mg/2 Ml Vial) 4 mg IVPUSH Q8H PRN PRN Reason: Nausea and Vomiting Sodium Chloride (0.9 % Sodium Chloride Flush 3 Ml Syringe) 3 ml IVFLUSH QSHIFT [facility] Last Admin: 02/05/24 08:38 Dose: 3 ml Documented By: NICOL Tamsulosin HCl (Tamsulosin Hcl 0.4 Mg Capsule) 0.4 mg PO BID [facility] Last Admin: 02/05/24 08:41 Dose: 0.4 mg Documented By: NICOL Valsartan (Valsartan 40 Mg Tablet) 20 mg PO BID [facility]; Protocol Last Admin: 02/05/24 08:39 Dose: 20 mg Documented By: NICOL Labs 02/04/24 08:48 02/05/24 08:16 Labs: Laboratory Results - last 24 hr 02/05/24 08:16 Anion Gap 16 Estim Creat Clear Calc 40.3 Estimated GFR 54 Random Glucose 148 H Calcium 8.5 Magnesium 2.5 B-Natriuretic Peptide 1815 H Microbiology Microbiology Results: Microbiology 02/02/24 23:20 Blood Culture - Preliminary Blood - Venous No growth after 48 hours. 02/02/24 23:10 Blood Culture - Preliminary Blood - Venous No growth after 48 hours. Assessment and Plan (1) Acute on chronic systolic (congestive) heart failure: Status: Acute (2) COPD exacerbation: Status: Acute Plan d3 88yo M with HFrEF, pAF on apixaban s/p PPM, CAD s/p LAD PCI, mod , CKD3, HTN, HLD, hypothyroidism presenting with acute dyspnea, requiring BiPAP in ED then weaned off COPD exacerbation - IV methylprednisolone 02/01-02/04, change to PO prednisone 02/05-; continue azithromycin 02/01-02/06, standing/prn nebs, continue controller inhaler [Breo] acute/chronic HFrEF - negative 3.9L cumulatively this admission; appears euvolemic; change to PO furosemide; Cardiology following; monitor I/O + wts + BMP + Mg + BNP; continue valsartan + carvedilol; add empagliflozin and spironolactone; recheck labs in 1 week - TTE 02/03/24: - The left ventricular systolic function is severely decreased. The visually estimated ejection fraction is between 25-30%. - The left atrium is severely dilated. - There is moderate calcification of the aortic valve. There is mild to moderate aortic valve stenosis. There is mild to moderate aortic valve regurgitation. acute hypoxic respiratory failure - weaned off biPAP then weaned off O2 MALA/CKD3 - likely cardiorenal; SCr back at baseline after diuresis pAF - continue apixaban, carvedilol CAD - continue atorvastatin hypothyroidism - continue LT4 BPH - continue tamsulosin VTE ppx - apixaban dispo - PT evaluation: STR recommended In my clinical judgment, the patient requires continued hospitalization for the following reasons: placement Total time managing care of this patient today: 35 minutes. Quality Stroke Does the patient have a stroke diagnosis?: No VTE Prior VTE?: No VTE Risk Level:: Medical - moderate - high VTE Device Contraindication: Treatment Not Indicated VTE Drug Contraindication: N/A - Med Ordered
--- NOTE | 2024-02-05 12:24 | MHC.CM.PN ---
Addendum entered by Yolanda Smith RN 02/05/24 13:02: [facility] OFFERING AND CONTRACTED W/PT'S [employer] INSURANCE, CM HAS REQUESTED FACILITY GO FOR AUTH HOWEVER MAY TAKE THROUGH W/E TO COME BACK D/T HOLIDAY W/E. DTR/HCP UPDATED. Original Note: PT MEDICALLY CLEARED FOR DC, PT RECOMMENDING STR, PT AGREEABLE, CM SPOKE TO HCP/DTR JULIANA WHO REPORTS THEY HAVE NO PREFERENCE HOWEVER WOULD LIKE CLOSE FACILITIES AND AGREEABLE TO LOCAL SEARCH, REFERRAL PLACED, CM AWAITING BED OFFERS AND WILL CONT TO FOLLOW.
--- NOTE | 2024-02-05 12:28 | PM.DS ---
DS: Providers Provider Date of Service: 02/05/24 Date of admission: 02/03/24 03:31 Date of discharge: 02/05/24 Primary care physician: Tima Yao MD Consults: 02/03/24 08:05 Consult to Cardiology Routine Consulting Provider: [facility] Reason for consultation: CHF DS: Diagnosis Discharge Diagnosis (1) Acute on chronic systolic (congestive) heart failure: Status: Acute (2) COPD exacerbation: Status: Acute (3) Acute respiratory failure with hypoxia: Status: Acute (4) Acute on chronic kidney failure: Status: Acute (5) Cardiorenal syndrome: Status: Acute DS: Summary Hospital Course Hospital Course: From the history and physical by the admitting hospitalist, Brenda Payton, 02/03/24: This is a 88-year-old male with pertinent history of congestive heart failure with reduced ejection fraction, paroxysmal atrial fibrillation on Eliquis, CAD status post LAD stent, moderate aortic stenosis, chronic kidney disease stage 3, hypertension, mixed hyperlipidemia, hypothyroidism presents to the emergency department for evaluation of dyspnea. Unable to obtain history as patient is short of breath and on NIV. Patient did not tolerate being off of NIV. As per EMS, patient called 911 due to dyspnea. He was satting in the 80s upon EMS arrival and was placed on supplemental oxygen. Patient was found wheezing and was given IV Solu-Medrol by EMS. Unable to obtain review of systems. In the emergency department, BNP found to be elevated. Patient was given IV Lasix. Found to be wheezing despite multiple duoneb treatments 88yo M with HFrEF, pAF on apixaban s/p PPM, CAD s/p LAD PCI, mod , CKD3, HTN, HLD, hypothyroidism presenting with acute dyspnea, requiring BiPAP in ED then weaned off. He was admitted to the telemetry unit and treated for CHF and COPD exacerbations. Hospital course by problem: COPD exacerbation - IV methylprednisolone 02/01-02/04, change to PO prednisone 16-day taper upon discharge to start 02/05. Treated with azithromycin to continue until 02/07. Symptoms improved and patient weaned off supplemental oxygen. acute/chronic HFrEF - Diuresed with IV furosemide, negative 3.9L cumulatively this admission. Changed to furosemide 40 mg PO bid upon discharge and also added spironolactone and Jardiance. Cardiology consulted; will need follow-up in 2 weeks. Recheck BMP, magnesium, and BNP in 1 week. TTE on 02/03/24 showed: - The left ventricular systolic function is severely decreased. The visually estimated ejection fraction is between 25-30%. - The left atrium is severely dilated. - There is moderate calcification of the aortic valve. There is mild to moderate aortic valve stenosis. There is mild to moderate aortic valve regurgitation. acute hypoxic respiratory failure - Weaned off biPAP then weaned off O2 MALA/CKD3 - Likely cardiorenal; SCr back at baseline after diuresis Due to weakness and imbalance, PT recommended STR. He was discharged to [facility] for STR. Time Attestation Discharge Coordination Time (in mins): 45 Quality: Safe Use of Opioids Does Pt have an Active Cancer Diagnosis on the Problem List?: No Quality: Stroke Does the patient have a stroke diagnosis?: No Physical Exam Vital Signs: Vital Signs: Last Vital Signs Temp 97.0 F 02/05/24 11:14 Pulse 61 02/05/24 11:41 Resp 18 02/05/24 11:41 BP 137/59 L 02/05/24 11:14 Pulse Ox 94 02/05/24 11:14 O2 Del Method Room Air 02/05/24 11:14 O2 Flow Rate 1 02/04/24 20:00 Oxygen Flow Rate 6 02/02/24 22:57 BMI result Body Mass Index 31.2 Gen: in no acute distress HEENT: sclera anicteric, moist mucus membranes Neck: supple Lungs: clear to auscultation bilaterally Heart: regular rate and rhythm, systolic murmur at base Abd: soft, non-tender, non-distended Ext: no edema Skin: warm/well-perfused Neuro: alert and oriented x3, no focal findings Psych: appropriate affect DS: Data Data Completed and Pending Completed studies during hospitalization [Text1]: Laboratory Results WBC 12.9 X10*3/uL (4.8-10.8) H 02/04/24 08:48 RBC 3.71 X10*6/uL (4.60-5.80) L 02/04/24 08:48 Hgb 11.9 g/dl (14.0-18.0) L 02/04/24 08:48 Hct 34.2 % (42.0-52.0) L 02/04/24 08:48 MCV 92.2 fL (80.0-98.0) 02/04/24 08:48 MCH 32.1 pg (27.0-33.0) 02/04/24 08:48 MCHC 34.8 g/dl (31.0-36.0) 02/04/24 08:48 RDW 14.9 % (11.0-16.0) 02/04/24 08:48 Plt Count 188 X10*3/uL (160-400) 02/04/24 08:48 MPV 11.4 fL (9.4-12.4) 02/04/24 08:48 Immature Gran % (Auto) 0.3 % (0.0-0.4) 02/02/24 23:11 Neut % (Auto) 74.2 % (45-73) H 02/02/24 23:11 Lymph % (Auto) 17.1 % (20-40) L 02/02/24 23:11 [place] % (Auto) 8.1 % (2-11) 02/02/24 23:11 Eos % (Auto) 0.1 % (0-4) 02/02/24 23:11 Baso % (Auto) 0.2 % (0-2) 02/02/24 23:11 Lymph # (Auto) 2.2 X10*3/uL (1.2-4.9) 02/02/24 23:11 [place] # (Auto) 1.0 X10*3/uL (0.1-1.2) 02/02/24 23:11 Eos # (Auto) 0.0 X10*3/uL (0.0-0.4) 02/02/24 23:11 Baso # (Auto) 0.0 X10*3/uL (0.0-0.2) 02/02/24 23:11 Abs Immat Gran (auto) 0.04 X10*3/uL (0.00-0.03) H 02/02/24 23:11 Absolute Neuts (auto) 9.4 x10*3/uL (2.0-8.3) H 02/02/24 23:11 Absolute Nucleated RBC 0.000 X10*3/uL (0.0-0.012) 02/04/24 08:48 Nucleated RBC % (auto) 0.0 /100WBC (0.0-0.2) 02/04/24 08:48 PT 20.0 SEC (11.1-13.3) H 02/02/24 23:11 INR 1.6 (0.9-1.1) H 02/02/24 23:11 VBG pH 7.30 (7.32-7.43) L 02/02/24 23:13 VBG pCO2 37 mmHg 02/02/24 23:13 VBG pO2 73 mmHg 02/02/24 23:13 VBG HCO3 18 mmol/L (22-26) L 02/02/24 23:13 VBG O2 Saturation 90.0 % 02/02/24 23:13 VBG Base Excess -7.1 mmol/L 02/02/24 23:13 Sodium 138 mmol/L (135-145) 02/05/24 08:16 Potassium 4.5 mmol/L (3.3-5.1) 02/05/24 08:16 Chloride 102 mmol/L (96-108) 02/05/24 08:16 Carbon Dioxide 25 mmol/L (22-29) 02/05/24 08:16 Anion Gap 16 (12-20) 02/05/24 08:16 BUN 51 mg/dL (9-16) H 02/05/24 08:16 Creatinine 1.27 mg/dL (0.5-1.4) 02/05/24 08:16 Estim Creat Clear Calc 40.3 02/05/24 08:16 Estimated GFR 54 02/05/24 08:16 POC Glucose 179 mg/dL (60-115) H 02/02/24 23:07 Random Glucose 148 mg/dL (60-115) H 02/05/24 08:16 Lactic Acid 4.1 mmol/L (0.5-2.0) H* 02/02/24 23:11 Lactic Acid F/U @ 2Hr 1.8 mmol/L (0.5-2.0) 02/03/24 01:30 Calcium 8.5 mg/dL (8.4-10.2) 02/05/24 08:16 Magnesium 2.5 mg/dL (1.6-2.6) 02/05/24 08:16 Total Bilirubin 0.8 mg/dL (0.0-1.0) 02/02/24 23:11 Direct Bilirubin 0.2 mg/dL (0.0-0.5) 02/02/24 23:11 AST 35 U/L (5-37) 02/02/24 23:11 ALT 21 U/L (0-40) 02/02/24 23:11 Alkaline Phosphatase 81 U/L (39-117) 02/02/24 23:11 Troponin I High Sens 25.5 ng/L (<3.5-35.0) D 02/02/24 23:11 B-Natriuretic Peptide 1815 pg/mL (<100) H 02/05/24 08:16 Total Protein 7.5 g/dL (6.5-8.0) 02/02/24 23:11 Albumin 3.7 g/dL (3.5-5.0) 02/02/24 23:11 Procalcitonin 0.02 ng/mL 02/03/24 04:31 COVID-19 (SARAHI) Negative (Negative) 02/03/24 00:00 COVID-19 Clin Com See Note 02/03/24 00:00 Influenza Type A (COMPA) Negative (Negative) 02/03/24 00:00 Influenza Type B (COMPA) Negative (Negative) 02/03/24 00:00 Influenza A & B Note See Note 02/03/24 00:00 Impressions Chest X-Ray 02/02/24 23:15 IMPRESSION: *Findings suspicious for acute moderate interstitial pulmonary edema overlying chronic interstitial disease of the lungs and centrilobular emphysema. *Trace right pleural effusion. *Dense aortic calcific atherosclerosis. Chest CT 02/03/24 00:55 IMPRESSION: *Findings suspicious for chronic interstitial disease and mild pulmonary vascular congestion. No focal pulmonary consolidation to suggest consolidative pneumonia. Interstitial lung disease is present in a pattern suspicious for chronic usual interstitial pneumonia (UIP). *Marked diffuse coronary artery calcific atherosclerosis. Marked aortic calcific atherosclerosis. Discharge Plan Discharge Anticipated Discharge Date/Time: 02/05/24 16:08 Patient Disposition: Xfer SNF Discharge Diagnosis: hypoxia due to CHF + COPD Referrals: [facility] [Outside] - 1 Day (SHORT TERM REHAB) Ike Mast MD [Physician] - 2 Weeks Tima Yao MD [Primary Care Provider] - 1 Week Discharge Medications: New prednisone 10 mg tablet See Rx Instructions .ROUTE .COMPLEX Qty: 40 0RF Rx Instructions: 40 mg (4 tabs) daily x 4 days, then 30 mg (3 tabs) daily x 4 days, then 20 mg (2 tabs) daily x 4 days, then 10 mg (1 tab) daily x 4 days azithromycin 250 mg tablet 250 mg PO DAILY 3 Days Qty: 3 0RF Rx Instructions: start on day 2 of therapy furosemide 40 mg tablet 40 mg PO BID Qty: 60 0RF Rx Instructions: increased from prior dose of 40 mg daily empagliflozin 10 mg tablet 10 mg PO DAILY Qty: 30 0RF spironolactone 25 mg tablet 25 mg PO DAILY Qty: 30 0RF Continued Eliquis 5 mg tablet 5 mg PO BID Qty: 60 11RF tamsulosin 0.4 mg capsule 1 cap PO BID carvedilol 6.25 mg tablet 6.25 mg PO BIDWM levothyroxine 100 mcg tablet 100 mcg PO DAILY@0600 fluticasone furoate-vilanterol [Breo Ellipta] 100-25 mcg/dose Blister With Device 1 inh inhalation RDAILY Qty: 30 0RF albuterol sulfate 90 mcg/actuation HFA aerosol inhaler 2 puff inhalation Q4-6H PRN (Reason: shortness of breath or wheezing) Qty: 8.5 0RF Rx Instructions: use with spacer device atorvastatin 80 mg tablet 80 mg PO BEDTIME Qty: 30 0RF valsartan 40 mg tablet 20 mg PO BID Discontinued prednisone 10 mg tablet 10 mg PO .COMPLEX Qty: 30 0RF Rx Instructions: 10 mg orally Four tablets for 2 days, 3 tablets for 3 days, 2 tablets for 4 days and 1 tablet for 1 week; Patient *(completed 2 days of 40 mg currently on first day of 30 mg. END Date 02-08-24)* furosemide 40 mg tablet 40 mg PO QAM Qty: 30 5RF Discharge Orders: Discharge Order (Routine); Ordered 02/05/24 Ordered By: Milli Schwartz Diet: Low salt diet Activity on Discharge: As tolerated Stand Alone Forms: Patient Portal Discharge page Print Language: Azeri Other Ambulatory Orders: Basic Metabolic Panel (Routine) Timeframe: 1 Week Facility: [facility] - Location: Laboratory Ordered By: Milli Schwartz B Type Natriuretic Peptide (Routine) Timeframe: 1 Week Facility: [facility] - Location: Laboratory Ordered By: Milli Schwartz Magnesium (Routine) Timeframe: 1 Week Facility: [facility] - Location: Laboratory Ordered By: Milli Schwartz Care Plan Goals: heart + lung health Health Concerns: hypoxia due to CHF + COPD Plan of Treatment: to [facility] for short-term rehabilitation prednisone 10 mg tabs, taper as follows: 40 mg (4 tabs) daily x 4 days, then 30 mg (3 tabs) daily x 4 days, then 20 mg (2 tabs) daily x 4 days, then 10 mg (1 tab) daily x 4 days azithromycin 250 mg daily x 3 days furosemide: increase to 40 mg twice daily (8am + 5pm) start spironolactone 25 mg once daily start empagliflozin [Jardiance] 10 mg once daily labs in 1 week: BMP, BNP, magnesium [non-fasting] Low-sodium diet: less than 2000 mg of sodium daily. Weigh yourself daily and call your doctor if your weight goes up by more than 3 lb/day or 5 lb/week. follow up with [facility] Cardiology in 2 weeks Assessment: See Discharge Summary.
[2024-02-05] MEDS: Empagliflozin 10 MG TABLET PO (12:52)
[2024-02-05] MEDS: Spironolactone 25 MG TABLET PO (12:52)
--- NOTE | 2024-02-05 14:12 | MHC.CM.PN ---
Addendum entered by Yolanda Smith RN 02/05/24 14:57: cm attempted to contact dtr/hcp Fabiolajaja annette number on file, detailed message left. Original Note: cm received message from oc liaison reporting we can book pt for transport, courtney will transport at 4pm.
== END 2024-02-05 16:45 | disposition skilled nursing facility (03) | DRG 190 ==
LOC: HO.ED 02-03 01:58 → HO.EDOVER 02-03 03:43 → HO.IMC 02-03 13:17
PROVIDERS: Admitting Provider Student in an Organized Health Care Education/Training Program; Emergency Provider Emergency Medicine; PCP Internal Medicine; Visit Provider Family Medicine
DX: J44.1 Chronic obstructive pulmonary disease with (acute) exacerbation (principal); G93.41 Metabolic encephalopathy; I50.23 Acute on chronic systolic (congestive) heart failure; J96.01 Acute respiratory failure with hypoxia; I13.0 Hypertensive heart and chronic kidney disease with heart failure and stage 1 through stage 4 chronic kidney disease, or unspecified chronic kidney disease; N17.9 Acute kidney failure, unspecified; N40.0 Benign prostatic hyperplasia without lower urinary tract symptoms; I25.10 Atherosclerotic heart disease of native coronary artery without angina pectoris; E03.9 Hypothyroidism, unspecified; E78.2 Mixed hyperlipidemia; N18.30 Chronic kidney disease, stage 3 unspecified; I48.0 Paroxysmal atrial fibrillation; Z20.822 Contact with and (suspected) exposure to COVID-19; Z79.01 Long term (current) use of anticoagulants; Z79.51 Long term (current) use of inhaled steroids; Z79.890 Hormone replacement therapy; Z79.899 Other long term (current) drug therapy
CPT/HCPCS: 36415; 71045; 71250; 80048; 80076; 82803; 82947; 83605; 83735; 83880; 84145; 84484; 85025; 85027; 85610; 87040; 87502; 87635; 93005; 93306; 94640; 97162; 99285; C1758; J0456; J0696; J1940; J2919; Q9957

== ENCOUNTER → 2024-02-02 23:03 | Outpatient (BNV) | payer MEDICARE, SELFPAY | PROVIDERS: Admitting Provider Student in an Organized Health Care Education/Training Program; Emergency Provider Emergency Medicine; PCP Internal Medicine; Visit Provider Internal Medicine | DX: R94.31 Abnormal electrocardiogram [ECG] [EKG] (principal) | CPT/HCPCS: 93010 ==

== ENCOUNTER → 2024-02-03 03:31 | Outpatient (BNV) | payer MEDICARE, SELFPAY | PROVIDERS: Admitting Provider Student in an Organized Health Care Education/Training Program; Emergency Provider Emergency Medicine; PCP Internal Medicine; Visit Provider Student in an Organized Health Care Education/Training Program | DX: I13.0 Hypertensive heart and chronic kidney disease with heart failure and stage 1 through stage 4 chronic kidney disease, or unspecified chronic kidney disease (principal); I50.23 Acute on chronic systolic (congestive) heart failure; N18.30 Chronic kidney disease, stage 3 unspecified; J44.1 Chronic obstructive pulmonary disease with (acute) exacerbation | CPT/HCPCS: 99223; 99232; 99239; 99499 ==

== ENCOUNTER → 2024-02-03 03:31 | Outpatient (BNV) | payer MEDICARE, SELFPAY | PROVIDERS: Admitting Provider Student in an Organized Health Care Education/Training Program; Emergency Provider Emergency Medicine; PCP Internal Medicine; Visit Provider Internal Medicine | DX: I50.23 Acute on chronic systolic (congestive) heart failure (principal); J96.01 Acute respiratory failure with hypoxia; I35.2 Nonrheumatic aortic (valve) stenosis with insufficiency; I34.0 Nonrheumatic mitral (valve) insufficiency; I35.8 Other nonrheumatic aortic valve disorders | CPT/HCPCS: 93306; 99223; 99233 ==

== ENCOUNTER 2024-02-16 15:24 | Outpatient (AMB) | payer MEDICARE, SELFPAY ==
--- NOTE | 2024-02-16 15:25 | MHC.OFFVIS ---
Vital Signs 02/16/24 15:27 Height 5 ft 7 in Weight 171 lb 15.369 oz BMI 26.9 BP 134/62 Blood Pressure Location Lt brachial Position Sitting Respiration 16 Pulse 98 Pulse Source Pulse Oximeter Pulse Oximetry (%) 94 Oxygen Delivery Method Room Air Intake Visit Reasons: COPD Intake Note: Patient comes in with daughter Mabel to discuss COPD. Allergies No Known Allergies [NO KNOWN ALLERGIES] Allergy (Unknown, Verified 02/16/24 15:38) UNKNOWN Medication List - Last Reconciled 02/16/24 by Elena Barnes MD albuterol sulfate 90 mcg/actuation 2 puffs inhalation Q4-6H PRN apixaban (Eliquis) 5 mg PO BID atorvastatin 80 mg PO BEDTIME azithromycin 250 mg PO DAILY 3 days carvedilol 6.25 mg PO BIDWM empagliflozin 10 mg PO DAILY fluticasone furoate-vilanterol 100-25 mcg/dose (Breo Ellipta) 1 inh inhalation RDAILY furosemide 40 mg PO BID levothyroxine 100 mcg PO DAILY@0600 prednisone 40 mg (4 tabs) daily x 4 days, then 30 mg (3 tabs) daily x 4 days, then 20 mg (2 tabs) daily x 4 days, then 10 mg (1 tab) daily x 4 days spironolactone 25 mg PO DAILY tamsulosin 1 cap PO BID valsartan 20 mg PO BID Do you need a note to return to daycare/school/sports/work: No HPI HPI COPD: Details: THIS 88 YEARS OLD GENTLEMAN IS AN OLD TIME PATIENT OF MINE, WHEN I USED TO BE HIS PRIMARY CARE PHYSICIAN. HE HAS HISTORY OF SMOKING 2 PACKS A DAY FOR ABOUT 20 YEARS BUT QUIT ALMOST 40 YEARS AGO. RECENTLY HOSPITALIZED AT [facility] WITH THE ACUTE SHORTNESS OF BREATH/RESPIRATORY FAILURE. HE WAS TREATED MAINLY FOR AN ACUTE EXACERBATION OF CONGESTIVE HEART FAILURE. HE ALSO HAD SOME WHEEZING AND HYPOXEMIA, AND TREATMENT FOR ACUTE EXACERBATION OF COPD WAS ADDED. DURING HIS STAY IN THE HOSPITAL HE WAS WEANED OFF THE NONINVASIVE VENTILATORY SUPPORT AND OXYGEN. HE WAS DISCHARGED TO SHORT-TERM REHAB FACILITY ON 02/05/24 TODAY HE COMES FOR PULMONARY FOLLOW-UP FROM THE REHAB FACILITY. HE SAY IS THAT BREATHING IS MUCH BETTER BUT HE STILL HAS MILD INTERMITTENT COUGH. HE HAS NO SIGNIFICANT WHEEZES. IS LOCOMOTION IS SLOW BUT HE DENIES SHORTNESS OF BREATH ON WALKING WITH THE WALKER. AFTER HIS DISCHARGE FROM THE HOSPITAL HE HAS BEEN WEANED OFF HIS PREDNISONE TAPER. CURRENTLY ON BREO 100-25 .1 INHALATION DAILY. ALSO HAS ALBUTEROL HFA WHICH HE IS SUPPOSED TO USE Q 6 HOURS P.R.N. BUT HARDLY NEEDS TO USE IT [facility] Medical History (Updated 02/16/24 @ 16:09 by Elena Barnes MD) CHF (congestive heart failure) Heart failure with reduced ejection fraction CAD (coronary artery disease) Ischemic cardiomyopathy Non-rheumatic aortic regurgitation Paroxysmal atrial flutter Atherosclerotic cardiovascular disease BPH (benign prostatic hyperplasia) Hypothyroidism Congestive heart failure Aortic stenosis Myocardial infarct CHF (congestive heart failure) HTN (hypertension) High blood cholesterol Pacemaker Surgical History S/P cardiac cath (~08/2020) H/O heart artery stent Family History Father No problems noted. Mother Diabetes Social History Household Members: None Housing: Apartment Do you presently have visiting nurse or other home services: Yes Alcohol intake: never Patient Tobacco Use Status: Never used Tobacco service: No Current occupational status: retired Review of Systems Const All systems reviewed & are unremarkable except as noted in HPI and below Physical Exam Vital Signs: Last Vital Signs Pulse 98 02/16/24 15:27 Resp 16 02/16/24 15:27 BP 134/62 02/16/24 15:27 Pulse Ox 94 02/16/24 15:27 Oxygen Delivery Method Room Air 02/16/24 15:27 BMI result Body Mass Index 26.9 Const General: comfortable, no acute distress, alert and awake Orientation/consciousness: patient oriented x3 HEENT Head: Yes normal to inspection General nose exam: No nasal polyps present and No nasal discharge present Face and sinus: Yes sinuses nontender Mouth: oropharynx normal Teeth and gingiva: abnormal dentition (HAS ONLY A FEW RESIDUAL TEETH) Throat: Yes posterior oropharynx normal Eyes General: appearance normal, both eyes and all related structures Neck Neck: Yes normal visual inspection, Yes no lymphadenopathy, Yes trachea midline and Yes no JVD Thyroid: Thyroid normal Chest Chest palpation & inspection: normal inspection of the chest, normal palpation of entire chest wall and no tenderness Resp Other: PERCUSSION NOTE IS RESONANT, BREATH SOUNDS ARE DISTANT,. WITH PROLONGED EXPIRATORY PHASE NO WHEEZES ARE HEARD, NO INSPIRATORY CREPITATIONS. Cardio Palpation: normal PMI Rate: regular rate Rhythm: abnormal rhythm (ATRIAL FIBRILLATION) Heart sounds: no gallops and Murmur heart sound present (SYSTOLIC MURMUR AT AORTIC AREA) GI Palpation (GI): Soft to palpation, nontender, No hepatosplenomegaly present and no masses Auscultation: normal bowel sounds Back/Spine/Pelvis Thoracic/Lumbar Spine: thoracic and lumbar spine normal to inspection and thoraco-lumbar ROM limited Skin General skin exam: no rashes or lesions noted Neuro General: patient oriented x3, gait normal (DUE TO GENERAL WEAKNESS HE NEEDS A WALKER) and no focal motor deficits Cranial nerves: Yes CN's II-XII intact bilaterally Extrem General: Yes normal to inspection, Yes no clubbing, cyanosis or edema and Yes no calf tenderness Psych Appearance: grossly normal and well kempt Speech and movement: Normal speech and movement present Results Reviewed Results Reviewed: HOSPITAL RECORDS ARE REVIEWED FROM HIS RECENT HOSPITALIZATION Assessment & Plan Assessment & Plan (1) COPD exacerbation: Comment: THIS GENTLEMAN DOES HAVE CHRONIC OBSTRUCTIVE PULMONARY DISEASE PROBABLY DUE TO HIS THE PAST SMOKING. NOW HE WAS TREATED FOR ACUTE EXACERBATION ALONG WITH ACUTE CONGESTIVE HEART FAILURE. HE HAS COMPLETED THE PREDNISONE TAPER COURSE. AT PRESENT DOING WELL ON BREO 1 INHALATION DAILY AND ALBUTEROL JUST P.R.N. Code(s): J44.1 - Chronic obstructive pulmonary disease with (acute) exacerbation Category: Medical Plan: CONTINUE BREO 100-25 1 INHALATION DAILY USE ALBUTEROL HFA 2 PUFFS Q 4-6 HOURS ONLY P.R.N.. DO DEEP BREATHING EXERCISES. 2 TO 3 TIMES A DAY (2) CHF (congestive heart failure): Comment: HIS PRIMARY PROBLEM IS THAT OF CONGESTIVE HEART FAILURE DUE TO CARDIOMYOPATHY AND AORTIC STENOSIS. Code(s): I50.9 - Heart failure, unspecified Category: Medical Plan: CONTINUE THE PRESENT TREATMENT WITH AN HANDS DOES OF DIURETIC CONTINUE FOLLOW-UP WITH CARDIOLOGY (3) Hypoxic respiratory failure: Comment: WHEN HE WAS ADMITTED TO THE HOSPITAL WITH ACUTE CONGESTIVE HEART FAILURE AND ACUTE EXACERBATION OF COPD HE WAS HYPOXEMIC, REQUIRED O2 SUPPLEMENTATION. BUT BEFORE HE WAS DISCHARGED HE WAS WEANED OFF THE OXYGEN. Code(s): J96.91 - Respiratory failure, unspecified with hypoxia Category: Medical Plan: AT PRESENT DOES NOT NEED OXYGEN SUPPLEMENTATION, BUT IN FUTURE WHENEVER HE GETS AN ACUTE EXACERBATION HE WILL PROBABLY NEED O2, AND THAT WILL BE DECIDED LATER ON Coding Level of Care Code Est Pt Level 4 (74379) Diagnoses COPD exacerbation J44.1 CHF (congestive heart failure) I50.9 Hypoxic respiratory failure J96.91
[2024-02-16 15:27] VITALS: BP 134/62; PULSE 98; RESP 16; O2SAT 94; BMI 26.9
== END 2024-02-16 15:57 | disposition home or self-care (01) ==
PROVIDERS: PCP Internal Medicine; Visit Provider Internal Medicine
DX: J44.1 Chronic obstructive pulmonary disease with (acute) exacerbation (principal); I50.9 Heart failure, unspecified; J96.91 Respiratory failure, unspecified with hypoxia
CPT/HCPCS: 99214

== ENCOUNTER → 2024-02-16 15:24 | Outpatient (BNVA) | payer MEDICARE, SELFPAY | PROVIDERS: PCP Internal Medicine; Visit Provider Internal Medicine | DX: J44.1 Chronic obstructive pulmonary disease with (acute) exacerbation (principal); J96.91 Respiratory failure, unspecified with hypoxia; I50.9 Heart failure, unspecified | CPT/HCPCS: 99212 ==

== ENCOUNTER 2024-02-26 15:05 | Emergency (ER) | payer MEDICARE, SELFPAY ==
--- NOTE | ~2024-02-26 | XR_ITS ---
EXAMINATION: XR CHEST CLINICAL INFORMATION: Shortness of breath COMPARISON: Chest x-ray February 02, 2024 TECHNIQUE: 2 views of the chest were obtained. FINDINGS: Pacemaker leads in right atrium and right ventricle. Cardiac and mediastinal contours normal. No pulmonary vascular congestion. Lungs normally aerated. No pleural effusion. XR/XR chest 2V IMPRESSION: No acute abnormality of chest.
[2024-02-26 15:06] VITALS: BP 124/38; PULSE 59; RESP 20; TEMP 37.4; O2SAT 97; BMI 26.2
--- NOTE | 2024-02-26 15:07 | ED_ITS ---
HPI - General Adult General Chief complaint: General Medical Stated complaint: ref by pcp for low bp, lung and kidney concerns Time Seen by Provider: 02/26/24 17:46 History of Present Illness ED Provider: Brandon Wolff MD HPI narrative: 88-year-old male with history of CHF, COPD, cardiorenal syndrome, CAD, AFib on apixaban, pacemaker sent in by PCP. If purportedly in the office today PCP found BP low I do not see this measured or recorded anywhere. BP: in pcp office Related Data Home Medications ?Medication ?Instructions ?Recorded ?Confirmed tamsulosin 0.4 mg capsule 1 cap PO BID 06/19/20 02/03/24 carvedilol 6.25 mg tablet 6.25 mg PO BIDWM 08/09/20 02/03/24 levothyroxine 100 mcg tablet 100 mcg PO DAILY@0600 02/12/21 02/03/24 valsartan 40 mg tablet 20 mg PO BID 02/03/24 02/03/24 Previous Rx's ?Medication ?Instructions ?Recorded apixaban 5 mg tablet (Eliquis) 5 mg PO BID #60 tabs 09/28/23 albuterol sulfate 90 mcg/actuation 2 puff inhalation Q4-6H PRN 10/14/23 aerosol inhaler shortness of breath or wheezing #8.5 grams atorvastatin 80 mg tablet 80 mg PO BEDTIME #30 tabs 10/14/23 fluticasone furoate 100 1 inh inhalation RDAILY #30 ea 10/14/23 mcg-vilanterol 25 mcg/dose inhalation powder (Breo Ellipta) azithromycin 250 mg tablet 250 mg PO DAILY 3 days #3 tabs 02/05/24 empagliflozin 10 mg tablet 10 mg PO DAILY #30 tabs 02/05/24 furosemide 40 mg tablet 40 mg PO BID #60 tabs 02/05/24 prednisone 10 mg tablet See Rx Instructions .Route 02/05/24 .COMPLEX #40 tabs spironolactone 25 mg tablet 25 mg PO DAILY #30 tabs 02/05/24 Allergies Allergy/AdvReac Type Severity Reaction Status Date / Time No Known Allergies Allergy Unknown UNKNOWN Verified 02/26/24 15:11 [NO KNOWN ALLERGIES] PMFSH Past Medical History Medical History (Updated 02/26/24 @ 18:26 by Brandon Wolff MD) CHF (congestive heart failure) Heart failure with reduced ejection fraction CAD (coronary artery disease) Ischemic cardiomyopathy Non-rheumatic aortic regurgitation Paroxysmal atrial flutter Atherosclerotic cardiovascular disease BPH (benign prostatic hyperplasia) Hypothyroidism Congestive heart failure Aortic stenosis Myocardial infarct CHF (congestive heart failure) HTN (hypertension) High blood cholesterol Pacemaker Surgical History S/P cardiac cath (~08/2020) H/O heart artery stent Family History Family History Father No problems noted. Mother Diabetes Social History Social History Household Members: None Housing: Apartment Do you presently have visiting nurse or other home services: Yes Alcohol intake: never Patient Tobacco Use Status: Never used Tobacco Smoked in Last 30 Days: No Use of substances other than those prescribed or required for medical reasons: No Advance Directives: Yes Advance Directives Information Provided: No Advance Directives on File: No Do you have a plan to hurt others: No Plan service: No Current occupational status: retired Physical Exam ED Vital Signs: Vital Signs - 24 hr 02/26/24 15:06 02/26/24 18:17 02/26/24 19:05 Temperature 99.3 F Pulse Rate 59 64 Respiratory Rate 20 18 18 Blood Pressure 124/38 L 120/41 L Pulse Oximetry 97 97 Oxygen Delivery Method Room Air Room Air 02/26/24 19:21 Temperature 97.6 F Pulse Rate 60 Respiratory Rate 17 Blood Pressure 122/39 L Pulse Oximetry 98 Oxygen Delivery Method Room Air BMI result Body Mass Index 26.2 Const Other: EXAM: Gen: Alert, awake, well appearing, mildly dry appearing Head: Atraumatic Eyes: Anicteric, Normal conjunctiva. ENT: Mildly dry, no pallor. ? Neck: Supple. Respiratory: Breathing comfortably, No distress.Clear to auscultation bilaterally, symmetric chest expansion, No wheeze, rales, ronchi. Cardiovascular: Regular rate and rhythm. No murmurs or rub. Well perfused periphery, warm extremities. No edema. ? Abdominal: Soft, no objective distension. No palpable masses or obvious organomegaly. No focal tenderness, no guarding, no rebound tenderness or other peritoneal findings. : No flank tenderness. Neuro: Alert. Gross movement of all extremities intact. ? Vital signs: See flowsheet Course Course Course Narrative: This is a Rapid Medical Examination (RME) performed by Brielle Dee PA-C in triage. Full HPI, ROS, assessment and treatment plan per primary provider in the Main ED. 88 yo male hx COPD,CHF w/ reduced ejection fraction, ischemic cardiomyopathy, paroxysmal afib, here from PCP office for eval of increasing sob, weakness, and fatigue which began yesterday. patient admitted to [facility] ED from 02/01-02/04, just left rehab yesterday. His Lasix was recently increased from once daily to twice daily. + satting 97% on RA. well appearing. rrr. lungs clear, speaking in full sentences. no peripheral edema. Plan: labs, ekg, cxr, viral serology Medications Administered Discontinued Medications Generic Name Dose Route Start Last Admin Trade Name Freq PRN Reason Stop Dose Admin Sodium Chloride 250 mls @ 999 mls/hr 02/26/24 18:30 02/26/24 19:30 Ns IV 02/26/24 18:45 Infused .Q16M ABELARDO Infusion Medical Decision Making Medical Decision Making [facility] Narrative: [age] male with ischemic cardiomyopathy EF 25% on most recent echo, recent decompensated heart failure. Borderline low blood pressure 101 systolic over 38 diastolic in the PCP office prior to arrival. No syncope, no chest pain. Patient looks fairly euvolemic here certainly not overloaded. Oral mucosa is mildly dry. He is newly on 40 mg Lasix up from 20 and he also has spironolactone. He may be over diuresed slightly. This is an MALA on CKD. There is certainly no evidence of urologic obstruction either clinically or on ultrasound see the point of care ultrasound documentation. No electrolyte abnormality. Minimal troponin elevation not surprising in the setting of chronic systolic heart failure certainly lower than previous measurements. Chest x-ray without florid fluid overload, infiltrate, effusion or pneumothorax. Stable interstitial markings EMERGENCY ULTRASOUND INTERPRETATION-Limited Echocardiography [This study was ordered, performed, and interpreted by myself. The study reveals: Impression: NORMAL LV FUNCTION, NO RV DYSFUNCTION, NO PERICARDIAL EFFUSION] [Emergent Cardiac for Indication: Views Used: PLAX, Pericardial Effusion/Tamponade Findings: NONE RV Dilation (> LV diam in 4ch apical): NONE Global LV Fxn: Poor Performed by: MD Mariella Images were stored on EMR through [employer] image archive software. CPT:29670] EMERGENCY ULTRASOUND INTERPRETATION-Limited Retroperitoneal (Renal) [This study was ordered, performed, and interpreted by myself. The study reveals: Impression: NO EVIDENCE OF UROLOGIC OBSTRUCTION] [Indication: FLANK PAIN Right Kidney: NO HYDRONEPHROSIS Left Kidney: NO HYDRONEPHROSIS Performed by: Brandon Wolff MD Images were stored on EMR through [employer] image archive software. CPT: 64615] Admission/Observation Consideration of admission/observation: Escalation of care including admission/observation considered Consider admission given the patient's complex comorbid medical conditions MALA in the setting of CKD. However I spoke to the patient's daughter and given his clinical appearance we agreed together he could follow up as outpatient and I gave her strict return precautions to bring him back to the hospital if he decompensates. Lab Data MDM Lab Attestation statement: I reviewed the patient's lab results. 02/26/24 15:31 02/26/24 15:31 Labs: Lab Results 02/26/24 Range/Units 15:31 WBC 8.9 (4.8-10.8) X10*3/uL RBC 4.09 L (4.60-5.80) X10*6/uL Hgb 12.9 L (14.0-18.0) g/dl Hct 37.6 L (42.0-52.0) % MCV 91.9 (80.0-98.0) fL MCH 31.5 (27.0-33.0) pg MCHC 34.3 (31.0-36.0) g/dl RDW 14.5 (11.0-16.0) % Plt Count 130 L D (160-400) X10*3/uL MPV 11.4 (9.4-12.4) fL Immature Gran % (Auto) 0.4 (0.0-0.4) % Neut % (Auto) 67.7 (45-73) % Lymph % (Auto) 16.7 L (20-40) % Ogle % (Auto) 12.1 H (2-11) % Eos % (Auto) 2.5 (0-4) % Baso % (Auto) 0.6 (0-2) % Lymph # (Auto) 1.5 (1.2-4.9) X10*3/uL Ogle # (Auto) 1.1 (0.1-1.2) X10*3/uL Eos # (Auto) 0.2 (0.0-0.4) X10*3/uL Baso # (Auto) 0.1 (0.0-0.2) X10*3/uL Abs Immat Gran (auto) 0.04 H (0.00-0.03) X10*3/uL Absolute Neuts (auto) 6.1 (2.0-8.3) x10*3/uL Absolute Nucleated RBC 0.000 (0.0-0.012) X10*3/uL Nucleated RBC % (auto) 0.0 (0.0-0.2) /100WBC PT 21.9 H (11.1-13.3) SEC INR 1.8 H (0.9-1.1) Sodium 134 L (135-145) mmol/L Potassium 5.0 (3.3-5.1) mmol/L Chloride 98 (96-108) mmol/L Carbon Dioxide 24 (22-29) mmol/L Anion Gap 17 (12-20) BUN 58 H (9-16) mg/dL Creatinine 2.42 H (0.5-1.4) mg/dL Estim Creat Clear Calc 19.7 Estimated GFR 25 Random Glucose 122 H (60-115) mg/dL Calcium 9.1 D (8.4-10.2) mg/dL Magnesium 2.5 (1.6-2.6) mg/dL Total Bilirubin 1.1 H (0.0-1.0) mg/dL AST 26 (5-37) U/L ALT 29 (0-40) U/L Alkaline Phosphatase 60 (39-117) U/L Troponin I High Sens 38.2 H (<3.5-35.0) ng/L B-Natriuretic Peptide 724 H (<100) pg/mL Total Protein 6.4 L (6.5-8.0) g/dL Albumin 3.5 (3.5-5.0) g/dL Influenza Type A (PCR) NEGATIVE (Negative) Influenza Type B (PCR) NEGATIVE (Negative) RSV RNA Qual (PCR) NEGATIVE (Negative) SARS-CoV-2 RNA (RT-PCR) NEGATIVE (Negative) Independent Interpretation I performed an independent interpretation of an: EKG (Ventricular pacing, rate 59, no sgarabossa criteria) Independent Historian Clinical information obtained from an independent historian. History obtained from or confirmed by: Other (Daughter who is with him at the visit to the PCP today) External Record Review External record reviewed: Inpatient record (Most recent discharge summary) Discharge Plan Discharge Clinical Impression: Acute hypotension, Acute kidney injury Patient Disposition: Home, Self-Care Instructions: Acute Kidney Injury (DC), Hypotension (ED) Additional Instructions: _ DISCHARGE DIAGNOSES: Resolved single low blood pressure measurement in the PCP office. Acute kidney injury in the setting of chronic kidney disease, this means your kidney function had worsened slightly since the most recent measurement creatinine 2.4. This could be due to recently increased dose of water pill or diuretic medication HISTORY OF PRESENTATION: ?Low blood pressure in the office relatively asymptomatic other than mild generalized fatigue which is fairly chronic EMERGENCY DEPARTMENT COURSE,TESTS, TREATMENTS: While in the ED today you had an x-ray of your chest which did not show any significant water in your lungs or other acute problems like pneumonia Your kidney function as we described slightly worsened but this may be due to the increase in your diuretic medicines. We did an ultrasound of the kidneys which did not show any blockage or obstruction DISCHARGE MEDICATIONS: ?[We have made no changes to your regular medication regimen] however you may want to call your primary doctor on Thursday to discuss whether you should lower the furosemide or Lasix dosing that you were previously put on. FOLLOW-UP: ?Call your primary or general physician soon as possible to discuss your symptoms, your ED visit and to discuss follow up plans It is crucial that you call your primary doctor Thursday as you will need repeat kidney function testing in at least 3-5 days from your visit today. This is to be sure that your kidney function isn't worsening. INSTRUCTIONS ?& RETURN PRECAUTIONS: If any symptoms change first call your primary physician, if it is after-hours your primary doctors office should have a provider acquisition editor you can speak with. If the symptoms are severe or very concerning to you then call 911 or return to the ED. If you develop severe shortness of breath, chest pain, severe swelling of the legs, high fevers return back to the emergency department. Brandon Wolff MD Emergency Physician [facility] Prescriptions: No Action Eliquis 5 mg tablet 5 mg PO BID Qty: 60 11RF tamsulosin 0.4 mg capsule 1 cap PO BID carvedilol 6.25 mg tablet 6.25 mg PO BIDWM levothyroxine 100 mcg tablet 100 mcg PO DAILY@0600 fluticasone furoate-vilanterol [Breo Ellipta] 100-25 mcg/dose Blister With Device 1 inh inhalation RDAILY Qty: 30 0RF albuterol sulfate 90 mcg/actuation HFA aerosol inhaler 2 puff inhalation Q4-6H PRN (Reason: shortness of breath or wheezing) Qty: 8.5 0RF Rx Instructions: use with spacer device atorvastatin 80 mg tablet 80 mg PO BEDTIME Qty: 30 0RF valsartan 40 mg tablet 20 mg PO BID prednisone 10 mg tablet See Rx Instructions .ROUTE .COMPLEX Qty: 40 0RF Rx Instructions: 40 mg (4 tabs) daily x 4 days, then 30 mg (3 tabs) daily x 4 days, then 20 mg (2 tabs) daily x 4 days, then 10 mg (1 tab) daily x 4 days azithromycin 250 mg tablet 250 mg PO DAILY 3 Days Qty: 3 0RF Rx Instructions: start on day 2 of therapy furosemide 40 mg tablet 40 mg PO BID Qty: 60 0RF Rx Instructions: increased from prior dose of 40 mg daily empagliflozin 10 mg tablet 10 mg PO DAILY Qty: 30 0RF spironolactone 25 mg tablet 25 mg PO DAILY Qty: 30 0RF Print Language: Greenlandic
--- NOTE | 2024-02-26 15:11 | ECG_ITS ---
Test Reason : weakness Blood Pressure : / mmHG Vent. Rate : 059 BPM Atrial Rate : 059 BPM P-R Int : 246 ms QRS Dur : 214 ms QT Int : 506 ms P-R-T Axes : 035 -70 113 degrees QTc Int : 500 ms AV dual-paced rhythm with prolonged AV conduction Abnormal ECG When compared with ECG of 02-FEB-2024 23:12, Vent. rate has decreased BY 6 BPM Referred By: Eda Dee Electronically Signed By:JUAN SEQUEIRA
[2024-02-26 15:39] LABS: MANUAL DIFF FLAG NO
[2024-02-26 15:42] LABS: Basophils Absolute Auto 0.1 X10*3/uL (0.0-0.2); Basophils Percent Auto 0.6 % (0-2); Eosinophils Absolute Auto 0.2 X10*3/uL (0.0-0.4); Eosinophils Percent Auto 2.5 % (0-4); Hematocrit 37.6 % (42.0-52.0); Hemoglobin 12.9 g/dl (14.0-18.0); Imm Gran Abs Auto 0.04 X10*3/uL (0.00-0.03); Imm Gran Pct Auto 0.4 % (0.0-0.4); Lymphocytes Absolute Auto 1.5 X10*3/uL (1.2-4.9); Lymphocytes Percent Auto 16.7 % (20-40); Mean Corpuscular HGB Conc 34.3 g/dl (31.0-36.0); Mean Corpuscular Hemoglobin 31.5 pg (27.0-33.0); Mean Corpuscular Volume 91.9 fL (80.0-98.0); Mean Platelet Volume 11.4 fL (9.4-12.4); Monocytes Absolute Auto 1.1 X10*3/uL (0.1-1.2); Monocytes Percent Auto 12.1 % (2-11); Neutrophils Absolute Auto 6.1 x10*3/uL (2.0-8.3); Neutrophils Percent Auto 67.7 % (45-73); Red Blood Count 4.09 X10*6/uL (4.60-5.80); Red Cell Distribution Width 14.5 % (11.0-16.0); White Blood Count 8.9 X10*3/uL (4.8-10.8)
[2024-02-26 15:48] LABS: INTERNATIONAL NORM RATIO 1.8 (0.9-1.1); Prothrombin Time 21.9 SEC (11.1-13.3)
[2024-02-26 15:56] LABS: Alanine Aminotransferase 29 U/L (0-40); Albumin Level 3.5 g/dL (3.5-5.0); Alkaline Phosphatase 60 U/L (39-117); Anion Gap 17 (12-20); Aspartate Amino Transferase 26 U/L (5-37); Bilirubin Total 1.1 mg/dL (0.0-1.0); Blood Urea Nitrogen 58 mg/dL (9-16); Calcium 9.1 mg/dL (8.4-10.2); Carbon Dioxide 24 mmol/L (22-29); Chloride 98 mmol/L (96-108); Creatinine Clr Calc Pharmacy 19.7; Estimated Glomerular Filt Rate 25; Glucose Random 122 mg/dL (60-115); Magnesium 2.5 mg/dL (1.6-2.6); Sodium 134 mmol/L (135-145); Total Protein 6.4 g/dL (6.5-8.0)
[2024-02-26 15:57] LABS: Platelet Count 130 X10*3/uL (160-400)
[2024-02-26 16:03] LABS: Troponin-I High Sensitivity 38.2 ng/L (<3.5-35.0)
[2024-02-26 16:16] LABS: Influenza A PCR NEGATIVE (Negative); Influenza B PCR NEGATIVE (Negative); Resp Syncy Virus RNA Qual PCR NEGATIVE (Negative); SARS COV2 PCR INHOUSE NEGATIVE (Negative)
[2024-02-26 16:41] LABS: B Type Natriuretic Peptide 724 pg/mL (<100)
[2024-02-26 18:17] VITALS: RESP 18
[2024-02-26] MEDS: 0.9 % Sodium Chloride 250 ML 999 ML IV (18:26)
[2024-02-26 19:05] VITALS: BP 120/41; PULSE 64; RESP 18; O2SAT 97
[2024-02-26 19:21] VITALS: BP 122/39; PULSE 60; RESP 17; TEMP 36.4; O2SAT 98
[2024-02-26 20:57] VITALS: BP 122/39; PULSE 60; RESP 17; TEMP 36.4; O2SAT 98
== END 2024-02-26 20:58 | disposition home or self-care (01) ==
PROVIDERS: Physician Assistant Medical; Emergency Provider Emergency Medicine; PCP Internal Medicine
DX: I95.9 Hypotension, unspecified (principal); N17.9 Acute kidney failure, unspecified; I11.0 Hypertensive heart disease with heart failure; I50.9 Heart failure, unspecified; I48.0 Paroxysmal atrial fibrillation; E78.5 Hyperlipidemia, unspecified; Z95.0 Presence of cardiac pacemaker; Z79.01 Long term (current) use of anticoagulants; Z79.899 Other long term (current) drug therapy; Z03.818 Encounter for observation for suspected exposure to other biological agents ruled out
CPT/HCPCS: 0241U; 36415; 71046; 80053; 83735; 83880; 84484; 85025; 85610; 93005; 96360; 99284

== ENCOUNTER → 2024-02-26 15:11 | Outpatient (BNV) | payer MEDICARE, SELFPAY | PROVIDERS: Emergency Provider Emergency Medicine; PCP Internal Medicine; Visit Provider Internal Medicine | DX: R94.31 Abnormal electrocardiogram [ECG] [EKG] (principal) | CPT/HCPCS: 93010 ==

== ENCOUNTER 2024-03-02 01:46 | Emergency (ER) | payer MEDICARE, SELFPAY ==
--- NOTE | 2024-03-02 | ECG_ITS ---
Test Reason : CHEST PAIN Blood Pressure : / mmHG Vent. Rate : 060 BPM Atrial Rate : 326 BPM P-R Int : 000 ms QRS Dur : 226 ms QT Int : 524 ms P-R-T Axes : 055 -64 105 degrees QTc Int : 524 ms Ventricular-paced rhythm Background atrial fibrillation. Abnormal ECG When compared with ECG of 26-FEB-2024 15:10, Dual pacing replaced by V-pacing now, background atrial fibrillation. Referred By: Generic ED Physician Electronically Signed By:Patel Zhu
--- NOTE | ~2024-03-02 | XR_ITS ---
EXAMINATION: XR CHEST CLINICAL INFORMATION: Chest pain COMPARISON: 02/26/2024 TECHNIQUE: Frontal view of the chest was obtained. FINDINGS: Left-sided pacemaker lead tips overlie the right atrium and right ventricle. Lung volumes are symmetric. Chronic coarsened appearance of the interstitium suggesting underlying nonspecific chronic lung disease. No acute focal consolidation is seen. No evidence of pneumothorax or significant pleural effusion. Cardiac silhouette remains prominent. Calcification is present at the aortic arch. No acute osseous findings are seen. XR/XR chest 1V IMPRESSION: No acute cardiopulmonary findings. Chronic coarsened appearance of the interstitium suggesting nonspecific chronic lung disease.
[2024-03-02 01:53] VITALS: BP 120/46; BP 132/56; PULSE 60; PULSE 70; RESP 20; TEMP 36.7; O2SAT 95; O2SAT 98; BMI 27.1
[2024-03-02 02:14] LABS: MANUAL DIFF FLAG NO
[2024-03-02 02:19] LABS: Basophils Percent Auto 0.3 % (0-2); Eosinophils Absolute Auto 0.2 X10*3/uL (0.0-0.4); Hematocrit 36.2 % (42.0-52.0); Hemoglobin 12.9 g/dl (14.0-18.0); Imm Gran Abs Auto 0.05 X10*3/uL (0.00-0.03); Imm Gran Pct Auto 0.5 % (0.0-0.4); Lymphocytes Absolute Auto 1.2 X10*3/uL (1.2-4.9); Lymphocytes Percent Auto 12.5 % (20-40); Mean Corpuscular HGB Conc 35.6 g/dl (31.0-36.0); Mean Corpuscular Hemoglobin 32.4 pg (27.0-33.0); Monocytes Absolute Auto 1.2 X10*3/uL (0.1-1.2); Neutrophils Absolute Auto 7.1 x10*3/uL (2.0-8.3); Neutrophils Percent Auto 72.7 % (45-73); Platelet Count 147 X10*3/uL (160-400); Red Blood Count 3.98 X10*6/uL (4.60-5.80); Red Cell Distribution Width 14.2 % (11.0-16.0); White Blood Count 9.7 X10*3/uL (4.8-10.8)
[2024-03-02 02:29] LABS: Alanine Aminotransferase 21 U/L (0-40); Albumin Level 3.3 g/dL (3.5-5.0); Alkaline Phosphatase 68 U/L (39-117); Anion Gap 16 (12-20); Aspartate Amino Transferase 17 U/L (5-37); Bilirubin Total 0.9 mg/dL (0.0-1.0); Blood Urea Nitrogen 42 mg/dL (9-16); Calcium 8.5 mg/dL (8.4-10.2); Carbon Dioxide 20 mmol/L (22-29); Chloride 99 mmol/L (96-108); Creatinine Clr Calc Pharmacy 27.4; Estimated Glomerular Filt Rate 37; Glucose Random 145 mg/dL (60-115); Potassium 4.5 mmol/L (3.3-5.1); Sodium 130 mmol/L (135-145); Total Protein 6.2 g/dL (6.5-8.0)
[2024-03-02 02:34] LABS: B Type Natriuretic Peptide 1702 pg/mL (<100)
[2024-03-02 02:35] LABS: Troponin-I High Sensitivity 43.3 ng/L (<3.5-35.0)
--- NOTE | 2024-03-02 03:51 | ED_ITS ---
HPI - Chest Pain General Chief Complaint: Chest Pain Stated Complaint: cp and sob Time Seen by Provider: 03/02/24 02:00 History of Present Illness HPI narrative: Patient is an 88-year-old male with a history of COPD, congestive heart failure, hypoxia history of ischemic cardiomyopathy. History of paroxysmal AFib/flutter on Eliquis. Was just discharged from the hospital. He presented with having sudden onset of chest pain and shortness of breath. Patient took nitroglycerin from EMS. Symptom improved. No fever no chills. No coughing or congestion. Status post pacemaker. Related Data Home Medications ?Medication ?Instructions ?Recorded ?Confirmed tamsulosin 0.4 mg capsule 1 cap PO BID 06/19/20 02/03/24 carvedilol 6.25 mg tablet 6.25 mg PO BIDWM 08/09/20 02/03/24 levothyroxine 100 mcg tablet 100 mcg PO DAILY@0600 02/12/21 02/03/24 valsartan 40 mg tablet 20 mg PO BID 02/03/24 02/03/24 Previous Rx's ?Medication ?Instructions ?Recorded apixaban 5 mg tablet (Eliquis) 5 mg PO BID #60 tabs 09/28/23 albuterol sulfate 90 mcg/actuation 2 puff inhalation Q4-6H PRN 10/14/23 aerosol inhaler shortness of breath or wheezing #8.5 grams atorvastatin 80 mg tablet 80 mg PO BEDTIME #30 tabs 10/14/23 fluticasone furoate 100 1 inh inhalation RDAILY #30 ea 10/14/23 mcg-vilanterol 25 mcg/dose inhalation powder (Breo Ellipta) azithromycin 250 mg tablet 250 mg PO DAILY 3 days #3 tabs 02/05/24 empagliflozin 10 mg tablet 10 mg PO DAILY #30 tabs 02/05/24 furosemide 40 mg tablet 40 mg PO BID #60 tabs 02/05/24 prednisone 10 mg tablet See Rx Instructions .Route 02/05/24 .COMPLEX #40 tabs spironolactone 25 mg tablet 25 mg PO DAILY #30 tabs 02/05/24 Allergies Allergy/AdvReac Type Severity Reaction Status Date / Time No Known Allergies Allergy Unknown UNKNOWN Verified 03/02/24 02:01 [NO KNOWN ALLERGIES] Review of Systems 2 Review of Systems: Positive chest pain Yes all other systems are reviewed and are negative PMFSH Past Medical History Attestation statement: The following information was validated with the patient. Medical History CHF (congestive heart failure) Heart failure with reduced ejection fraction CAD (coronary artery disease) Ischemic cardiomyopathy Non-rheumatic aortic regurgitation Paroxysmal atrial flutter Atherosclerotic cardiovascular disease BPH (benign prostatic hyperplasia) Hypothyroidism Congestive heart failure Aortic stenosis Myocardial infarct CHF (congestive heart failure) HTN (hypertension) High blood cholesterol Pacemaker Surgical History S/P cardiac cath (~08/2020) H/O heart artery stent Family History Family History Father No problems noted. Mother Diabetes Social History Social History Household Members: None Housing: Apartment Do you presently have visiting nurse or other home services: Yes Alcohol intake: never Patient Tobacco Use Status: Never used Tobacco Advance Directives: No Advance Directives Information Provided: Yes service: No Current occupational status: retired Physical Exam 2 Vital Signs: Vital Signs: Last Vital Signs Temp 97.5 F 03/02/24 06:05 Pulse 60 03/02/24 06:05 Resp 14 03/02/24 06:05 BP 112/45 L 03/02/24 06:05 Pulse Ox 97 03/02/24 06:05 O2 Del Method Room Air 03/02/24 06:05 BMI result Body Mass Index 27.1 Appearance: Alert. Oriented X3. No acute distress. Eyes: Pupils equal, round and reactive to light. ENT: Pharynx normal. Neck: Normal inspection. Neck supple. No lymph nodes noted. No crepitus CVS: Normal heart rate and rhythm. Pulses normal. Normal S1 and S2 Respiratory: No respiratory distress. Breath sounds normal. No Wheezing. No rales Abdomen: Soft and nontender. No rigidity. No distention. good BS x4 Skin: Skin warm and dry. Normal skin color. Normal skin turgor. Extremities: No lower extremity edema. Neurovascular intact to all extremities. No Lacerations. No Rash Neuro: Oriented X 3. No motor deficit. No sensory deficit. Moving all extermities. No slurred speech Medical Decision Making Medical Decision Making MDM Narrative: History of coronary artery disease history of ischemic cardiomyopathy presented today with having chest pain that was relieved with nitroglycerin. Patient's troponin is elevated at 43 however this is baseline. BNP is 1700. This is also proximally baseline. Chest x-ray is being done. Patient's pacemaker was interrogated. Discussed with [employer]. AFib was detected by the pacemaker. Patient has been in a paced rhythm. Two sets of heart enzymes the 40s. Which is patient's baseline. Case discussed with cardiology. Dr. Zhu feel comfortable with discharge close follow-up on an outpatient basis. Patient is currently pain- free. No distress. Differential Diagnosis Differential Diagnoses: The differential diagnosis associated with the presentation includes Angina, ACS, nonspecific chest pain Admission/Observation Consideration of admission/observation: Escalation of care including admission/observation considered Consult Healthcare Provider Management of the patient was discussed with: Block Making Machine Operator (Cardiology) Lab Data [facility] Lab Attestation statement: I reviewed the patient's lab results. 03/02/24 02:08 03/02/24 02:08 Labs: Lab Results 03/02/24 03/02/24 Range/Units 02:08 04:16 WBC 9.7 (4.8-10.8) X10*3/uL RBC 3.98 L (4.60-5.80) X10*6/uL Hgb 12.9 L (14.0-18.0) g/dl Hct 36.2 L (42.0-52.0) % MCV 91.0 (80.0-98.0) fL MCH 32.4 (27.0-33.0) pg MCHC 35.6 (31.0-36.0) g/dl RDW 14.2 (11.0-16.0) % Plt Count 147 L (160-400) X10*3/uL MPV 11.0 (9.4-12.4) fL Immature Gran % (Auto) 0.5 H (0.0-0.4) % Neut % (Auto) 72.7 (45-73) % Lymph % (Auto) 12.5 L (20-40) % Kay % (Auto) 12.0 H (2-11) % Eos % (Auto) 2.0 (0-4) % Baso % (Auto) 0.3 (0-2) % Lymph # (Auto) 1.2 (1.2-4.9) X10*3/uL Kay # (Auto) 1.2 (0.1-1.2) X10*3/uL Eos # (Auto) 0.2 (0.0-0.4) X10*3/uL Baso # (Auto) 0.0 (0.0-0.2) X10*3/uL Abs Immat Gran (auto) 0.05 H (0.00-0.03) X10*3/uL Absolute Neuts (auto) 7.1 (2.0-8.3) x10*3/uL Absolute Nucleated RBC 0.000 (0.0-0.012) X10*3/uL Nucleated RBC % (auto) 0.0 (0.0-0.2) /100WBC Sodium 130 L (135-145) mmol/L Potassium 4.5 (3.3-5.1) mmol/L Chloride 99 (96-108) mmol/L Carbon Dioxide 20 L (22-29) mmol/L Anion Gap 16 (12-20) BUN 42 H (9-16) mg/dL Creatinine 1.74 H (0.5-1.4) mg/dL Estim Creat Clear Calc 27.4 Estimated GFR 37 Random Glucose 145 H (60-115) mg/dL Calcium 8.5 D (8.4-10.2) mg/dL Total Bilirubin 0.9 (0.0-1.0) mg/dL AST 17 (5-37) U/L ALT 21 (0-40) U/L Alkaline Phosphatase 68 (39-117) U/L Troponin I High Sens 43.3 H 47.4 H (<3.5-35.0) ng/L B-Natriuretic Peptide 1702 H (<100) pg/mL Total Protein 6.2 L (6.5-8.0) g/dL Albumin 3.3 L (3.5-5.0) g/dL Independent Interpretation I performed an independent interpretation of an: EKG (Paced heart rate is 75) Radiology Impression Discussion of test interpretation with radiology: I have reviewed the radiologist's reading. Independent Historian Clinical information obtained from an independent historian. History obtained from or confirmed by: EMS External Record Review External record reviewed: Office record Chronic Conditions Coronary artery disease, atrial fibrillation Discharge Plan Discharge Clinical Impression: Chest pain Patient Disposition: Home, Self-Care Instructions: Chest Pain (DC) Prescriptions: No Action Eliquis 5 mg tablet 5 mg PO BID Qty: 60 11RF tamsulosin 0.4 mg capsule 1 cap PO BID carvedilol 6.25 mg tablet 6.25 mg PO BIDWM levothyroxine 100 mcg tablet 100 mcg PO DAILY@0600 fluticasone furoate-vilanterol [Breo Ellipta] 100-25 mcg/dose Blister With Device 1 inh inhalation RDAILY Qty: 30 0RF albuterol sulfate 90 mcg/actuation HFA aerosol inhaler 2 puff inhalation Q4-6H PRN (Reason: shortness of breath or wheezing) Qty: 8.5 0RF Rx Instructions: use with spacer device atorvastatin 80 mg tablet 80 mg PO BEDTIME Qty: 30 0RF valsartan 40 mg tablet 20 mg PO BID prednisone 10 mg tablet See Rx Instructions .ROUTE .COMPLEX Qty: 40 0RF Rx Instructions: 40 mg (4 tabs) daily x 4 days, then 30 mg (3 tabs) daily x 4 days, then 20 mg (2 tabs) daily x 4 days, then 10 mg (1 tab) daily x 4 days azithromycin 250 mg tablet 250 mg PO DAILY 3 Days Qty: 3 0RF Rx Instructions: start on day 2 of therapy furosemide 40 mg tablet 40 mg PO BID Qty: 60 0RF Rx Instructions: increased from prior dose of 40 mg daily empagliflozin 10 mg tablet 10 mg PO DAILY Qty: 30 0RF spironolactone 25 mg tablet 25 mg PO DAILY Qty: 30 0RF Referrals: Ike Mast MD [Physician] - 03/04/24 Print Language: Armenian
[2024-03-02 04:03] VITALS: BP 131/48; PULSE 61; RESP 13; TEMP 36.4; O2SAT 97
[2024-03-02 04:45] LABS: Troponin-I High Sensitivity 47.4 ng/L (<3.5-35.0)
[2024-03-02 06:05] VITALS: BP 112/45; PULSE 60; RESP 14; TEMP 36.4; O2SAT 97
--- NOTE | 2024-03-02 07:05 | PC.NURSE ---
Daughter updated that patient is being discharged, stating she will come pick him up once she drops her daughter off at school
[2024-03-02 07:32] VITALS: BP 112/45; PULSE 60; RESP 18; TEMP 36.4; O2SAT 97
== END 2024-03-02 08:30 | disposition home or self-care (01) ==
PROVIDERS: Emergency Provider Emergency Medicine Emergency Medical Services
DX: R07.89 Other chest pain (principal); R06.02 Shortness of breath; Z79.899 Other long term (current) drug therapy
CPT/HCPCS: 36415; 71045; 80053; 83880; 84484; 85025; 93005; 99283; 99284

== ENCOUNTER → 2024-03-02 01:48 | Outpatient (BNV) | payer MEDICARE, SELFPAY | PROVIDERS: Emergency Provider Emergency Medicine Emergency Medical Services; Visit Provider Internal Medicine Cardiovascular Disease | DX: I48.91 Unspecified atrial fibrillation (principal) | CPT/HCPCS: 93010 ==

== ENCOUNTER 2024-03-16 15:03 | Outpatient (AMB) | payer MEDICARE, SELFPAY ==
[2024-03-16 15:07] VITALS: BP 120/38; PULSE 67; O2SAT 99; BMI 25.9
--- NOTE | 2024-03-16 15:07 | MHC.OFFVIS ---
Vital Signs 03/16/24 15:07 Height 5 ft 7 in Weight 165 lb 5.547 oz BMI 25.9 BP 120/38 L Blood Pressure Location Rt brachial Position Sitting Pulse 67 Pulse Source Pulse Oximeter Pulse Oximetry (%) 99 Oxygen Delivery Method Room Air Intake Visit Reasons: COPD Intake Note: 120/38 right arm 118/36 left arm Right arm BP verified by Jeri. Allergies No Known Allergies [NO KNOWN ALLERGIES] Allergy (Unknown, Verified 03/16/24 15:27) UNKNOWN Medication List - Last Reconciled 03/16/24 by Elena Barnes MD albuterol sulfate 90 mcg/actuation 2 puffs inhalation Q4-6H PRN apixaban (Eliquis) 5 mg PO BID atorvastatin 80 mg PO BEDTIME azithromycin 250 mg PO DAILY 3 days carvedilol 6.25 mg PO BIDWM empagliflozin 10 mg PO DAILY fluticasone furoate-vilanterol 100-25 mcg/dose (Breo Ellipta) 1 inh inhalation RDAILY furosemide 40 mg PO BID levothyroxine 100 mcg PO DAILY@0600 spironolactone 25 mg PO DAILY tamsulosin 1 cap PO BID valsartan 20 mg PO BID Do you need a note to return to daycare/school/sports/work: No HPI HPI COPD: Details: Mr. Duke, 89 years old gentleman, comes after 1 month for follow-up, Prior to his last visit 4 weeks ago he was treated in hospital for congestive heart failure and r espiratory failure requiring BiPAP as well as oxygen. Once his congestive heart failure came under control he was weaned off the oxygen . For his COPD he is using Breo 100-25 1 inhalation daily and a.lso albuterol PRN. He complains of generalized weakness and shortness of breath on minimal exertion. During the past 1 month he has had no fever chills or mucopurulent expectoration. He denies wheezing attacks. He does have a walker but can not go too for because of shortness of breath. [facility] Medical History (Updated 03/16/24 @ 15:49 by Elena Barnes MD) Physical deconditioning CHF (congestive heart failure) Heart failure with reduced ejection fraction CAD (coronary artery disease) Ischemic cardiomyopathy Non-rheumatic aortic regurgitation Paroxysmal atrial flutter Atherosclerotic cardiovascular disease BPH (benign prostatic hyperplasia) Hypothyroidism Congestive heart failure Aortic stenosis Myocardial infarct CHF (congestive heart failure) HTN (hypertension) High blood cholesterol Pacemaker Surgical History S/P cardiac cath (~08/2020) H/O heart artery stent Family History Father No problems noted. Mother Diabetes Social History Household Members: None Housing: Apartment Do you presently have visiting nurse or other home services: Yes Alcohol intake: never Patient Tobacco Use Status: Never used Tobacco service: No Current occupational status: retired Review of Systems Const All systems reviewed & are unremarkable except as noted in HPI and below Physical Exam Vital Signs: Last Vital Signs Pulse 67 03/16/24 15:07 BP 120/38 L 03/16/24 15:07 Pulse Ox 99 03/16/24 15:07 Oxygen Delivery Method Room Air 03/16/24 15:07 BMI result Body Mass Index 25.9 Const General: comfortable, no acute distress, alert and awake Orientation/consciousness: patient oriented x3 HEENT Head: Yes normal to inspection General nose exam: No nasal polyps present and No nasal discharge present Face and sinus: Yes sinuses nontender Mouth: oropharynx normal Teeth and gingiva: abnormal dentition (HAS ONLY A FEW RESIDUAL TEETH) Throat: Yes posterior oropharynx normal Eyes General: appearance normal, both eyes and all related structures Neck Neck: Yes normal visual inspection, Yes no lymphadenopathy, Yes trachea midline and Yes no JVD Thyroid: Thyroid normal Chest Chest palpation & inspection: normal inspection of the chest, normal palpation of entire chest wall and no tenderness Resp Other: PERCUSSION NOTE IS RESONANT, BREATH SOUNDS ARE DISTANT WITH PROLONGED EXPIRATORY PHASE NO WHEEZES ARE HEARD, HE DOES HAVE A FEW RALES OVER BOTH BASILAR AREAS. Cardio Palpation: normal PMI Rate: regular rate Rhythm: abnormal rhythm (ATRIAL FIBRILLATION) Heart sounds: no gallops and Murmur heart sound present (SYSTOLIC MURMUR AT AORTIC AREA) GI Palpation (GI): Soft to palpation, nontender, No hepatosplenomegaly present and no masses Auscultation: normal bowel sounds Back/Spine/Pelvis Thoracic/Lumbar Spine: thoracic and lumbar spine normal to inspection and thoraco-lumbar ROM limited Skin General skin exam: no rashes or lesions noted Neuro General: patient oriented x3, gait normal (DUE TO GENERAL WEAKNESS HE NEEDS A WALKER) and no focal motor deficits Cranial nerves: Yes CN's II-XII intact bilaterally Extrem General: Yes normal to inspection, Yes no clubbing, cyanosis or edema and Yes no calf tenderness Psych Appearance: grossly normal and well kempt Speech and movement: Normal speech and movement present Results Reviewed Results Reviewed: 6 MINUTES WALK : HE WALKED WITH THE WALKER THE GAIT WAS SLOW. BUT THERE WAS NO DROP IN THE O2 SAT, IT REMAINED AROUND 94-95 Assessment & Plan Assessment & Plan (1) COPD exacerbation: Comment: THIS GENTLEMAN DOES HAVE CHRONIC OBSTRUCTIVE PULMONARY DISEASE PROBABLY DUE TO HIS THE PAST SMOKING. HE WAS TREATED FOR ACUTE EXACERBATION ALONG WITH ACUTE CONGESTIVE HEART FAILURE. CONTINUES TO BE SHORT OF BREATH ON MINIMAL EXERTION. THIS SEEMS TO BE DUE TO COMBINATION OF COPD WELL CONGESTIVE HEART FAILURE, 6 MINUTES WALK DOES NOT SHOW THAT HE HAS EXERTIONAL HYPOXEMIA. Code(s): J44.1 - Chronic obstructive pulmonary disease with (acute) exacerbation Category: Medical Plan: CONTINUE BREO 100-251 INHALATION DAILY. USE ALBUTEROL HFA 2 PUFFS Q 6 HOURS ONLY P.R.N. IF THERE IS ANY WHEEZING. (2) CHF (congestive heart failure): Comment: HIS PRIMARY PROBLEM IS THAT OF CONGESTIVE HEART FAILURE DUE TO CARDIOMYOPATHY AND AORTIC STENOSIS. Code(s): I50.9 - Heart failure, unspecified Category: Medical Plan: CONTINUE THE TREATMENT PRESCRIBED BY CARDIOLOGY SERVIC E AND CONTINUE TO FOLLOW-UP CLOSELY. (3) Physical deconditioning: Comment: PATIENT HAS LIMITED AMOUNT OF WALKING IN HIS APARTMENT. HIS GAIT IS IMPAIRED AND HE HAS TO U.SE THE WALKER HE DESCRIBES THAT HE IS NOT ABLE TO WALK MUCH BECAUSE HE GETS SHORT OF BREATH WELL WEEK THIS IS MAINLY DUE TO GENERALIZED DECONDITIONING. Code(s): R53.81 - Other malaise Category: Medical Plan: DISCUSSED WITH HIM AND HIS DAUGHTER HE IS NOT FIT FOR OUTPATIENT REHAB PROGRAM YET. ENCOURAGED TO WALK WITH THE WALKER S.LOWLY BUT MUCH HE CAN . ALSO ENCOURAGED TO DO DEEP BREATHING EXERCISES. Coding Level of Care Code Est Pt Level 3 (70005) Diagnoses COPD exacerbation J44.1 CHF (congestive heart failure) I50.9 Physical deconditioning R53.81
[2024-03-16 16:02] VITALS: PULSE 60; O2SAT 97
== END 2024-03-16 15:42 | disposition home or self-care (01) ==
PROVIDERS: PCP Internal Medicine; Visit Provider Internal Medicine
DX: J44.1 Chronic obstructive pulmonary disease with (acute) exacerbation (principal); I50.9 Heart failure, unspecified; R53.81 Other malaise
CPT/HCPCS: 94618; 99213

== ENCOUNTER → 2024-03-16 15:03 | Outpatient (BNVA) | payer MEDICARE, SELFPAY | PROVIDERS: PCP Internal Medicine; Visit Provider Internal Medicine | DX: J44.1 Chronic obstructive pulmonary disease with (acute) exacerbation (principal); I50.9 Heart failure, unspecified; R53.81 Other malaise | CPT/HCPCS: 94618; 99212 ==

== ENCOUNTER 2024-03-23 15:09 | Outpatient (AMB) | payer MEDICARE, SELFPAY ==
[2024-03-23 15:11] VITALS: BP 120/58; PULSE 68; BMI 26.2
--- NOTE | 2024-03-23 15:11 | MHC.OFFVIS ---
Vital Signs 03/23/24 15:11 Height 5 ft 7 in Weight 167 lb BMI 26.2 BP 120/58 L Blood Pressure Location Lt brachial Position Sitting Pulse 68 Pulse Source Pulse Oximeter Intake Visit Reasons: follow up after [facility] [place] Allergies No Known Allergies [NO KNOWN ALLERGIES] Allergy (Unknown, Verified 03/23/24 15:25) UNKNOWN Medication List - Last Reconciled 03/23/24 by Veronica Ferrer NP albuterol sulfate 90 mcg/actuation 2 puffs inhalation Q4-6H PRN apixaban (Eliquis) 5 mg PO BID atorvastatin 80 mg PO BEDTIME carvedilol 6.25 mg PO BIDWM fluticasone furoate-vilanterol 100-25 mcg/dose (Breo Ellipta) 1 inh inhalation RDAILY furosemide 40 mg PO BID levothyroxine 100 mcg PO DAILY@0600 spironolactone 25 mg PO DAILY tamsulosin 1 cap PO BID HPI Comments Details: 89-year-old male presents today for follow-up visit. He had recently been discharged from [facility] on 02/05/2024. He then returned to the emergency room on 02/26/2024 for acute hypotension and acute kidney injury. Then on 03/02/2024 he returned to the emergency room for some chest discomforts and shortness of breath. He reports he still feels short of breath and tired. He denies any chest discomforts since that day in the ED. He reports his weight has been stable at home between 161 & 163 lb. He avoids salt. He reports not using his rescue inhaler if needed. He presents with his daughter today. [facility] Medical History Physical deconditioning CHF (congestive heart failure) Heart failure with reduced ejection fraction CAD (coronary artery disease) Ischemic cardiomyopathy Non-rheumatic aortic regurgitation Paroxysmal atrial flutter Atherosclerotic cardiovascular disease BPH (benign prostatic hyperplasia) Hypothyroidism Congestive heart failure Aortic stenosis Myocardial infarct CHF (congestive heart failure) HTN (hypertension) High blood cholesterol Pacemaker Surgical History S/P cardiac cath (~08/2020) H/O heart artery stent Family History Father No problems noted. Mother Diabetes Social History Household Members: None Housing: Apartment Do you presently have visiting nurse or other home services: Yes Alcohol intake: never Patient Tobacco Use Status: Never used Tobacco service: No Current occupational status: retired Review of Systems Const Denies weakness ENT Denies dizziness Card Denies chest pain, Denies chest pain with activity, Denies syncope, Denies rapid heart rate, Denies pedal edema, Denies edema, Denies leg edema, Denies lightheadedness, Denies palpitations, Denies dyspnea, Denies dyspnea on exertion and Denies orthopnea Resp Denies cough, Denies dyspnea and Denies dyspnea on exertion GI Denies hematochezia and Denies change in stool character Musc Denies abnormal gait, Denies muscle cramps, Denies muscle weakness, Denies numbness, Denies radiating pain into limb and Denies tingling Neuro Denies abnormal gait, Denies dizziness, Denies syncope, Denies numbness, Denies tingling and Denies weakness Endo Denies palpitations Physical Exam Vital Signs: Last Vital Signs Pulse 68 03/23/24 15:11 BP 120/58 L 03/23/24 15:11 BMI result Body Mass Index 26.2 Const General: healthy appearing and no acute distress Orientation/consciousness: patient oriented x3 HEENT Head: Yes normal to inspection Eyes General: appearance normal, both eyes and all related structures Neck Neck: Yes normal visual inspection Chest Chest palpation & inspection: normal inspection of the chest Resp Effort & Inspection: normal respiratory effort Auscultation: wheezes scattered wheezes Cardio Jugular venous distension: no JVD Palpation: normal PMI Rate: regular rate Rhythm: regular rhythm Heart sounds: S1 normal heart sound present, S2 normal heart sound present, no click, no gallops, no murmurs and no rubs GI Inspection: Yes normal to inspection Palpation (GI): Soft to palpation Skin General skin exam: no rashes or lesions noted Neuro General: patient oriented x3 Extrem General: Yes normal to inspection Psych Appearance: grossly normal Assessment & Plan Assessment & Plan (1) CHF (congestive heart failure): Comment: HIS PRIMARY PROBLEM IS THAT OF CONGESTIVE HEART FAILURE DUE TO CARDIOMYOPATHY AND AORTIC STENOSIS. Code(s): I50.9 - Heart failure, unspecified Category: Medical Plan We will send for lab work today. He does not appear to be fluid overloaded. Lungs have scattered wheezes which cleared with one cough. Continue reduction of salt intake. Monitor weights at home. Reports they are currently been stable. He is currently on carvedilol , Eliquis , atorvastatin, furosemide, and spironolactone. Continue to ambulate as tolerated. He has been physically deconditioned due to multiple emergency room visits and hospital stays. Discussed with daughter on patient that if ankles or abdomen started to become swollen, shortness of breath while trying to lay down, the increasing shortness of breath, or anginal symptoms occur ED care. We will send for blood work today. Orders: Orders Basic Metabolic Panel 03/23/24 I50.9 - Heart failure, unspecified B Type Natriuretic Peptide 03/23/24 I50.9 - Heart failure, unspecified Medications: Changed From spironolactone 25 mg PO DAILY 30 tabs 0RF To spironolactone 25 mg PO DAILY 90 tabs 1RF 90 days Coding Level of Care Code Est Pt Level 3 (92221) Diagnoses CHF (congestive heart failure) I50.9
== END 2024-03-23 15:50 | disposition home or self-care (01) ==
PROVIDERS: PCP Internal Medicine; Visit Provider Nurse Practitioner
DX: I50.9 Heart failure, unspecified (principal)
CPT/HCPCS: 99213

== ENCOUNTER 2024-03-23 15:09 | Outpatient (REF) | payer MEDICARE, SELFPAY ==
[2024-03-23 18:09] LABS: Anion Gap 13 (12-20); B Type Natriuretic Peptide 1123 pg/mL (<100); Blood Urea Nitrogen 35 mg/dL (9-16); Calcium 9.1 mg/dL (8.4-10.2); Carbon Dioxide 24 mmol/L (22-29); Chloride 97 mmol/L (96-108); Estimated Glomerular Filt Rate 51; Glucose Random 107 mg/dL (60-115); Sodium 130 mmol/L (135-145)
== END 2024-03-23 15:10 | disposition home or self-care (01) ==
LOC: HO.LAB 15:09
PROVIDERS: PCP Internal Medicine; Visit Provider Nurse Practitioner
DX: I50.9 Heart failure, unspecified (principal)
CPT/HCPCS: 36415; 80048; 83880; 99212

== ENCOUNTER → 2024-04-14 23:59 | Outpatient (BNV) | payer MEDICARE, SELFPAY ==
--- NOTE | 2024-04-25 12:29 | MHC.OFFVIS ---
Intake Visit Reasons: Remote Device Check- [facility] Allergies No Known Allergies [NO KNOWN ALLERGIES] Allergy (Unknown, Verified 03/23/24 15:25) UNKNOWN PFSH Medical History Physical deconditioning CHF (congestive heart failure) Heart failure with reduced ejection fraction CAD (coronary artery disease) Ischemic cardiomyopathy Non-rheumatic aortic regurgitation Paroxysmal atrial flutter Atherosclerotic cardiovascular disease BPH (benign prostatic hyperplasia) Hypothyroidism Congestive heart failure Aortic stenosis Myocardial infarct CHF (congestive heart failure) HTN (hypertension) High blood cholesterol Pacemaker Surgical History S/P cardiac cath (~08/2020) H/O heart artery stent Family History Father No problems noted. Mother Diabetes Social History Household Members: None Housing: Apartment Do you presently have visiting nurse or other home services: Yes Alcohol intake: never Patient Tobacco Use Status: Never used Tobacco service: No Current occupational status: retired Office Procedures Cardiac Device Check Cardiac Device Check Details: Remote pacemaker report generated 04/14/2024. Pacemaker function is adequate. Total burden of atrial fibrillation 17% [id number] Cardiac Device Interrogation, pacemaker Procedure code (CPT) selection complete Assessment & Plan Assessment & Plan (1) Pacemaker: Code(s): Z95.0 - Presence of cardiac pacemaker Category: Medical Plan: See above Coding Level of Care Code Procedure Only Diagnoses Pacemaker Z95.0 CPT Codes Cardiac Device Check - Cardiac Device 12: [id number] Cardiac Device Interrogation, pacemaker ([id number])
== END ==
PROVIDERS: PCP Internal Medicine; Visit Provider Internal Medicine Cardiovascular Disease
DX: I48.91 Unspecified atrial fibrillation (principal); Z95.0 Presence of cardiac pacemaker
CPT/HCPCS: 93294

== ENCOUNTER 2024-05-17 15:15 | Outpatient (AMB) | payer MEDICARE, SELFPAY ==
--- NOTE | 2024-05-17 15:24 | A.OFFVIS_ITS ---
Vital Signs 05/17/24 15:31 Height 5 ft 7 in Weight 159 lb 13.362 oz BMI 25.0 BP 112/68 Blood Pressure Location Lt brachial Position Sitting Pulse 60 Pulse Source Pulse Oximeter Pulse Oximetry (%) 99 Oxygen Delivery Method Room Air Intake Visit Reasons: COPD Intake Note: pt is here for follow up and states just short of breath with walking and exertion, Licensing Manager Required: No Allergies No Known Allergies [NO KNOWN ALLERGIES] Allergy (Unknown, Verified 05/17/24 15:42) UNKNOWN Medication List - Last Reconciled 05/17/24 by Elena Barnes MD albuterol sulfate 90 mcg/actuation 2 puffs inhalation Q4-6H PRN apixaban (Eliquis) 5 mg PO BID atorvastatin 80 mg PO BEDTIME carvedilol 6.25 mg PO BIDWM fluticasone furoate-vilanterol 100-25 mcg/dose (Breo Ellipta) 1 inh inhalation RDAILY furosemide 40 mg PO BID levothyroxine 100 mcg PO DAILY@0600 spironolactone 25 mg PO DAILY 90 days tamsulosin 1 cap PO BID Do you need a note to return to daycare/school/sports/work: No HPI HPI COPD: Details: Charles is 89 years old very pleasant gentleman, comes for follow-up after 6 months for his mild COPD. Last time he was checked for oxygen and did not qualify. He is on Breo 100-251 inhalation daily, and albuterol to be use p.r.n. which he hardly needs to use. He gets around with the walker and stays mostly in the house. Luckily he has had no. Respiratory infection in the last 6 months Is slightly hard of hearing , but very pleasant. * his [place] used to be my long-time patient, actually started seeing me before him, He tells me that she passed while last year. [facility] Medical History Physical deconditioning CHF (congestive heart failure) Heart failure with reduced ejection fraction CAD (coronary artery disease) Ischemic cardiomyopathy Non-rheumatic aortic regurgitation Paroxysmal atrial flutter Atherosclerotic cardiovascular disease BPH (benign prostatic hyperplasia) Hypothyroidism Congestive heart failure Aortic stenosis Myocardial infarct CHF (congestive heart failure) HTN (hypertension) High blood cholesterol Pacemaker Surgical History S/P cardiac cath (~08/2020) H/O heart artery stent Family History Father No problems noted. Mother Diabetes Social History Household Members: None Housing: Apartment Do you presently have visiting nurse or other home services: Yes Alcohol intake: never Patient Tobacco Use Status: Former Tobacco user service: No Current occupational status: retired Review of Systems Const All systems reviewed & are unremarkable except as noted in HPI and below Physical Exam Const General: comfortable, no acute distress, alert and awake Orientation/consciousness: patient oriented x3 HEENT Head: Yes normal to inspection General nose exam: No nasal polyps present and No nasal discharge present Face and sinus: Yes sinuses nontender Mouth: oropharynx normal Teeth and gingiva: abnormal dentition (HAS ONLY A FEW RESIDUAL TEETH) Throat: Yes posterior oropharynx normal Eyes General: appearance normal, both eyes and all related structures Neck Neck: Yes normal visual inspection, Yes no lymphadenopathy, Yes trachea midline and Yes no JVD Thyroid: Thyroid normal Chest Chest palpation & inspection: normal inspection of the chest, normal palpation of entire chest wall and no tenderness Resp Other: PERCUSSION NOTE IS RESONANT, BREATH SOUNDS ARE DISTANT WITH PROLONGED EXPIRATORY PHASE NO WHEEZES ARE HEARD, ALSO NO RALES ARE HEARD THIS TIME. Cardio Palpation: normal PMI Rate: regular rate Rhythm: abnormal rhythm (ATRIAL FIBRILLATION) Heart sounds: no gallops and Murmur heart sound present (SYSTOLIC MURMUR AT AORTIC AREA) GI Palpation (GI): Soft to palpation, nontender, No hepatosplenomegaly present and no masses Auscultation: normal bowel sounds Back/Spine/Pelvis Thoracic/Lumbar Spine: thoracic and lumbar spine normal to inspection and thoraco-lumbar ROM limited Skin General skin exam: no rashes or lesions noted Neuro General: patient oriented x3, gait normal (DUE TO GENERAL WEAKNESS HE NEEDS A WALKER) and no focal motor deficits Cranial nerves: Yes CN's II-XII intact bilaterally Extrem General: Yes normal to inspection, Yes no clubbing, cyanosis or edema and Yes no calf tenderness Psych Appearance: grossly normal and well kempt Speech and movement: Normal speech and movement present Assessment & Plan Assessment & Plan (1) COPD exacerbation: Comment: THIS GENTLEMAN DOES HAVE CHRONIC OBSTRUCTIVE PULMONARY DISEASE PROBABLY DUE TO HIS PAST SMOKING. HE IS DOING QUITE WELL . WITH MINIMAL MEDICATION , AND DOES NOT NEED TO USE THE RESCUE INHALER. HE DOES GET SHORT OF BREATH ON EXERTION AND THIS SEEMS TO BE DUE TO COMBINATION OF COPD WELL CONGESTIVE HEART FAILURE, ON HIS LAST VISIT, 6 MINUTES WALK DID NOT SHOW ANY DROP IN O2 SAT ON WALKING. Code(s): J44.1 - Chronic obstructive pulmonary disease with (acute) exacerbation Category: Medical Plan: CONTINUE USING BREO 100-251 INHALATION DAILY AND USE ALBUTEROL HFA Q 6 HOURS ONLY P.R.N.. (2) Hypoxic respiratory failure: Comment: WHEN HE WAS ADMITTED TO THE HOSPITAL WITH ACUTE CONGESTIVE HEART FAILURE AND A CUTE EXACERBATION OF COPD HE WAS HYPOXEMIC, REQUIRED O2 SUPPLEMENTATION. BUT AFTER APPROPRIATE TREATMENT, HE DID NOT NEED TO USE THE OXYGEN. Code(s): J96.91 - Respiratory failure, unspecified with hypoxia Category: Medical Plan: NO O2 SUPPLEMENTATION NEEDED Coding Level of Care Code Est Pt Level 3 (68683) Diagnoses COPD exacerbation J44.1 Hypoxic respiratory failure J96.91
[2024-05-17 15:31] VITALS: BP 112/68; PULSE 60; O2SAT 99; BMI 25.0
== END 2024-05-17 15:43 | disposition home or self-care (01) ==
PROVIDERS: PCP Internal Medicine; Visit Provider Internal Medicine
DX: J44.1 Chronic obstructive pulmonary disease with (acute) exacerbation (principal); J96.91 Respiratory failure, unspecified with hypoxia
CPT/HCPCS: 99213

== ENCOUNTER → 2024-05-17 15:15 | Outpatient (BNVA) | payer MEDICARE, SELFPAY | PROVIDERS: PCP Internal Medicine; Visit Provider Internal Medicine | DX: J44.1 Chronic obstructive pulmonary disease with (acute) exacerbation (principal); J96.91 Respiratory failure, unspecified with hypoxia | CPT/HCPCS: 99212 ==

== ENCOUNTER 2024-07-29 08:53 | Outpatient (AMB) | payer MEDICARE, SELFPAY ==
--- NOTE | 2024-07-29 08:53 | MHC.OFFVIS ---
Vital Signs 07/29/24 08:54 Height 5 ft 7 in Weight 160 lb 14.999 oz BMI 25.2 BP 124/66 Blood Pressure Location Lt brachial Position Sitting Pulse 60 Intake Visit Reasons: 3 mth f/up Intake Note: 3 month follow-up with [facility] check c/o sob and weight up and down Appeals Examiner Required: No Electronic Page Makeup System Operator: Electronic Page Makeup System Operator Present Accompanied by: Daughter Allergies No Known Allergies [NO KNOWN ALLERGIES] Allergy (Unknown, Verified 05/17/24 15:42) UNKNOWN Medication List - Last Reconciled 07/29/24 by Ike Mast MD albuterol sulfate 90 mcg/actuation 2 puffs inhalation Q4-6H PRN apixaban (Eliquis) 5 mg PO BID atorvastatin 80 mg PO BEDTIME carvedilol 6.25 mg PO BIDWM fluticasone furoate-vilanterol 100-25 mcg/dose (Breo Ellipta) 1 inh inhalation RDAILY furosemide 40 mg PO BID levothyroxine 100 mcg PO DAILY@0600 spironolactone 25 mg PO DAILY 90 days tamsulosin 1 cap PO BID HPI Comments Details: Tato comes for follow-up. He is accompanied by his daughter. Patient complains of feeling being tired. He has no clear leg edema, abdominal distension. Denies any orthopnea, PND. Does not exercise much at home as per the daughter and does not go out because of the cold weather. Taking his medications. He is currently off valsartan as per the daughter because of low blood pressure and acute kidney injury. Taking all his other medications. Taking his diuretics. He is drinking tomato juice often with high salt contact. Denies any palpitations. Denies any lightheadedness, syncope. [facility] Medical History (Updated 07/29/24 @ 09:33 by Ike Mast MD) Acute on chronic systolic (congestive) heart failure Physical deconditioning CHF (congestive heart failure) Heart failure with reduced ejection fraction CAD (coronary artery disease) Ischemic cardiomyopathy Non-rheumatic aortic regurgitation Paroxysmal atrial flutter Atherosclerotic cardiovascular disease BPH (benign prostatic hyperplasia) Hypothyroidism Congestive heart failure Aortic stenosis Myocardial infarct CHF (congestive heart failure) HTN (hypertension) High blood cholesterol Pacemaker Surgical History S/P cardiac cath (~08/2020) H/O heart artery stent Family History Father No problems noted. Mother Diabetes Social History Household Members: None Housing: Apartment Do you presently have visiting nurse or other home services: Yes Alcohol intake: never Patient Tobacco Use Status: Former Tobacco user service: No Current occupational status: retired Review of Systems Const Denies chills, Denies fatigue, Denies fever(s), Denies frequent falls, Denies weakness, Denies weight gain and Denies weight loss ENT Denies dizziness Card Denies chest pain, Denies leg edema, Denies lightheadedness, Denies palpitations, Denies dyspnea, Denies dyspnea on exertion, Denies orthopnea and Denies other (loss of consciousness) Resp Denies cough, Denies dyspnea and Denies dyspnea on exertion GI Denies hematochezia and Denies change in stool character Musc Denies abnormal gait, Denies muscle weakness, Denies numbness, Denies radiating pain into limb and Denies tingling Neuro Denies abnormal gait, Denies dizziness, Denies frequent falls, Denies numbness, Denies tingling and Denies weakness Endo Denies fatigue and Denies palpitations Physical Exam Vital Signs: Last Vital Signs Pulse 60 07/29/24 08:54 BP 124/66 07/29/24 08:54 BMI result Body Mass Index 25.2 Const General: cooperative, comfortable, alert, awake, in distress mild and respiratory, poor hygiene and tired appearing Nutritional Appearance: overweight Orientation/consciousness: patient oriented x3 Limitations: no limitations Neck Neck: Yes trachea midline, Yes supple and Yes no JVD Resp Effort & Inspection: normal respiratory effort Auscultation: clear to auscultation bilaterally, no rales, wheezes throughout and diminished lung sounds Cardio Jugular venous distension: no JVD Rate: regular rate Rhythm: regular rhythm Heart sounds: S1 normal heart sound present, Murmur heart sound present systolic late, decrescendo and crescendo and Other heart sounds present (Soft S2) GI Auscultation: normal bowel sounds Skin General skin exam: no rashes or lesions noted Neuro General: patient oriented x3 and no focal motor deficits Extrem General: Yes no clubbing, cyanosis or edema Psych Appearance: grossly normal Office Procedures Cardiac Device Check Cardiac Device Check Details: Dual-chamber [facility] pacemaker in place. Reprogrammed from DDDR to DDIR due to persistent atrial fibrillation. This is since March this year. Ventricular sensing could not be performed due to persistent pacing. Ventricular pacing thresholds adequate and in auto capture mode. Pacing lead impedance is stable. Battery life is at about 4 and half years [id number] Cardiac Device Check, pacemaker dual lead Procedure code (CPT) selection complete Assessment & Plan Assessment & Plan (1) Heart failure with reduced ejection fraction: Code(s): I50.20 - Unspecified systolic (congestive) heart failure Category: Medical Plan: Heart failure with reduced ejection fraction with multiple comorbidities including persistent atrial fibrillation now, moderate aortic stenosis, physical deconditioning, COPD, advancing age, chronic kidney disease with cardiorenal syndrome. Patient has persistent symptoms of fatigue throughout the day. Not exertional in nature. He denies any worsening exertional shortness of breath does not exercise much. Fatigue could be related to deconditioning but also related to persistent atrial fibrillation in the setting of severe LV systolic dysfunction. Clinically does not appear to be fluid overloaded at this point time. Can not tolerate angiotensin receptor clary due to low blood pressure as as elevated creatinine. Overall treatment options. Continue current therapy with carvedilol as well as spironolactone. Continue current diuretic regimen. Recommended possible phase 2 cardiac rehabilitation to improve functional capacity, however patient says he will try to do it on his own at home. Daughter will monitor. Discussed about rhythm management, see below. Goals of therapy were discussed including management of heart failure and avoidance of hospitalization. (2) Persistent atrial fibrillation: Code(s): I48.19 - Other persistent atrial fibrillation Category: Medical Plan: Persistent atrial fibrillation since March this year. Seems like could contribute to symptoms of fatigue and overall poor function. However clinically not in heart failure. He has significant left atrial enlargement by echocardiogram. We discussed about potentially pursuing rhythm control approach which will require amiodarone therapy and in setting of his chronic lung disease may increase his pulmonary complications. Also likelihood of maintenance rhythm in the long run given his underlying cardiac structural abnormality is low. This was discussed with him. We discussed about management and decided to pursue rate control. Continue full oral anticoagulation Eliquis. Quarterly renal function test should be pursued. (3) Pacemaker: Code(s): Z95.0 - Presence of cardiac pacemaker Category: Medical Plan: Cardiac pacemaker in-situ, reprogrammed to DDIR due to persistent atrial fibrillation. Will follow in the clinic in 3 months time. (4) Aortic stenosis: Code(s): I35.0 - Nonrheumatic aortic (valve) stenosis Category: Medical Qualifiers: Cardiac valve disease etiology: nonrheumatic Qualified Code(s): I35.0 - Nonrheumatic aortic (valve) stenosis Plan: Aortic stenosis which is moderate. Will continue to monitor clinically. No indication for intervention. Greater than 40 minutes was spent in managing his complicated care. Thank you for allowing me to partake in his care Coding Level of Care Code Est Pt Level 5 (99473) Complex EM visit Add On G2211 Diagnoses Heart failure with reduced ejection fraction I50.20 Persistent atrial fibrillation I48.19 Pacemaker Z95.0 Nonrheumatic aortic valve stenosis I35.0 Cardiac valve disease etiology: nonrheumatic CPT Codes Cardiac Device Check - Cardiac Device 2: [id number] Cardiac Device Check, pacemaker dual lead ([id number])
[2024-07-29 08:54] VITALS: BP 124/66; PULSE 60; BMI 25.2
== END 2024-07-29 09:16 | disposition home or self-care (01) ==
PROVIDERS: PCP Internal Medicine; Visit Provider Internal Medicine Cardiovascular Disease
DX: I50.20 Unspecified systolic (congestive) heart failure (principal); I48.19 Other persistent atrial fibrillation; Z95.0 Presence of cardiac pacemaker; I35.0 Nonrheumatic aortic (valve) stenosis
CPT/HCPCS: 93280; 99215

== ENCOUNTER → 2024-07-29 08:53 | Outpatient (BNVA) | payer MEDICARE, SELFPAY | PROVIDERS: PCP Internal Medicine; Visit Provider Internal Medicine Cardiovascular Disease | DX: I50.20 Unspecified systolic (congestive) heart failure (principal); I48.19 Other persistent atrial fibrillation; I35.0 Nonrheumatic aortic (valve) stenosis; Z95.0 Presence of cardiac pacemaker | CPT/HCPCS: 93280; 99212 ==

== ENCOUNTER 2024-08-10 13:39 | Emergency (ER) | payer MEDICARE, SELFPAY ==
--- NOTE | 2024-08-10 | ECG_ITS ---
Test Reason : WEAKNESS Blood Pressure : */* mmHG Vent. Rate : 60 BPM Atrial Rate : 416 BPM P-R Int : * ms QRS Dur : 220 ms QT Int : 504 ms P-R-T Axes : * -69 111 degrees QTcB Int : 504 ms Ventricular-paced rhythm Atrial fibrillation Abnormal ECG When compared with ECG of 02-Mar-2024 01:48, No significant change was found Referred By: Generic ED Physician Electronically Signed By: JUAN SEQUEIRA
--- NOTE | ~2024-08-10 | XR_ITS ---
EXAMINATION: XR CHEST 1 VIEW HISTORY: Shortness of breath COMPARISON: Comparison is made with the prior examination dated 03/02/2024. FINDINGS: A single AP portable view of the chest performed at 2:01 PM is submitted. Left subclavian dual-chamber pacemaker is unchanged in position. Again seen are increased interstitial markings throughout both lungs without change. No new focal airspace opacity is seen. There is no pleural effusion, pneumothorax, or pulmonary vascular congestion. The heart is enlarged. The aorta is tortuous and calcified. The bones are intact. XR/XR chest 1V IMPRESSION: Cardiomegaly. Chronic increase in interstitial markings. No acute cardiopulmonary abnormality. Electronically signed by: Manny Holden MD 08/10/2024 02:29 PM ANA LUISA
--- NOTE | ~2024-08-10 | CT_ITS ---
CLINICAL HISTORY: RUE numbness, weakness since 0900 CT head without contrast Comparison: CT - CTA HEAD AND NECK - 07/29/19 23:45 EST Findings: There is acute intraparenchymal hemorrhage in the left frontal and parietal lobes which measures 3.2 x 5.6 x 3.6 cm. There is surrounding decreased attenuation in the brain parenchyma indicating edema. Hemorrhage extends into adjacent sulci indicating a moderate amount of subarachnoid hemorrhage. There is mild mass effect upon the left lateral ventricle. No extra-axial fluid collection. No hydrocephalus, midline shift or herniation. Marquez-white differentiation is maintained. There is patchy hypoattenuation of the periventricular and deep white matter, which is most likely the sequela of moderate chronic small vessel ischemic disease and is similar to the prior study. No acute orbital pathology. No acute soft tissue abnormality. No fracture. Trace amount of mucosal thickening and fluid in the paranasal sinuses. The mastoid air cells are clear. Impression: Acute intraparenchymal hemorrhage in the left frontal and parietal lobes measuring up 5.6 cm. There is associated edema with mild mass effect. Hemorrhage extends into the adjacent sulci; moderate amount of associated subarachnoid hemorrhage. No midline shift or herniation. This document has been electronically signed by: Laurita Lin MD on 08/10/2024 16:41:19
[2024-08-10 13:52] VITALS: BP 143/57; BP 145/45; PULSE 60; PULSE 78; RESP 16; O2SAT 97; O2SAT 98; BMI 26.8
--- NOTE | 2024-08-10 14:23 | ED_ITS ---
HPI - Neuro Symptoms/Deficit General Chief Complaint: Neuro Symptoms/Deficit Stated Complaint: RT HAND NUMBNESS,STROKE ALERT Time Seen by Provider: 08/10/24 13:59 Source: patient Mode of arrival: EMS History of Present Illness ED Provider: Ruth HPI Narrative: 89-year-old male who reports right upper extremity numbness and weakness since 0 900 this morning, he otherwise denies any complaints Related Data Home Medications ?Medication ?Instructions ?Recorded ?Confirmed tamsulosin 0.4 mg capsule 1 cap PO BID 06/19/20 07/29/24 carvedilol 6.25 mg tablet 6.25 mg PO BIDWM 08/09/20 07/29/24 levothyroxine 100 mcg tablet 100 mcg PO DAILY@0600 02/12/21 07/29/24 Previous Rx's ?Medication ?Instructions ?Recorded apixaban 5 mg tablet (Eliquis) 5 mg PO BID #60 tabs 09/28/23 albuterol sulfate 90 mcg/actuation 2 puff inhalation Q4-6H PRN 10/14/23 aerosol inhaler shortness of breath or wheezing #8.5 grams atorvastatin 80 mg tablet 80 mg PO BEDTIME #30 tabs 10/14/23 fluticasone furoate 100 1 inh inhalation RDAILY #30 ea 10/14/23 mcg-vilanterol 25 mcg/dose inhalation powder (Breo Ellipta) furosemide 40 mg tablet 40 mg PO BID #60 tabs 02/05/24 spironolactone 25 mg tablet 25 mg PO DAILY 90 days #90 tabs 03/23/24 Allergies Allergy/AdvReac Type Severity Reaction Status Date / Time No Known Allergies Allergy Unknown UNKNOWN Verified 08/10/24 13:53 [NO KNOWN ALLERGIES] Review of Systems 2 Review of Systems: Pertinent positives and negatives as stated in HPI PMFSH Past Medical History Source: nursing notes reviewed Medical History Acute on chronic systolic (congestive) heart failure Physical deconditioning CHF (congestive heart failure) Heart failure with reduced ejection fraction CAD (coronary artery disease) Ischemic cardiomyopathy Non-rheumatic aortic regurgitation Paroxysmal atrial flutter Atherosclerotic cardiovascular disease BPH (benign prostatic hyperplasia) Hypothyroidism Congestive heart failure Aortic stenosis Myocardial infarct CHF (congestive heart failure) HTN (hypertension) High blood cholesterol Pacemaker Surgical History S/P cardiac cath (~08/2020) H/O heart artery stent Family History Family History Father No problems noted. Mother Diabetes Social History Social History Household Members: None Housing: Apartment Do you presently have visiting nurse or other home services: Yes Alcohol intake: never Patient Tobacco Use Status: Former Tobacco user Smoked in Last 30 Days: No Advance Directives: No Advance Directives Information Provided: Yes Do you have a plan to hurt others: No Plan service: No Current occupational status: retired Physical Exam 2 Vital Signs: Vital Signs: Last Vital Signs Pulse 62 08/10/24 17:02 Resp 18 08/10/24 17:02 BP 145/89 H 08/10/24 17:02 Pulse Ox 97 08/10/24 17:02 O2 Del Method Room Air 08/10/24 17:02 BMI result Body Mass Index 26.8 VITAL SIGNS: Reviewed. GENERAL: Chronically ill, in no acute distress. HEAD: Normocephalic/atraumatic EYES: PERRLA, EOMI EARS: Ext canals without abnormality NOSE: Nares patent bilateral OROPHARYNX: no oral lesions noted, posterior pharynx clear NECK: Supple, no adenopathy LUNGS: Normal breath sounds. No adventitious sounds or accessory muscle use. SpO2<97> CARDIOVASCULAR: Regular rate and rhythm without noted murmurs, no JVD or lower extremity edema. ABDOMEN: Soft, non-tender, non-distended with bowel sounds. MUSCULOSKELETAL: No tenderness, deformities, or effusions noted on gross inspection. EXTREMITIES: No cyanosis, clubbing or edema. RUE: Pale, cold, weak, questionable radial pulse SKIN: Inspection of the skin reveals no rashes NEUROLOGIC: Alert and oriented x 4. Right upper extremity as described, no facial asymmetry, there is pronator drift, please review NIH scale, patient is outside the window. Medications Administered Discontinued Medications Generic Name Dose Route Start Last Admin Trade Name Freq PRN Reason Stop Dose Admin Furosemide 20 mg 08/10/24 16:33 08/10/24 16:38 Furosemide 20 Mg/2 Ml Vial IVPUSH 08/10/24 16:34 20 mg ONCE ONE Administration Protocol Prothrombin Complex Concent ( 80 mls @ 480 mls/hr 08/10/24 16:32 08/10/24 16:53 Human) 2,000 unit/ IV IV 08/10/24 16:41 Infused Miscellaneous Supplies .Q10M ONE Infusion Medical Decision Making Medical Decision Making [facility] Narrative: 1359: 89-year-old male who arrives, multiple medical comorbidities, NIH is 2, patient is outside the window for TNK treatment even with undergoing evaluation by MRI but will evaluate with CT angio head and neck to ensure no elbow to be intervened on, competing concern at this time is that there may be an ischemic right upper extremity though he has no pain to the right upper extremity and simply describes weakness and numbness it is cold and pale. After evaluation with CT of head as well as CT angio head and neck will pursue ultrasound arterial/venous duplex of the right upper extremity. EKG: Ventricular paced though appears to be flutter, paced rhythm at 60, unable to interpret paced rhythm but does not appear that there is any ST elevations and patient has no complaints of chest pain. I reviewed and interpreted all investigations and there is a noninfectious leukocytosis and no anemia or thrombocytopenia. VBG is negative for respiratory acidosis or hypercapnia. There is an MALA without electrolyte or liver enzyme derangements. BNP is elevated but certainly much improved when compared to prior. Patient is neither hypoxic or tachypneic. Urinalysis is negative for UTI. 1556: Significant delay by CT, finally getting images now and patient has hemorrhagic stroke. Area is 5.6 cm according to official read of the CT scan. 1606: I reached out to [facility] for transfer, I will inform the patient of the findings, awaiting stat read from Radiology. 1623: On re-evaluation patient now has right facial droop. On questioning the patient he states he last took his Eliquis this morning. 1633: [facility] ordered and [facility] called again re: evolving hemorrhagic stroke. 1648: I discussed the case with Dr. Marie of neuro critical care who is accepting the patient but does request that we establish goals of care. 1651: I spoke with the patient who is somewhat overwhelmed regarding all of his recent diagnoses and is unsure and decision made to speak with his daughter who is his healthcare proxy. 1658: I spoke with Mabel, the patient's daughter who informs me that he recently filled out a MOLST and that his wishes are that he is DNR/DNI. She plans to confirm with her brother and will be giving me a call back and 5 minutes. 1658: [facility] infusion has completed 1722: I discussed this DNR/DNI status with the daughter who confirms that her father is DNR/DNI, and I called and informed [facility] that he was going to be placed on a Nicardipine drip, code status, and COVID status. Patient will now be transferred over to [facility]. Differential Diagnosis Differential Diagnoses: The differential diagnosis associated with the presentation includes See above Admission/Observation Consideration of admission/observation: Escalation of care including admission/observation considered Patient will need to be transferred for hemorrhagic stroke. Consult Healthcare Provider Management of the patient was discussed with: Shoe Laster See above Lab Data MDM Lab Attestation statement: I reviewed the patient's lab results. See above 08/10/24 14:24 08/10/24 15:21 Labs: Lab Results 08/10/24 08/10/24 08/10/24 Range/Units 14:24 14:28 15:21 WBC 11.2 H (4.8-10.8) X10*3/uL RBC 4.40 L (4.60-5.80) X10*6/uL Hgb 14.0 (14.0-18.0) g/dl Hct 40.8 L (42.0-52.0) % MCV 92.7 (80.0-98.0) fL MCH 31.8 (27.0-33.0) pg MCHC 34.3 (31.0-36.0) g/dl RDW 15.1 (11.0-16.0) % Plt Count 189 D (160-400) X10*3/uL MPV 10.9 (9.4-12.4) fL Immature Gran % (Auto) 1.4 H (0.0-0.4) % Neut % (Auto) 75.5 H (45-73) % Lymph % (Auto) 11.5 L (20-40) % Taylor % (Auto) 8.2 (2-11) % Eos % (Auto) 2.9 (0-4) % Baso % (Auto) 0.5 (0-2) % Lymph # (Auto) 1.3 (1.2-4.9) X10*3/uL Taylor # (Auto) 0.9 (0.1-1.2) X10*3/uL Eos # (Auto) 0.3 (0.0-0.4) X10*3/uL Baso # (Auto) 0.1 (0.0-0.2) X10*3/uL Abs Immat Gran (auto) 0.16 H (0.00-0.03) X10*3/uL Absolute Neuts (auto) 8.5 H (2.0-8.3) x10*3/uL Absolute Nucleated RBC 0.000 (0.0-0.012) X10*3/uL Nucleated RBC % (auto) 0.0 (0.0-0.2) /100WBC PT 24.0 H (10.9-12.4) SEC INR 2.1 H (0.9-1.1) Hold Blue Top SEE NOTE VBG pH 7.43 (7.32-7.43) VBG pCO2 30 mmHg VBG pO2 44 mmHg VBG HCO3 20 L (22-26) mmol/L VBG O2 Saturation 70.0 % VBG Base Excess -2.6 mmol/L Sodium 142 (135-145) mmol/L Potassium 4.5 (3.3-5.1) mmol/L Chloride 107 (96-108) mmol/L Carbon Dioxide 24 (22-29) mmol/L Anion Gap 16 (12-20) BUN 44 H (9-16) mg/dL Creatinine 1.41 H (0.5-1.4) mg/dL Estim Creat Clear Calc 33.2 Estimated GFR 47 Random Glucose 107 (60-115) mg/dL Calcium 8.8 (8.4-10.2) mg/dL Total Bilirubin 1.0 (0.0-1.0) mg/dL AST 29 (5-37) U/L ALT 15 (0-40) U/L Alkaline Phosphatase 64 (39-117) U/L B-Natriuretic Peptide 899 H (<100) pg/mL Total Protein 6.8 (6.5-8.0) g/dL Albumin 3.3 L (3.5-5.0) g/dL Urine Color Yellow Urine Appearance Clear Urine pH 5.0 (5.0-9.0) Ur Specific Sheldon <= 1.005 (1.005-1.025) Urine Protein Negative (Neg-Trace) mg/dL Urine Glucose (UA) 500 H (Negative) mg/dL Urine Ketones Negative (Negative) mg/dL Urine Blood Negative (Negative) Urine Nitrite Negative (Negative) Ur Leukocyte Esterase Negative (Negative) Influenza Type A (PCR) (Negative) Influenza Type B (PCR) (Negative) RSV RNA Qual (PCR) (Negative) SARS-CoV-2 RNA (RT-PCR) (Negative) 08/10/24 Range/Units 16:00 WBC (4.8-10.8) X10*3/uL RBC (4.60-5.80) X10*6/uL Hgb (14.0-18.0) g/dl Hct (42.0-52.0) % MCV (80.0-98.0) fL MCH (27.0-33.0) pg MCHC (31.0-36.0) g/dl RDW (11.0-16.0) % Plt Count (160-400) X10*3/uL MPV (9.4-12.4) fL Immature Gran % (Auto) (0.0-0.4) % Neut % (Auto) (45-73) % Lymph % (Auto) (20-40) % Taylor % (Auto) (2-11) % Eos % (Auto) (0-4) % Baso % (Auto) (0-2) % Lymph # (Auto) (1.2-4.9) X10*3/uL Taylor # (Auto) (0.1-1.2) X10*3/uL Eos # (Auto) (0.0-0.4) X10*3/uL Baso # (Auto) (0.0-0.2) X10*3/uL Abs Immat Gran (auto) (0.00-0.03) X10*3/uL Absolute Neuts (auto) (2.0-8.3) x10*3/uL Absolute Nucleated RBC (0.0-0.012) X10*3/uL Nucleated RBC % (auto) (0.0-0.2) /100WBC PT (10.9-12.4) SEC INR (0.9-1.1) Hold Blue Top VBG pH (7.32-7.43) VBG pCO2 mmHg VBG pO2 mmHg VBG HCO3 (22-26) mmol/L VBG O2 Saturation % VBG Base Excess mmol/L Sodium (135-145) mmol/L Potassium (3.3-5.1) mmol/L Chloride (96-108) mmol/L Carbon Dioxide (22-29) mmol/L Anion Gap (12-20) BUN (9-16) mg/dL Creatinine (0.5-1.4) mg/dL Estim Creat Clear Calc Estimated GFR Random Glucose (60-115) mg/dL Calcium (8.4-10.2) mg/dL Total Bilirubin (0.0-1.0) mg/dL AST (5-37) U/L ALT (0-40) U/L Alkaline Phosphatase (39-117) U/L B-Natriuretic Peptide (<100) pg/mL Total Protein (6.5-8.0) g/dL Albumin (3.5-5.0) g/dL Urine Color Urine Appearance Urine pH (5.0-9.0) Ur Specific Sheldon (1.005-1.025) Urine Protein (Neg-Trace) mg/dL Urine Glucose (UA) (Negative) mg/dL Urine Ketones (Negative) mg/dL Urine Blood (Negative) Urine Nitrite (Negative) Ur Leukocyte Esterase (Negative) Influenza Type A (PCR) NEGATIVE (Negative) Influenza Type B (PCR) NEGATIVE (Negative) RSV RNA Qual (PCR) NEGATIVE (Negative) SARS-CoV-2 RNA (RT-PCR) POSITIVE A (Negative) Independent Interpretation I performed an independent interpretation of an: EKG and CT Scan Interpretation: See above Radiology Impression Discussion of test interpretation with radiology: I have reviewed the radiologist's reading. Radiologist Impression: See above External Record Review External record reviewed: Prior outpatient labs and Prior outpatient radiology Chronic Conditions Patient?s care impacted by: Hypertension Atrial fibrillation, chronic anticoagulation. NIH Stroke Scale Internal: Initial- Upon Arrival Level of Consciousness: Alert Level of Consciousness Questions: Answers both questions correctly Level of Consciousness Commands: Performs both tasks correctly Best Gaze: Normal Visual: No visual loss Facial Palsy: Normal Motor Arm (Right): Drift Motor Arm (Left): No drift Motor Leg (Right): No drift Motor Leg (Left): No drift Limb Ataxia: Absent Sensory: Mild to moderate sensory loss Best Language: No aphasia Dysarthia: Normal Extinction and Inattention: No abnormality Score: 2 Critical Care Time Critical Care Time Critical Care Time: Yes Total Critical Care Time: 60 Attestation: I personally attest to this time spent taking care of the patient. Discharge Plan Discharge Clinical Impression: Hemorrhagic stroke Patient Disposition: [facility] Transfer Details: Hemorrhagic stroke, neurosurgery Prescriptions: No Action Eliquis 5 mg tablet 5 mg PO BID Qty: 60 11RF tamsulosin 0.4 mg capsule 1 cap PO BID carvedilol 6.25 mg tablet 6.25 mg PO BIDWM levothyroxine 100 mcg tablet 100 mcg PO DAILY@0600 fluticasone furoate-vilanterol [Breo Ellipta] 100-25 mcg/dose Blister With Device 1 inh inhalation RDAILY Qty: 30 0RF albuterol sulfate 90 mcg/actuation HFA aerosol inhaler 2 puff inhalation Q4-6H PRN (Reason: shortness of breath or wheezing) Qty: 8.5 0RF Rx Instructions: use with spacer device atorvastatin 80 mg tablet 80 mg PO BEDTIME Qty: 30 0RF furosemide 40 mg tablet 40 mg PO BID Qty: 60 0RF Rx Instructions: increased from prior dose of 40 mg daily spironolactone 25 mg tablet 25 mg PO DAILY 90 Days Qty: 90 1RF Print Language: Macedonian
[2024-08-10 14:28] LABS: MANUAL DIFF FLAG NO
[2024-08-10 14:32] LABS: Basophils Absolute Auto 0.1 X10*3/uL (0.0-0.2); Basophils Percent Auto 0.5 % (0-2); Eosinophils Absolute Auto 0.3 X10*3/uL (0.0-0.4); Eosinophils Percent Auto 2.9 % (0-4); Hematocrit 40.8 % (42.0-52.0); Imm Gran Abs Auto 0.16 X10*3/uL (0.00-0.03); Imm Gran Pct Auto 1.4 % (0.0-0.4); Lymphocytes Absolute Auto 1.3 X10*3/uL (1.2-4.9); Lymphocytes Percent Auto 11.5 % (20-40); Mean Corpuscular HGB Conc 34.3 g/dl (31.0-36.0); Mean Corpuscular Hemoglobin 31.8 pg (27.0-33.0); Mean Corpuscular Volume 92.7 fL (80.0-98.0); Mean Platelet Volume 10.9 fL (9.4-12.4); Monocytes Absolute Auto 0.9 X10*3/uL (0.1-1.2); Monocytes Percent Auto 8.2 % (2-11); Neutrophils Absolute Auto 8.5 x10*3/uL (2.0-8.3); Neutrophils Percent Auto 75.5 % (45-73); Platelet Count 189 X10*3/uL (160-400); Red Cell Distribution Width 15.1 % (11.0-16.0); White Blood Count 11.2 X10*3/uL (4.8-10.8)
[2024-08-10 14:34] LABS: VBG Base Excess -2.6 mmol/L; VBG HCO3 20 mmol/L (22-26); VBG pCO2 30 mmHg; VBG pH 7.43 (7.32-7.43); VBG pO2 44 mmHg
[2024-08-10 14:34] LABS: Venous Blood Gas Refer to POC result
[2024-08-10 14:51] LABS: B Type Natriuretic Peptide 899 pg/mL (<100)
[2024-08-10 15:32] LABS: Appearance Urine Clear; Color Urine Yellow; Glucose Urine UA 500 mg/dL (Negative); Leukocyte Esterase Urine Negative (Negative); Nitrite Urine Negative (Negative); Specific Gravity - Urine <= 1.005 (1.005-1.025); Urine Blood Negative (Negative); Urine Ketones Negative (Negative); Urine Protein Negative (Neg-Trace)
[2024-08-10 15:55] LABS: Alanine Aminotransferase 15 U/L (0-40); Albumin Level 3.3 g/dL (3.5-5.0); Alkaline Phosphatase 64 U/L (39-117); Anion Gap 16 (12-20); Aspartate Amino Transferase 29 U/L (5-37); Blood Urea Nitrogen 44 mg/dL (9-16); Calcium 8.8 mg/dL (8.4-10.2); Carbon Dioxide 24 mmol/L (22-29); Chloride 107 mmol/L (96-108); Creatinine Clr Calc Pharmacy 33.2; Estimated Glomerular Filt Rate 47; Glucose Random 107 mg/dL (60-115); Potassium 4.5 mmol/L (3.3-5.1); Sodium 142 mmol/L (135-145); Total Protein 6.8 g/dL (6.5-8.0)
--- NOTE | 2024-08-10 16:05 | PC.NURSE ---
Pt arrives to dept via EMS- MD Miranda examined pt at bedside- pt LKW 0900. sts that he woke up with right arm weakness, and tremor. Per MD pt is out of window for TNK.
--- NOTE | 2024-08-10 16:29 | PC.NURSE ---
Pt to be transferred to [facility] for hemorrhagic stroke- per Martir in pharmacy 2000 units [facility] rec for bleeding -- notified
[2024-08-10 16:30] VITALS: BP 142/39; PULSE 60; RESP 16; O2SAT 97
[2024-08-10] MEDS: Furosemide 20 MG/2 ML VIAL IVPUSH (16:38)
[2024-08-10] MEDS: Hum Prothrombin Cplx(PCC)4Fact 2,000 UNIT in Container,Empty 0 ML 480 UNIT IV (16:42)
[2024-08-10 16:47] LABS: Influenza A PCR NEGATIVE (Negative); Influenza B PCR NEGATIVE (Negative); Resp Syncy Virus RNA Qual PCR NEGATIVE (Negative); SARS COV2 PCR INHOUSE POSITIVE (Negative)
[2024-08-10 16:53] LABS: INTERNATIONAL NORM RATIO 2.1 (0.9-1.1)
--- NOTE | 2024-08-10 16:56 | PC.NURSE ---
MD Miranda discussing goals of care with pt dtr Mabel
[2024-08-10 17:02] VITALS: BP 145/89; PULSE 62; RESP 18; O2SAT 97
--- NOTE | 2024-08-10 17:44 | PC.NURSE ---
attempted to call report to Johanna [phone]-- t/w was on hold for 6 minutes prior to being disconnected. pt room to be transferred to room 9
--- NOTE | 2024-08-10 17:57 | PC.NURSE ---
nicardipine held [id number]-- pt transported via ALS to [facility]
[2024-08-10 18:03] VITALS: BP 134/40; PULSE 60; RESP 18; O2SAT 96
--- NOTE | 2024-08-10 18:07 | PC.NURSE ---
Spoke with pt dtr Mabel, advised ptt has left dept via EMS- pt to go to [address] room 9
--- NOTE | 2024-08-10 18:30 | PC.NURSE ---
report given to ROMAIN Orellana at [facility]
[2024-08-10 18:43] VITALS: BP 134/40; PULSE 60; RESP 18; TEMP 37.1; O2SAT 96
== END 2024-08-10 18:44 | disposition short-term general hospital (02) ==
PROVIDERS: Emergency Provider Student in an Organized Health Care Education/Training Program; PCP Internal Medicine
DX: I62.9 Nontraumatic intracranial hemorrhage, unspecified (principal); G83.20 Monoplegia of upper limb affecting unspecified side; R29.702 NIHSS score 2; R06.02 Shortness of breath; Z03.818 Encounter for observation for suspected exposure to other biological agents ruled out; I11.0 Hypertensive heart disease with heart failure; I50.23 Acute on chronic systolic (congestive) heart failure; E78.5 Hyperlipidemia, unspecified; I48.0 Paroxysmal atrial fibrillation; Z87.891 Personal history of nicotine dependence; Z95.0 Presence of cardiac pacemaker; Z79.01 Long term (current) use of anticoagulants; Z79.02 Long term (current) use of antithrombotics/antiplatelets; Z79.899 Other long term (current) drug therapy
CPT/HCPCS: 0241U; 36415; 70450; 71045; 80053; 81003; 82803; 83880; 85025; 85610; 93005; 96374; 96375; 99285; J1940; J7168

== ENCOUNTER → 2024-08-10 13:53 | Outpatient (BNV) | payer MEDICARE, SELFPAY | PROVIDERS: Emergency Provider Student in an Organized Health Care Education/Training Program; PCP Internal Medicine; Visit Provider Internal Medicine | DX: I48.91 Unspecified atrial fibrillation (principal) | CPT/HCPCS: 93010 ==

== ENCOUNTER → 2024-08-10 14:00 | Outpatient (BNV) | payer MEDICARE, SELFPAY | PROVIDERS: Emergency Provider Student in an Organized Health Care Education/Training Program; PCP Internal Medicine; Visit Provider Radiology Diagnostic Radiology | DX: I51.7 Cardiomegaly (principal); Z95.0 Presence of cardiac pacemaker; I61.1 Nontraumatic intracerebral hemorrhage in hemisphere, cortical | CPT/HCPCS: 70450; 71045 ==